=== PATIENT | female | born 1935 | race Caucasian/White ===

== ENCOUNTER 2021-09-09 07:24 | Observation (INO) | payer BC, MEDICARE ==
[2021-09-09] MEDS ORDERED: NITROGLYCERIN OINT 1 INCH/GM PACKET TOPICAL STA (07:29)
--- NOTE | 2021-09-09 07:39 | ED ---
General Adult HPI - General Chief complaint: Chest Pain Stated complaint: Chest Pain Time Seen by Provider: 09/09/21 07:24 Source: patient, EMS, RN notes reviewed, old records reviewed Mode of arrival: EMS Limitations: no limitations - History of Present Illness Initial comments: This is an 85-year-old female presents to the emergency department from [facility]. Patient came in with chest pain which started last night o'clock when she arrived they determined that she was having a heart attack so the gave her TNKase and then transferred the patient aspirin patient states she is currently chest pain-free. Patient states she has no cardiac history. Patient denies diabetes. Patient states she was just recently started on a high blood pressure medication. Patient denies any high cost for per patient is smoking per patient denies any shortness of breath but she stated that did have some pain in the left arm. Patient denies abdominal pain patient has nausea vomiting diarrhea. - Related Data Home Medications Medication Instructions Recorded Confirmed Ibandronate Sodium [Boniva] 150 mg PO QMONTHLY 09/09/21 09/09/21 Levothyroxine Sodium [Synthroid] 112 mcg PO DAILY 09/09/21 09/09/21 amLODIPine [Norvasc] 5 mg PO PC-SUPPER 09/09/21 09/09/21 Allergies Allergy/AdvReac Type Severity Reaction Status Date / Time No Known Allergies Allergy Verified 09/09/21 08:37 Review of Systems ROS Statement: Those systems with pertinent positive or pertinent negative responses have been documented in the HPI. ROS Other: All systems not noted in ROS Statement are negative. Past Medical History Past Medical History: Hypertension, Osteoarthritis (OA), Thyroid Disorder Additional Past Surgical History / Comment(s): Vericose veins 1977 Smoking Status: Never smoker Past Alcohol Use History: None Reported Past Drug Use History: None Reported General Exam - General Exam Comments Initial Comments: GENERAL: Patient is well-developed and well-nourished. Patient is nontoxic and well- hydrated and is in no acute distress. ENT: Neck is soft and supple. No significant lymphadenopathy is noted. Oropharynx is clear. Moist mucous membranes. Neck has full range of motion without eliciting any pain. EYES: The sclera were anicteric and conjunctiva were pink and moist. Extraocular movements were intact and pupils were equal round and reactive to light. Eyelids were unremarkable. PULMONARY: Unlabored respirations. Good breath sounds bilaterally. No audible rales rhonchi or wheezing was noted. CARDIOVASCULAR: There is a regular rate and rhythm without any murmurs gallops or rubs. ABDOMEN: Soft and nontender with normal bowel sounds. SKIN: Skin is clear with no lesions or rashes and otherwise unremarkable. NEUROLOGIC: Patient is alert and oriented x3. Cranial nerves II through XII are grossly intact. Motor and sensory are also intact. Normal speech, volume and content. Symmetrical smile. MUSCULOSKELETAL: Normal extremities with adequate strength and full range of motion. LYMPHATICS: No significant lymphadenopathy is noted PSYCHIATRIC: Normal psychiatric evaluation. Limitations: no limitations Course Vital Signs 09/09/21 09/09/21 07:26 07:33 Temperature 98.4 F Pulse Rate 87 Pulse Rate [ 87 Floor Layer ] Respiratory 16 Rate Blood Pressure 148/83 O2 Sat by Pulse 97 Oximetry Medical Decision Making - Medical Decision Making EKG shows sinus rhythm at 86 bpm TN interval is 174 QRS is 143 QT interval 36 QTC is 429 per patient's EKG shows no ST segment elevation or depression. Chest x-ray showed no acute abnormality. Dr. Watson came down and saw the patient and decided that he be taking the patient to the [facility] tomorrow. I started the patient on heparin for unstable angina. I spoke with Dr. Abdul he agreed to admit the patient admitted the patient I wrote admitting orders. I continued heparin has been Nitropaste on the floor. - Lab Data Result diagrams: 09/09/21 07:38 09/09/21 07:38 Lab Results 09/09/21 09/09/21 09/09/21 Range/Units 07:38 07:38 07:38 WBC 15.0 H (3.8-10.6) k/uL RBC 4.07 (3.80-5.40) m/uL Hgb 13.9 (11.4-16.0) gm/dL Hct 40.5 (34.0-46.0) % MCV 99.6 (80.0-100.0) fL MCH 34.2 (25.0-35.0) pg MCHC 34.3 (31.0-37.0) g/dL RDW 12.4 (11.5-15.5) % Plt Count 260 (150-450) k/uL MPV 7.6 Neutrophils % 91 % Lymphocytes % 2 % Monocytes % 6 % Eosinophils % 0 % Basophils % 0 % Neutrophils # 13.7 H (1.3-7.7) k/uL Lymphocytes # 0.2 L (1.0-4.8) k/uL Monocytes # 0.9 (0-1.0) k/uL Eosinophils # 0.1 (0-0.7) k/uL Basophils # 0.0 (0-0.2) k/uL PT 10.5 (9.0-12.0) sec INR 1.0 (<1.2) APTT 20.9 L (22.0-30.0) sec Sodium 130 L (137-145) mmol/L Potassium 4.4 (3.5-5.1) mmol/L Chloride 103 (98-107) mmol/L Carbon Dioxide 20 L (22-30) mmol/L Anion Gap 7 mmol/L BUN 16 (7-17) mg/dL Creatinine 0.55 (0.52-1.04) mg/dL Est GFR (CKD-EPI)AfAm >90 (>60 ml/min/1.73 sqM) Est GFR (CKD-EPI)NonAf 87 (>60 ml/min/1.73 sqM) Glucose 140 H (74-99) mg/dL Calcium 9.0 (8.4-10.2) mg/dL Magnesium 1.8 (1.6-2.3) mg/dL Total Bilirubin 1.1 (0.2-1.3) mg/dL AST 37 H (14-36) U/L ALT 20 (4-34) U/L Alkaline Phosphatase 57 (38-126) U/L Troponin I (0.000-0.034) ng/mL Total Protein 8.1 (6.3-8.2) g/dL Albumin 4.2 (3.5-5.0) g/dL 09/09/21 Range/Units 07:38 WBC (3.8-10.6) k/uL RBC (3.80-5.40) m/uL Hgb (11.4-16.0) gm/dL Hct (34.0-46.0) % MCV (80.0-100.0) fL MCH (25.0-35.0) pg MCHC (31.0-37.0) g/dL RDW (11.5-15.5) % Plt Count (150-450) k/uL MPV Neutrophils % % Lymphocytes % % Monocytes % % Eosinophils % % Basophils % % Neutrophils # (1.3-7.7) k/uL Lymphocytes # (1.0-4.8) k/uL Monocytes # (0-1.0) k/uL Eosinophils # (0-0.7) k/uL Basophils # (0-0.2) k/uL PT (9.0-12.0) sec INR (<1.2) APTT (22.0-30.0) sec Sodium (137-145) mmol/L Potassium (3.5-5.1) mmol/L Chloride (98-107) mmol/L Carbon Dioxide (22-30) mmol/L Anion Gap mmol/L BUN (7-17) mg/dL Creatinine (0.52-1.04) mg/dL Est GFR (CKD-EPI)AfAm (>60 ml/min/1.73 sqM) Est GFR (CKD-EPI)NonAf (>60 ml/min/1.73 sqM) Glucose (74-99) mg/dL Calcium (8.4-10.2) mg/dL Magnesium (1.6-2.3) mg/dL Total Bilirubin (0.2-1.3) mg/dL AST (14-36) U/L ALT (4-34) U/L Alkaline Phosphatase (38-126) U/L Troponin I <0.012 (0.000-0.034) ng/mL Total Protein (6.3-8.2) g/dL Albumin (3.5-5.0) g/dL Critical Care Time Critical Care Time: Yes Total Critical Care Time: 35 Disposition Clinical Impression: Unstable angina pectoris Disposition: ADMITTED IP TO THIS HOSP Referrals: Adia Angeles MD [Primary Care Provider] - 1-2 days Time of Disposition: 09:41
[2021-09-09 07:58] LABS: Basophils % (A) 0 %; Eosinophils # (A) 0.1 k/uL (0-0.7); Eosinophils % (A) 0 %; HCT 40.5 % (34.0-46.0); HGB 13.9 gm/dL (11.4-16.0); Lymphocytes # (A) 0.2 k/uL (1.0-4.8); Lymphocytes % (A) 2 %; MCH 34.2 pg (25.0-35.0); MCHC 34.3 g/dL (31.0-37.0); MCV 99.6 fL (80.0-100.0); Mean Platelet Volume 7.6; Monocytes # (A) 0.9 k/uL (0-1.0); Monocytes % (A) 6 %; Neutrophils # (A) 13.7 k/uL (1.3-7.7); Neutrophils % (A) 91 %; Platelet Count 260 k/uL (150-450); RBC 4.07 m/uL (3.80-5.40); RDW 12.4 % (11.5-15.5)
[2021-09-09 08:03] LABS: ALT 20 U/L (4-34); African American GFR (CKD) >90 (>60 ml/min/1.73 sqM); Albumin 4.2 g/dL (3.5-5.0); Anion Gap 7 mmol/L; Blood Urea Nitrogen 16 mg/dL (7-17); Carbon Dioxide 20 mmol/L (22-30); Chloride 103 mmol/L (98-107); Glucose 140 mg/dL (74-99); Non-African American GFR(CKD) 87 (>60 ml/min/1.73 sqM); Sodium 130 mmol/L (137-145); Total Bilirubin 1.1 mg/dL (0.2-1.3); Total Protein 8.1 g/dL (6.3-8.2)
[2021-09-09 08:12] LABS: AST 37 U/L (14-36); Alkaline Phosphatase 57 U/L (38-126); Magnesium 1.8 mg/dL (1.6-2.3); Potassium 4.4 mmol/L (3.5-5.1)
[2021-09-09 08:39] LABS: Prothrombin Time 10.5 sec (9.0-12.0)
[2021-09-09 08:40] LABS: Partial Thromboplastin Time 20.9 sec (22.0-30.0)
[2021-09-09] MEDS ORDERED: HEPARIN SOD,PORK IN 0.45% NACL 25,000 UNIT in 0.45% NACL 1 250ML.BAG IV SCH (09:00)
[2021-09-09] MEDS ORDERED: HEPARIN SODIUM 1,000 UN/ML (10ML VL) IV ONE ×2 (09:01→18:36)
[2021-09-09] MEDS ORDERED: NITROGLYCERIN SL TABS 0.4 MG TAB SUBLINGUAL PRN ×2 (09:41→11:10)
[2021-09-09] MEDS ORDERED: ALPRAZolam 0.25 MG TAB PO PRN (11:10)
[2021-09-09] MEDS ORDERED: ALPRAZolam 0.5 MG TAB PO PRN (11:10)
--- NOTE | 2021-09-09 11:10 | P.CRDCN ---
<Maddy Valentino - Last Filed: 09/09/21 10:52> History of Present Illness Consult date: 09/09/21 History of present illness: HISTORY OF PRESENT ILLNESS: This is a 85 year female with a past medical history significant for hypertension and hypothyroidism. 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 We have been asked to see the patient in consultation for chest pain. Patient examined at the bedside. Patient presented to the ER at [facility] for chest pain. Patient reports she developed chest pain last night. She reports having nausea but no vomiting. Patient was found to have an abnormal EKG. She was given TPA at [place] and transferred to [facility] for further evaluation. Patient states after she received TPA her chest pain resolved. She is chest pain free at the time of my examination. * EKG reveals sinus mechanism with right bundle branch block with ST elevation at the J point * Laboratory data: WBC 15.0. Hemoglobin 13.9. Platelet count 260. Sodium 130. Potassium 4.4. BUN 16. Creatinine 0.55. Magnesium 1.8. Troponin at [place] negative 1. Troponin negative 1 at this facility. * Current home cardiac medications include amlodipine 5 mg at night REVIEW OF SYSTEMS: At the time of my exam: CONSTITUTIONAL: Denies fever or chills. HEENT: Denies blurred vision, vision changes, or eye pain. Denies hemoptysis CARDIOVASCULAR: Denies chest pain. Denies orthopnea. Denies PND. Denies palpitations RESPIRATORY: Denies shortness of breath. GASTROINTESTINAL: Denies abdominal pain. Denies nausea or vomiting. HEMATOLOGIC: Denies bleeding disorders. GENITOURINARY: Denies any blood in urine. SKIN: Denies pruitis. Denies rash. PHYSICAL EXAM: VITAL SIGNS: Reviewed. GENERAL: Well-developed in no acute distress. HEENT: Head is normocephalic. Pupils are equal, round. Sclerae anicteric. Mucous membranes of the mouth are moist. Neck supple. No JVD or thyromegaly LUNGS: Respirations even and unlabored. Lungs essentially clear to auscultation bilaterally. HEART: Regular rate and rhythm. S1 and S2 heard. ABDOMEN: Soft. Nondistended. Nontender. EXTREMITIES: Normal range of motion. No clubbing or cyanosis. Peripheral pulses intact. No lower extremity edema NEUROLOGIC: Awake and alert. Oriented x 3. ASSESSMENT: Unstable angina with abnormal EKG revealing right bundle branch block with ST elevation at the J point Hypertension Hypothyroidism PLAN: Patients EKG is not clear cut for STEMI. However, her symptoms were concerning for angina and her symptoms were relieved with TPA infusion We will treat her with IV heparin, aspirin, metorprolol, and lipitor Obtain 2D echo to assess cardiac structure and function Patient will undergo cardiac cath tomorrow with Dr. Babin Nurse practitioner note has been reviewed by physician. Signing provider agrees with the documented findings, assessment, and plan of care. Past Medical History Past Medical History: Hypertension, Thyroid Disorder, Vascular Disorder Additional Past Medical History / Comment(s): Pt states she is on Ibandronate for prevention of osteoporosis but bone density has been normal, varicose veins/surgery. History of Any Multi-Drug Resistant Organisms: None Reported Past Surgical History: Tonsillectomy Additional Past Surgical History / Comment(s): Varicose veins 1978, colonoscopy, bilateral cataract removals/lens implants. Past Anesthesia/Blood Transfusion Reactions: No Reported Reaction Smoking Status: Never smoker - Past Family History Father Family Medical History: No Reported History Additional Family Medical History / Comment(s): Pt states her father was healthy and lived into his late 80s. Mother Family Medical History: No Reported History Additional Family Medical History / Comment(s): Pt states her mother was healthy and lived into her late 80s. Medications and Allergies Home Medications Medication Instructions Recorded Confirmed Type Ibandronate Sodium [Boniva] 150 mg PO QMONTHLY 09/09/21 09/09/21 History Levothyroxine Sodium [Synthroid] 112 mcg PO DAILY 09/09/21 09/09/21 History amLODIPine [Norvasc] 5 mg PO PC-SUPPER 09/09/21 09/09/21 History Allergies Allergy/AdvReac Type Severity Reaction Status Date / Time No Known Allergies Allergy Verified 09/09/21 08:37 Physical Exam Vitals: Vital Signs Temp Pulse Pulse Resp BP Pulse Ox 09/09/21 07:33 87 09/09/21 07:26 98.4 F 87 16 148/83 97 Intake and Output 09/08/21 09/09/21 09/09/21 22:59 06:59 14:59 Other: Weight 65.771 kg Results 09/09/21 07:38 09/09/21 07:38 Cardiac Enzymes 09/09/21 09/09/21 Range/Units 07:38 07:38 AST 37 H (14-36) U/L Troponin I <0.012 (0.000-0.034) ng/mL Coagulation 09/09/21 Range/Units 07:38 PT 10.5 (9.0-12.0) sec APTT 20.9 L (22.0-30.0) sec CBC 09/09/21 Range/Units 07:38 WBC 15.0 H (3.8-10.6) k/uL RBC 4.07 (3.80-5.40) m/uL Hgb 13.9 (11.4-16.0) gm/dL Hct 40.5 (34.0-46.0) % Plt Count 260 (150-450) k/uL Comprehensive Metabolic Panel 09/09/21 Range/Units 07:38 Sodium 130 L (137-145) mmol/L Potassium 4.4 (3.5-5.1) mmol/L Chloride 103 (98-107) mmol/L Carbon Dioxide 20 L (22-30) mmol/L BUN 16 (7-17) mg/dL Creatinine 0.55 (0.52-1.04) mg/dL Glucose 140 H (74-99) mg/dL Calcium 9.0 (8.4-10.2) mg/dL AST 37 H (14-36) U/L ALT 20 (4-34) U/L Alkaline Phosphatase 57 (38-126) U/L Total Protein 8.1 (6.3-8.2) g/dL Albumin 4.2 (3.5-5.0) g/dL Current Medications Generic Name Dose Route Start Last Admin Trade Name Freq PRN Reason Stop Dose Admin Aspirin 325 mg 09/10/21 09:00 Aspirin 325 Mg Tab PO DAILY [facility] Atorvastatin Calcium 80 mg 09/10/21 09:00 Atorvastatin 80 Mg Tab PO DAILY [facility] Heparin Sodium/Sodium Chloride 250 mls @ 7.893 mls/hr 09/09/21 09:00 09/09/21 09:18 25,000 unit/ Sodium Chloride IV 12 units/kg/hr .Q24H RODRIGO 7.893 mls/hr Administration Protocol 12 UNITS/KG/HR Metoprolol Tartrate 25 mg 09/09/21 21:00 Metoprolol Tartrate 25 Mg Tab PO BID RODRIGO Nitroglycerin 0.4 mg 09/09/21 09:41 Nitroglycerin Sl Tabs 0.4 Mg Tab SUBLINGUAL Q5M PRN Chest Pain Nitroglycerin 1 inch 09/09/21 12:00 Nitroglycerin Oint 1 Inch/Gm Packet TOPICAL Q6HR RODRIGO Intake and Output 09/08/21 09/09/21 09/09/21 22:59 06:59 14:59 Other: Weight 65.771 kg Patient Weight 09/10/21 06:59 Weight 65.771 kg 09/09/21 07:38 09/09/21 07:38 <Reed Watson - Last Filed: 09/09/21 15:01> Physical Exam Vitals: Vital Signs Temp Pulse Pulse Resp BP Pulse Ox 09/09/21 14:00 73 24 102/61 95 09/09/21 13:00 69 17 110/73 93 L 09/09/21 12:00 97.9 F 70 19 94/62 95 09/09/21 11:30 76 30 H 09/09/21 08:00 78 17 122/80 94 L 09/09/21 07:33 87 09/09/21 07:32 24 97 09/09/21 07:26 98.4 F 87 16 148/83 97 Intake and Output 09/09/21 09/09/21 09/09/21 06:59 14:59 22:59 Intake Total 360 Output Total 0 Balance 360 Intake: Oral 360 Output: Urine 0 Other: Weight 65.771 kg Results 09/09/21 07:38 09/09/21 07:38 Cardiac Enzymes 09/09/21 09/09/21 09/09/21 Range/Units 07:38 07:38 10:30 AST 37 H (14-36) U/L Troponin I <0.012 <0.012 (0.000-0.034) ng/mL Coagulation 09/09/21 Range/Units 07:38 PT 10.5 (9.0-12.0) sec APTT 20.9 L (22.0-30.0) sec CBC 09/09/21 Range/Units 07:38 WBC 15.0 H (3.8-10.6) k/uL RBC 4.07 (3.80-5.40) m/uL Hgb 13.9 (11.4-16.0) gm/dL Hct 40.5 (34.0-46.0) % Plt Count 260 (150-450) k/uL Comprehensive Metabolic Panel 09/09/21 Range/Units 07:38 Sodium 130 L (137-145) mmol/L Potassium 4.4 (3.5-5.1) mmol/L Chloride 103 (98-107) mmol/L Carbon Dioxide 20 L (22-30) mmol/L BUN 16 (7-17) mg/dL Creatinine 0.55 (0.52-1.04) mg/dL Glucose 140 H (74-99) mg/dL Calcium 9.0 (8.4-10.2) mg/dL AST 37 H (14-36) U/L ALT 20 (4-34) U/L Alkaline Phosphatase 57 (38-126) U/L Total Protein 8.1 (6.3-8.2) g/dL Albumin 4.2 (3.5-5.0) g/dL Current Medications Generic Name Dose Route Start Last Admin Trade Name Freq PRN Reason Stop Dose Admin Alprazolam 0.25 mg 09/09/21 11:10 Alprazolam 0.25 Mg Tab PO Q6HR PRN Mild Anxiety Alprazolam 0.5 mg 09/09/21 11:10 Alprazolam 0.5 Mg Tab PO Q6HR PRN Moderate Anxiety Aspirin 81 mg 09/10/21 09:00 Aspirin 81 Mg PO DAILY [facility] Aspirin 325 mg 09/10/21 06:00 Aspirin 325 Mg Tab PO 09/10/21 06:01 ONCE ONE Atorvastatin Calcium 80 mg 09/10/21 09:00 Atorvastatin 80 Mg Tab PO DAILY [facility] Atorvastatin Calcium 80 mg 09/10/21 06:00 Atorvastatin 80 Mg Tab PO 09/10/21 06:01 ONCE ONE Heparin Sodium/Sodium Chloride 250 mls @ 7.893 mls/hr 09/09/21 09:00 09/09/21 09:18 25,000 unit/ Sodium Chloride IV 12 units/kg/hr .Q24H RODRIGO 7.893 mls/hr Administration Protocol 12 UNITS/KG/HR Heparin Sodium (Porcine) 10, 1,001 mls @ 999 mls/hr 09/10/21 07:00 000 unit/ Sodium Chloride IRRIGATION 09/10/21 23:00 ONCE PRN INTRA-OP Heparin Sodium (Porcine) 2,500 250.5 mls @ 250 mls/hr 09/10/21 07:00 unit/ Sodium Chloride IRRIGATION 09/10/21 23:00 ONCE PRN INTRA-OP Sodium Chloride 1,000 ml/ IV 1,000 mls @ 65.771 mls/hr 09/09/21 23:00 Solution IV .[id number] RODRIGO 1 ML/KG/HR Metoprolol Tartrate 25 mg 09/09/21 21:00 Metoprolol Tartrate 25 Mg Tab PO BID RODRIGO Nitroglycerin 0.4 mg 09/09/21 09:41 Nitroglycerin Sl Tabs 0.4 Mg Tab SUBLINGUAL Q5M PRN Chest Pain Nitroglycerin 1 inch 09/09/21 12:00 09/09/21 13:58 Nitroglycerin Oint 1 Inch/Gm Packet TOPICAL Not Given Q6HR RODRIGO Nitroglycerin 0.4 mg 09/09/21 11:10 Nitroglycerin Sl Tabs 0.4 Mg Tab SUBLINGUAL Q5M PRN Chest Pain Intake and Output 09/09/21 09/09/21 09/09/21 06:59 14:59 22:59 Intake Total 360 Output Total 0 Balance 360 Intake: Oral 360 Output: Urine 0 Other: Weight 65.771 kg Patient Weight 09/10/21 06:59 Weight 65.771 kg 09/09/21 07:38 09/09/21 07:38
[2021-09-09 11:34] LABS: Glucose,Whole Blood 132 mg/dL (75-99)
[2021-09-09] MEDS: NITROGLYCERIN OINT 1 INCH/GM PACKET TOPICAL SCH (13:58)
--- NOTE | 2021-09-09 15:31 | P.HPIM ---
History of Present Illness H&P Date: 09/09/21 Chief Complaint: Chest pressure This is a very pleasant 85-year-old patient who follows with Dr. Adia Angeles. Chronic stable medical conditions include hypertension, hypothyroid, urinary incontinence and wears diapers, hard of hearing. Last night patient felt tired and unwell and developed pressure across the chest. No nausea vomiting. No shortness of breath. No radiation. Last was several hours. Subsequently patient presented to [facility]. Patient is felt to have ST elevation in inferolateral leads and was given TPA. Then transferred down here. Patient was seen by cardiology here felt to have J-point elevation. Put on IV heparin. Plan is for patient to get cardiac catheterization tomorrow. Troponins have been negative. Currently no chest pain. In the ICU. On IV heparin Review of systems: GEN.: Tired EYES: None HEENT: Hard of hearing NECK: None RESPIRATORY: None CARDIOVASCULAR: As above GASTROINTESTINAL: None GENITOURINARY: Urine incontinence MUSCULOSKELETAL: None LYMPHATICS: None HEMATOLOGICAL: None PSYCHIATRY: None NEUROLOGICAL: None Past medical history to include: Hypertension, hypothyroid, urinary incontinence, hard of hearing Social history: No history of smoking or alcohol. Lives with her . Family history: Reviewed, noncontributory to presentation Physical examination: VITAL SIGNS: 97.9, 70, 19, 90/62, 95% room air GENERAL: BMI 24.1, laying in bed, awake, not in distress. EYES: Pupils equal. Conjunctiva normal. HEENT: External appearance of nose and ears normal, oral cavity grossly normal. Hard of hearing NECK: JVD not raised; masses not palpable. HEART: First and second heart sounds are normal; no edema. LUNGS: Respiratory rate normal; clear to auscultation. ABDOMEN: Soft, nontender, liver spleen not palpable, no masses palpable. PSYCH: Alert and oriented x3; mood and affect normal. MUSCULOSKELETAL:No Clubbing/cyanosis;muscles-grossly intact. Evidence of OA especially in the knees and hands NEUROLOGICAL: Cranial nerves grossly intact; no facial asymmetry, power and sensation grossly intact. LYMPHATICS: No lymph nodes palpable in the axilla and neck INVESTIGATIONS, reviewed in the clinical context: White count 15 hemoglobin 13.9 platelets 260 sodium 1:30 potassium 4.4 BUN 16 creatinine 0.5 Troponin I 3 negative Investigations from [facility]: White count 12.1 hemoglobin 12.5 platelets 265 EKG tracing personally reviewed by me-possible J-point elevation in inferolateral leads. Sinus rhythm. Assessment and plan: -Possible unstable angina in a patient who presented with cardiac sounding pain for several hours to [facility]. Possible J-point elevation on EKG. Troponins have been negative. Patient did receive TPA IV heparin, aspirin, cartilages planning for a cardiac cath tomorrow -IV heparin monitoring Follow PTT -Primary osteoarthritis multiple joints Pain medications if needed -Chronic urinary stress incontinence -Hypothyroid Synthroid 112 g a day -Essential hypertension Lopressor 25 mg twice a day ICU. Telemetry. IV heparin. Lopressor. Aspirin. Her cardiac catheterization tomorrow. Lipitor. Care was discussed with the patient. Questions answered. Past Medical History Past Medical History: Hypertension, Thyroid Disorder, Vascular Disorder Additional Past Medical History / Comment(s): Pt states she is on Ibandronate for prevention of osteoporosis but bone density has been normal, varicose veins/surgery. History of Any Multi-Drug Resistant Organisms: None Reported Past Surgical History: Tonsillectomy Additional Past Surgical History / Comment(s): Varicose veins 1978, colonoscopy, bilateral cataract removals/lens implants. Past Anesthesia/Blood Transfusion Reactions: No Reported Reaction Smoking Status: Never smoker - Past Family History Father Family Medical History: No Reported History Additional Family Medical History / Comment(s): Pt states her father was healthy and lived into his late 80s. Mother Family Medical History: No Reported History Additional Family Medical History / Comment(s): Pt states her mother was healthy and lived into her late 80s. Medications and Allergies Home Medications Medication Instructions Recorded Confirmed Type Ibandronate Sodium [Boniva] 150 mg PO QMONTHLY 09/09/21 09/09/21 History Levothyroxine Sodium [Synthroid] 112 mcg PO DAILY 09/09/21 09/09/21 History amLODIPine [Norvasc] 5 mg PO PC-SUPPER 09/09/21 09/09/21 History Allergies Allergy/AdvReac Type Severity Reaction Status Date / Time No Known Allergies Allergy Verified 09/09/21 08:37 Physical Exam Vitals: Vital Signs Temp Pulse Pulse Resp BP Pulse Ox 09/09/21 07:33 87 09/09/21 07:26 98.4 F 87 16 148/83 97 Intake and Output 09/08/21 09/09/21 09/09/21 22:59 06:59 14:59 Other: Weight 65.771 kg Results CBC & Chem 7: 09/09/21 07:38 09/09/21 07:38 Labs: Abnormal Lab Results - Last 24 Hours (Table) 09/09/21 09/09/21 09/09/21 Range/Units 07:38 07:38 07:38 WBC 15.0 H (3.8-10.6) k/uL Neutrophils # 13.7 H (1.3-7.7) k/uL Lymphocytes # 0.2 L (1.0-4.8) k/uL APTT 20.9 L (22.0-30.0) sec Sodium 130 L (137-145) mmol/L Carbon Dioxide 20 L (22-30) mmol/L Glucose 140 H (74-99) mg/dL AST 37 H (14-36) U/L Thrombosis Risk Factor Assmnt - Choose All That Apply Any of the Below Risk Factors Present?: Yes Each Factor Represents 1 point: Acute SD, Varicose veins Other Risk Factors: Yes Each Risk Factor Represents 3 Points: Age 75 years or older Other congenital or acquired thrombophilia - If yes, enter type in comment: No Thrombosis Risk Factor Assessment Total Risk Factor Score: 5 Thrombosis Risk Factor Assessment Level: High Risk
[2021-09-09] MEDS ORDERED: ATORVASTATIN 80 MG TAB PO ONE (15:45)
--- NOTE | 2021-09-09 16:03 | XR ---
EXAMINATION TYPE: XR chest 1V portable DATE OF EXAM: 09/09/2021 COMPARISON: NONE HISTORY: Chest pain TECHNIQUE: Single frontal view of the chest is obtained. FINDINGS: There is a large hiatal hernia suspected with abdominal contents present within the chest. No evident pneumothorax. Difficult to exclude airspace disease, fusion. Heart is obscured. There are overlying leads. Aorta is dense. IMPRESSION: Large diaphragmatic hernia suspected. CT could be performed for better evaluation.
[2021-09-09] MEDS ORDERED: VERAPAMIL 2.5 MG/ML 2 ML AMP ONE (18:06)
[2021-09-09] MEDS ORDERED: LIDOCAINE 1% INJ 10MG/ML (20 ML MDV) ONE (18:06)
[2021-09-09] MEDS ORDERED: HEPARIN SODIUM 1,000 UN/ML (10ML VL) ONE (18:06)
[2021-09-09] MEDS ORDERED: MIDAZOLAM 2 MG/2 ML VIAL IV ONE (18:20)
[2021-09-09] MEDS ORDERED: LIDOCAINE 1% INJ 10MG/ML (20 ML MDV) SQ ONE (18:22)
[2021-09-09] MEDS ORDERED: IV FLUID CONTINUATION 800 ML IV ONE (18:23)
[2021-09-09] MEDS ORDERED: VERAPAMIL SYRINGE (5 MG/10 ML) INTRAARTER ONE (18:34)
[2021-09-09] MEDS ORDERED: IOPAMIDOL-370 100ML BTL INJ ONE (18:42)
[2021-09-09] MEDS ORDERED: ACETAMINOPHEN TAB 325 MG TAB PO PRN (19:49)
[2021-09-09] MEDS: METOPROLOL TARTRATE 25 MG TAB PO SCH (20:06)
--- NOTE | 2021-09-09 20:30 | CC ---
CARDIAC CATHETERIZATION REPORT DATE OF SERVICE: 09/09/2021 PROCEDURE: Left heart catheterization and coronary angiography. PERFORMED BY: Dr. Susan Babin. Moderate conscious sedation time was 25 minutes. Patient was administered Versed. Oxygen saturation, hemodynamics and EKG were monitored closely. CLINICAL INFORMATION: Mrs. Escamilla is an 85-year-old lady with a history of hypertension who was transferred from an outside facility after receiving tPA for what seems to be a precordial ST elevation. She actually had J-point elevation, no troponin rise. LV function was normal. She was advised cardiac catheterization, given the episodes of chest tightness and pressure. Risks, benefits and options were explained. Patient was seen and evaluated by Dr. Watson. PROCEDURE NOTE: Under local anesthesia and strict aseptic precautions, a 6-Lao introducer was placed in the right radial artery. JL3.5 and JR4 catheters were used to perform coronary angiography. The right Oumou catheter was used to check LV pressures. Following the procedure, the sheath was taken out and TR band applied as per protocol with saturation in the fingers of the right hand of more than 95%. Patient tolerated the procedure well without complication. The results were discussed with the patient as well as a phone call to her . CARDIAC CATHETERIZATION FINDINGS: Left ventricular end-diastolic pressure was about 9 mmHg without any gradient across the aortic valve. CORONARY ANGIOGRAPHY FINDINGS: RIGHT CORONARY ARTERY: Large dominant vessel. No significant disease. Distally bifurcates into PDA and PLV, both of which supply a large amount of myocardium. No significant disease. LEFT MAIN CORONARY ARTERY: Short, patent vessel free of significant disease that immediately bifurcates into LAD and circumflex. LEFT ANTERIOR DESCENDING CORONARY ARTERY: Good-caliber vessel gives off 2 large diagonal branches, one good-sized septal branch, runs all the way to the apex, supplies a sizable amount of myocardium. No significant disease in the LAD, diagonal or septal branches. LEFT POSTERIOR CIRCUMFLEX CORONARY ARTERY: This is a nondominant vessel which is of fair caliber and distribution, supplies a fair amount of myocardium. It gives off a good-sized obtuse marginal that runs laterally. There are minor irregularities in the nondominant circumflex, which is of fair caliber and distribution, but no significant disease. FINAL IMPRESSION: This patient has a right-dominant system, normal filling pressures. No significant obstructive CAD. RECOMMENDATIONS: Findings were discussed with the patient and her . She will be continued with medical therapy and sent back to her room. Procedure was performed uneventfully and patient has no significant obstructive CAD. VINOD / IJN: [id number] /
[2021-09-09] MEDS ORDERED: SODIUM CHLORIDE 0.9% 1,000 ML in EMPTY BAG 1 BAG IV SCH (23:00)
[2021-09-10 05:53] LABS: Basophils % (A) 0 %; Eosinophils % (A) 1 %; HCT 36.4 % (34.0-46.0); Lymphocytes # (A) 0.7 k/uL (1.0-4.8); Lymphocytes % (A) 7 %; MCH 33.2 pg (25.0-35.0); MCHC 32.9 g/dL (31.0-37.0); MCV 101.1 fL (80.0-100.0); Monocytes # (A) 0.8 k/uL (0-1.0); Monocytes % (A) 9 %; Neutrophils # (A) 7.6 k/uL (1.3-7.7); Neutrophils % (A) 81 %; Platelet Count 227 k/uL (150-450); RDW 11.9 % (11.5-15.5); WBC 9.4 k/uL (3.8-10.6)
[2021-09-10] MEDS ORDERED: ASPIRIN 325 MG TAB PO ONE (06:00)
[2021-09-10] MEDS ORDERED: ATORVASTATIN 80 MG TAB PO ONE (06:00)
[2021-09-10] MEDS ORDERED: LEVOTHYROXINE 112 MCG TAB PO SCH (06:30)
[2021-09-10] MEDS ORDERED: HEPARIN SODIUM,PORCINE 10,000 UNIT in SODIUM CHLORIDE 0.9% 1,000 ML IRRIGATION PRN (07:00)
[2021-09-10] MEDS ORDERED: HEPARIN SODIUM,PORCINE 2,500 UNIT in SODIUM CHLORIDE 0.9% 250 ML IRRIGATION PRN (07:00)
[2021-09-10] MEDS: METOPROLOL TARTRATE 25 MG TAB PO SCH (08:04)
[2021-09-10] MEDS ORDERED: ASPIRIN 81 MG PO SCH (09:00)
[2021-09-10] MEDS ORDERED: LOSARTAN 25 MG TAB PO SCH (09:00)
[2021-09-10] MEDS ORDERED: ASPIRIN 325 MG TAB PO SCH (09:00)
[2021-09-10] MEDS ORDERED: ATORVASTATIN 40 MG TAB PO SCH (09:00)
[2021-09-10] MEDS ORDERED: ATORVASTATIN 80 MG TAB PO SCH (09:00)
[2021-09-10 09:26] VITALS: RESP 18; TEMP 98
[2021-09-10] MEDS: NITROGLYCERIN OINT 1 INCH/GM PACKET TOPICAL SCH (09:30)
--- NOTE | 2021-09-10 09:31 | ECHOF ---
Referral Reason:lv function MEASUREMENTS -------- HEIGHT: 165.1 cm WEIGHT: 65.8 kg BP: 94/62 RVIDd: 4.7 cm (< 3.3) IVSd: 1.5 cm (0.6 - 1.1) LVIDd: 2.7 cm (3.9 - 5.3) LVPWd: 1.4 cm (0.6 - 1.1) EDV(Teich): 27 ml IVSs: 1.4 cm LVIDs: 1.7 cm LVPWs: 1.2 cm IVSd: 1.2 cm (0.6 - 1.1) LVIDd: 2.7 cm (3.9 - 5.3) LVPWd: 1.1 cm (0.6 - 1.1) IVSs: 1.5 cm LVIDs: 1.5 cm LVPWs: 1.5 cm EDV(Teich): 27 ml ESV(Teich): 6 ml EF(Teich): 79 % %FS: 46 % SV(Teich): 22 ml MV E Te: 0.87 m/s MV DecT: 262 ms MV A Te: 0.95 m/s MV E/A Ratio: 0.92 RAP: 5.00 mmHg RVSP: 27.27 mmHg FINDINGS -------- Sinus rhythm. This was a technically difficult study with suboptimal parasternal views. The left ventricular size is normal. There is mild concentric left ventricular hypertrophy. Overa ll left ventricular systolic function is normal with, an EF between 55 - 60 %. Basal anterior LV wa ll motion is hypokinetic. Mid anterior LV wall motion is hypokinetic. The right ventricle is severely enlarged. Normal LA size by volume 22+/-6 ml/m2. The right atrium was not well visualized. Interatrial and interventricular septum intact. There is no evidence of aortic regurgitation. There is no evidence of aortic stenosis. No mitral regurgitation. Mild tricuspid regurgitation present. There is no evidence of pulmonary hypertension. The right v entricular systolic pressure, as measured by Doppler, is 27.27mmHg. The pulmonic valve was not well visualized. The aortic root size is normal. IVC Not well visulized. There is a moderate, generalized pericardial effusion present. CONCLUSIONS -------- 1. The left ventricular size is normal. 2. There is mild concentric left ventricular hypertrophy. 3. Overall left ventricular systolic function is normal with, an EF between 55 - 60 %. 4. Basal anterior LV wall motion is hypokinetic. 5. Mid anterior LV wall motion is hypokinetic. 6. Mild tricuspid regurgitation present. 7. There is a moderate, generalized pericardial effusion present. ORDER BOOKER: Catherine Fischer RDCS
[2021-09-10 09:48] LABS: Chol/HDL Ratio 1.72 Ratio; LDL Cholesterol,Calculated 49.5 mg/dL (0.0-131.0)
[2021-09-10] MEDS ORDERED: LACTULOSE 20 GM/30 ML CUP PO ONE (11:09)
--- NOTE | 2021-09-10 11:20 | P.PN ---
Subjective Patient is doing well No chest discomfort Resting comfortably in bed Denies any dizziness lightheadedness palpitations or chest discomfort She was admitted with chest discomfort and possible ST elevations with an underlying right bundle branch block and received TPA at [facility] However her troponins are normal and the subsequent troponin was also normal She then underwent coronary angiography which did not reveal any significant coronary stenosis A 2-D echo shows mild anterior wall hypokinesis with pericardial effusion seems old and organized This may be the cause of her chest pain Vitals are stable blood pressure 124/71 mmHg pulse rate in the 70s Afebrile Normal heart sounds normal S1 normal S2 Breath sounds are clear no rhonchi no crackles Abdomen soft Extremities warm no edema Impression sinus mechanism with a right bundle branch block pattern no evidence for hyperacute ST segments No evidence for acute myocardial infarction Patient received TPA for possible ST elevation LA at [facility] but tender that she did not have an LA in the first place Pericarditis, subacute to chronic Mild hypokinesis in the anterior segments of the LV, overall function is preserved Plan Parvovirus B19, coxsackievirus, Marleny-Huynh virus antibodies sent Continue current medications including metoprolol losartan atorvastatin and aspirin Follow-up with Dr. gorman in 2 weeks Objective - Vital Signs Vital signs: Vital Signs Temp 98.0 F 09/10/21 09:25 Pulse 72 09/10/21 09:27 Resp 18 09/10/21 09:27 BP 133/74 09/10/21 09:25 Pulse Ox 95 09/10/21 09:25 Intake & Output 09/09/21 09/10/21 09/10/21 18:59 06:59 18:59 Intake Total 735 797.483 Output Total 300 650 0 Balance 435 147.483 0 Weight 65.771 kg 79.878 kg Intake: IV 50 525 Sodium Chloride 0.9% 1, 525 000 ml In Empty Bag 1 bag @ 75 mls/hr IV .[id number] [facility] Rx#:[id number] Intake, IV Titration 325 152.483 Amount Heparin Sod,Pork in 0.45% 77.483 NaCl 25,000 unit In 0.45 % NaCl 1 250ml.bag @ 12 UNITS/KG/HR 7.893 mls/hr IV .Q24H [facility] Rx#: [id number] Sodium Chloride 0.9% 1, 325 75 000 ml In Empty Bag 1 bag @ 75 mls/hr IV .[id number] [facility] Rx#:[id number] Oral 360 120 Output: Urine 300 650 0 Other: Voiding Method Toilet # Voids 1 - Labs CBC & Chem 7: 09/10/21 05:23 09/09/21 07:38 Labs: Abnormal Lab Results - Last 24 Hours (Table) 09/09/21 09/10/21 09/10/21 Range/Units 11:32 05:23 05:23 RBC 3.60 L (3.80-5.40) m/uL MCV 101.1 H (80.0-100.0) fL Lymphocytes # 0.7 L (1.0-4.8) k/uL POC Glucose (mg/dL) 132 H (75-99) mg/dL HDL Cholesterol 84.70 H (40.00-60.00) mg/dL
[2021-09-10 12:07] VITALS: BP 135/64; PULSE 71
[2021-09-10 19:01] LABS: EBV-EA (IgG) <0.2 AI; EBV-EBNA(IgG) <0.2 AI; EBV-VCA (IgG) <0.2 AI; EBV-VCA (IgM) <0.2 AI
--- NOTE | 2021-09-10 21:25 | P.DS ---
Providers Date of admission: 09/09/21 09:41 Expected date of discharge: 09/10/21 Attending physician: Clifton Abdul Consults: 09/09/21 09:41 Consult Physician Urgent Consulting Provider: [facility] Consult Reason/Comments: Unstable angina Do you want consulting provider notified?: Yes Primary care physician: Adia Angeles [facility] Course: Chief Complaint: Chest pressure This is a very pleasant 85-year-old patient who follows with Dr. Adia Angeles. Chronic stable medical conditions include hypertension, hypothyroid, urinary incontinence and wears diapers, hard of hearing. Last night patient felt tired and unwell and developed pressure across the chest. No nausea vomiting. No shortness of breath. No radiation. Last was several hours. Subsequently patient presented to [facility]. Patient is felt to have ST elevation in inferolateral leads and was given TPA. Then transferred down here. Patient was seen by cardiology here felt to have J-point elevation. Put on IV heparin. Plan is for patient to get cardiac catheterization tomorrow. Troponins have been negative. Currently no chest pain. In the ICU. On IV heparin. Patient underwent cardiac catheterization by Dr. CHELO Babin. No significant CAD. Patient may have had an element of pericarditis. 2-D echo showed some pericardial effusion. September 10: Patient feeling well. Seen by Dr. Syd Watson Patient may have had an element of pericarditis. No obstructive disease. Patient is symptom-free. will follow outpatient with cardiology. Past medical history to include: Hypertension, hypothyroid, urinary incontinence, hard of hearing Social history: No history of smoking or alcohol. Lives with her . Family history: Reviewed, noncontributory to presentation Physical examination: VITAL SIGNS: 98, 72, 18, 133/74, 95% room air GENERAL: Laying in bed, comfortable EYES: Pupils equal. Conjunctiva normal. HEENT: External appearance of nose and ears normal, oral cavity grossly normal. Hard of hearing NECK: JVD not raised; masses not palpable. HEART: First and second heart sounds are normal; no edema. LUNGS: Respiratory rate normal; clear to auscultation. ABDOMEN: Soft, nontender, liver spleen not palpable, no masses palpable. PSYCH: Alert and oriented x3; mood and affect normal. MUSCULOSKELETAL:No Clubbing/cyanosis;muscles-grossly intact. Evidence of OA especially in the knees and hands INVESTIGATIONS, reviewed in the clinical context: Cardiac catheterization: Minimal CAD 2-D echocardiogram: EF 55-60%. Some wall motion abnormality. Moderate generalized pericardial effusion. September 10: White count 9.4 hemoglobin 12 LDL 49 Marleny-Huynh viral serology: Negative White count 15 hemoglobin 13.9 platelets 260 sodium 1:30 potassium 4.4 BUN 16 creatinine 0.5 Troponin I 3 negative Investigations from [facility]: White count 12.1 hemoglobin 12.5 platelets 265 EKG tracing personally reviewed by me-possible J-point elevation in inferolateral leads. Sinus rhythm. Chest x-ray film: Large hiatal hernia Assessment and plan: -Possible pericarditis could be viral Motrin 600 mg 3 times a day for 7 days -Moderate pericardial effusion: Asymptomatic -IV heparin monitoring: Discontinued Follow PTT -Primary osteoarthritis multiple joints Pain medications if needed -Chronic urinary stress incontinence -Hypothyroid Synthroid 112 g a day -Essential hypertension Lopressor 25 mg twice a day Disposition: Home Plan - Discharge Summary Discharge Rx Participant: No New Discharge Prescriptions: New Aspirin 81 mg PO DAILY Losartan [Cozaar] 25 mg PO DAILY #30 tab Atorvastatin [Lipitor] 40 mg PO DAILY #30 tab Metoprolol Tartrate [Lopressor] 25 mg PO BID #60 tab Nitroglycerin Sl Tabs [Nitrostat] 0.4 mg SUBLINGUAL Q5M PRN #30 tab PRN Reason: Chest Pain Continue Levothyroxine Sodium [Synthroid] 112 mcg PO DAILY Ibandronate Sodium [Boniva] 150 mg PO QMONTHLY Discontinued amLODIPine [Norvasc] 5 mg PO PC-SUPPER Discharge Medication List Ibandronate Sodium [Boniva] 150 mg PO QMONTHLY 09/09/21 [History] Levothyroxine Sodium [Synthroid] 112 mcg PO DAILY 09/09/21 [History] Aspirin 81 mg PO DAILY 09/10/21 [Rx] Atorvastatin [Lipitor] 40 mg PO DAILY #30 tab 09/10/21 [Rx] Losartan [Cozaar] 25 mg PO DAILY #30 tab 09/10/21 [Rx] Metoprolol Tartrate [Lopressor] 25 mg PO BID #60 tab 09/10/21 [Rx] Nitroglycerin Sl Tabs [Nitrostat] 0.4 mg SUBLINGUAL Q5M PRN #30 tab 09/10/21 [Rx] Follow up Appointment(s)/Referral(s): Reed Watson MD [STAFF PHYSICIAN] - 2 Weeks (office will call you with follow up appointment) Adia Angeles MD [Primary Care Provider] - 09/21/21 10:00 am Patient Instructions/Handouts: Heart Catheterization (DC) Discharge Disposition: HOME SELF-CARE
[2021-09-13 12:28] LABS: Parvovirus B-19 IgM Antibodies 0.04 INDEX (<=0.90)
[2021-09-13 12:29] LABS: Parvovirus B-19 IgG Antibodies 2.19 INDEX (<=0.90)
== END 2021-09-10 12:15 | disposition home or self-care (01) ==
LOC: EC 07:24 → 3SCARD 09:41 → INTOOBSV 09:41 → 2SICU 10:34 → 3SCARD 09-10 09:20 → UNDODISIN 09-10 12:15
PROVIDERS: ADMIT Hospitalist; ATTEND Hospitalist
DX: R07.9 Chest pain, unspecified (principal); I31.3 Pericardial effusion (noninflammatory); I20.0 Unstable angina; I45.10 Unspecified right bundle-branch block; R11.0 Nausea; M79.602 Pain in left arm; I10 Essential (primary) hypertension; H91.90 Unspecified hearing loss, unspecified ear; E03.9 Hypothyroidism, unspecified; M15.9 Polyosteoarthritis, unspecified; N39.3 Stress incontinence (female) (male); K44.9 Diaphragmatic hernia without obstruction or gangrene; I07.1 Rheumatic tricuspid insufficiency; I83.90 Asymptomatic varicose veins of unspecified lower extremity; Z71.9 Counseling, unspecified; Z79.899 Other long term (current) drug therapy; Z79.890 Hormone replacement therapy; Z79.83 Long term (current) use of bisphosphonates; Z96.1 Presence of intraocular lens
CPT/HCPCS: 96376; 96365; 96366; 99291; 36415; 93005; 93306; 93458; 86747 ×2; 86665 ×2; 80061; 80053; 86663; 83735; 84484; 85025 ×2; 86658; 85610; 85730; 86664; 71045; G0378 ×4; C1769 ×2; C1894; J2250; J2001; J1644 ×2; Q9967; 96374

== ENCOUNTER 2021-10-18 13:22 | Inpatient (IN) | payer MEDICARE ==
--- NOTE | 2021-10-18 13:50 | ED ---
General Adult HPI - General Chief complaint: Shortness of Breath Stated complaint: Swelling Feet, Weakness Time Seen by Provider: 10/18/21 13:37 Source: patient, RN notes reviewed, old records reviewed Mode of arrival: ambulatory Limitations: no limitations - History of Present Illness Initial comments: 85-year-old female presenting for evaluation of lower extremity swelling and dyspnea. Symptoms have progressed over the past 3 days. Patient denies fever. She denies chest pain. She is not currently on any diuretics. She states she had a heart catheterization on a recent admission and was told this was normal. Is also had very poor appetite and nausea. No abdominal pain. - Related Data Home Medications Medication Instructions Recorded Confirmed Ibandronate Sodium [Boniva] 150 mg PO Q30D 09/09/21 10/18/21 Levothyroxine Sodium [Synthroid] 112 mcg PO DAILY 09/09/21 10/18/21 Calcium Carbonate [Calcium] 600 mg PO DAILY 10/18/21 10/18/21 Cholecalciferol [Vitamin D3 (25 25 mcg PO DAILY 10/18/21 10/18/21 Mcg = 1000 Iu)] Glucosamine HCl/Chondroitin Joseph 1 cap PO BID 10/18/21 10/18/21 [Glucosamine-Chondroitin Cap] Multivit-Min/FA/Lycopen/Lutein 1 tab PO DAILY 10/18/21 10/18/21 [Centrum Silver Tablet] Nitroglycerin Sl Tabs [Nitrostat] 0.4 mg SL Q5M PRN 10/18/21 10/18/21 Previous Rx's Medication Instructions Recorded Aspirin 81 mg PO DAILY 09/10/21 Metoprolol Tartrate [Lopressor] 25 mg PO BID #60 tab 09/10/21 Allergies Allergy/AdvReac Type Severity Reaction Status Date / Time No Known Allergies Allergy Verified 10/18/21 14:54 Review of Systems ROS Statement: Those systems with pertinent positive or pertinent negative responses have been documented in the HPI. ROS Other: All systems not noted in ROS Statement are negative. Past Medical History Past Medical History: Hypertension, Thyroid Disorder, Vascular Disorder Additional Past Medical History / Comment(s): Pt states she is on Ibandronate for prevention of osteoporosis but bone density has been normal, varicose veins/surgery. History of Any Multi-Drug Resistant Organisms: None Reported Past Surgical History: Tonsillectomy Additional Past Surgical History / Comment(s): Varicose veins 1978, colonoscopy, bilateral cataract removals/lens implants. Past Anesthesia/Blood Transfusion Reactions: No Reported Reaction Past Psychological History: No Psychological Hx Reported Smoking Status: Never smoker Past Alcohol Use History: None Reported Past Drug Use History: None Reported - Past Family History Father Family Medical History: No Reported History Additional Family Medical History / Comment(s): Pt states her father was healthy and lived into his late 80s. Mother Family Medical History: No Reported History Additional Family Medical History / Comment(s): Pt states her mother was healthy and lived into her late 80s. General Exam Limitations: no limitations General appearance: alert, in no apparent distress Head exam: Present: atraumatic, normocephalic Eye exam: Present: normal appearance, PERRL Neck exam: Present: normal inspection Respiratory exam: Present: rales, decreased breath sounds. Absent: respiratory distress Cardiovascular Exam: Present: regular rate, normal rhythm GI/Abdominal exam: Present: soft. Absent: distended, tenderness, guarding Extremities exam: Present: pedal edema Neurological exam: Present: alert, oriented X3, CN II-XII intact. Absent: motor sensory deficit Psychiatric exam: Present: normal affect, normal mood Skin exam: Present: warm, dry, intact. Absent: cyanosis, diaphoretic Course Vital Signs 10/18/21 10/18/21 13:35 13:37 Temperature 97.9 F Pulse Rate 107 H Respiratory 16 18 Rate Blood Pressure 133/82 O2 Sat by Pulse 98 Oximetry EKG Findings - EKG Comments: EKG Findings:: EKG: Sinus tachycardia with first-degree AV block, right bundle branch block, artifact in V4 and V5. Ventricular rate of 105, NE interval 211 QRS duration 128, QTC 45 Medical Decision Making - Medical Decision Making 85-year-old female presenting with progressive dyspnea and lower extremity swelling over the past 3 days. Patient is mild to moderately tachypneic with decreased air entry bilaterally and rales bilaterally. Chest x-ray shows bilateral effusion as well as stable diaphragmatic hernia. She has a CBC which is normal with exception of thrombocytosis. She has a sodium of 1:30. Normal kidney function. Negative troponin, negative BNP. She had a heart cath performed 1 month ago which showed no significant obstructive CAD. She had an ultrasound at that time which showed normal EF and moderate effusion. I am concerned that there may be worsening of this effusion, repeat echo has been ordered, results are pending. She will be admitted to Dr. Abdul with cardiology on consult. - Lab Data Result diagrams: 10/18/21 14:06 10/18/21 14:06 Lab Results 10/18/21 10/18/21 10/18/21 Range/Units 14:06 14:06 14:06 WBC 9.8 (3.8-10.6) k/uL RBC 4.01 (3.80-5.40) m/uL Hgb 12.3 (11.4-16.0) gm/dL Hct 37.9 (34.0-46.0) % MCV 94.4 D (80.0-100.0) fL MCH 30.6 (25.0-35.0) pg MCHC 32.5 (31.0-37.0) g/dL RDW 12.4 (11.5-15.5) % Plt Count 587 H D (150-450) k/uL MPV 7.3 Neutrophils % 89 % Lymphocytes % 3 % Monocytes % 7 % Eosinophils % 1 % Basophils % 0 % Neutrophils # 8.7 H (1.3-7.7) k/uL Lymphocytes # 0.3 L (1.0-4.8) k/uL Monocytes # 0.7 (0-1.0) k/uL Eosinophils # 0.1 (0-0.7) k/uL Basophils # 0.0 (0-0.2) k/uL PT 10.6 (9.0-12.0) sec INR 1.0 (<1.2) APTT 22.8 (22.0-30.0) sec Sodium 130 L (137-145) mmol/L Potassium 4.0 (3.5-5.1) mmol/L Chloride 96 L (98-107) mmol/L Carbon Dioxide 25 (22-30) mmol/L Anion Gap 9 mmol/L BUN 14 (7-17) mg/dL Creatinine 0.51 L (0.52-1.04) mg/dL Est GFR (CKD-EPI)AfAm >90 (>60 ml/min/1.73 sqM) Est GFR (CKD-EPI)NonAf 90 (>60 ml/min/1.73 sqM) Glucose 177 H (74-99) mg/dL Plasma Lactic Acid Omar (0.7-2.0) mmol/L Calcium 8.3 L (8.4-10.2) mg/dL Magnesium 2.1 (1.6-2.3) mg/dL Total Bilirubin 0.5 (0.2-1.3) mg/dL AST 26 (14-36) U/L ALT 22 (4-34) U/L Alkaline Phosphatase 128 H (38-126) U/L Troponin I (0.000-0.034) ng/mL NT-Pro-B Natriuret Pep pg/mL Total Protein 7.0 (6.3-8.2) g/dL Albumin 3.1 L (3.5-5.0) g/dL 10/18/21 10/18/21 10/18/21 Range/Units 14:06 14:06 14:06 WBC (3.8-10.6) k/uL RBC (3.80-5.40) m/uL Hgb (11.4-16.0) gm/dL Hct (34.0-46.0) % MCV (80.0-100.0) fL MCH (25.0-35.0) pg MCHC (31.0-37.0) g/dL RDW (11.5-15.5) % Plt Count (150-450) k/uL MPV Neutrophils % % Lymphocytes % % Monocytes % % Eosinophils % % Basophils % % Neutrophils # (1.3-7.7) k/uL Lymphocytes # (1.0-4.8) k/uL Monocytes # (0-1.0) k/uL Eosinophils # (0-0.7) k/uL Basophils # (0-0.2) k/uL PT (9.0-12.0) sec INR (<1.2) APTT (22.0-30.0) sec Sodium (137-145) mmol/L Potassium (3.5-5.1) mmol/L Chloride (98-107) mmol/L Carbon Dioxide (22-30) mmol/L Anion Gap mmol/L BUN (7-17) mg/dL Creatinine (0.52-1.04) mg/dL Est GFR (CKD-EPI)AfAm (>60 ml/min/1.73 sqM) Est GFR (CKD-EPI)NonAf (>60 ml/min/1.73 sqM) Glucose (74-99) mg/dL Plasma Lactic Acid Omar 1.1 (0.7-2.0) mmol/L Calcium (8.4-10.2) mg/dL Magnesium (1.6-2.3) mg/dL Total Bilirubin (0.2-1.3) mg/dL AST (14-36) U/L ALT (4-34) U/L Alkaline Phosphatase (38-126) U/L Troponin I <0.012 (0.000-0.034) ng/mL NT-Pro-B Natriuret Pep 557 pg/mL Total Protein (6.3-8.2) g/dL Albumin (3.5-5.0) g/dL Disposition Clinical Impression: New onset of congestive heart failure Disposition: ADMITTED IP TO THIS HOSP Condition: Stable Is patient prescribed a controlled substance at d/c from ED?: No Referrals: Adia Angeles MD [Primary Care Provider] - 1-2 days Time of Disposition: 15:54
[2021-10-18 14:25] LABS: Partial Thromboplastin Time 22.8 sec (22.0-30.0); Prothrombin Time 10.6 sec (9.0-12.0)
[2021-10-18 14:29] LABS: ALT 22 U/L (4-34); AST 26 U/L (14-36); African American GFR (CKD) >90 (>60 ml/min/1.73 sqM); Albumin 3.1 g/dL (3.5-5.0); Alkaline Phosphatase 128 U/L (38-126); Anion Gap 9 mmol/L; Blood Urea Nitrogen 14 mg/dL (7-17); Calcium 8.3 mg/dL (8.4-10.2); Carbon Dioxide 25 mmol/L (22-30); Chloride 96 mmol/L (98-107); Glucose 177 mg/dL (74-99); Magnesium 2.1 mg/dL (1.6-2.3); Non-African American GFR(CKD) 90 (>60 ml/min/1.73 sqM); Sodium 130 mmol/L (137-145); Total Bilirubin 0.5 mg/dL (0.2-1.3)
[2021-10-18 14:40] LABS: Basophils % (A) 0 %; Eosinophils # (A) 0.1 k/uL (0-0.7); Eosinophils % (A) 1 %; HCT 37.9 % (34.0-46.0); HGB 12.3 gm/dL (11.4-16.0); Lymphocytes # (A) 0.3 k/uL (1.0-4.8); Lymphocytes % (A) 3 %; MCH 30.6 pg (25.0-35.0); MCHC 32.5 g/dL (31.0-37.0); Mean Platelet Volume 7.3; Monocytes # (A) 0.7 k/uL (0-1.0); Monocytes % (A) 7 %; Neutrophils # (A) 8.7 k/uL (1.3-7.7); Neutrophils % (A) 89 %; RBC 4.01 m/uL (3.80-5.40); RDW 12.4 % (11.5-15.5); WBC 9.8 k/uL (3.8-10.6)
--- NOTE | 2021-10-18 14:41 | XR ---
EXAMINATION TYPE: XR chest 2V DATE OF EXAM: 10/18/2021 COMPARISON: X-ray dated 09/09/2021 HISTORY: Difficulty breathing. TECHNIQUE: Frontal and lateral views of the chest are obtained. FINDINGS: Congested bilateral pulmonary vasculature with bilateral basal pulmonary atelectasis and bilateral pl eural effusions obscuring the previously seen diaphragmatic hernia. This could be related to acute pulmonary edema/CHF however associated pulmonary infection cannot be e xcluded, please correlate clinically. Cardiac size cannot be properly assessed. No pneumothorax. Degenerative changes of the thoracic spine . IMPRESSION: As above.
[2021-10-18 14:46] LABS: MCV 94.4 fL (80.0-100.0); Platelet Count 587 k/uL (150-450)
[2021-10-18] MEDS ORDERED: NALOXONE 0.4 MG/ML 1 ML VIAL IV PRN (15:50)
[2021-10-18] MEDS ORDERED: FUROSEMIDE 10 MG/ML 4 ML VIAL IV STA (15:50)
--- NOTE | 2021-10-18 17:08 | P.HPIM ---
History of Present Illness H&P Date: 10/18/21 Chief Complaint: Short of breath This is a very pleasant 85-year-old patient who follows with Dr. Adia Angeles. Chronic stable medical conditions include hypertension, hypothyroid, urinary incontinence and wears diapers, hard of hearing. Large hiatal hernia 10/06/2021 patient was here with some chest pressure.cardiac catheterization by Dr. CHELO Babin. No significant CAD. Patient may have had an element of pericarditis. 2-D echo showed some pericardial effusion Patient was doing well upon discharge. The last few days patient started having progressively increasing shortness of breath. No fever no chills. Increasing lower extremity edema. Not able to eat when fall. Tired rundown. Orthopnea. Review of systems: GEN.: Tired EYES: None HEENT: Hard of hearing NECK: None RESPIRATORY: As above CARDIOVASCULAR: As above GASTROINTESTINAL: None GENITOURINARY: Urine incontinence MUSCULOSKELETAL: None LYMPHATICS: None HEMATOLOGICAL: None PSYCHIATRY: None NEUROLOGICAL: None Past medical history to include: Hypertension, hypothyroid, urinary incontinence, hard of hearing, pericarditis, hiatal hernia Social history: No history of smoking or alcohol. Lives with her . Family history: Reviewed, noncontributory to presentation Physical examination: VITAL SIGNS: 97.9, 107, 18, 133/82, 98% room air GENERAL: BMI 27.1, reclining in bed, awake, short of breath. EYES: Pupils equal. Conjunctiva normal. HEENT: External appearance of nose and ears normal, oral cavity grossly normal. NECK: JVD or possibly; masses not palpable. HEART: First and second heart sounds are normal; edema present. LUNGS: Respiratory rate increased, decreased breath sounds to bases. ABDOMEN: Soft, nontender, liver spleen not palpable, no masses palpable. PSYCH: Alert and oriented x3; mood and affect a bit anxiousl. MUSCULOSKELETAL:No Clubbing/cyanosis;muscles-grossly intact. Evidence of OA. NEUROLOGICAL: Cranial nerves grossly intact; no facial asymmetry, power and sensation grossly intact. LYMPHATICS: No lymph nodes palpable in the axilla and neck INVESTIGATIONS, reviewed in the clinical context: White count 9.8 hemoglobin 12.3 platelets 587 sodium 1:30 potassium 4 BUN 14 creatinine 0.51 troponin I less than 0.012 proBNP 557 albumin 3.1 EKG tracing personally reviewed by me-sinus tachycardia. Right bundle branch block pattern. Nonspecific ST/T-wave changes. Chest x-ray film personally reviewed by me-pulmonary edema. Heart hernia. Recent investigations [September 2021] Cardiac catheterization: Minimal CAD 2-D echocardiogram: EF 55-60%. Some wall motion abnormality. Moderate generalized pericardial effusion. Marleny-Huynh viral serology: Negative Assessment and plan: -This patient was here just about a month ago with the diagnosis of pericarditis. Was doing well when she left. Now presents with a few days of progressive increasing shortness of breath, edema. [place] to have more right than left pleural effusion. Note patient's BNP is only 557. Concern about increasing pericardial effusion. Rule out cardiactamponade from pericardial effusion 2-D echocardiogram. Telemetry. IV Lasix. Cardiology was informed. -Primary osteoarthritis multiple joints Pain medications if needed -Chronic urinary stress incontinence -Hypothyroid Synthroid 112 g a day -Essential hypertension Lopressor 25 mg twice a day 2-D echo. Telemetry. Cardiology consultation. Resume home medications. Subcu Lovenox. Care was discussed with the patient. Questions answered. Given the complexity and severity of patient's condition expect the patient to be in the hospital at least for 2 overnights Past Medical History Past Medical History: Hypertension, Thyroid Disorder, Vascular Disorder Additional Past Medical History / Comment(s): Pt states she is on Ibandronate for prevention of osteoporosis but bone density has been normal, varicose veins/surgery. History of Any Multi-Drug Resistant Organisms: None Reported Past Surgical History: Tonsillectomy Additional Past Surgical History / Comment(s): Varicose veins 1978, colonoscopy, bilateral cataract removals/lens implants. Past Anesthesia/Blood Transfusion Reactions: No Reported Reaction Past Psychological History: No Psychological Hx Reported Smoking Status: Never smoker Past Alcohol Use History: None Reported Past Drug Use History: None Reported - Past Family History Father Family Medical History: No Reported History Additional Family Medical History / Comment(s): Pt states her father was healthy and lived into his late 80s. Mother Family Medical History: No Reported History Additional Family Medical History / Comment(s): Pt states her mother was healthy and lived into her late 80s. Medications and Allergies Home Medications Medication Instructions Recorded Confirmed Type Ibandronate Sodium [Boniva] 150 mg PO Q30D 09/09/21 10/18/21 History Levothyroxine Sodium [Synthroid] 112 mcg PO DAILY 09/09/21 10/18/21 History Aspirin 81 mg PO DAILY 09/10/21 10/18/21 Rx Metoprolol Tartrate [Lopressor] 25 mg PO BID #60 tab 09/10/21 10/18/21 Rx Calcium Carbonate [Calcium] 600 mg PO DAILY 10/18/21 10/18/21 History Cholecalciferol [Vitamin D3 (25 25 mcg PO DAILY 10/18/21 10/18/21 History Mcg = 1000 Iu)] Glucosamine HCl/Chondroitin Joseph 1 cap PO BID 10/18/21 10/18/21 History [Glucosamine-Chondroitin Cap] Multivit-Min/FA/Lycopen/Lutein 1 tab PO DAILY 10/18/21 10/18/21 History [Centrum Silver Tablet] Nitroglycerin Sl Tabs [Nitrostat] 0.4 mg SL Q5M PRN 10/18/21 10/18/21 History Allergies Allergy/AdvReac Type Severity Reaction Status Date / Time No Known Allergies Allergy Verified 10/18/21 14:54 Physical Exam Vitals: Vital Signs Temp Pulse Resp BP Pulse Ox 10/18/21 13:37 18 10/18/21 13:35 97.9 F 107 H 16 133/82 98 Intake and Output 10/18/21 10/18/21 10/18/21 06:59 14:59 22:59 Other: Weight 73.936 kg Results CBC & Chem 7: 10/18/21 14:06 10/18/21 14:06 Labs: Abnormal Lab Results - Last 24 Hours (Table) 10/18/21 10/18/21 Range/Units 14:06 14:06 Plt Count 587 H D (150-450) k/uL Neutrophils # 8.7 H (1.3-7.7) k/uL Lymphocytes # 0.3 L (1.0-4.8) k/uL Sodium 130 L (137-145) mmol/L Chloride 96 L (98-107) mmol/L Creatinine 0.51 L (0.52-1.04) mg/dL Glucose 177 H (74-99) mg/dL Calcium 8.3 L (8.4-10.2) mg/dL Alkaline Phosphatase 128 H (38-126) U/L Albumin 3.1 L (3.5-5.0) g/dL
[2021-10-18] MEDS ORDERED: CALCIUM CARBONATE 500 MG CHEWABLE PO PRN (17:09)
[2021-10-18] MEDS ORDERED: MELATONIN 3 MG TABLET PO PRN (17:09)
[2021-10-18] MEDS ORDERED: PROCHLORPERAZINE 5 MG TAB PO PRN (17:09)
[2021-10-18] MEDS ORDERED: LORazepam 0.5 MG TAB PO PRN (17:09)
[2021-10-18] MEDS: ENOXAPARIN 40 MG/0.4 ML SYRINGE SQ SCH (17:15)
[2021-10-18] MEDS: METOPROLOL TARTRATE 25 MG TAB PO SCH (19:57)
[2021-10-18] MEDS: PSYLLIUM HUSK 100% 6 GM PACKET PO SCH (19:58)
[2021-10-19] MEDS: ACETAMINOPHEN TAB 325 MG TAB PO PRN ×3 (03:48→15:58)
[2021-10-19] MEDS: LEVOTHYROXINE 112 MCG TAB PO SCH (06:20)
--- NOTE | 2021-10-19 08:00 | ECHOF ---
Referral Reason:usha MEASUREMENTS -------- HEIGHT: 165.1 cm WEIGHT: 73.9 kg BP: IVSd: 1.2 cm (0.6 - 1.1) LVIDd: 3.1 cm (3.9 - 5.3) LVPWd: 1.4 cm (0.6 - 1.1) IVSs: 1.4 cm LVIDs: 1.9 cm LVPWs: 1.0 cm FINDINGS -------- Limited Study The left ventricular size is normal. There is moderate concentric left ventricular hypertrophy. O verall left ventricular systolic function is normal with, an EF between 55 - 60 %. Moderate tricuspid regurgitation present. There is a small, generalized pericardial effusion present. CONCLUSIONS -------- 1. Limited Study 2. The left ventricular size is normal. 3. There is moderate concentric left ventricular hypertrophy. 4. Overall left ventricular systolic function is normal with, an EF between 55 - 60 %. 5. There is a small, generalized pericardial effusion present. WATER PUMPER: Karlie Tanner RDCS
[2021-10-19 08:59] LABS: African American GFR (CKD) >90 (>60 ml/min/1.73 sqM); Anion Gap 5 mmol/L; Blood Urea Nitrogen 11 mg/dL (7-17); C Reactive Protein 7.5 mg/dL (<1.0); Calcium 8.2 mg/dL (8.4-10.2); Carbon Dioxide 30 mmol/L (22-30); Chloride 94 mmol/L (98-107); Glucose 97 mg/dL (74-99); Non-African American GFR(CKD) 86 (>60 ml/min/1.73 sqM); Potassium 3.9 mmol/L (3.5-5.1); Sodium 129 mmol/L (137-145)
[2021-10-19] MEDS: FUROSEMIDE 10 MG/ML 4 ML VIAL IV SCH ×2 (09:35→10:13)
[2021-10-19] MEDS: CALCIUM CARBONATE 500 MG CHEWABLE PO SCH (10:08)
[2021-10-19] MEDS: ASPIRIN 81 MG PO SCH (10:08)
[2021-10-19] MEDS: ENOXAPARIN 40 MG/0.4 ML SYRINGE SQ SCH (10:09)
[2021-10-19] MEDS: PSYLLIUM HUSK 100% 6 GM PACKET PO SCH ×2 (10:10→20:41)
[2021-10-19] MEDS: METOPROLOL TARTRATE 25 MG TAB PO SCH ×2 (10:10→20:41)
[2021-10-19] MEDS: MULTIVITAMINS, THERA 1 EACH TAB PO SCH (10:10)
[2021-10-19] MEDS: FUROSEMIDE 20 MG TAB PO SCH ×2 (10:11→15:58)
--- NOTE | 2021-10-19 10:53 | US ---
EXAMINATION TYPE: US venous doppler duplex LE BI DATE OF EXAM: 10/19/2021 10:45 AM COMPARISON: NONE CLINICAL HISTORY: 85-year-old female with swelling. SOB SIDE PERFORMED: Bilateral TECHNIQUE: The lower extremity deep venous system is examined utilizing real time linear array sonog broderick with graded compression, doppler sonography and color-flow sonography. Exam done portable FINDINGS: VESSELS IMAGED: Common Femoral Vein Deep Femoral Vein Greater Saphenous Vein * Femoral Vein Popliteal Vein Small Saphenous Vein * Proximal Calf Veins (* superficial vessels) Right Leg: Appears negative for DVT Left Leg: Appears negative for DVT Thrombus seen within bilateral small saphenous veins IMPRESSION: 1. No evidence for DVT within the bilateral lower extremities imaged from the groin to the upper calv es. 2. However, the exam is positive for SVT involving the bilateral small saphenous veins.
--- NOTE | 2021-10-19 12:13 | P.CRDCN ---
History of Present Illness History of present illness: This is a 85 year female with a past medical history significant for hypertension and hypothyroidism. She follows with Dr. Watson. We have been asked to see the patient in consultation for congestive heart failure. Patient examined at the bedside. Patient presented to the ER with complaints of worsening shortness of breath and LE edema, right leg greater than the left. She states his symptoms have worsened over the past 3 days. Yesterday night patient with increased shortness of breath and presented to the emergency department for further evaluation. She denies any chest pain, palpitations, lightheadedness, dizziness. In the emergency department patient was started on IV Lasix. Patient with not much improvement in her symptoms. She denies fever or cough. Patient was recently admitted in 09/2021 as a transfer from [facility] for possible ST elevations and underlying right bundle block. Patient received TPA at [place] was transferred to [facility]. No evidence of acute UT. She underwent cardiac catheterization that revealed no evidence of significant coronary artery disease. She was also treated for pericarditis. DIAGNOSTICS -Cardiac catheterization 09/2021 revealed no evidence of significant coronary artery disease -EKG revealed sinus tachycardia, first-degree AV block, right bundle branch block, heart rate 105, no acute ST or T-wave abnormalities suggesting acute ischemia. -Most recent echocardiogram 09/09/2021 revealed EF 5560 percent, basal anterior midanterior LV wall hypokinetic, moderate generalized pericardial effusion -Repeat echocardiogram this admission reveals EF 5560 percent, small generalized pericardial effusion, moderate concentric LVH -Chest xray- bilateral pulmonary vasculature, elevated diaphragm bilaterally, pulmonary edema versus pulmonary infection cannot be excluded. -Venous Dopplers negative for DVT bilaterally -Lasix, troponin negative, proBNP 557, albumin 3.1, sodium 129, potassium 2.9, BUN 11, serum creatinine 0.58, C reactive protein 7.5 REVIEW OF SYSTEMS: At the time of my exam: CONSTITUTIONAL: Denies fever or chills. HEENT: Denies blurred vision, vision changes, or eye pain. Denies hemoptysis CARDIOVASCULAR: Denies chest pain. Denies orthopnea. Denies PND. Denies palpitations RESPIRATORY: Reports shortness of breath. GASTROINTESTINAL: Denies abdominal pain. Denies nausea or vomiting. HEMATOLOGIC: Denies bleeding disorders. GENITOURINARY: Denies any blood in urine. SKIN: Denies pruitis. Denies rash. PHYSICAL EXAM: VITAL SIGNS: Reviewed. GENERAL: Well-developed in no acute distress. HEENT: Head is normocephalic. Pupils are equal, round. Sclerae anicteric. Mucous membranes of the mouth are moist. Neck supple. No JVD or thyromegaly LUNGS: Respirations even and unlabored. Lungs with decreased breath sounds bases, right lower lobe rhonchi HEART: Regular rate and rhythm. S1 and S2 heard. ABDOMEN: Soft. Nondistended. Nontender. EXTREMITIES: Normal range of motion. No clubbing or cyanosis. Peripheral pulses intact. Bilateral lower extremity edema present, moderate R >L NEUROLOGIC: Awake and alert. Oriented x 3. ASSESSMENT: Symptoms of shortness of breath and lower extremity edema, unclear etiology, patient does not appear to be in acute heart failure. Hypertension Hypothyroidism Recent treatment for pericarditis PLAN: Patient does not appear to be in acute heart failure that would be causing her symptoms. Recent cardiac catheterization with no significant coronary artery disease. Patient with Normal LV function. Pericardial effusion has improved on echocardiogram. Recommend Pulmonary consult for evaluation PO Lasix 20mg BID Continue aspirin, metoprolol tartrate Further recommendations based on clinical course Nurse practitioner note has been reviewed by physician. Signing provider agrees with the documented findings, assessment, and plan of care. Past Medical History Past Medical History: Hypertension, Thyroid Disorder, Vascular Disorder Additional Past Medical History / Comment(s): Pt states she is on Ibandronate for prevention of osteoporosis but bone density has been normal, varicose veins/surgery. History of Any Multi-Drug Resistant Organisms: None Reported Past Surgical History: Tonsillectomy Additional Past Surgical History / Comment(s): Varicose veins 1978, colonoscopy, bilateral cataract removals/lens implants. Past Anesthesia/Blood Transfusion Reactions: No Reported Reaction Smoking Status: Never smoker - Past Family History Father Family Medical History: No Reported History Additional Family Medical History / Comment(s): Pt states her father was healthy and lived into his late 80s. Mother Family Medical History: No Reported History Additional Family Medical History / Comment(s): Pt states her mother was healthy and lived into her late 80s. Medications and Allergies Home Medications Medication Instructions Recorded Confirmed Type Ibandronate Sodium [Boniva] 150 mg PO Q30D 09/09/21 10/18/21 History Levothyroxine Sodium [Synthroid] 112 mcg PO DAILY 09/09/21 10/18/21 History Aspirin 81 mg PO DAILY 09/10/21 10/18/21 Rx Metoprolol Tartrate [Lopressor] 25 mg PO BID #60 tab 09/10/21 10/18/21 Rx Calcium Carbonate [Calcium] 600 mg PO DAILY 10/18/21 10/18/21 History Cholecalciferol [Vitamin D3 (25 25 mcg PO DAILY 10/18/21 10/18/21 History Mcg = 1000 Iu)] Glucosamine HCl/Chondroitin Joseph 1 cap PO BID 10/18/21 10/18/21 History [Glucosamine-Chondroitin Cap] Multivit-Min/FA/Lycopen/Lutein 1 tab PO DAILY 10/18/21 10/18/21 History [Centrum Silver Tablet] Nitroglycerin Sl Tabs [Nitrostat] 0.4 mg SL Q5M PRN 10/18/21 10/18/21 History Allergies Allergy/AdvReac Type Severity Reaction Status Date / Time No Known Allergies Allergy Verified 10/18/21 14:54 Physical Exam Vitals: Vital Signs Temp Pulse Pulse Resp BP BP Pulse Ox 10/19/21 11:48 97.5 F L 83 20 138/84 96 10/19/21 08:00 97.5 F L 86 96 H 132/89 96 10/19/21 04:00 97.9 F 84 20 145/83 92 L 10/19/21 00:00 98.2 F 83 20 128/77 94 L 10/18/21 20:00 98.3 F 104 H 22 127/68 94 L 10/18/21 18:15 97.3 F L 98 16 132/78 94 L 10/18/21 17:00 108 H 18 148/100 93 L 10/18/21 16:00 101 H 18 141/78 93 L 10/18/21 14:00 104 H 18 136/72 94 L 10/18/21 13:37 18 10/18/21 13:35 97.9 F 107 H 16 133/82 98 Intake and Output 10/18/21 10/19/21 10/19/21 22:59 06:59 14:59 Intake Total 240 130 Balance 240 130 Intake: IV 10 Invasive Line 1 10 Oral 240 120 Other: Voiding Method Toilet # Voids 1 Weight 73.936 kg 79.1 kg Results 10/18/21 14:06 10/19/21 08:06 Cardiac Enzymes 10/18/21 10/18/21 Range/Units 14:06 14:06 AST 26 (14-36) U/L Troponin I <0.012 (0.000-0.034) ng/mL Coagulation 10/18/21 Range/Units 14:06 PT 10.6 (9.0-12.0) sec APTT 22.8 (22.0-30.0) sec CBC 10/18/21 Range/Units 14:06 WBC 9.8 (3.8-10.6) k/uL RBC 4.01 (3.80-5.40) m/uL Hgb 12.3 (11.4-16.0) gm/dL Hct 37.9 (34.0-46.0) % Plt Count 587 H D (150-450) k/uL Comprehensive Metabolic Panel 10/18/21 10/19/21 Range/Units 14:06 08:06 Sodium 130 L 129 L (137-145) mmol/L Potassium 4.0 3.9 (3.5-5.1) mmol/L Chloride 96 L 94 L (98-107) mmol/L Carbon Dioxide 25 30 (22-30) mmol/L BUN 14 11 (7-17) mg/dL Creatinine 0.51 L 0.58 (0.52-1.04) mg/dL Glucose 177 H 97 (74-99) mg/dL Calcium 8.3 L 8.2 L (8.4-10.2) mg/dL AST 26 (14-36) U/L ALT 22 (4-34) U/L Alkaline Phosphatase 128 H (38-126) U/L Total Protein 7.0 (6.3-8.2) g/dL Albumin 3.1 L (3.5-5.0) g/dL Current Medications Generic Name Dose Route Start Last Admin Trade Name Freq PRN Reason Stop Dose Admin Acetaminophen 650 mg 10/18/21 15:50 10/19/21 09:03 Acetaminophen Tab 325 Mg Tab PO 650 mg Q6HR PRN Administration Mild Pain or Fever > 100.5 Aspirin 81 mg 10/19/21 09:00 10/19/21 10:08 Aspirin 81 Mg PO 81 mg DAILY RODRIGO Administration Calcium Carbonate/Glycine 500 mg 04/12/22 09:00 10/19/21 10:08 Calcium Carbonate 500 Mg Chewable PO 500 mg DAILY RODRIGO Administration Calcium Carbonate/Glycine 1,000 mg 10/18/21 17:09 Calcium Carbonate 500 Mg Chewable PO Q4HR PRN Dyspepsia Enoxaparin Sodium 40 mg 10/18/21 17:15 10/19/21 10:09 Enoxaparin 40 Mg/0.4 Ml Syringe SQ 40 mg DAILY RODRIGO Administration Furosemide 20 mg 10/19/21 09:27 10/19/21 10:11 Furosemide 20 Mg Tab PO 20 mg BID@0900,1600 RODRIGO Administration Lactulose 20 gm 10/18/21 17:09 Lactulose 20 Gm/30 Ml Cup PO DAILY PRN Constipation Levothyroxine Sodium 112 mcg 10/19/21 06:30 10/19/21 06:20 Levothyroxine 112 Mcg Tab PO 112 mcg 0630 RODRIGO Administration Lorazepam 0.5 mg 10/18/21 17:09 Lorazepam 0.5 Mg Tab PO Q6HR PRN Anxiety Melatonin 3 mg 10/18/21 17:09 Melatonin 3 Mg Tablet PO HS PRN Insomnia Metoprolol Tartrate 25 mg 10/18/21 21:00 10/19/21 10:10 Metoprolol Tartrate 25 Mg Tab PO 25 mg BID RODRIGO Administration Multivitamins 1 each 10/19/21 09:00 10/19/21 10:10 Multivitamins, Thera 1 Each Tab PO 1 each DAILY RODRIGO Administration Naloxone HCl 0.2 mg 10/18/21 15:50 Naloxone 0.4 Mg/Ml 1 Ml Vial IV Q2M PRN Opioid Reversal Prochlorperazine Maleate 5 mg 10/18/21 17:09 Prochlorperazine 5 Mg Tab PO Q8HR PRN Nausea And Vomiting Psyllium Hydrophilic Mucilloid 6 gm 10/18/21 21:00 10/19/21 10:10 Psyllium Husk 100% 6 Gm Packet PO 6 gm BID RODRIGO Administration Intake and Output 10/18/21 10/19/21 10/19/21 22:59 06:59 14:59 Intake Total 240 130 Balance 240 130 Intake: IV 10 Invasive Line 1 10 Oral 240 120 Other: Voiding Method Toilet # Voids 1 Weight 73.936 kg 79.1 kg 10/18/21 14:06 10/19/21 08:06
--- NOTE | 2021-10-19 13:29 | P.PN ---
Progress Note - Text Progress Note Date: 10/19/21 Chief Complaint: Short of breath This is a very pleasant 85-year-old patient who follows with Dr. Adia Angeles. Chronic stable medical conditions include hypertension, hypothyroid, urinary incontinence and wears diapers, hard of hearing. Large hiatal hernia 10/06/2021 patient was here with some chest pressure.cardiac catheterization by Dr. CHELO Babin. No significant CAD. Patient may have had an element of pericarditis. 2-D echo showed some pericardial effusion Patient was doing well upon discharge. The last few days patient started having progressively increasing shortness of breath. No fever no chills. Increasing lower extremity edema. Not able to eat when fall. Tired rundown. Orthopnea. October 19: Sitting at the edge of the bed. Legs hanging. Helps his breathing. Pulmonary consulted. 2-D echo showed small pericardial effusion. VQ scan orde red to rule out more peripheral emboli. Active Medications Acetaminophen (Acetaminophen Tab 325 Mg Tab) 650 mg PO Q6HR PRN PRN Reason: Mild Pain or Fever > 100.5 Last Admin: 10/19/21 09:03 Dose: 650 mg Documented by: Aspirin (Aspirin 81 Mg) 81 mg PO DAILY [facility] Last Admin: 10/19/21 10:08 Dose: 81 mg Documented by: Calcium Carbonate/Glycine (Calcium Carbonate 500 Mg Chewable) 500 mg PO DAILY [facility] Last Admin: 10/19/21 10:08 Dose: 500 mg Documented by: Calcium Carbonate/Glycine (Calcium Carbonate 500 Mg Chewable) 1,000 mg PO Q4HR PRN PRN Reason: Dyspepsia Enoxaparin Sodium (Enoxaparin 40 Mg/0.4 Ml Syringe) 40 mg SQ DAILY [facility] Last Admin: 10/19/21 10:09 Dose: 40 mg Documented by: Furosemide (Furosemide 20 Mg Tab) 20 mg PO BID@0900,1600 [facility] Last Admin: 10/19/21 10:11 Dose: 20 mg Documented by: Lactulose (Lactulose 20 Gm/30 Ml Cup) 20 gm PO DAILY PRN PRN Reason: Constipation Levothyroxine Sodium (Levothyroxine 112 Mcg Tab) 112 mcg PO 0630 [facility] Last Admin: 10/19/21 06:20 Dose: 112 mcg Documented by: Lorazepam (Lorazepam 0.5 Mg Tab) 0.5 mg PO Q6HR PRN PRN Reason: Anxiety Melatonin (Melatonin 3 Mg Tablet) 3 mg PO HS PRN PRN Reason: Insomnia Metoprolol Tartrate (Metoprolol Tartrate 25 Mg Tab) 25 mg PO BID [facility] Last Admin: 10/19/21 10:10 Dose: 25 mg Documented by: Multivitamins (Multivitamins, Thera 1 Each Tab) 1 each PO DAILY [facility] Last Admin: 10/19/21 10:10 Dose: 1 each Documented by: Naloxone HCl (Naloxone 0.4 Mg/Ml 1 Ml Vial) 0.2 mg IV Q2M PRN PRN Reason: Opioid Reversal Prochlorperazine Maleate (Prochlorperazine 5 Mg Tab) 5 mg PO Q8HR PRN PRN Reason: Nausea And Vomiting Psyllium Hydrophilic Mucilloid (Psyllium Husk 100% 6 Gm Packet) 6 gm PO BID [facility] Last Admin: 10/19/21 10:10 Dose: 6 gm Documented by: Past medical history to include: Hypertension, hypothyroid, urinary incontinence, hard of hearing, pericarditis, hiatal hernia Social history: No history of smoking or alcohol. Lives with her . Family history: Reviewed, noncontributory to presentation Physical examination: VITAL SIGNS: 97.5, 83, 20, 138.84, 96% room air GENERAL: Sitting on the edge of the bed, short of breath. EYES: Pupils equal. Conjunctiva normal. HEENT: External appearance of nose and ears normal, oral cavity grossly normal. NECK: JVD or possibly; masses not palpable. HEART: First and second heart sounds are normal; edema present. LUNGS: Respiratory rate increased, decreased breath sounds to bases. ABDOMEN: Soft, nontender, liver spleen not palpable, no masses palpable. PSYCH: Alert and oriented x3; mood and affect a bit anxiousl. MUSCULOSKELETAL:No Clubbing/cyanosis;muscles-grossly intact. Evidence of OA. INVESTIGATIONS, reviewed in the clinical context: Limited 2-D echocardiogram: Moderate concentric LVH. Moderate TR. EF 55-60%. Venous Doppler: Negative for DVT White count 9.8 hemoglobin 12.3 platelets 587 sodium 1:30 potassium 4 BUN 14 creatinine 0.51 troponin I less than 0.012 proBNP 557 albumin 3.1 EKG tracing personally reviewed by ne-sinus tachycardia. Right bundle branch block pattern. Nonspecific ST/T-wave changes. Chest x-ray film personally reviewed by me-pulmonary edema. Heart hernia. Recent investigations [September 2021] Cardiac catheterization: Minimal CAD 2-D echocardiogram: EF 55-60%. Some wall motion abnormality. Moderate generalized pericardial effusion. Marleny-Huynh viral serology: Negative Assessment and plan: -This patient was here just about a month ago with the diagnosis of pericarditis. Was doing well when she left. Now presents with a few days of progressive increasing shortness of breath, edema. [place] to have more right than left pleural effusion. Note patient's BNP is only 557. Significant pericardial effusion ruled out. Rule out peripheral PE. VQ scan. Pulmonary consulted. Check VIC. -Primary osteoarthritis multiple joints Pain medications if needed -Chronic urinary stress incontinence -Hypothyroid Synthroid 112 g a day -Essential hypertension Lopressor 25 mg twice a day Patient's significant short of breath. Check VIC. VQ scan. Doppler ultrasound negative for DVT. Discussed with patient.
--- NOTE | 2021-10-19 14:52 | P.CNPUL ---
History of Present Illness Consult date: 10/19/21 Requesting physician: Nancy Babin Reason for consult: dyspnea Chief complaint: Shortness of breath History of present illness: 85-year-old white female patient with a recent history of hypertension, hypothyroidism, lifetime nonsmoker. Patient had a recent event for which she was hospitalized and was transferred from an outside facility. She was complaining of shortness of breath at the time, her EKG showed ST segment elevation in the precordial leads, and subsequently patient received TPA. She was transferred to this institution on 09/09/2021 and underwent cardiac catheterization that showed no significant obstructive CAD, right dominant system and normal filling pressures. She was discharged home on 09/10/2021. She lives in [place], she follows with Dr. Angeles in [facility]. She states she is normally healthy, no history of diabetes mellitus, she is a lifetime nonsmoker, no chronic lung disease. Following her hospitalization patient started developing shortness of breath. She also noticed increased swelling in bilateral lower extremities, she denied any cough, no fever or chills, no chest pain. She is complaining of significant orthopnea. She has difficulty ambulating related to shortness of breath. She came into the hospital for reevaluation on 10/18/2021. Chest x-ray on admission showed congested bilateral pulmonary vasculature with bilateral basal pulmonary atelectasis and bilateral pleural effusions obscuring the previously seen diaphragmatic hernia. Chest significant swelling in her bilateral lower extremities. She was started on diuretics by cardiology. On today's exam she states she is feeling slightly better however still short of breath and cannot lie flat and last night she was having difficult time breathing. She is on room air with pulse ox of 96%, she is afebrile, blood pressure stable. She short of breath with exertion. Echocardiogram was completed showing preserved LV function of 55-60%, and small generalized pericardial effusion. EKG showed sinus tachycardia with first-degree AV block. Lab evaluation showed normal white count of 9.8, hemoglobin of 12.3, platelet count is 587, INR of 1.0, sodium is 1:30, potassium is 4.0, chloride is 96, CO2 is 25, BUN is 14 creatinine 0.51. Troponin was less than 0.012, alkaline phosphatase was 128, AST and ALT were within normal limits, proBNP was 557. CRP is 7.2. Bilateral lower extremity Dopplers showed no evidence of DVT, however the exam was positive for superficial venous thrombosis involving the bilateral small saphenous veins. CTA chest is ordered and is pending at this time. Review of Systems All systems: negative Constitutional: Denies chills, Denies fever Eyes: denies blurred vision, denies pain Ears, nose, mouth and throat: Denies headache, Denies sore throat Cardiovascular: Reports dyspnea on exertion, Reports edema, Denies chest pain, Denies shortness of breath Respiratory: Reports dyspnea, Denies cough Gastrointestinal: Denies abdominal pain, Denies diarrhea, Denies nausea, Denies vomiting Genitourinary: Denies dysuria, Denies hematuria Musculoskeletal: Denies myalgias Integumentary: Denies pruritus, Denies rash Neurological: Denies numbness, Denies weakness Psychiatric: Denies anxiety, Denies depression Endocrine: Denies fatigue, Denies weight change Past Medical History Past Medical History: Hypertension, Thyroid Disorder, Vascular Disorder Additional Past Medical History / Comment(s): Pt states she is on Ibandronate for prevention of osteoporosis but bone density has been normal, varicose veins/surgery. History of Any Multi-Drug Resistant Organisms: None Reported Past Surgical History: Tonsillectomy Additional Past Surgical History / Comment(s): Varicose veins 1978, colonoscopy, bilateral cataract removals/lens implants. Past Anesthesia/Blood Transfusion Reactions: No Reported Reaction Smoking Status: Never smoker - Past Family History Father Family Medical History: No Reported History Additional Family Medical History / Comment(s): Pt states her father was healthy and lived into his late 80s. Mother Family Medical History: No Reported History Additional Family Medical History / Comment(s): Pt states her mother was healthy and lived into her late 80s. Medications and Allergies Home Medications Medication Instructions Recorded Confirmed Type Ibandronate Sodium [Boniva] 150 mg PO Q30D 09/09/21 10/18/21 History Levothyroxine Sodium [Synthroid] 112 mcg PO DAILY 09/09/21 10/18/21 History Aspirin 81 mg PO DAILY 09/10/21 10/18/21 Rx Metoprolol Tartrate [Lopressor] 25 mg PO BID #60 tab 09/10/21 10/18/21 Rx Calcium Carbonate [Calcium] 600 mg PO DAILY 10/18/21 10/18/21 History Cholecalciferol [Vitamin D3 (25 25 mcg PO DAILY 10/18/21 10/18/21 History Mcg = 1000 Iu)] Glucosamine HCl/Chondroitin Joseph 1 cap PO BID 10/18/21 10/18/21 History [Glucosamine-Chondroitin Cap] Multivit-Min/FA/Lycopen/Lutein 1 tab PO DAILY 10/18/21 10/18/21 History [Centrum Silver Tablet] Nitroglycerin Sl Tabs [Nitrostat] 0.4 mg SL Q5M PRN 10/18/21 10/18/21 History Allergies Allergy/AdvReac Type Severity Reaction Status Date / Time No Known Allergies Allergy Verified 10/18/21 14:54 Physical Exam Vitals: Vital Signs Temp Pulse Pulse Resp BP BP Pulse Ox 10/19/21 11:48 97.5 F L 83 20 138/84 96 10/19/21 08:00 97.5 F L 86 96 H 132/89 96 10/19/21 04:00 97.9 F 84 20 145/83 92 L 10/19/21 00:00 98.2 F 83 20 128/77 94 L 10/18/21 20:00 98.3 F 104 H 22 127/68 94 L 10/18/21 18:15 97.3 F L 98 16 132/78 94 L 10/18/21 17:00 108 H 18 148/100 93 L 10/18/21 16:00 101 H 18 141/78 93 L Intake and Output 10/18/21 10/19/21 10/19/21 22:59 06:59 14:59 Intake Total 240 790 Balance 240 790 Intake: IV 10 Invasive Line 1 10 Oral 240 780 Other: Voiding Method Toilet # Voids 1 2 Weight 73.936 kg 79.1 kg GENERAL EXAM: Alert, very pleasant, 85-year-old white female on room air with a pulse ox of 96%, comfortable in no apparent distress. HEAD: Normocephalic/atraumatic. EYES: Normal reaction of pupils, equal size. Conjunctiva pink, sclera white. NOSE: Clear with pink turbinates. THROAT: No erythema or exudates. NECK: No masses, mild bilateral JVD, no thyroid enlargement, no adenopathy. CHEST: No chest wall deformity. Symmetrical expansion. LUNGS: Equal air entry with no crackles, wheeze, rhonchi or dullness. CVS: Regular rate and rhythm, normal S1 and S2, no gallops, no murmurs, no rubs ABDOMEN: Soft, nontender. No hepatosplenomegaly, normal bowel sounds, no guarding or rigidity. EXTREMITIES: No clubbing, 1+ lower extremity no cyanosis, 2+ pulses and upper and lower extremities. MUSCULOSKELETAL: Muscle strength and tone normal. SPINE: No scoliosis or deformity SKIN: No rashes CENTRAL NERVOUS SYSTEM: Alert and oriented -3. No focal deficits, tone is normal in all 4 extremities. PSYCHIATRIC: Alert and oriented -3. Appropriate affect. Intact judgment and insight. Results - Laboratory Findings CBC and BMP: 10/18/21 14:06 10/19/21 08:06 PT/INR, D-dimer PT 10.6 sec (9.0-12.0) 10/18/21 14:06 INR 1.0 (<1.2) 10/18/21 14:06 Abnormal lab findings: Abnormal Labs 10/18/21 10/18/21 10/19/21 14:06 14:06 08:06 Plt Count 587 H D Neutrophils # 8.7 H Lymphocytes # 0.3 L Sodium 130 L 129 L Chloride 96 L 94 L Creatinine 0.51 L Glucose 177 H Calcium 8.3 L 8.2 L Alkaline Phosphatase 128 H C-Reactive Protein 7.5 H Albumin 3.1 L - Diagnostic Findings Chest x-ray: report reviewed, image reviewed Additional studies: EKG reviewed Lower extremity Dopplers reviewed Assessment and Plan Plan: Assessment: #1. Shortness of breath under investigation, with the possibility of bilateral pleural effusions, elevated hemidiaphragms, CTA chest is pending to rule out possibility of pulmonary embolism #2. Recent history of TPA administration for abnormal EKG, and cardiac catheterization on 09/09/2021 that showed mild CAD #3. Moderate generalized pericardial effusion improved on echocardiogram on this admission #4. Lower extremity edema, no evidence of DVT, but lower extremity Doppler showed SVT bilaterally #5. Lifetime nonsmoker #6. Hypothyroidism #7. Hypertension #8. Urinary incontinence #9. Large hiatal hernia Plan: Agree with diuretics Lower extremity Dopplers were reviewed showing SVT but no evidence of DVT We'll obtain CT chest to rule out possibility of pulmonary embolism We'll obtain a sniff test to rule out possibly diaphragmatic paralysis Follow-up labs tomorrow GI and DVT prophylaxis Cardiology Russ for diuretics and cardiac medications We'll continue to follow I have personally seen and examined the patient, performed the documentation and the assessment and plan as written. Number of minutes spent on the visit: [15] Time with Patient: Greater than 30
--- NOTE | 2021-10-19 15:30 | CT ---
EXAMINATION TYPE: CT chest angio for PE DATE OF EXAM: 10/19/2021 COMPARISON: X-ray dated 10/17/2021 HISTORY: Difficulty breathing CT DLP: 258 mGy.cm. Automated Exposure Control for Dose Reduction was Utilized. TECHNIQUE AND CONTRAST: CTA scan of the thorax is performed with IV Contrast, patient injected with 100, wasted 36 mL of Isov ue 370, pulmonary angiogram protocol. MIP Images are created on an independent workstation and revi ewed. FINDINGS: Artifactual images. No definite filling defect within the pulmonary trunk, main pulmonary arteries, l obar and segmental branches to suggest pulmonary embolism. Subsegmental branches are suboptimally ass essed. The right pulmonary artery measures 2.9 cm and the left pulmonary artery measures 2.8 cm. No g ross cardiomegaly. The heart is not completely included in the scan. Scattered coronary and arterial atherosclerotic calcifications. No pathologically enlarged lymph nodes in the chest by this CT angiog raphic study. Very large hiatal/diaphragmatic hernia, with the upper abdomen is not included in the scan. The herni a contains the entire stomach, portion of the duodenum, large portion of the transverse colon and pos sibly small bowel loops in addition to peritoneal fat. It causes significant mass effect on the heart and the adjacent lungs. Associated large right and moderate left pleural effusions. Consequent incomplete collapse and loss of volume of the right lower lobe and to a lesser extent the left lower lobe, with complete collapse of the middle lobe. Unremarkable aerated portion of the lungs . Patent trachea and main bronchi. Suspected small pericardial fluid. Osteopenia. Degenerative change s of the thoracic spine. No gross aggressive bone lesion. T11 vertebral body collapse, likely chronic . IMPRESSION: No major or central pulmonary embolism. Very large hiatal/diaphragmatic hernia, incompletely included in the scan and causing significant mas s effect on the heart and lungs as detailed above. Associated large right and small left pleural effusions with collapsed adjacent lungs as detailed abo ve. Recommend clinical correlation and surgical consultation. Other findings as described above.
[2021-10-20] MEDS: LEVOTHYROXINE 112 MCG TAB PO SCH (06:05)
[2021-10-20] MEDS: CALCIUM CARBONATE 500 MG CHEWABLE PO SCH (09:03)
[2021-10-20] MEDS: ENOXAPARIN 40 MG/0.4 ML SYRINGE SQ SCH (09:03)
[2021-10-20] MEDS: MULTIVITAMINS, THERA 1 EACH TAB PO SCH (09:03)
[2021-10-20] MEDS: METOPROLOL TARTRATE 25 MG TAB PO SCH ×2 (09:03→19:56)
[2021-10-20] MEDS: ASPIRIN 81 MG PO SCH (09:03)
[2021-10-20] MEDS: PSYLLIUM HUSK 100% 6 GM PACKET PO SCH ×2 (09:03→19:56)
[2021-10-20] MEDS: FUROSEMIDE 20 MG TAB PO SCH ×2 (09:03→17:40)
[2021-10-20 09:24] LABS: Basophils # (A) 0.1 k/uL (0-0.2); Basophils % (A) 1 %; Eosinophils # (A) 0.1 k/uL (0-0.7); Eosinophils % (A) 2 %; HCT 39.9 % (34.0-46.0); HGB 12.5 gm/dL (11.4-16.0); Lymphocytes # (A) 0.4 k/uL (1.0-4.8); Lymphocytes % (A) 4 %; MCH 29.7 pg (25.0-35.0); MCHC 31.3 g/dL (31.0-37.0); MCV 94.9 fL (80.0-100.0); Mean Platelet Volume 6.9; Monocytes # (A) 0.6 k/uL (0-1.0); Monocytes % (A) 7 %; Neutrophils # (A) 7.2 k/uL (1.3-7.7); Neutrophils % (A) 85 %; Platelet Count 656 k/uL (150-450); RBC 4.21 m/uL (3.80-5.40); RDW 12.3 % (11.5-15.5); WBC 8.5 k/uL (3.8-10.6)
[2021-10-20 09:33] LABS: African American GFR (CKD) >90 (>60 ml/min/1.73 sqM); Anion Gap 7 mmol/L; Blood Urea Nitrogen 10 mg/dL (7-17); Calcium 8.5 mg/dL (8.4-10.2); Carbon Dioxide 30 mmol/L (22-30); Chloride 92 mmol/L (98-107); Glucose 104 mg/dL (74-99); Non-African American GFR(CKD) 89 (>60 ml/min/1.73 sqM); Potassium 4.2 mmol/L (3.5-5.1); Sodium 129 mmol/L (137-145)
--- NOTE | 2021-10-20 09:35 | US ---
EXAMINATION TYPE: US chest DATE OF EXAM: 10/20/2021 COMPARISON: CT dated 10/19/2021 CLINICAL HISTORY: pleural effusions. Effusions TECHNIQUE: Targeted ultrasound of the posterior lower bilateral hemithoraces EXAM MEASUREMENTS: Right Pleural Effusion pocket size: 14.3 cm Right skin surface to fluid distance: 3.3 cm Left Pleural Effusion pocket size: 3.7 cm Left skin surface to fluid distance: 2.6 cm Right side marked for possible thoracentesis outside the dept. Left side marked for possible thoracentesis outside the dept. Pulmonologists are able to review the images in the patient?s EMR. IMPRESSIONS: Marking for bilateral pleural effusions larger on the right side. Please note that there is a large h iatal/diaphragmatic hernia containing the entire stomach mainly seen on the left side.
--- NOTE | 2021-10-20 11:33 | P.PN ---
Subjective Progress Note Date: 10/20/21 Principal diagnosis: Shortness of breath 85-year-old white female patient with a recent history of hypertension, hypothyroidism, lifetime nonsmoker. Patient had a recent event for which she was hospitalized and was transferred from an outside facility. She was complaining of shortness of breath at the time, her EKG showed ST segment elevation in the precordial leads, and subsequently patient received TPA. She was transferred to this institution on 09/09/2021 and underwent cardiac catheterization that showed no significant obstructive CAD, right dominant system and normal filling pressures. She was discharged home on 09/10/2021. She lives in [place], she follows with Dr. Angeles in [facility]. She states she is normally healthy, no history of diabetes mellitus, she is a lifetime nonsmoker, no chronic lung disease. Following her hospitalization patient started developing shortness of breath. She also noticed increased swelling in bilateral lower extremities, she denied any cough, no fever or chills, no chest pain. She is complaining of significant orthopnea. She has difficulty ambulating related to shortness of breath. She came into the hospit al for reevaluation on 10/18/2021. Chest x-ray on admission showed congested bilateral pulmonary vasculature with bilateral basal pulmonary atelectasis and bilateral pleural effusions obscuring the previously seen diaphragmatic hernia. Chest significant swelling in her bilateral lower extremities. She was started on diuretics by cardiology. On today's exam she states she is feeling slightly better however still short of breath and cannot lie flat and last night she was having difficult time breathing. She is on room air with pulse ox of 96%, she is afebrile, blood pressure stable. She short of breath with exertion. Echocardiogram was completed showing preserved LV function of 55-60%, and small generalized pericardial effusion. EKG showed sinus tachycardia with first- degree AV block. Lab evaluation showed normal white count of 9.8, hemoglobin of 12.3, platelet count is 587, INR of 1.0, sodium is 1:30, potassium is 4.0, chloride is 96, CO2 is 25, BUN is 14 creatinine 0.51. Troponin was less than 0.012, alkaline phosphatase was 128, AST and ALT were within normal limits, proBNP was 557. CRP is 7.2. Bilateral lower extremity Dopplers showed no evidence of DVT, however the exam was positive for superficial venous thrombosis involving the bilateral small saphenous veins. CTA chest is ordered and is pending at this time. On 10/20/2021 patient seen in follow-up on selective care unit. She states last night she again had significant dyspnea, today she is sitting up unassisted bed, leaning on the table in the tripod position. She states she feels better and breathing easier and disposition. Is on room air pulse ox is 96%, lung sounds are diminished at the bases. She's been afebrile, no cough, no cough with chest discomfort. CTA chest has been completed showing no major central pulmonary embolism and very large hiatal/diaphragmatic hernia containing the entire stomach, portion of the duodenum, large portion of the transverse colon and possibly small bowel loops in addition to peritoneal fat. It is causing significant mass effect on the heart and the GC lungs, and there associated large right and moderate left pleural effusions. Ultrasound of the chest revealed right pleural effusion pocket measuring 14.3 cm, and left pleural effusion pocket of 3.7 cm. Patient remains on IV diuretics. Metoprolol balance is difficult to estimate, but her weight is down by 5 kg according to the recorded weights in the EMR, lower extremity edema still remains although improved. His labs have been reviewed by blood cell count is 8.5, hemoglobin is 12.5, serum sodium is 129, potassium is 4.2, BUN is 10 and creatinine 0.52. Objective - Vital Signs Vital signs: Vital Signs Temp 97.3 F L 10/20/21 08:08 Pulse 95 10/20/21 08:08 Resp 24 10/20/21 08:08 BP 131/70 10/20/21 08:08 Pulse Ox 96 10/20/21 08:08 Intake & Output 10/19/21 10/20/21 10/20/21 18:59 06:59 18:59 Intake Total 910 480 360 Balance 910 480 360 Weight 72.1 kg Intake: IV 10 Invasive Line 1 10 Oral 900 480 360 Other: Voiding Method Toilet Toilet # Voids 2 1 1 - Exam GENERAL EXAM: Alert, very pleasant, 85-year-old white female on room air with a pulse ox of 96%, comfortable in no apparent distress. HEAD: Normocephalic/atraumatic. EYES: Normal reaction of pupils, equal size. Conjunctiva pink, sclera white. NOSE: Clear with pink turbinates. THROAT: No erythema or exudates. NECK: No masses, mild bilateral JVD, no thyroid enlargement, no adenopathy. CHEST: No chest wall deformity. Symmetrical expansion. LUNGS: Equal air entry with no crackles, wheeze, rhonchi or dullness. CVS: Regular rate and rhythm, normal S1 and S2, no gallops, no murmurs, no rubs ABDOMEN: Soft, nontender. No hepatosplenomegaly, normal bowel sounds, no guarding or rigidity. EXTREMITIES: No clubbing, 1+ lower extremity no cyanosis, 2+ pulses and upper and lower extremities. MUSCULOSKELETAL: Muscle strength and tone normal. SPINE: No scoliosis or deformity SKIN: No rashes CENTRAL NERVOUS SYSTEM: Alert and oriented -3. No focal deficits, tone is normal in all 4 extremities. PSYCHIATRIC: Alert and oriented -3. Appropriate affect. Intact judgment and insight. - Labs CBC & Chem 7: 10/20/21 09:06 10/20/21 09:06 Labs: Abnormal Lab Results - Last 24 Hours (Table) 10/19/21 10/20/21 10/20/21 Range/Units 08:06 09:06 09:06 Plt Count 656 H (150-450) k/uL Lymphocytes # 0.4 L (1.0-4.8) k/uL Sodium 129 L (137-145) mmol/L Chloride 92 L (98-107) mmol/L Glucose 104 H (74-99) mg/dL VIC Screen POSITIVE A (NEGATIVE) Assessment and Plan Plan: Assessment: #1. Shortness of breath, multifactorial, related to a very large hiatal/diaphragmatic hernia causing significant mass effect on the heart and lungs, and bilateral pleural effusions, right greater than left #2. Recent history of TPA administration for abnormal EKG, and cardiac catheterization on 09/09/2021 that showed mild CAD #3. Moderate generalized pericardial effusion improved on echocardiogram on this admission #4. Lower extremity edema, no evidence of DVT, but lower extremity Doppler showed SVT bilaterally #5. Lifetime nonsmoker #6. Hypothyroidism #7. Hypertension #8. Urinary incontinence #9. Large hiatal hernia Plan: CT chest has been reviewed Showed a large diaphragmatic hernia causing significant mass effect on the lungs and heart Ultrasound of the chest has been reviewed, showing right greater than left pleural effusions We will proceed with right-sided thoracentesis today to provide the patient with some relief with shortness of breath Continue diuretics per cardiology Consult general surgery for possibility of diaphragmatic hernia repair We'll continue to follow I have personally seen and examined the patient, performed the documentation and the assessment and plan as written. Number of minutes spent on the visit: [15] Time with Patient: Less than 30
--- NOTE | 2021-10-20 12:58 | P.PN ---
Subjective This is a 85 year female with a past medical history significant for hypertension and hypothyroidism. She follows with Dr. Watson. We have been aske d to see the patient in consultation for congestive heart failure. Patient examined at the bedside. Patient presented to the ER with complaints of worsening shortness of breath and LE edema, right leg greater than the left. She states his symptoms have worsened over the past 3 days. Yesterday night patient with increased shortness of breath and presented to the emergency department for further evaluation. She denies any chest pain, palpitations, lightheadedness, dizziness. In the emergency department patient was started on IV Lasix. Patient with not much improvement in her symptoms. She denies fever or cough. Patient was recently admitted in 09/2021 as a transfer from [facility] for possible ST elevations and underlying right bundle block. Patient received TPA at [place] was transferred to [facility]. No evidence of acute PR. She underwent cardiac catheterization that revealed no evidence of significant coronary artery disease. She was also treated for pericarditis. DIAGNOSTICS -Cardiac catheterization 09/2021 revealed no evidence of significant coronary artery disease -Most recent echocardiogram 09/09/2021 revealed EF 5560%, basal anterior midanterior LV wall hypokinetic, moderate generalized pericardial effusion -Repeat echocardiogram this admission reveals EF 5560%, small generalized pericardial effusion, moderate concentric LVH -Chest xray- bilateral pulmonary vasculature, elevated diaphragm bilaterally, pulmonary edema versus pulmonary infection cannot be excluded. -Venous Dopplers negative for DVT bilaterally 10/20/2021 Patient seen and examined at bedside, no acute distress. Continues to have symptoms of shortness of breath. Chest CT revealed no pulmonary embolism, very large hiatal/diaphragmatic hernia, and completely enclosed within the scan and causing significant mass effect on the heart and lungs. Associated large right and small left pleural effusions with incomplete collapse and loss of volume of the right lower lobe and to lesser extent the left lower lobe with complete collapse of the middle lobe. Chest US- bilateral pleural effusions larger on the right side PHYSICAL EXAM: VITAL SIGNS: Reviewed. GENERAL: Well-developed in no acute distress. HEENT: Neck supple. No JVD LUNGS: Respirations even and unlabored. Lungs with decreased breath sounds bases, right lower lobe rhonchi HEART: Regular rate and rhythm. S1 and S2 heard. ABDOMEN: Soft. Nondistended. Nontender. EXTREMITIES: Normal range of motion. No clubbing or cyanosis. Peripheral pulses intact. Bilateral lower extremity edema present, moderate R >L NEUROLOGIC: Awake and alert. Oriented x 3. ASSESSMENT: Symptoms of shortness of breath and lower extremity edema, patient does not appear to be in acute heart failure. Large hiatal/diaphragmatic hernia causing significant mass effect on the heart and lungs, and bilateral pleural effusions Elevated diaphragm bilaterally Bilateral pleural effusions Hypertension Hypothyroidism Recent treatment for pericarditis PLAN: Patient does not appear to be in acute heart failure that would be causing her symptoms. Recent cardiac catheterization with no significant coronary artery disease. Patient with Normal LV function. Pericardial effusion has improved on echocardiogram. Symptoms likely related to large diaphragmatic hernia causing significant mass effect on the lungs and heart Surgery consulted. Pulmonary following, likely performing right sided thoracentesis PO Lasix 20mg BID Continue aspirin, metoprolol tartrate Further recommendations based on clinical course Nurse practitioner note has been reviewed by physician. Signing provider agrees with the documented findings, assessment, and plan of care. Objective - Vital Signs Vital signs: Vital Signs Temp 96.2 F L 10/20/21 11:44 Pulse 76 10/20/21 11:44 Resp 20 10/20/21 11:44 BP 132/75 10/20/21 11:44 Pulse Ox 96 10/20/21 11:44 Intake & Output 10/19/21 10/20/21 10/20/21 18:59 06:59 18:59 Intake Total 910 480 360 Balance 910 480 360 Weight 72.1 kg Intake: IV 10 Invasive Line 1 10 Oral 900 480 360 Other: Voiding Method Toilet Toilet # Voids 2 1 1 - Labs CBC & Chem 7: 10/20/21 09:06 10/20/21 09:06 Labs: Abnormal Lab Results - Last 24 Hours (Table) 10/19/21 10/20/21 10/20/21 Range/Units 08:06 09:06 09:06 Plt Count 656 H (150-450) k/uL Lymphocytes # 0.4 L (1.0-4.8) k/uL Sodium 129 L (137-145) mmol/L Chloride 92 L (98-107) mmol/L Glucose 104 H (74-99) mg/dL VIC Screen POSITIVE A (NEGATIVE)
--- NOTE | 2021-10-20 14:09 | P.GSCN ---
History of Present Illness Consult date: 10/20/21 History of present illness: CHIEF COMPLAINT: Shortness of breath HISTORY OF PRESENT ILLNESS: This is a 85-year-old female who presented with shortness of breath or lower extremity edema over the last 3 days. She was having difficulty laying flat. She was started on diuretics. She was seen evaluated by both cardiology and pulmonary service. Patient had bilateral p leural effusion right greater than left. Patient scheduled for right sided thoracentesis today. Patient had CTA of chest with no evidence of PE but did reveal a very large hiatal and diaphragmatic hernia that is causing significant mass effect on the heart and lungs. Associated large right and small pleural effusion with collapse adjacent lungs also noted. Patient has to lean forward onto her side table to get relief. Surgical service with consult with regards to the large diaphragmatic hiatal hernia. Patient reports that she does have nausea and early satiety. She reports that she feels a fullness after 2-3 bites. Denies any pain. Denies any reflux. She denies any history of a hiatal hernia. Patient is currently on room air. PAST MEDICAL HISTORY: Hypertension, hypothyroidism, varicose veins, pericarditis one month ago PAST SURGICAL HISTORY: Tonsillectomy MEDICATIONS: See list. ALLERGIES: See list. SOCIAL HISTORY: No illicit drug use. REVIEW OF SYSTEMS: CONSTITUTIONAL: Denies fever or chills. HEENT: Denies blurred vision, vision changes, or eye pain. Denies hemoptysis CARDIOVASCULAR: Denies chest pain or pressure. RESPIRATORY: No shortness of breath. GASTROINTESTINAL: See HPI for pertinent findings HEMATOLOGIC: Denies bleeding disorders. GENITOURINARY: Denies any blood in urine or increased urinary frequency. SKIN: Denies pruitis. Denies rash. PHYSICAL EXAM: VITAL SIGNS: Reviewed GENERAL: Well-developed in no acute distress. HEENT: No sclera icterus. Extraocular movements grossly intact. Moist buccal mucosa. Head is atraumatic, normocephalic. No nasal drainage. ABDOMEN: Soft. Nondistended. Nontender NEUROLOGIC: Alert and oriented. Cranial nerves II through XII grossly intact. LABORATORY DATA: WBC 8.5 hgb 12.5 platelets 656 Sodium 129 potassium 4.2 creatinine 0.52 IMAGING: CTA of chest with no evidence of PE but did reveal a very large hiatal and diaphragmatic hernia that is causing significant mass effect on the heart and l ungs. Associated large right and small pleural effusion with collapse adjacent lungs also noted. Echo shows EF 55-60% small generalized pericardial effusion ASSESSMENT: 1. Very large hiatal and diaphragmatic hernia that is causing mass effect on the heart and lungs 2. Bilateral pleural effusions scheduled for right-sided thoracentesis today with pulmonary service 3. Hyponatremia 4. Recent history of pericarditis PLAN: -Patient scheduled for EGD tomorrow with Dr. Brush -Nothing by mouth after midnight -Continue supportive care -Hyponatremia management per medicine service Thank you for this consultation Physician [employer] Receiver note has been reviewed by physician. Signing provider agrees with the documented findings, assessment, and plan of care. Past Medical History Past Medical History: Hypertension, Thyroid Disorder, Vascular Disorder Additional Past Medical History / Comment(s): Pt states she is on Ibandronate for prevention of osteoporosis but bone density has been normal, varicose veins/surgery. History of Any Multi-Drug Resistant Organisms: None Reported Past Surgical History: Tonsillectomy Additional Past Surgical History / Comment(s): Varicose veins 1978, colonoscopy, bilateral cataract removals/lens implants. Past Anesthesia/Blood Transfusion Reactions: No Reported Reaction Smoking Status: Never smoker - Past Family History Father Family Medical History: No Reported History Additional Family Medical History / Comment(s): Pt states her father was healthy and lived into his late 80s. Mother Family Medical History: No Reported History Additional Family Medical History / Comment(s): Pt states her mother was healthy and lived into her late 80s. Medications and Allergies Home Medications Medication Instructions Recorded Confirmed Type Ibandronate Sodium [Boniva] 150 mg PO Q30D 09/09/21 10/18/21 History Levothyroxine Sodium [Synthroid] 112 mcg PO DAILY 09/09/21 10/18/21 History Aspirin 81 mg PO DAILY 09/10/21 10/18/21 Rx Metoprolol Tartrate [Lopressor] 25 mg PO BID #60 tab 09/10/21 10/18/21 Rx Calcium Carbonate [Calcium] 600 mg PO DAILY 10/18/21 10/18/21 History Cholecalciferol [Vitamin D3 (25 25 mcg PO DAILY 10/18/21 10/18/21 History Mcg = 1000 Iu)] Glucosamine HCl/Chondroitin Joseph 1 cap PO BID 10/18/21 10/18/21 History [Glucosamine-Chondroitin Cap] Multivit-Min/FA/Lycopen/Lutein 1 tab PO DAILY 10/18/21 10/18/21 History [Centrum Silver Tablet] Nitroglycerin Sl Tabs [Nitrostat] 0.4 mg SL Q5M PRN 10/18/21 10/18/21 History Allergies Allergy/AdvReac Type Severity Reaction Status Date / Time No Known Allergies Allergy Verified 10/18/21 14:54 Surgical - Exam Vital Signs Temp Pulse Resp BP Pulse Ox 97.9 F 107 H 16 133/82 98 10/18/21 13:35 10/18/21 13:35 10/18/21 13:35 10/18/21 13:35 10/18/21 13:35 Results - Labs 10/20/21 09:06 10/20/21 09:06 Abnormal Lab Results - Last 24 Hours (Table) 10/19/21 10/20/21 10/20/21 Range/Units 08:06 09:06 09:06 Plt Count 656 H (150-450) k/uL Lymphocytes # 0.4 L (1.0-4.8) k/uL Sodium 129 L (137-145) mmol/L Chloride 92 L (98-107) mmol/L Glucose 104 H (74-99) mg/dL VIC Screen POSITIVE A (NEGATIVE) Diabetes panel 10/20/21 Range/Units 09:06 Sodium 129 L (137-145) mmol/L Potassium 4.2 (3.5-5.1) mmol/L Chloride 92 L (98-107) mmol/L Carbon Dioxide 30 (22-30) mmol/L BUN 10 (7-17) mg/dL Creatinine 0.52 (0.52-1.04) mg/dL Glucose 104 H (74-99) mg/dL Calcium 8.5 (8.4-10.2) mg/dL Calcium panel 10/20/21 Range/Units 09:06 Calcium 8.5 (8.4-10.2) mg/dL Pituitary panel 10/20/21 Range/Units 09:06 Sodium 129 L (137-145) mmol/L Potassium 4.2 (3.5-5.1) mmol/L Chloride 92 L (98-107) mmol/L Carbon Dioxide 30 (22-30) mmol/L BUN 10 (7-17) mg/dL Creatinine 0.52 (0.52-1.04) mg/dL Glucose 104 H (74-99) mg/dL Calcium 8.5 (8.4-10.2) mg/dL Adrenal panel 10/20/21 Range/Units 09:06 Sodium 129 L (137-145) mmol/L Potassium 4.2 (3.5-5.1) mmol/L Chloride 92 L (98-107) mmol/L Carbon Dioxide 30 (22-30) mmol/L BUN 10 (7-17) mg/dL Creatinine 0.52 (0.52-1.04) mg/dL Glucose 104 H (74-99) mg/dL Calcium 8.5 (8.4-10.2) mg/dL
--- NOTE | 2021-10-20 14:38 | XR ---
EXAMINATION TYPE: XR chest 1V portable DATE OF EXAM: 10/20/2021 COMPARISON: 10/18/2021 HISTORY: Post right thoracentesis TECHNIQUE: Single frontal view of the chest is obtained. FINDINGS: There is bilateral infiltrate and pleural effusion with improvement noted on the right. No definite sizable pneumothorax. Heart size stable. Reduced inspiration with hypertrophic and degenera tive change of the spine. Apical pleural thickening noted. IMPRESSION: 1. No pneumothorax postthoracentesis with bilateral infiltrate and small effusion noted.
--- NOTE | 2021-10-20 15:03 | P.PN ---
Progress Note - Text Progress Note Date: 10/20/21 Chief Complaint: Short of breath This is a very pleasant 85-year-old patient who follows with Dr. Adia Angeles. Chronic stable medical conditions include hypertension, hypothyroid, urinary incontinence and wears diapers, hard of hearing. Large hiatal hernia 10/06/2021 patient was here with some chest pressure.cardiac catheterization by Dr. CHELO Babin. No significant CAD. Patient may have had an element of pericarditis. 2-D echo showed some pericardial effusion Patient was doing well upon discharge. The last few days patient started having progressively increasing shortness of breath. No fever no chills. Increasing lower extremity edema. Not able to eat when fall. Tired rundown. Orthopnea. October 19: Sitting at the edge of the bed. Legs hanging. Helps his breathing. Pulmonary consulted. 2-D echo showed small pericardial effusion. VQ scan orde red to rule out more peripheral emboli. October 20: Sitting of the edge of the bed. is present. CT chest showed a very large diaphragmatic hernia causing a significant mass effect on the heart of the lungs. Large right pleural effusion. The hernia containing stent diastolic. Also there is large portion of the transverse colon and small bowel loops. Has incomplete collapse and loss of volume of the right lower lobe and to lesser extent left lower lobe. Did complete collapse of the middle lobe. 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 Osteopenia. Active Medications Acetaminophen (Acetaminophen Tab 325 Mg Tab) 650 mg PO Q6HR PRN PRN Reason: Mild Pain or Fever > 100.5 Last Admin: 10/19/21 15:58 Dose: 650 mg Documented by: Aspirin (Aspirin 81 Mg) 81 mg PO DAILY [facility] Last Admin: 10/20/21 09:03 Dose: 81 mg Documented by: Calcium Carbonate/Glycine (Calcium Carbonate 500 Mg Chewable) 500 mg PO DAILY [facility] Last Admin: 10/20/21 09:03 Dose: 500 mg Documented by: Calcium Carbonate/Glycine (Calcium Carbonate 500 Mg Chewable) 1,000 mg PO Q4HR PRN PRN Reason: Dyspepsia Enoxaparin Sodium (Enoxaparin 40 Mg/0.4 Ml Syringe) 40 mg SQ DAILY [facility] Last Admin: 10/20/21 09:03 Dose: 40 mg Documented by: Furosemide (Furosemide 20 Mg Tab) 20 mg PO BID@0900,1600 [facility] Last Admin: 10/20/21 09:03 Dose: 20 mg Documented by: Lactulose (Lactulose 20 Gm/30 Ml Cup) 20 gm PO DAILY PRN PRN Reason: Constipation Levothyroxine Sodium (Levothyroxine 112 Mcg Tab) 112 mcg PO 0630 [facility] Last Admin: 10/20/21 06:05 Dose: 112 mcg Documented by: Lorazepam (Lorazepam 0.5 Mg Tab) 0.5 mg PO Q6HR PRN PRN Reason: Anxiety Melatonin (Melatonin 3 Mg Tablet) 3 mg PO HS PRN PRN Reason: Insomnia Metoprolol Tartrate (Metoprolol Tartrate 25 Mg Tab) 25 mg PO BID [facility] Last Admin: 10/20/21 09:03 Dose: 25 mg Documented by: Multivitamins (Multivitamins, Thera 1 Each Tab) 1 each PO DAILY [facility] Last Admin: 10/20/21 09:03 Dose: 1 each Documented by: Naloxone HCl (Naloxone 0.4 Mg/Ml 1 Ml Vial) 0.2 mg IV Q2M PRN PRN Reason: Opioid Reversal Prochlorperazine Maleate (Prochlorperazine 5 Mg Tab) 5 mg PO Q8HR PRN PRN Reason: Nausea And Vomiting Psyllium Hydrophilic Mucilloid (Psyllium Husk 100% 6 Gm Packet) 6 gm PO BID [facility] Last Admin: 10/20/21 09:03 Dose: 6 gm Documented by: Past medical history to include: Hypertension, hypothyroid, urinary incontinence, hard of hearing, pericarditis, hiatal hernia Social history: No history of smoking or alcohol. Lives with her . Family history: Reviewed, noncontributory to presentation Physical examination: VITAL SIGNS: 96.2, 76, 20, 132/75, 96% room air GENERAL: Sitting on the edge of the bed, short of breath. EYES: Pupils equal. Conjunctiva normal. HEENT: External appearance of nose and ears normal, oral cavity grossly normal. NECK: JVD or possibly; masses not palpable. HEART: First and second heart sounds are normal; edema present. LUNGS: Respiratory rate increased, decreased breath sounds to bases. ABDOMEN: Soft, nontender, liver spleen not palpable, no masses palpable. PSYCH: Alert and oriented x3; mood and affect a bit anxiousl. MUSCULOSKELETAL:No Clubbing/cyanosis;muscles-grossly intact. Evidence of OA. INVESTIGATIONS, reviewed in the clinical context: CT chest showed a very large diaphragmatic hernia causing a significant mass effect on the heart of the lungs. Large right pleural effusion. The hernia containing entire stomach. Also there is large portion of the transverse colon and small bowel loops. Has incomplete collapse and loss of volume of the right lower lobe and to lesser extent left lower lobe. Did complete collapse of the middle lobe. 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 October 20: White count 8.5 hemoglobin 12.5 platelets 656 sodium 129 potassium 4.2 creatinine 0.5 to Limited 2-D echocardiogram: Moderate concentric LVH. Moderate TR. EF 55-60%. Venous Doppler: Negative for DVT White count 9.8 hemoglobin 12.3 platelets 587 sodium 1:30 potassium 4 BUN 14 creatinine 0.51 troponin I less than 0.012 proBNP 557 albumin 3.1 EKG tracing personally reviewed by me-sinus tachycardia. Right bundle branch block pattern. Nonspecific ST/T-wave changes. Chest x-ray film personally reviewed by me-pulmonary edema. Heart hernia. Recent investigations [September 2021] Cardiac catheterization: Minimal CAD 2-D echocardiogram: EF 55-60%. Some wall motion abnormality. Moderate generalized pericardial effusion. Marleny-Huynh viral serology: Negative Assessment and plan: -Very large diaphragmatic hernia causing the entire stomach to be in the chest including bowel loops. Symptomatic. Gen. surgery consulted. Plan for EGD tomorrow -Large right pleural effusion. Consult known For thoracentesis today -Collapse right lower lobe, right middle lobe, and left lower lobe. Follow with pulmonary -Primary osteoarthritis multiple joints Pain medications if needed -Chronic urinary stress incontinence -Hypothyroid Synthroid 112 g a day -Essential hypertension Lopressor 25 mg twice a day For thoracentesis on the right side today. Surgery consulted. For EGD tomorrow. Care was discussed with the patient has been.
--- NOTE | 2021-10-20 19:53 | PCN ---
PROCEDURE NOTE OPERATIVE REPORT: Right-sided thoracentesis. PREOPERATIVE DIAGNOSIS: Right-sided pleural effusion. POSTOPERATIVE DIAGNOSIS: Right sided pleural effusion ANESTHESIA USED: 2 mL of 1% lidocaine. PROCEDURE: The patient was placed in a sitting upright position, the area below the right scapula was prepared in a sterile fashion and drapes were applied. The fluid was earlier localized by ultrasound, and at the site of the markings, the area was locally anesthetized with lidocaine, then it was also prepared in a sterile fashion and drapes were applied. A 26-gauge needle was used, and advanced into the pleural space, fluid was localized. Then a small tiny incision was made, and a standard thoracentesis catheter and needle were used, advanced into the pleural space until the fluid was obtained. Then, the catheter was advanced over the needle into the pleural space, and the needle was pulled out of the pleural space. Freely flowing fluid was removed, drained 1750 mL of alessia color fluid from the right pleural space. Procedure was well tolerated, no complications. Chest x-ray showed no evidence of pneumothorax. The fluid was sent for different diagnostic studies. MMODL / IJN: [id number] /
[2021-10-20] MEDS: ACETAMINOPHEN TAB 325 MG TAB PO PRN (19:56)
[2021-10-20 23:26] LABS: Appearance,BF Clear
[2021-10-21] MEDS: LEVOTHYROXINE 112 MCG TAB PO SCH (06:17)
[2021-10-21] MEDS ORDERED: SODIUM CHLORIDE 0.9% 500 ML 500 ML IV ONE ×2 (08:26)
[2021-10-21] MEDS ORDERED: PROPOFOL 10 MG/ML 20 ML VIAL IV ONE (08:27)
[2021-10-21] MEDS ORDERED: LIDOCAINE 2% INJ 20 MG/ML (2 ML VIAL) ONE (08:27)
--- NOTE | 2021-10-21 08:41 | P.OP ---
Date of Procedure: 10/21/21 Preoperative Diagnosis: GERD Dysphagia Postoperative Diagnosis: Large hiatal hernia with intrathoracic stomach Procedure(s) Performed: EGD Anesthesia: MAC Surgeon: Dorian Brush Pathology: other (Antrum, esophagus) Condition: stable Disposition: PACU Description of Procedure: The patient's placed on the endoscopy table in the lateral position. She received IV sedation. The gastroscope placed oropharynx. The scope was then advanced into the esophagus and into the stomach. The stomach appeared to be in the intrathoracic position. The pylorus was visualized but however could not be entered due to the sharp angularis the of the stomach. A biopsy the antrum was performed. Scope was then retroflexed. The GE junction was at 33 cm. The distal esophagus appeared inflamed. A biopsies performed. The proximal esophagus appeared normal
[2021-10-21 08:44] LABS: Glucose, BF Source Pleural Fluid; Glucose, Body Fluid 115 mg/dL; LDH, Body Fluid Source Pleural Fluid; T. Protein, Body Fluid Source Pleural Fluid; Total Protein, Body Fluid 4640 mg/dL
[2021-10-21] MEDS: CALCIUM CARBONATE 500 MG CHEWABLE PO SCH (11:00)
[2021-10-21] MEDS: METOPROLOL TARTRATE 25 MG TAB PO SCH ×2 (11:00→20:34)
[2021-10-21] MEDS: ENOXAPARIN 40 MG/0.4 ML SYRINGE SQ SCH (11:00)
[2021-10-21] MEDS: ASPIRIN 81 MG PO SCH (11:00)
[2021-10-21] MEDS: MULTIVITAMINS, THERA 1 EACH TAB PO SCH (11:01)
[2021-10-21] MEDS: FUROSEMIDE 20 MG TAB PO SCH ×2 (11:01→16:51)
[2021-10-21] MEDS: PSYLLIUM HUSK 100% 6 GM PACKET PO SCH ×2 (11:02→20:34)
[2021-10-21 12:32] LABS: African American GFR (CKD) >90 (>60 ml/min/1.73 sqM); Anion Gap 8 mmol/L; Blood Urea Nitrogen 9 mg/dL (7-17); Calcium 8.3 mg/dL (8.4-10.2); Carbon Dioxide 27 mmol/L (22-30); Chloride 94 mmol/L (98-107); Glucose 83 mg/dL (74-99); Non-African American GFR(CKD) 89 (>60 ml/min/1.73 sqM); Sodium 129 mmol/L (137-145)
[2021-10-21 12:35] LABS: Potassium 4.5 mmol/L (3.5-5.1)
--- NOTE | 2021-10-21 12:52 | P.PN ---
Subjective Progress Note Date: 10/21/21 Principal diagnosis: Shortness of breath 85-year-old white female patient with a recent history of hypertension, hypothyroidism, lifetime nonsmoker. Patient had a recent event for which she was hospitalized and was transferred from an outside facility. She was complaining of shortness of breath at the time, her EKG showed ST segment elevation in the precordial leads, and subsequently patient received TPA. She was transferred to this institution on 09/09/2021 and underwent cardiac catheterization that showed no significant obstructive CAD, right dominant system and normal filling pressures. She was discharged home on 09/10/2021. She lives in [place], she follows with Dr. Angeles in [facility]. She states she is normally healthy, no history of diabetes mellitus, she is a lifetime nonsmoker, no chronic lung disease. Following her hospitalization patient started developing shortness of breath. She also noticed increased swelling in bilateral lower extremities, she denied any cough, no fever or chills, no chest pain. She is complaining of significant orthopnea. She has difficulty ambulating related to shortness of breath. She came into the hospit al for reevaluation on 10/18/2021. Chest x-ray on admission showed congested bilateral pulmonary vasculature with bilateral basal pulmonary atelectasis and bilateral pleural effusions obscuring the previously seen diaphragmatic hernia. Chest significant swelling in her bilateral lower extremities. She was started on diuretics by cardiology. On today's exam she states she is feeling slightly better however still short of breath and cannot lie flat and last night she was having difficult time breathing. She is on room air with pulse ox of 96%, she is afebrile, blood pressure stable. She short of breath with exertion. Echocardiogram was completed showing preserved LV function of 55-60%, and small generalized pericardial effusion. EKG showed sinus tachycardia with first- degree AV block. Lab evaluation showed normal white count of 9.8, hemoglobin of 12.3, platelet count is 587, INR of 1.0, sodium is 1:30, potassium is 4.0, chloride is 96, CO2 is 25, BUN is 14 creatinine 0.51. Troponin was less than 0.012, alkaline phosphatase was 128, AST and ALT were within normal limits, proBNP was 557. CRP is 7.2. Bilateral lower extremity Dopplers showed no evidence of DVT, however the exam was positive for superficial venous thrombosis involving the bilateral small saphenous veins. CTA chest is ordered and is pending at this time. On 10/20/2021 patient seen in follow-up on selective care unit. She states last night she again had significant dyspnea, today she is sitting up unassisted bed, leaning on the table in the tripod position. She states she feels better and breathing easier and disposition. Is on room air pulse ox is 96%, lung sounds are diminished at the bases. She's been afebrile, no cough, no cough with chest discomfort. CTA chest has been completed showing no major central pulmonary embolism and very large hiatal/diaphragmatic hernia containing the entire stomach, portion of the duodenum, large portion of the transverse colon and possibly small bowel loops in addition to peritoneal fat. It is causing significant mass effect on the heart and the GC lungs, and there associated large right and moderate left pleural effusions. Ultrasound of the chest revealed right pleural effusion pocket measuring 14.3 cm, and left pleural effusion pocket of 3.7 cm. Patient remains on IV diuretics. Metoprolol balance is difficult to estimate, but her weight is down by 5 kg according to the recorded weights in the EMR, lower extremity edema still remains although improved. His labs have been reviewed by blood cell count is 8.5, hemoglobin is 12.5, serum sodium is 129, potassium is 4.2, BUN is 10 and creatinine 0.52. On 10/21/2021 patient seen in follow-up on selective care unit. She states she is breathing much easier since the right-sided thoracentesis yesterday with removal of 1.7 L of pleural fluid and pleural fluid analysis showed exudative fluid, pleural fluid cultures and cytology are pending. Patient was seen by general surgery and underwent EGD today with biopsies. The stomach appeared to be in the intrathoracic position. The plan is for possible surgery for repair of a very large hiatal and diaphragmatic hernia possibly and 10/25/2021. Patient continues on IV diuretics, lower extremity edema is improving, ultrasound the chest does not show significant fluid on the left side. Objective - Vital Signs Vital signs: Vital Signs Temp 97.5 F L 10/21/21 08:00 Pulse 85 10/21/21 10:58 Resp 16 10/21/21 10:58 BP 115/78 10/21/21 10:58 Pulse Ox 96 10/21/21 10:58 Intake & Output 10/20/21 10/21/21 10/21/21 18:59 06:59 18:59 Intake Total 460 10 200 Output Total 300 Balance 460 -290 200 Weight 72.1 kg 70.4 kg Intake: IV 10 200 0.9 10 Oral 460 Output: Urine 300 Other: Voiding Method Toilet Toilet Toilet # Voids 1 1 - Exam GENERAL EXAM: Alert, very pleasant, 85-year-old white female on room air with a pulse ox of 96%, comfortable in no apparent distress. HEAD: Normocephalic/atraumatic. EYES: Normal reaction of pupils, equal size. Conjunctiva pink, sclera white. NOSE: Clear with pink turbinates. THROAT: No erythema or exudates. NECK: No masses, mild bilateral JVD, no thyroid enlargement, no adenopathy. CHEST: No chest wall deformity. Symmetrical expansion. LUNGS: Equal air entry with no crackles, wheeze, rhonchi or dullness. CVS: Regular rate and rhythm, normal S1 and S2, no gallops, no murmurs, no rubs ABDOMEN: Soft, nontender. No hepatosplenomegaly, normal bowel sounds, no guarding or rigidity. EXTREMITIES: No clubbing, 1+ lower extremity no cyanosis, 2+ pulses and upper and lower extremities. MUSCULOSKELETAL: Muscle strength and tone normal. SPINE: No scoliosis or deformity SKIN: No rashes CENTRAL NERVOUS SYSTEM: Alert and oriented -3. No focal deficits, tone is normal in all 4 extremities. PSYCHIATRIC: Alert and oriented -3. Appropriate affect. Intact judgment and insight. - Labs CBC & Chem 7: 10/20/21 09:06 10/21/21 10:59 Labs: Abnormal Lab Results - Last 24 Hours (Table) 10/21/21 10/21/21 Range/Units 10:59 10:59 ESR 72 H (0-20) mm/hr Sodium 129 L (137-145) mmol/L Chloride 94 L (98-107) mmol/L Calcium 8.3 L (8.4-10.2) mg/dL Microbiology - Last 24 Hours (Table) 10/20/21 14:00 Anaerobic Culture - Preliminary Pleural Fluid 10/20/21 14:00 Acid Fast Bacilli Culture - Preliminary Pleural Fluid 10/20/21 14:00 Body Fluid Culture - Preliminary Pleural Fluid 10/20/21 14:00 Fungal Culture - Preliminary Pleural Fluid Assessment and Plan Plan: Assessment: #1. Shortness of breath, multifactorial, related to a very large hiatal/diaphragmatic hernia causing significant mass effect on the heart and lungs, and bilateral pleural effusions, right greater than left, status post right-sided thoracentesis on 10/20/2021 would removal of 1.7 L of pleural fluid which was sent for analysis showing exudative fluid. Pleural fluid cultures and cytology are pending #2. Large hiatal/diaphragmatic hernia, status post EGD, showing the stomach entirely in the intrathoracic position. General surgeries following, possible hernia repair on 10/25/2021 #3. Recent history of TPA administration for abnormal EKG, and cardiac catheterization on 09/09/2021 that showed mild CAD #4. Moderate generalized pericardial effusion improved on echocardiogram on this admission #5. Lower extremity edema, no evidence of DVT, but lower extremity Doppler showed SVT bilaterally #6. Lifetime nonsmoker #7. Hypothyroidism #8. Hypertension #9. Urinary incontinence Plan: Continue diuretics Patient has the right-sided thoracentesis yesterday we removal 1.7 L of pleural fluid which was exudative in nature Awaiting pleural fluid cytology and cultures Clinically does not appear to have an active infection No plans for left-sided thoracentesis as the ultrasound chest did not show significant fluid collection on the left Gen. surgery recommendations were noted, results of the EGD were noted, possibly surgery in the next several days I have personally seen and examined the patient, performed the documentation and the assessment and plan as written. Number of minutes spent on the visit: [15] Time with Patient: Less than 30
[2021-10-21 12:58] LABS: C Reactive Protein 6.3 mg/dL (<1.0)
--- NOTE | 2021-10-21 15:46 | P.PN ---
Subjective This is a 85 year female with a past medical history significant for hypertension and hypothyroidism. She follows with Dr. Watson. We have been aske d to see the patient in consultation for congestive heart failure. Patient examined at the bedside. Patient presented to the ER with complaints of worsening shortness of breath and LE edema, right leg greater than the left. She states his symptoms have worsened over the past 3 days. Yesterday night patient with increased shortness of breath and presented to the emergency department for further evaluation. She denies any chest pain, palpitations, lightheadedness, dizziness. In the emergency department patient was started on IV Lasix. Patient with not much improvement in her symptoms. She denies fever or cough. Patient was recently admitted in 09/2021 as a transfer from [facility] for possible ST elevations and underlying right bundle block. Patient received TPA at [place] was transferred to [facility]. No evidence of acute IN. She underwent cardiac catheterization that revealed no evidence of significant coronary artery disease. She was also treated for pericarditis. DIAGNOSTICS -Cardiac catheterization 09/2021 revealed no evidence of significant coronary artery disease -Most recent echocardiogram 09/09/2021 revealed EF 5560%, basal anterior midanterior LV wall hypokinetic, moderate generalized pericardial effusion -Repeat echocardiogram this admission reveals EF 5560%, small generalized pericardial effusion, moderate concentric LVH -Chest xray- bilateral pulmonary vasculature, elevated diaphragm bilaterally, pulmonary edema versus pulmonary infection cannot be excluded. -Venous Dopplers negative for DVT bilaterally 10/20/2021 Patient seen and examined at bedside, no acute distress. Continues to have symptoms of shortness of breath. Chest CT revealed no pulmonary embolism, very large hiatal/diaphragmatic hernia, and completely enclosed within the scan and causing significant mass effect on the heart and lungs. Associated large right and small left pleural effusions with incomplete collapse and loss of volume of the right lower lobe and to lesser extent the left lower lobe with complete collapse of the middle lobe. Chest US- bilateral pleural effusions larger on the right side 10/21/2021 Patient seen and examined at bedside, no acute distress. Her breathing has improved. Yesterday she underwent right-sided thoracentesis with 1.7 L pleural fluid removed. She has been evaluated by general surgery and plan for an EGD today. Also plan for patient to undergo possible surgical repair of the very large hiatal hernia on 10/25/21 She is tolerating PO Lasix well and she has improvement in lower extremity edema PHYSICAL EXAM: VITAL SIGNS: Reviewed. GENERAL: Well-developed in no acute distress. HEENT: Neck supple. No JVD LUNGS: Respirations even and unlabored. Lungs with decreased breath sounds bases, right lower lobe rhonchi HEART: Regular rate and rhythm. S1 and S2 heard. ABDOMEN: Soft. Nondistended. Nontender. EXTREMITIES: Normal range of motion. No clubbing or cyanosis. Peripheral pulses intact. Bilateral lower extremity edema present, moderate R >L NEUROLOGIC: Awake and alert. Oriented x 3. ASSESSMENT: Symptoms of shortness of breath and lower extremity edema, patient does not appear to be in acute heart failure. Large hiatal/diaphragmatic hernia causing significant mass effect on the heart and lungs, and bilateral pleural effusions Elevated diaphragm bilaterally Bilateral pleural effusions Status post right sided thoracentesis 10/20/21 Hypertension Hypothyroidism Recent treatment for pericarditis PLAN: Patient does not appear to be in acute heart failure that would be causing her symptoms. Recent cardiac catheterization with no significant coronary artery disease. Patient with Normal LV function. Pericardial effusion has improved on echocardiogram. Symptoms are likely related to large diaphragmatic hernia causing significant mass effect on the lungs and heart Surgery consulted, EGD today and plan for possible surgical repair of the very large hiatal hernia on 10/25/21 Pulmonary following, and performed right sided thoracentesis on 10/20/21 Recommend continuin PO Lasix 20mg BID Continue aspirin, metoprolol tartrate From a cardiology perspective, no further changes at this time. Please reach out with questions or concerns. Follow up outpatient with Dr. Watson Nurse practitioner note has been reviewed by physician. Signing provider agrees with the documented findings, assessment, and plan of care. Objective - Vital Signs Vital signs: Vital Signs Temp 97.5 F L 10/21/21 08:00 Pulse 85 10/21/21 10:58 Resp 16 10/21/21 10:58 BP 115/78 10/21/21 10:58 Pulse Ox 96 10/21/21 10:58 Intake & Output 10/20/21 10/21/21 10/21/21 18:59 06:59 18:59 Intake Total 460 10 200 Output Total 300 Balance 460 -290 200 Weight 72.1 kg 70.4 kg Intake: IV 10 200 0.9 10 Oral 460 Output: Urine 300 Other: Voiding Method Toilet Toilet Toilet # Voids 1 1 - Labs CBC & Chem 7: 10/20/21 09:06 10/21/21 10:59 Labs: Abnormal Lab Results - Last 24 Hours (Table) 10/21/21 10/21/21 Range/Units 10:59 10:59 ESR 72 H (0-20) mm/hr Sodium 129 L (137-145) mmol/L Chloride 94 L (98-107) mmol/L Calcium 8.3 L (8.4-10.2) mg/dL C-Reactive Protein 6.3 H (<1.0) mg/dL Microbiology - Last 24 Hours (Table) 10/20/21 14:00 Gram Stain - Preliminary Pleural Fluid Body Fluid Culture - Preliminary 10/20/21 14:00 Anaerobic Culture - Preliminary Pleural Fluid 10/20/21 14:00 Acid Fast Bacilli Culture - Preliminary Pleural Fluid 10/20/21 14:00 Fungal Culture - Preliminary Pleural Fluid
--- NOTE | 2021-10-21 16:06 | P.PN ---
Progress Note - Text Progress Note Date: 10/21/21 Chief Complaint: Short of breath This is a very pleasant 85-year-old patient who follows with Dr. Adia Angeles. Chronic stable medical conditions include hypertension, hypothyroid, urinary incontinence and wears diapers, hard of hearing. Large hiatal hernia 10/06/2021 patient was here with some chest pressure.cardiac catheterization by Dr. CHELO Babin. No significant CAD. Patient may have had an element of pericarditis. 2-D echo showed some pericardial effusion Patient was doing well upon discharge. The last few days patient started having progressively increasing shortness of breath. No fever no chills. Increasing lower extremity edema. Not able to eat when fall. Tired rundown. Orthopnea. October 19: Sitting at the edge of the bed. Legs hanging. Helps his breathing. Pulmonary consulted. 2-D echo showed small pericardial effusion. VQ scan orde red to rule out more peripheral emboli. October 20: Sitting of the edge of the bed. is present. CT chest showed a very large diaphragmatic hernia causing a significant mass effect on the heart of the lungs. Large right pleural effusion. The hernia containing stent diastolic. Also there is large portion of the transverse colon and small bowel loops. Has incomplete collapse and loss of volume of the right lower lobe and to lesser extent left lower lobe. Did complete collapse of the middle lobe. 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 Osteopenia. October 21: About 1800 mL of bright thoracentesis was done by Dr. Hill yesterday. Breathing a bit better. This could short winded to going to the bathroom with few steps. Had EGD done today by Dr. Brush. Discussed with the patient has been at the bedside. Dr. Webb is planning for hiatal hernia surgery later. Active Medications Acetaminophen (Acetaminophen Tab 325 Mg Tab) 650 mg PO Q6HR PRN PRN Reason: Mild Pain or Fever > 100.5 Last Admin: 10/20/21 19:56 Dose: 650 mg Documented by: Aspirin (Aspirin 81 Mg) 81 mg PO DAILY [facility] Last Admin: 10/21/21 11:00 Dose: 81 mg Documented by: Calcium Carbonate/Glycine (Calcium Carbonate 500 Mg Chewable) 500 mg PO DAILY [facility] Last Admin: 10/21/21 11:00 Dose: 500 mg Documented by: Calcium Carbonate/Glycine (Calcium Carbonate 500 Mg Chewable) 1,000 mg PO Q4HR PRN PRN Reason: Dyspepsia Enoxaparin Sodium (Enoxaparin 40 Mg/0.4 Ml Syringe) 40 mg SQ DAILY [facility] Last Admin: 10/21/21 11:00 Dose: 40 mg Documented by: Furosemide (Furosemide 20 Mg Tab) 20 mg PO BID@0900,1600 [facility] Last Admin: 10/21/21 11:01 Dose: 20 mg Documented by: Lactulose (Lactulose 20 Gm/30 Ml Cup) 20 gm PO DAILY PRN PRN Reason: Constipation Levothyroxine Sodium (Levothyroxine 112 Mcg Tab) 112 mcg PO 0630 [facility] Last Admin: 10/21/21 06:17 Dose: 112 mcg Documented by: Lorazepam (Lorazepam 0.5 Mg Tab) 0.5 mg PO Q6HR PRN PRN Reason: Anxiety Melatonin (Melatonin 3 Mg Tablet) 3 mg PO HS PRN PRN Reason: Insomnia Metoprolol Tartrate (Metoprolol Tartrate 25 Mg Tab) 25 mg PO BID [facility] Last Admin: 10/21/21 11:00 Dose: 25 mg Documented by: Multivitamins (Multivitamins, Thera 1 Each Tab) 1 each PO DAILY [facility] Last Admin: 10/21/21 11:01 Dose: 1 each Documented by: Naloxone HCl (Naloxone 0.4 Mg/Ml 1 Ml Vial) 0.2 mg IV Q2M PRN PRN Reason: Opioid Reversal Prochlorperazine Maleate (Prochlorperazine 5 Mg Tab) 5 mg PO Q8HR PRN PRN Reason: Nausea And Vomiting Psyllium Hydrophilic Mucilloid (Psyllium Husk 100% 6 Gm Packet) 6 gm PO BID [facility] Last Admin: 10/21/21 11:02 Dose: 6 gm Documented by: Past medical history to include: Hypertension, hypothyroid, urinary incontinence, hard of hearing, pericarditis, hiatal hernia Social history: No history of smoking or alcohol. Lives with her . Family history: Reviewed, noncontributory to presentation Physical examination: VITAL SIGNS: 97.5, 81, 17, 115/64, 85% room air GENERAL: Sitting on the edge of the bed, less short of breath. EYES: Pupils equal. Conjunctiva normal. HEENT: External appearance of nose and ears normal, oral cavity grossly normal. NECK: JVD or possibly; masses not palpable. HEART: First and second heart sounds are normal; edema present. LUNGS: Respiratory rate increased, decreased breath sounds to bases. ABDOMEN: Soft, nontender, liver spleen not palpable, no masses palpable. PSYCH: Alert and oriented x3; mood and affect a bit anxiousl. MUSCULOSKELETAL:No Clubbing/cyanosis;muscles-grossly intact. Evidence of OA. INVESTIGATIONS, reviewed in the clinical context: October 21: Sodium 129 potassium 4.[address] chest showed a very large diaphragmatic hernia causing a significant mass effect on the heart of the lungs. Large right pleural effusion. The hernia containing entire stomach. Also there is large portion of the transverse colon and small bowel loops. Has incomplete collapse and loss of volume of the right lower lobe and to lesser extent left lower lobe. Did complete collapse of the middle lobe. 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 October 20: White count 8.5 hemoglobin 12.5 platelets 656 sodium 129 potassium 4.2 creatinine 0.5 to Limited 2-D echocardiogram: Moderate concentric LVH. Moderate TR. EF 55-60%. Venous Doppler: Negative for DVT White count 9.8 hemoglobin 12.3 platelets 587 sodium 1:30 potassium 4 BUN 14 creatinine 0.51 troponin I less than 0.012 proBNP 557 albumin 3.1 EKG tracing personally reviewed by me-sinus tachycardia. Right bundle branch block pattern. Nonspecific ST/T-wave changes. Chest x-ray film personally reviewed by me-pulmonary edema. Heart hernia. Recent investigations [September 2021] Cardiac catheterization: Minimal CAD 2-D echocardiogram: EF 55-60%. Some wall motion abnormality. Moderate generalized pericardial effusion. Marleny-Huynh viral serology: Negative Assessment and plan: -Very large diaphragmatic hernia causing the entire stomach to be in the chest including bowel loops. Symptomatic. Per Dr. Brush for surgery on October 25. -Multilobe atelectasis secondary to large hiatal hernia and pleural effusion. Incentive spirometry -Chronic T11 vertebral body collapse Pain management -Large right pleural effusion. Right thoracentesis 1.7 L removed on October [address] Hill.-Collapse right lower lobe, right middle lobe, and left lower lobe. Follow with pulmonary. Exudative fluid. -Primary osteoarthritis multiple joints Pain medications if needed -Chronic urinary stress incontinence -Hypothyroid Synthroid 112 g a day -Essential hypertension Lopressor 25 mg twice a day -Hyponatremia Increase Solute intake Discussed with patient at the bedside. Patient having a good pulse ox on room air. Continue to use incentive spirometry. Given her comorbidities patient is a moderate risk for surgery. And her age. No cardiac medications. Continue supportive care.
[2021-10-22] MEDS: LEVOTHYROXINE 112 MCG TAB PO SCH (06:39)
[2021-10-22] MEDS: MULTIVITAMINS, THERA 1 EACH TAB PO SCH (08:22)
[2021-10-22] MEDS: METOPROLOL TARTRATE 25 MG TAB PO SCH ×2 (08:22→20:18)
[2021-10-22] MEDS: ENOXAPARIN 40 MG/0.4 ML SYRINGE SQ SCH (08:22)
[2021-10-22] MEDS: ASPIRIN 81 MG PO SCH (08:22)
[2021-10-22] MEDS: CALCIUM CARBONATE 500 MG CHEWABLE PO SCH (08:22)
[2021-10-22] MEDS: FUROSEMIDE 20 MG TAB PO SCH (08:22)
[2021-10-22] MEDS: PSYLLIUM HUSK 100% 6 GM PACKET PO SCH ×2 (08:22→20:18)
[2021-10-22] MEDS: ACETAMINOPHEN TAB 325 MG TAB PO PRN ×2 (08:50→20:18)
--- NOTE | 2021-10-22 11:15 | P.PN ---
Subjective This is a 85 year female with a past medical history significant for hypertension and hypothyroidism. She follows with Dr. Watson. We have been aske d to see the patient in consultation for congestive heart failure. Patient examined at the bedside. Patient presented to the ER with complaints of worsening shortness of breath and LE edema, right leg greater than the left. She states his symptoms have worsened over the past 3 days. Yesterday night patient with increased shortness of breath and presented to the emergency department for further evaluation. She denies any chest pain, palpitations, lightheadedness, dizziness. In the emergency department patient was started on IV Lasix. Patient with not much improvement in her symptoms. She denies fever or cough. Patient was recently admitted in 09/2021 as a transfer from [facility] for possible ST elevations and underlying right bundle block. Patient received TPA at [place] was transferred to [facility]. No evidence of acute DC. She underwent cardiac catheterization that revealed no evidence of significant coronary artery disease. She was also treated for pericarditis. DIAGNOSTICS -Cardiac catheterization 09/2021 revealed no evidence of significant coronary artery disease -Most recent echocardiogram 09/09/2021 revealed EF 5560%, basal anterior midanterior LV wall hypokinetic, moderate generalized pericardial effusion -Repeat echocardiogram this admission reveals EF 5560%, small generalized pericardial effusion, moderate concentric LVH -Chest xray- bilateral pulmonary vasculature, elevated diaphragm bilaterally, pulmonary edema versus pulmonary infection cannot be excluded. -Venous Dopplers negative for DVT bilaterally 10/20/2021 Patient seen and examined at bedside, no acute distress. Continues to have symptoms of shortness of breath. Chest CT revealed no pulmonary embolism, very large hiatal/diaphragmatic hernia, and completely enclosed within the scan and causing significant mass effect on the heart and lungs. Associated large right and small left pleural effusions with incomplete collapse and loss of volume of the right lower lobe and to lesser extent the left lower lobe with complete collapse of the middle lobe. Chest US- bilateral pleural effusions larger on the right side 10/21/2021 Patient seen and examined at bedside, no acute distress. Her breathing has improved. Yesterday she underwent right-sided thoracentesis with 1.7 L pleural fluid removed. She has been evaluated by general surgery and plan for an EGD today. Also plan for patient to undergo possible surgical repair of the very large hiatal hernia on 10/25/21 She is tolerating PO Lasix well and she has improvement in lower extremity edema 10/22/2021 Patient seen and examined at bedside, no acute distress. Breathing has improved. Her edema has improved. Vital signs are stable. Sodium 129, potassium 4.5, BUN 9, serum creatinine 0.5. PHYSICAL EXAM: VITAL SIGNS: Reviewed. GENERAL: Well-developed in no acute distress. HEENT: Neck supple. No JVD. Mucous membranes dry. LUNGS: Respirations even and unlabored. Lungs clear to auscultation bilaterally HEART: Regular rate and rhythm. S1 and S2 heard. ABDOMEN: Soft. Nondistended. Nontender. EXTREMITIES: Normal range of motion. No clubbing or cyanosis. Peripheral pulses intact. Bilateral lower extremity edema present, improving NEUROLOGIC: Awake and alert. Oriented x 3. ASSESSMENT: Symptoms of shortness of breath and lower extremity edema, patient does not appear to be in acute heart failure. Large hiatal/diaphragmatic hernia causing significant mass effect on the heart and lungs, and bilateral pleural effusions Elevated diaphragm bilaterally Bilateral pleural effusions Status post right sided thoracentesis 10/20/21 Hypertension Hypothyroidism Recent treatment for pericarditis PLAN: Discontinue Lasix Start IV fluids 50cc/hr Patient does not appear to be in acute heart failure that would be causing her symptoms. Recent cardiac catheterization with no significant coronary artery disease. Patient with Normal LV function. Pericardial effusion has improved on echocardiogram. Symptoms are likely related to large diaphragmatic hernia causing significant mass effect on the lungs and heart Surgery consulted, plan for possible surgical repair of the very large hiatal hernia on 10/25/21 Pulmonary following, and performed right sided thoracentesis on 10/20/21 Continue aspirin, metoprolol tartrate From a cardiology perspective, no further changes at this time. Please reach out with questions or concerns. Follow up outpatient with Dr. Watson Nurse practitioner note has been reviewed by physician. Signing provider agrees with the documented findings, assessment, and plan of care. Objective - Vital Signs Vital signs: Vital Signs Temp 97.4 F L 10/22/21 07:53 Pulse 90 10/22/21 07:53 Resp 18 10/22/21 07:53 BP 120/67 10/22/21 07:53 Pulse Ox 95 10/22/21 07:53 Intake & Output 10/21/21 10/22/21 10/22/21 18:59 06:59 18:59 Intake Total 1210 10 240 Output Total 1000 800 Balance 210 -790 240 Weight 69.5 kg Intake: IV 200 10 0.9 10 Oral 1010 240 Output: Urine 1000 800 Other: Voiding Method Toilet Toilet # Voids 1 - Labs CBC & Chem 7: 10/20/21 09:06 10/21/21 10:59 Labs: Abnormal Lab Results - Last 24 Hours (Table) 10/21/21 10/21/21 Range/Units 10:59 10:59 ESR 72 H (0-20) mm/hr Sodium 129 L (137-145) mmol/L Chloride 94 L (98-107) mmol/L Calcium 8.3 L (8.4-10.2) mg/dL C-Reactive Protein 6.3 H (<1.0) mg/dL Microbiology - Last 24 Hours (Table) 10/20/21 14:00 Gram Stain - Preliminary Pleural Fluid Body Fluid Culture - Preliminary 10/20/21 14:00 Acid Fast Bacilli Smear - Final Pleural Fluid Acid Fast Bacilli Culture - Preliminary
--- NOTE | 2021-10-22 11:18 | P.PN ---
Subjective Progress Note Date: 10/22/21 Principal diagnosis: Shortness of breath 85-year-old white female patient with a recent history of hypertension, hypothyroidism, lifetime nonsmoker. Patient had a recent event for which she was hospitalized and was transferred from an outside facility. She was complaining of shortness of breath at the time, her EKG showed ST segment elevation in the precordial leads, and subsequently patient received TPA. She was transferred to this institution on 09/09/2021 and underwent cardiac catheterization that showed no significant obstructive CAD, right dominant system and normal filling pressures. She was discharged home on 09/10/2021. She lives in [place], she follows with Dr. Angeles in [facility]. She states she is normally healthy, no history of diabetes mellitus, she is a lifetime nonsmoker, no chronic lung disease. Following her hospitalization patient started developing shortness of breath. She also noticed increased swelling in bilateral lower extremities, she denied any cough, no fever or chills, no chest pain. She is complaining of significant orthopnea. She has difficulty ambulating related to shortness of breath. She came into the hospit al for reevaluation on 10/18/2021. Chest x-ray on admission showed congested bilateral pulmonary vasculature with bilateral basal pulmonary atelectasis and bilateral pleural effusions obscuring the previously seen diaphragmatic hernia. Chest significant swelling in her bilateral lower extremities. She was started on diuretics by cardiology. On today's exam she states she is feeling slightly better however still short of breath and cannot lie flat and last night she was having difficult time breathing. She is on room air with pulse ox of 96%, she is afebrile, blood pressure stable. She short of breath with exertion. Echocardiogram was completed showing preserved LV function of 55-60%, and small generalized pericardial effusion. EKG showed sinus tachycardia with first- degree AV block. Lab evaluation showed normal white count of 9.8, hemoglobin of 12.3, platelet count is 587, INR of 1.0, sodium is 1:30, potassium is 4.0, chloride is 96, CO2 is 25, BUN is 14 creatinine 0.51. Troponin was less than 0.012, alkaline phosphatase was 128, AST and ALT were within normal limits, proBNP was 557. CRP is 7.2. Bilateral lower extremity Dopplers showed no evidence of DVT, however the exam was positive for superficial venous thrombosis involving the bilateral small saphenous veins. CTA chest is ordered and is pending at this time. On 10/20/2021 patient seen in follow-up on selective care unit. She states last night she again had significant dyspnea, today she is sitting up unassisted bed, leaning on the table in the tripod position. She states she feels better and breathing easier and disposition. Is on room air pulse ox is 96%, lung sounds are diminished at the bases. She's been afebrile, no cough, no cough with chest discomfort. CTA chest has been completed showing no major central pulmonary embolism and very large hiatal/diaphragmatic hernia containing the entire stomach, portion of the duodenum, large portion of the transverse colon and possibly small bowel loops in addition to peritoneal fat. It is causing significant mass effect on the heart and the GC lungs, and there associated large right and moderate left pleural effusions. Ultrasound of the chest revealed right pleural effusion pocket measuring 14.3 cm, and left pleural effusion pocket of 3.7 cm. Patient remains on IV diuretics. Metoprolol balance is difficult to estimate, but her weight is down by 5 kg according to the recorded weights in the EMR, lower extremity edema still remains although improved. His labs have been reviewed by blood cell count is 8.5, hemoglobin is 12.5, serum sodium is 129, potassium is 4.2, BUN is 10 and creatinine 0.52. On 10/21/2021 patient seen in follow-up on selective care unit. She states she is breathing much easier since the right-sided thoracentesis yesterday with removal of 1.7 L of pleural fluid and pleural fluid analysis showed exudative fluid, pleural fluid cultures and cytology are pending. Patient was seen by general surgery and underwent EGD today with biopsies. The stomach appeared to be in the intrathoracic position. The plan is for possible surgery for repair of a very large hiatal and diaphragmatic hernia possibly and 10/25/2021. Patient continues on IV diuretics, lower extremity edema is improving, ultrasound the chest does not show significant fluid on the left side. On 10/22/2021 patient seen in follow-up on selective care unit. She is resting comfortably in bed, remains pulse ox is 95%, she states that time that she still has some difficulty breathing, but no acute distress and overall her breathing is improved since admission. Lower extremity edema has significantly improved. She remains on Lasix 20 mg twice daily. Pleural fluid analysis showed exudative fluid, not consistent with CHF. Overall fluid volume status has improved. She is in -580 mL negative net fluid balance over the last 24 hours. Pleural fluid cytology and cultures are pending. Vital signs have been stable. Today's labs have been reviewed, sodium is 129, potassium is 4.5, chloride is 94, BUN is 9 creatinine 0.52. Patient had EGD with biopsies yesterday. Surgical services are following, and the plan is to proceed with hernia repair on Monday Objective - Vital Signs Vital signs: Vital Signs Temp 97.4 F L 10/22/21 07:53 Pulse 90 10/22/21 07:53 Resp 18 10/22/21 07:53 BP 120/67 10/22/21 07:53 Pulse Ox 95 10/22/21 07:53 Intake & Output 10/21/21 10/22/21 10/22/21 18:59 06:59 18:59 Intake Total 1210 10 240 Output Total 1000 800 Balance 210 -790 240 Weight 69.5 kg Intake: IV 200 10 0.9 10 Oral 1010 240 Output: Urine 1000 800 Other: Voiding Method Toilet Toilet # Voids 1 - Exam GENERAL EXAM: Alert, very pleasant, 85-year-old white female on room air with a pulse ox of 96%, comfortable in no apparent distress. HEAD: Normocephalic/atraumatic. EYES: Normal reaction of pupils, equal size. Conjunctiva pink, sclera white. NOSE: Clear with pink turbinates. THROAT: No erythema or exudates. NECK: No masses, mild bilateral JVD, no thyroid enlargement, no adenopathy. CHEST: No chest wall deformity. Symmetrical expansion. LUNGS: Equal air entry with no crackles, wheeze, rhonchi or dullness. CVS: Regular rate and rhythm, normal S1 and S2, no gallops, no murmurs, no rubs ABDOMEN: Soft, nontender. No hepatosplenomegaly, normal bowel sounds, no guarding or rigidity. EXTREMITIES: No clubbing, 1+ lower extremity no cyanosis, 2+ pulses and upper and lower extremities. MUSCULOSKELETAL: Muscle strength and tone normal. SPINE: No scoliosis or deformity SKIN: No rashes CENTRAL NERVOUS SYSTEM: Alert and oriented -3. No focal deficits, tone is normal in all 4 extremities. PSYCHIATRIC: Alert and oriented -3. Appropriate affect. Intact judgment and insight. - Labs CBC & Chem 7: 10/20/21 09:06 10/21/21 10:59 Labs: Abnormal Lab Results - Last 24 Hours (Table) 10/21/21 10/21/21 Range/Units 10:59 10:59 ESR 72 H (0-20) mm/hr Sodium 129 L (137-145) mmol/L Chloride 94 L (98-107) mmol/L Calcium 8.3 L (8.4-10.2) mg/dL C-Reactive Protein 6.3 H (<1.0) mg/dL Microbiology - Last 24 Hours (Table) 10/20/21 14:00 Gram Stain - Preliminary Pleural Fluid Body Fluid Culture - Preliminary 10/20/21 14:00 Acid Fast Bacilli Smear - Final Pleural Fluid Acid Fast Bacilli Culture - Preliminary Assessment and Plan Plan: Assessment: #1. Shortness of breath, multifactorial, related to a very large hiatal/diaphragmatic hernia causing significant mass effect on the heart and lungs, and bilateral pleural effusions, right greater than left, status post right-sided thoracentesis on 10/20/2021 would removal of 1.7 L of pleural fluid which was sent for analysis showing exudative fluid. Pleural fluid cultures and cytology are pending #2. Large hiatal/diaphragmatic hernia, status post EGD, showing the stomach entirely in the intrathoracic position. General surgeries following, possible hernia repair on 10/25/2021 #3. Recent history of TPA administration for abnormal EKG, and cardiac catheterization on 09/09/2021 that showed mild CAD #4. Moderate generalized pericardial effusion improved on echocardiogram on this admission #5. Lower extremity edema, no evidence of DVT, but lower extremity Doppler showed SVT bilaterally #6. Lifetime nonsmoker #7. Hypothyroidism #8. Hypertension #9. Urinary incontinence Plan: No worsening dyspnea Fluid volume status improved, lower extremity edema improved Pleural fluid was not consistent with CHF Case discussed with cardiology, recommend stopping the diuretics Surgical services are following and surgery is planned on Monday I have personally seen and examined the patient, performed the documentation and the assessment and plan as written. Number of minutes spent on the visit: [10] Time with Patient: Less than 30
[2021-10-22] MEDS: SODIUM CHLORIDE 0.9% 1,000 ML IV SCH (15:43)
[2021-10-22] MEDS: LACTULOSE 20 GM/30 ML CUP PO PRN (15:43)
--- NOTE | 2021-10-22 17:00 | P.PN ---
Progress Note - Text Progress Note Date: 10/22/21 Chief Complaint: Short of breath This is a very pleasant 85-year-old patient who follows with Dr. Adia Angeles. Chronic stable medical conditions include hypertension, hypothyroid, urinary incontinence and wears diapers, hard of hearing. Large hiatal hernia 10/06/2021 patient was here with some chest pressure.cardiac catheterization by Dr. CHELO Babin. No significant CAD. Patient may have had an element of pericarditis. 2-D echo showed some pericardial effusion Patient was doing well upon discharge. The last few days patient started having progressively increasing shortness of breath. No fever no chills. Increasing lower extremity edema. Not able to eat when fall. Tired rundown. Orthopnea. October 19: Sitting at the edge of the bed. Legs hanging. Helps his breathing. Pulmonary consulted. 2-D echo showed small pericardial effusion. VQ scan orde red to rule out more peripheral emboli. October 20: Sitting of the edge of the bed. is present. CT chest showed a very large diaphragmatic hernia causing a significant mass effect on the heart of the lungs. Large right pleural effusion. The hernia containing stent diastolic. Also there is large portion of the transverse colon and small bowel loops. Has incomplete collapse and loss of volume of the right lower lobe and to lesser extent left lower lobe. Did complete collapse of the middle lobe. 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 Osteopenia. October 21: About 1800 mL of bright thoracentesis was done by Dr. Hill yesterday. Breathing a bit better. This could short winded to going to the bathroom with few steps. Had EGD done today by Dr. Brush. Discussed with the patient has been at the bedside. Dr. Webb is planning for hiatal hernia surgery later. October 22: Sitting up. Breathing a bit better. Gets tired. Using incentive spirometry. Pending surgery on Monday. Active Medications Acetaminophen (Acetaminophen Tab 325 Mg Tab) 650 mg PO Q6HR PRN PRN Reason: Mild Pain or Fever > 100.5 Last Admin: 10/22/21 08:50 Dose: 650 mg Documented by: Aspirin (Aspirin 81 Mg) 81 mg PO DAILY [facility] Last Admin: 10/22/21 08:22 Dose: 81 mg Documented by: Calcium Carbonate/Glycine (Calcium Carbonate 500 Mg Chewable) 500 mg PO DAILY [facility] Last Admin: 10/22/21 08:22 Dose: 500 mg Documented by: Calcium Carbonate/Glycine (Calcium Carbonate 500 Mg Chewable) 1,000 mg PO Q4HR PRN PRN Reason: Dyspepsia Enoxaparin Sodium (Enoxaparin 40 Mg/0.4 Ml Syringe) 40 mg SQ DAILY [facility] Last Admin: 10/22/21 08:22 Dose: 40 mg Documented by: Sodium Chloride (Saline 0.9%) 1,000 mls @ 50 mls/hr IV .Q20H [facility] Last Admin: 10/22/21 15:43 Dose: 50 mls/hr Documented by: Lactulose (Lactulose 20 Gm/30 Ml Cup) 20 gm PO DAILY PRN PRN Reason: Constipation Last Admin: 10/22/21:43 Dose: 20 gm Documented by: Levothyroxine Sodium (Levothyroxine 112 Mcg Tab) 112 mcg PO 0630 [facility] Last Admin: 10/22/21 06:39 Dose: 112 mcg Documented by: Lorazepam (Lorazepam 0.5 Mg Tab) 0.5 mg PO Q6HR PRN PRN Reason: Anxiety Melatonin (Melatonin 3 Mg Tablet) 3 mg PO HS PRN PRN Reason: Insomnia Metoprolol Tartrate (Metoprolol Tartrate 25 Mg Tab) 25 mg PO BID [facility] Last Admin: 10/22/21 08:22 Dose: 25 mg Documented by: Multivitamins (Multivitamins, Thera 1 Each Tab) 1 each PO DAILY [facility] Last Admin: 10/22/21 08:22 Dose: 1 each Documented by: Naloxone HCl (Naloxone 0.4 Mg/Ml 1 Ml Vial) 0.2 mg IV Q2M PRN PRN Reason: Opioid Reversal Prochlorperazine Maleate (Prochlorperazine 5 Mg Tab) 5 mg PO Q8HR PRN PRN Reason: Nausea And Vomiting Psyllium Hydrophilic Mucilloid (Psyllium Husk 100% 6 Gm Packet) 6 gm PO BID [facility] Last Admin: 10/22/21 08:22 Dose: 6 gm Documented by: Past medical history to include: Hypertension, hypothyroid, urinary incontinence, hard of hearing, pericarditis, hiatal hernia Social history: No history of smoking or alcohol. Lives with her . Family history: Reviewed, noncontributory to presentation Physical examination: VITAL SIGNS: 97.7, 76, 18, 120/72, 96% room air GENERAL: Sitting up in chair EYES: Pupils equal. Conjunctiva normal. HEENT: External appearance of nose and ears normal, oral cavity grossly normal. NECK: JVD or possibly; masses not palpable. HEART: First and second heart sounds are normal; edema decreased LUNGS: Respiratory rate increased, decreased breath sounds at base ABDOMEN: Soft, nontender, liver spleen not palpable, no masses palpable. PSYCH: Alert and oriented x3; mood and affect normal. MUSCULOSKELETAL:No Clubbing/cyanosis;muscles-grossly intact. Evidence of OA. INVESTIGATIONS, reviewed in the clinical context: October 21: Sodium 129 potassium 4.[address] chest showed a very large diaphragmatic hernia causing a significant mass effect on the heart of the lungs. Large right pleural effusion. The hernia containing entire stomach. Also there is large portion of the transverse colon and small bowel loops. Has incomplete collapse and loss of volume of the right lower lobe and to lesser extent left lower lobe. Did complete collapse of the middle lobe. 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 October 20: White count 8.5 hemoglobin 12.5 platelets 656 sodium 129 potassium 4.2 creatinine 0.5 to Limited 2-D echocardiogram: Moderate concentric LVH. Moderate TR. EF 55-60%. Venous Doppler: Negative for DVT White count 9.8 hemoglobin 12.3 platelets 587 sodium 1:30 potassium 4 BUN 14 creatinine 0.51 troponin I less than 0.012 proBNP 557 albumin 3.1 EKG tracing personally reviewed by me-sinus tachycardia. Right bundle branch block pattern. Nonspecific ST/T-wave changes. Chest x-ray film personally reviewed by me-pulmonary edema. Heart hernia. Recent investigations [September 2021] Cardiac catheterization: Minimal CAD 2-D echocardiogram: EF 55-60%. Some wall motion abnormality. Moderate generalized pericardial effusion. Marleny-Huynh viral serology: Negative Assessment and plan: -Very large diaphragmatic hernia causing the entire stomach to be in the chest including bowel loops. Symptomatic. Per Dr. rBush for surgery on October 25. -Multilobe atelectasis secondary to large hiatal hernia and pleural effusion.: Slow to respond Incentive spirometry -Chronic T11 vertebral body collapse Pain management -Large right pleural effusion. Right thoracentesis 1.7 L removed on October [address] Hill.-Collapse right lower lobe, right middle lobe, and left lower lobe. Follow with pulmonary. Exudative fluid. -Primary osteoarthritis multiple joints Pain medications if needed -Chronic urinary stress incontinence -Hypothyroid Synthroid 112 g a day -Essential hypertension Lopressor 25 mg twice a day -Hyponatremia: Slow to respond Increase Solute intake. Check serum osmolality. Continue current medication treatment plan. Discussed with patient. Check serum osmolality in the morning along with BMP.
--- NOTE | 2021-10-22 17:34 | P.PN ---
Subjective Progress Note Date: 10/22/21 Principal diagnosis: Hiatal hernia Patient doing better today. Says her pain is improved. No significant appetite. No vomiting. Objective - Vital Signs Vital signs: Vital Signs Temp 97.7 F 10/22/21 15:41 Pulse 76 10/22/21 15:41 Resp 18 10/22/21 15:41 BP 120/72 10/22/21 15:41 Pulse Ox 96 10/22/21 15:41 Intake & Output 10/21/21 10/22/21 10/22/21 18:59 06:59 18:59 Intake Total 1210 10 600 Output Total 1000 800 Balance 210 -790 600 Weight 69.5 kg Intake: IV 200 10 0.9 10 Oral 1010 600 Output: Urine 1000 800 Other: Voiding Method Toilet Toilet # Voids 1 2 - Exam Abdomen: Soft, nontender, nondistended - Labs CBC & Chem 7: 10/20/21 09:06 10/21/21 10:59 Labs: Microbiology - Last 24 Hours (Table) 10/20/21 14:00 Gram Stain - Preliminary Pleural Fluid Body Fluid Culture - Preliminary 10/20/21 14:00 Acid Fast Bacilli Smear - Final Pleural Fluid Acid Fast Bacilli Culture - Preliminary Assessment and Plan (1) Hiatal hernia Narrative/Plan: 85-year-old female with intrathoracic stomach. Continue current diet. Scheduled for laparoscopic repair Monday. Current Visit: Yes Status: Acute Code(s): K44.9 - DIAPHRAGMATIC HERNIA WITHOUT OBSTRUCTION OR GANGRENE SNOMED Code(s): 73577605
[2021-10-23] MEDS: LEVOTHYROXINE 112 MCG TAB PO SCH (06:28)
[2021-10-23] MEDS: SODIUM CHLORIDE 0.9% 1,000 ML IV SCH (06:30)
[2021-10-23 08:20] LABS: African American GFR (CKD) >90 (>60 ml/min/1.73 sqM); Anion Gap 7 mmol/L; Blood Urea Nitrogen 6 mg/dL (7-17); Calcium 8.7 mg/dL (8.4-10.2); Carbon Dioxide 30 mmol/L (22-30); Chloride 97 mmol/L (98-107); Glucose 120 mg/dL (74-99); Non-African American GFR(CKD) 84 (>60 ml/min/1.73 sqM); Potassium 3.6 mmol/L (3.5-5.1); Sodium 134 mmol/L (137-145)
[2021-10-23] MEDS: ENOXAPARIN 40 MG/0.4 ML SYRINGE SQ SCH (09:58)
[2021-10-23] MEDS: CALCIUM CARBONATE 500 MG CHEWABLE PO SCH (09:59)
[2021-10-23] MEDS: MULTIVITAMINS, THERA 1 EACH TAB PO SCH (09:59)
[2021-10-23] MEDS: METOPROLOL TARTRATE 25 MG TAB PO SCH ×2 (09:59→20:03)
[2021-10-23] MEDS: PSYLLIUM HUSK 100% 6 GM PACKET PO SCH ×2 (09:59→20:03)
[2021-10-23] MEDS: LACTULOSE 20 GM/30 ML CUP PO PRN (09:59)
[2021-10-23] MEDS: ASPIRIN 81 MG PO SCH (09:59)
--- NOTE | 2021-10-23 10:43 | P.PN ---
Subjective Progress Note Date: 10/23/21 Principal diagnosis: Hiatal hernia Patient doing well today. Denies abdominal pain. No nausea or vomiting. Tolerating liquids. Objective - Vital Signs Vital signs: Vital Signs Temp 97.6 F 10/23/21 08:00 Pulse 97 10/23/21 08:00 Resp 16 10/23/21 08:00 BP 133/85 10/23/21 08:00 Pulse Ox 97 10/23/21 08:00 Intake & Output 10/22/21 10/23/21 10/23/21 18:59 06:59 18:59 Intake Total 960 270 Output Total 250 Balance 960 20 Intake: Intake, IV Titration 150 Amount Sodium Chloride 0.9% 1, 150 000 ml @ 50 mls/hr IV . Q20H [facility] Rx#:[id number] Oral 960 120 Output: Urine 250 Other: Voiding Method Toilet # Voids 2 - Exam Abdomen: Soft, nontender, nondistended - Labs CBC & Chem 7: 10/20/21 09:06 10/23/21 07:50 Labs: Abnormal Lab Results - Last 24 Hours (Table) 10/23/21 Range/Units 07:50 Sodium 134 L (137-145) mmol/L Chloride 97 L (98-107) mmol/L BUN 6 L (7-17) mg/dL Glucose 120 H (74-99) mg/dL Osmolality 275 L (280-301) mosm/kg Microbiology - Last 24 Hours (Table) 10/20/21 14:00 Anaerobic Culture - Preliminary Pleural Fluid 10/20/21 14:00 Gram Stain - Preliminary Pleural Fluid Body Fluid Culture - Preliminary Assessment and Plan (1) Hiatal hernia Narrative/Plan: Patient doing well at this time. Continue liquid diet. Hiatal hernia surgery still plan for today. Current Visit: Yes Status: Acute Code(s): K44.9 - DIAPHRAGMATIC HERNIA WITHOUT OBSTRUCTION OR GANGRENE SNOMED Code(s): 42423249
--- NOTE | 2021-10-23 11:41 | P.PN ---
Subjective Progress Note Date: 10/23/21 85-year-old white female patient with a recent history of hypertension, hypothyroidism, lifetime nonsmoker. Patient had a recent event for which she was hospitalized and was transferred from an outside facility. She was complaining of shortness of breath at the time, her EKG showed ST segment elevation in the precordial leads, and subsequently patient received TPA. She was transferred to this institution on 09/09/2021 and underwent cardiac catheterization that showed no significant obstructive CAD, right dominant system and normal filling pressures. She was discharged home on 09/10/2021. She lives in [place], she follows with Dr. Angeles in [facility]. She states she is normally healthy, no history of diabetes mellitus, she is a lifetime nonsmoker, no chronic lung disease. Following her hospitalization patient started developing shortness of breath. She also noticed increased swelling in bilateral lower extremities, she denied any cough, no fever or chills, no chest pain. She is complaining of significant orthopnea. She has difficulty ambulating related to shortness of breath. She came into the hospital for reevaluation on 10/18/2021. Chest x-ray on admission showed congested bilateral pulmonary vasculature with bilateral basal pulmonary atelectasis and bilateral pleural effusions obscuring the previously seen diaphragmatic hernia. Chest significant swelling in her bilateral lower extremities. She was started on diuretics by cardiology. On today's exam she s tates she is feeling slightly better however still short of breath and cannot lie flat and last night she was having difficult time breathing. She is on room air with pulse ox of 96%, she is afebrile, blood pressure stable. She short of breath with exertion. Echocardiogram was completed showing preserved LV function of 55-60%, and small generalized pericardial effusion. EKG showed sinus tachycardia with first-degree AV block. Lab evaluation showed normal white count of 9.8, hemoglobin of 12.3, platelet count is 587, INR of 1.0, sodium is 1:30, potassium is 4.0, chloride is 96, CO2 is 25, BUN is 14 creatinine 0.51. Troponin was less than 0.012, alkaline phosphatase was 128, AST and ALT were within normal limits, proBNP was 557. CRP is 7.2. Bilateral lower extremity Dopplers showed no evidence of DVT, however the exam was positive for superficial venous thrombosis involving the bilateral small saphenous veins. CTA chest is ordered and is pending at this time. On 10/20/2021 patient seen in follow-up on selective care unit. She states last night she again had significant dyspnea, today she is sitting up unassisted bed, leaning on the table in the tripod position. She states she feels better and breathing easier and disposition. Is on room air pulse ox is 96%, lung sounds are diminished at the bases. She's been afebrile, no cough, no cough with chest discomfort. CTA chest has been completed showing no major central pulmonary embolism and very large hiatal/diaphragmatic hernia containing the entire stomach, portion of the duodenum, large portion of the transverse colon and possibly small bowel loops in addition to peritoneal fat. It is causing significant mass effect on the heart and the GC lungs, and there associated large right and moderate left pleural effusions. Ultrasound of the chest revealed right pleural effusion pocket measuring 14.3 cm, and left pleural effusion pocket of 3.7 cm. Patient remains on IV diuretics. Metoprolol balance is difficult to estimate, but her weight is down by 5 kg according to the recorded weights in the EMR, lower extremity edema still remains although improved. His labs have been reviewed by blood cell count is 8.5, hemoglobin is 12.5, serum sodium is 129, potassium is 4.2, BUN is 10 and creatinine 0.52. On 10/21/2021 patient seen in follow-up on selective care unit. She states she is breathing much easier since the right-sided thoracentesis yesterday with removal of 1.7 L of pleural fluid and pleural fluid analysis showed exudative fluid, pleural fluid cultures and cytology are pending. Patient was seen by general surgery and underwent EGD today with biopsies. The stomach appeared to be in the intrathoracic position. The plan is for possible surgery for repair of a very large hiatal and diaphragmatic hernia possibly and 10/25/2021. Patient continues on IV diuretics, lower extremity edema is improving, ultrasound the chest does not show significant fluid on the left side. On 10/22/2021 patient seen in follow-up on selective care unit. She is resting comfortably in bed, remains pulse ox is 95%, she states that time that she still has some difficulty breathing, but no acute distress and overall her breathing is improved since admission. Lower extremity edema has significantly improved. She remains on Lasix 20 mg twice daily. Pleural fluid analysis showed exudative fluid, not consistent with CHF. Overall fluid volume status has improved. She is in -580 mL negative net fluid balance over the last 24 hours. Pleural fluid cytology and cultures are pending. Vital signs have been stable. Today's labs have been reviewed, sodium is 129, potassium is 4.5, chloride is 94, BUN is 9 creatinine 0.52. Patient had EGD with biopsies yesterday. Surgical services are following, and the plan is to proceed with hernia repair on Monday The patient is seen today 10/23/2021 in follow-up on the selective care unit. She is currently sitting up in bed. Awake and alert in no acute distress. She denies any worsening shortness of breath, cough or congestion. No fever chills. No significant abdominal discomfort. She's been up ambulating in the room. Up in the shower. He is maintaining good O2 saturations in the 90s on room air. She's been afebrile. Hemodynamically stable. Pleural fluid cultures reveal no growth to date. Fluid was exudate with a protein of 4.6. Negative for malignancy. She is continued on Lovenox for DVT prophylaxis. Objective - Vital Signs Vital signs: Vital Signs Temp 97.6 F 10/23/21 08:00 Pulse 97 10/23/21 08:00 Resp 16 10/23/21 08:00 BP 133/85 10/23/21 08:00 Pulse Ox 97 10/23/21 08:00 Intake & Output 10/22/21 10/23/21 10/23/21 18:59 06:59 18:59 Intake Total 960 270 Output Total 250 Balance 960 20 Intake: Intake, IV Titration 150 Amount Sodium Chloride 0.9% 1, 150 000 ml @ 50 mls/hr IV . Q20H [facility] Rx#:[id number] Oral 960 120 Output: Urine 250 Other: Voiding Method Toilet # Voids 2 - Exam GENERAL EXAM: Alert, very pleasant, 85-year-old female patient, on room air with a pulse ox of 97%, comfortable in no apparent distress. HEAD: Normocephalic/atraumatic. EYES: Normal reaction of pupils, equal size. Conjunctiva pink, sclera white. NOSE: Clear with pink turbinates. THROAT: No erythema or exudates. NECK: No masses, mild bilateral JVD, no thyroid enlargement, no adenopathy. CHEST: No chest wall deformity. Symmetrical expansion. LUNGS: Equal air entry with faint crackles in the posterior bases. CVS: Regular rate and rhythm, normal S1 and S2, no gallops, no murmurs, no rubs ABDOMEN: Soft, nontender. No hepatosplenomegaly, normal bowel sounds, no guarding or rigidity. EXTREMITIES: No clubbing, 1+ lower extremity no cyanosis, 2+ pulses and upper and lower extremities. MUSCULOSKELETAL: Muscle strength and tone normal. SPINE: No scoliosis or deformity SKIN: No rashes CENTRAL NERVOUS SYSTEM: No focal deficits, tone is normal in all 4 extremities. PSYCHIATRIC: Alert and oriented -3. Appropriate affect. Intact judgment and insight. - Labs CBC & Chem 7: 10/20/21 09:06 10/23/21 07:50 Labs: Abnormal Lab Results - Last 24 Hours (Table) 10/23/21 Range/Units 07:50 Sodium 134 L (137-145) mmol/L Chloride 97 L (98-107) mmol/L BUN 6 L (7-17) mg/dL Glucose 120 H (74-99) mg/dL Osmolality 275 L (280-301) mosm/kg Microbiology - Last 24 Hours (Table) 10/20/21 14:00 Anaerobic Culture - Preliminary Pleural Fluid 10/20/21 14:00 Gram Stain - Preliminary Pleural Fluid Body Fluid Culture - Preliminary Assessment and Plan Assessment: 1 Shortness of breath, multifactorial, related to a very large hiatal/diaphragmatic hernia causing significant mass effect on the heart and lungs, and bilateral pleural effusions, right greater than left, status post right-sided thoracentesis on 10/20/2021 with removal of 1.7 L of pleural fluid which was sent for analysis showing exudative fluid. Cytology negative for malignancy. Pleural fluid cultures pending 2 Large hiatal/diaphragmatic hernia, status post EGD, showing the stomach entirely in the intrathoracic position. General surgeries following, possible hernia repair on 10/25/2021 3 Recent history of TPA administration for abnormal EKG, and cardiac catheterization on 09/09/2021 that showed mild CAD 4 Moderate generalized pericardial effusion improved on echocardiogram on this admission 5 Lower extremity edema, no evidence of DVT, but lower extremity Doppler showed SVT bilaterally 6 Lifetime nonsmoker 7 Hypothyroidism 8 Hypertension 9 Urinary incontinence Plan: The patient was seen and evaluated Current stable and on room air Cytology negative on pleural fluid Cultures pending Encouraged regarding the use of the incentive spirometer Plan is for hernia repair on 10/26/2019 I have personally seen and examined the patient, performed the documentation and the assessment and plan as written. Number of minutes spent on the visit: 10.
--- NOTE | 2021-10-23 17:33 | P.PN ---
Progress Note - Text Progress Note Date: 10/23/21 Chief Complaint: Short of breath This is a very pleasant 85-year-old patient who follows with Dr. Adia Angeles. Chronic stable medical conditions include hypertension, hypothyroid, urinary incontinence and wears diapers, hard of hearing. Large hiatal hernia 10/06/2021 patient was here with some chest pressure.cardiac catheterization by Dr. CHELO Babin. No significant CAD. Patient may have had an element of pericarditis. 2-D echo showed some pericardial effusion Patient was doing well upon discharge. The last few days patient started having progressively increasing shortness of breath. No fever no chills. Increasing lower extremity edema. Not able to eat when fall. Tired rundown. Orthopnea. October 19: Sitting at the edge of the bed. Legs hanging. Helps his breathing. Pulmonary consulted. 2-D echo showed small pericardial effusion. VQ scan orde red to rule out more peripheral emboli. October 20: Sitting of the edge of the bed. is present. CT chest showed a very large diaphragmatic hernia causing a significant mass effect on the heart of the lungs. Large right pleural effusion. The hernia containing stent diastolic. Also there is large portion of the transverse colon and small bowel loops. Has incomplete collapse and loss of volume of the right lower lobe and to lesser extent left lower lobe. Did complete collapse of the middle lobe. 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 Osteopenia. October 21: About 1800 mL of bright thoracentesis was done by Dr. Hill yesterday. Breathing a bit better. This could short winded to going to the bathroom with few steps. Had EGD done today by Dr. Brush. Discussed with the patient has been at the bedside. Dr. Webb is planning for hiatal hernia surgery later. October 22: Sitting up. Breathing a bit better. Gets tired. Using incentive spirometry. Pending surgery on Monday. October 23: Breathing stable. On full liquid diet. Using incentive spirometry. Pending surgery Monday. Active Medications Acetaminophen (Acetaminophen Tab 325 Mg Tab) 650 mg PO Q6HR PRN PRN Reason: Mild Pain or Fever > 100.5 Last Admin: 10/22/21 20:18 Dose: 650 mg Documented by: Aspirin (Aspirin 81 Mg) 81 mg PO DAILY RODRIGO Last Admin: 10/23/21 09:59 Dose: 81 mg Documented by: Calcium Carbonate/Glycine (Calcium Carbonate 500 Mg Chewable) 500 mg PO DAILY [facility] Last Admin: 10/23/21 09:59 Dose: 500 mg Documented by: Calcium Carbonate/Glycine (Calcium Carbonate 500 Mg Chewable) 1,000 mg PO Q4HR PRN PRN Reason: Dyspepsia Enoxaparin Sodium (Enoxaparin 40 Mg/0.4 Ml Syringe) 40 mg SQ DAILY [facility] Last Admin: 10/23/21 09:58 Dose: 40 mg Documented by: Sodium Chloride (Saline 0.9%) 1,000 mls @ 50 mls/hr IV .Q20H [facility] Last Admin: 10/23/21 06:30 Dose: 50 mls/hr Documented by: Lactulose (Lactulose 20 Gm/30 Ml Cup) 20 gm PO DAILY PRN PRN Reason: Constipation Last Admin: 10/23/21 09:59 Dose: 20 gm Documented by: Levothyroxine Sodium (Levothyroxine 112 Mcg Tab) 112 mcg PO 0630 [facility] Last Admin: 10/23/21 06:28 Dose: 112 mcg Documented by: Lorazepam (Lorazepam 0.5 Mg Tab) 0.5 mg PO Q6HR PRN PRN Reason: Anxiety Melatonin (Melatonin 3 Mg Tablet) 3 mg PO HS PRN PRN Reason: Insomnia Metoprolol Tartrate (Metoprolol Tartrate 25 Mg Tab) 25 mg PO BID [facility] Last Admin: 10/23/21 09:59 Dose: 25 mg Documented by: Multivitamins (Multivitamins, Thera 1 Each Tab) 1 each PO DAILY [facility] Last Admin: 10/23/21 09:59 Dose: 1 each Documented by: Naloxone HCl (Naloxone 0.4 Mg/Ml 1 Ml Vial) 0.2 mg IV Q2M PRN PRN Reason: Opioid Reversal Prochlorperazine Maleate (Prochlorperazine 5 Mg Tab) 5 mg PO Q8HR PRN PRN Reason: Nausea And Vomiting Psyllium Hydrophilic Mucilloid (Psyllium Husk 100% 6 Gm Packet) 6 gm PO BID [facility] Last Admin: 10/23/21 09:59 Dose: Not Given Documented by: Past medical history to include: Hypertension, hypothyroid, urinary incontinence, hard of hearing, pericarditis, hiatal hernia Social history: No history of smoking or alcohol. Lives with her . Family history: Reviewed, noncontributory to presentation Physical examination: VITAL SIGNS: 97.5, 81, 16, 1 28 x 85, 97% room air GENERAL: Reclining in bed EYES: Pupils equal. Conjunctiva normal. HEENT: External appearance of nose and ears normal, oral cavity grossly normal. NECK: JVD or possibly; masses not palpable. HEART: First and second heart sounds are normal; edema decreased LUNGS: Respiratory rate increased, decreased breath sounds at base ABDOMEN: Soft, nontender, liver spleen not palpable, no masses palpable. PSYCH: Alert and oriented x3; mood and affect normal. MUSCULOSKELETAL:No Clubbing/cyanosis;muscles-grossly intact. Evidence of OA. INVESTIGATIONS, reviewed in the clinical context: October 23: Sodium 134 potassium 3.6 creatinine 0.62 serum osmolality 275 October 21: Sodium 129 potassium 4.[address] chest showed a very large diaphragmatic hernia causing a significant mass effect on the heart of the lungs. Large right pleural effusion. The hernia containing entire stomach. Also there is large portion of the transverse colon and small bowel loops. Has incomplete collapse and loss of volume of the right lower lobe and to lesser extent left lower lobe. Did complete collapse of the middle lobe. 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 October 20: White count 8.5 hemoglobin 12.5 platelets 656 sodium 129 potassium 4.2 creatinine 0.5 to Limited 2-D echocardiogram: Moderate concentric LVH. Moderate TR. EF 55-60%. Venous Doppler: Negative for DVT White count 9.8 hemoglobin 12.3 platelets 587 sodium 1:30 potassium 4 BUN 14 creatinine 0.51 troponin I less than 0.012 proBNP 557 albumin 3.1 EKG tracing personally reviewed by me-sinus tachycardia. Right bundle branch block pattern. Nonspecific ST/T-wave changes. Chest x-ray film personally reviewed by me-pulmonary edema. Heart hernia. Recent investigations [September 2021] Cardiac catheterization: Minimal CAD 2-D echocardiogram: EF 55-60%. Some wall motion abnormality. Moderate generalized pericardial effusion. Marleny-Huynh viral serology: Negative Assessment and plan: -Very large diaphragmatic hernia causing the entire stomach to be in the chest including bowel loops. Symptomatic.: Slow to respond Per Dr. Brush for surgery on October 25. -Multilobe atelectasis secondary to large hiatal hernia and pleural effusion.: Slow to respond Incentive spirometry -Chronic T11 vertebral body collapse Pain management -Large right pleural effusion. Right thoracentesis 1.7 L removed on October [address] Hill.-Collapse right lower lobe, right middle lobe, and left lower lobe. Follow with pulmonary. Exudative fluid. -Primary osteoarthritis multiple joints Pain medications if needed -Chronic urinary stress incontinence -Hypothyroid Synthroid 112 g a day -Essential hypertension Lopressor 25 mg twice a day -Hyponatremia: Hypoosmolar Increase Solute intake. . Continue current medication treatment plan. Discussed with patient. Pending surgery.
[2021-10-24] MEDS: SODIUM CHLORIDE 0.9% 1,000 ML IV SCH ×2 (01:50→21:13)
[2021-10-24] MEDS: LEVOTHYROXINE 112 MCG TAB PO SCH (05:34)
--- NOTE | 2021-10-24 07:34 | XR ---
EXAMINATION TYPE: XR chest 1V portable DATE OF EXAM: 10/24/2021 HISTORY: Shortness of breath. COMPARISON: 10/20/2021 TECHNIQUE: Single view of the chest is submitted. FINDINGS: Demonstrated are scattered senescent parenchymal change. Persistent basilar infiltrates and/or atelectasis with tiny effusions. The heart is stable. Hilar and mediastinal structures are within normal limits. Degenerative changes are seen of the dorsal spine. IMPRESSION: 1. Persistent basilar infiltrates and/or atelectasis with tiny effusions.
--- NOTE | 2021-10-24 08:50 | P.PN ---
Subjective Progress Note Date: 10/24/21 Principal diagnosis: Hiatal hernia Patient has no new complaints. Tolerating liquids. No abdominal pain or chest pain currently. Objective - Vital Signs Vital signs: Vital Signs Temp 98.0 F 10/24/21 04:00 Pulse 70 10/24/21 04:00 Resp 17 10/24/21 04:00 BP 151/83 10/24/21 04:00 Pulse Ox 94 L 10/24/21 04:00 Intake & Output 10/23/21 10/24/21 10/24/21 18:59 06:59 18:59 Intake Total 980 1100 Output Total 1250 Balance 980 -150 Intake: Intake, IV Titration 500 Amount Sodium Chloride 0.9% 1, 500 000 ml @ 50 mls/hr IV . Q20H [facility] Rx#:[id number] Oral 980 600 Output: Urine 1250 Other: Voiding Method Toilet # Voids 2 # Bowel Movements 1 - Exam Abdomen: Soft, nontender, nondistended - Labs CBC & Chem 7: 10/20/21 09:06 10/23/21 07:50 Labs: Microbiology - Last 24 Hours (Table) 10/20/21 14:00 Gram Stain - Preliminary Pleural Fluid Body Fluid Culture - Preliminary Assessment and Plan (1) Hiatal hernia Narrative/Plan: Patient doing well today. Continue liquids. Nothing by mouth after midnight. Patient scheduled for hiatal hernia repair tomorrow. Current Visit: Yes Status: Acute Code(s): K44.9 - DIAPHRAGMATIC HERNIA WITHOUT OBSTRUCTION OR GANGRENE SNOMED Code(s): 01303704
[2021-10-24] MEDS: METOPROLOL TARTRATE 25 MG TAB PO SCH ×2 (10:11→21:13)
[2021-10-24] MEDS: CALCIUM CARBONATE 500 MG CHEWABLE PO SCH (10:11)
[2021-10-24] MEDS: ASPIRIN 81 MG PO SCH (10:11)
[2021-10-24] MEDS: PSYLLIUM HUSK 100% 6 GM PACKET PO SCH ×2 (10:11→21:13)
[2021-10-24] MEDS: MULTIVITAMINS, THERA 1 EACH TAB PO SCH (10:11)
[2021-10-24] MEDS: ENOXAPARIN 40 MG/0.4 ML SYRINGE SQ SCH (10:11)
--- NOTE | 2021-10-24 10:57 | P.PN ---
Progress Note - Text Progress Note Date: 10/24/21 Chief Complaint: Short of breath This is a very pleasant 85-year-old patient who follows with Dr. Adia Angeles. Chronic stable medical conditions include hypertension, hypothyroid, urinary incontinence and wears diapers, hard of hearing. Large hiatal hernia 10/06/2021 patient was here with some chest pressure.cardiac catheterization by Dr. CHELO Babin. No significant CAD. Patient may have had an element of pericarditis. 2-D echo showed some pericardial effusion Patient was doing well upon discharge. The last few days patient started having progressively increasing shortness of breath. No fever no chills. Increasing lower extremity edema. Not able to eat when fall. Tired rundown. Orthopnea. October 19: Sitting at the edge of the bed. Legs hanging. Helps his breathing. Pulmonary consulted. 2-D echo showed small pericardial effusion. VQ scan orde red to rule out more peripheral emboli. October 20: Sitting of the edge of the bed. is present. CT chest showed a very large diaphragmatic hernia causing a significant mass effect on the heart of the lungs. Large right pleural effusion. The hernia containing stent diastolic. Also there is large portion of the transverse colon and small bowel loops. Has incomplete collapse and loss of volume of the right lower lobe and to lesser extent left lower lobe. Did complete collapse of the middle lobe. 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 Osteopenia. October 21: About 1800 mL of bright thoracentesis was done by Dr. Hill yesterday. Breathing a bit better. This could short winded to going to the bathroom with few steps. Had EGD done today by Dr. Brush. Discussed with the patient has been at the bedside. Dr. Webb is planning for hiatal hernia surgery later. October 22: Sitting up. Breathing a bit better. Gets tired. Using incentive spirometry. Pending surgery on Monday. October 23: Breathing stable. On full liquid diet. Using incentive spirometry. Pending surgery Monday. October 24: Intermittent short of breath. Liquid diet. Discussed about surgery Monday. Continue current treatment plan. Active Medications Acetaminophen (Acetaminophen Tab 325 Mg Tab) 650 mg PO Q6HR PRN PRN Reason: Mild Pain or Fever > 100.5 Last Admin: 10/22/21 20:18 Dose: 650 mg Documented by: Aspirin (Aspirin 81 Mg) 81 mg PO DAILY [facility] Last Admin: 10/24/21 10:11 Dose: 81 mg Documented by: Calcium Carbonate/Glycine (Calcium Carbonate 500 Mg Chewable) 500 mg PO DAILY [facility] Last Admin: 10/24/21 10:11 Dose: 500 mg Documented by: Calcium Carbonate/Glycine (Calcium Carbonate 500 Mg Chewable) 1,000 mg PO Q4HR PRN PRN Reason: Dyspepsia Enoxaparin Sodium (Enoxaparin 40 Mg/0.4 Ml Syringe) 40 mg SQ DAILY [facility] Last Admin: 10/24/21 10:11 Dose: 40 mg Documented by: Sodium Chloride (Saline 0.9%) 1,000 mls @ 50 mls/hr IV .Q20H [facility] Last Admin: 10/24/21 01:50 Dose: 50 mls/hr Documented by: Lactulose (Lactulose 20 Gm/30 Ml Cup) 20 gm PO DAILY PRN PRN Reason: Constipation Last Admin: 10/23/21 09:59 Dose: 20 gm Documented by: Levothyroxine Sodium (Levothyroxine 112 Mcg Tab) 112 mcg PO 0630 [facility] Last Admin: 10/24/21 05:34 Dose: 112 mcg Documented by: Lorazepam (Lorazepam 0.5 Mg Tab) 0.5 mg PO Q6HR PRN PRN Reason: Anxiety Melatonin (Melatonin 3 Mg Tablet) 3 mg PO HS PRN PRN Reason: Insomnia Metoprolol Tartrate (Metoprolol Tartrate 25 Mg Tab) 25 mg PO BID [facility] Last Admin: 10/24/21 10:11 Dose: 25 mg Documented by: Multivitamins (Multivitamins, Thera 1 Each Tab) 1 each PO DAILY [facility] Last Admin: 10/24/21 10:11 Dose: 1 each Documented by: Naloxone HCl (Naloxone 0.4 Mg/Ml 1 Ml Vial) 0.2 mg IV Q2M PRN PRN Reason: Opioid Reversal Prochlorperazine Maleate (Prochlorperazine 5 Mg Tab) 5 mg PO Q8HR PRN PRN Reason: Nausea And Vomiting Psyllium Hydrophilic Mucilloid (Psyllium Husk 100% 6 Gm Packet) 6 gm PO BID [facility] Last Admin: 10/24/21 10:11 Dose: 6 gm Documented by: Past medical history to include: Hypertension, hypothyroid, urinary incontinence, hard of hearing, pericarditis, hiatal hernia Social history: No history of smoking or alcohol. Lives with her . Family history: Reviewed, noncontributory to presentation Physical examination: VITAL SIGNS: 98, 70, 17, 151. This 83, 94% room air GENERAL: Reclining in bed, awake EYES: Pupils equal. Conjunctiva normal. HEENT: External appearance of nose and ears normal, oral cavity grossly normal. NECK: JVD or possibly; masses not palpable. HEART: First and second heart sounds are normal; edema decreased LUNGS: Respiratory rate increased, decreased breath sounds at base ABDOMEN: Soft, nontender, liver spleen not palpable, no masses palpable. PSYCH: Alert and oriented x3; mood and affect normal. MUSCULOSKELETAL:No Clubbing/cyanosis;muscles-grossly intact. Evidence of OA. INVESTIGATIONS, reviewed in the clinical context: October 23: Sodium 134 potassium 3.6 creatinine 0.62 serum osmolality 275 October 21: Sodium 129 potassium 4.[address] chest showed a very large diaphragmatic hernia causing a significant mass effect on the heart of the lungs. Large right pleural effusion. The hernia containing entire stomach. Also there is large portion of the transverse colon and small bowel loops. Has incomplete collapse and loss of volume of the right lower lobe and to lesser extent left lower lobe. Did complete collapse of the middle lobe. 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 October 20: White count 8.5 hemoglobin 12.5 platelets 656 sodium 129 potassium 4.2 creatinine 0.5 to Limited 2-D echocardiogram: Moderate concentric LVH. Moderate TR. EF 55-60%. Venous Doppler: Negative for DVT White count 9.8 hemoglobin 12.3 platelets 587 sodium 1:30 potassium 4 BUN 14 creatinine 0.51 troponin I less than 0.012 proBNP 557 albumin 3.1 EKG tracing personally reviewed by me-sinus tachycardia. Right bundle branch block pattern. Nonspecific ST/T-wave changes. Chest x-ray film personally reviewed by me-pulmonary edema. Heart hernia. Recent investigations [September 2021] Cardiac catheterization: Minimal CAD 2-D echocardiogram: EF 55-60%. Some wall motion abnormality. Moderate generalized pericardial effusion. Marleny-Huynh viral serology: Negative Assessment and plan: -Very large diaphragmatic hernia causing the entire stomach to be in the chest including bowel loops. Symptomatic.: Slow to respond Per Dr. Brush for surgery on October 25. -Multilobe atelectasis secondary to large hiatal hernia and pleural effusion.: Slow to respond Incentive spirometry -Chronic T11 vertebral body collapse Pain management -Large right pleural effusion. Right thoracentesis 1.7 L removed on October [address] Hill.-Collapse right lower lobe, right middle lobe, and left lower lobe. Follow with pulmonary. Exudative fluid. -Primary osteoarthritis multiple joints Pain medications if needed -Chronic urinary stress incontinence -Hypothyroid Synthroid 112 g a day -Essential hypertension Lopressor 25 mg twice a day -Hyponatremia: Hypoosmolar Increase Solute intake. . Continue current medication treatment plan. Discussed with patient. Patient reassured. Pending surgery tomorrow by Dr. Brush.
--- NOTE | 2021-10-24 12:01 | P.PN ---
Subjective Progress Note Date: 10/24/21 Principal diagnosis: Bilateral pleural effusions and large hiatal/diaphragmatic hernia 85-year-old white female patient with a recent history of hypertension, hypothyroidism, lifetime nonsmoker. Patient had a recent event for which she was hospitalized and was transferred from an outside facility. She was complaining of shortness of breath at the time, her EKG showed ST segment elevation in the precordial leads, and subsequently patient received TPA. She was transferred to this institution on 09/09/2021 and underwent cardiac catheterization that showed no significant obstructive CAD, right dominant system and normal filling pressures. She was discharged home on 09/10/2021. She lives in [place], she follows with Dr. Angeles in [facility]. She states she is normally healthy, no history of diabetes mellitus, she is a lifetime nonsmoker, no chronic lung disease. Following her hospitalization patient started developing shortness of breath. She also noticed increased swelling in bilateral lower extremities, she denied any cough, no fever or chills, no chest pain. She is complaining of significant orthopnea. She has difficulty ambulating related to shortness of breath. She came into the hospital for reevaluation on 10/18/2021. Chest x-ray on admission showed congested bilateral pulmonary vasculature with bilateral basal pulmonary atelectasis and bilateral pleural effusions obscuring the previously seen diaphragmatic hernia. Chest significant swelling in her bilateral lower extremities. She was started on diuretics by cardiology. On today's exam she states she is feeling slightly better however still short of breath and cannot lie flat and last night she was having difficult time breathing. She is on room air with pulse ox of 96%, she is afebrile, blood pressure stable. She short of breath with exertion. Echocardiogram was completed showing preserved LV function of 55-60%, and small generalized pericardial effusion. EKG showed sinus tachycardia with first-degree AV block. Lab evaluation showed normal white count of 9.8, hemoglobin of 12.3, platelet count is 587, INR of 1.0, sodium is 1:30, potassium is 4.0, chloride is 96, CO2 is 25, BUN is 14 creatinine 0.51. Troponin was less than 0.012, alkaline phosphatase was 128, AST and ALT were within normal limits, proBNP was 557. CRP is 7.2. Bilateral lower extremity Dopplers showed no evidence of DVT, however the exam was positive for superficial venous thrombosis involving the bilateral small saphenous veins. CTA chest is ordered and is pending at this time. On 10/20/2021 patient seen in follow-up on selective care unit. She states last night she again had significant dyspnea, today she is sitting up unassisted bed, leaning on the table in the tripod position. She states she feels better and breathing easier and disposition. Is on room air pulse ox is 96%, lung sounds are diminished at the bases. She's been afebrile, no cough, no cough with chest discomfort. CTA chest has been completed showing no major central pulmonary embolism and very large hiatal/diaphragmatic hernia containing the entire stomach, portion of the duodenum, large portion of the transverse colon and possibly small bowel loops in addition to peritoneal fat. It is causing sign ificant mass effect on the heart and the GC lungs, and there associated large right and moderate left pleural effusions. Ultrasound of the chest revealed right pleural effusion pocket measuring 14.3 cm, and left pleural effusion pocket of 3.7 cm. Patient remains on IV diuretics. Metoprolol balance is difficult to estimate, but her weight is down by 5 kg according to the recorded weights in the EMR, lower extremity edema still remains although improved. His labs have been reviewed by blood cell count is 8.5, hemoglobin is 12.5, serum sodium is 129, potassium is 4.2, BUN is 10 and creatinine 0.52. On 10/21/2021 patient seen in follow-up on selective care unit. She states she is breathing much easier since the right-sided thoracentesis yesterday with removal of 1.7 L of pleural fluid and pleural fluid analysis showed exudative fluid, pleural fluid cultures and cytology are pending. Patient was seen by general surgery and underwent EGD today with biopsies. The stomach appeared to be in the intrathoracic position. The plan is for possible surgery for repair of a very large hiatal and diaphragmatic hernia possibly and 10/25/2021. Patient continues on IV diuretics, lower extremity edema is improving, ultrasound the chest does not show significant fluid on the left side. On 10/22/2021 patient seen in follow-up on selective care unit. She is resting comfortably in bed, remains pulse ox is 95%, she states that time that she still has some difficulty breathing, but no acute distress and overall her breathing is improved since admission. Lower extremity edema has significantly improved. She remains on Lasix 20 mg twice daily. Pleural fluid analysis showed exudative fluid, not consistent with CHF. Overall fluid volume status has improved. She is in -580 mL negative net fluid balance over the last 24 hours. Pleural fluid cytology and cultures are pending. Vital signs have been stable. Today's labs have been reviewed, sodium is 129, potassium is 4.5, chloride is 94, BUN is 9 creatinine 0.52. Patient had EGD with biopsies yesterday. Surgical services are following, and the plan is to proceed with hernia repair on Monday The patient is seen today 10/23/2021 in follow-up on the selective care unit. She is currently sitting up in bed. Awake and alert in no acute distress. She denies any worsening shortness of breath, cough or congestion. No fever chills. No significant abdominal discomfort. She's been up ambulating in the room. Up in the shower. He is maintaining good O2 saturations in the 90s on room air. She's been afebrile. Hemodynamically stable. Pleural fluid cultures reveal no growth to date. Fluid was exudate with a protein of 4.6. Negative for malignancy. She is continued on Lovenox for DVT prophylaxis. Patient was reevaluated today on 10/24/2021, patient is on room air, O2 sats is 94%, continues to have intermittent episodes of shortness of breath. Chest x- ray continues to show bilateral pleural effusions, I'm recommending an ultrasound of the chest again, may have to consider a right-sided thoracentesis again on this patient. Patient has diminished breath sounds at the bases especially at the right base, and she may undergo surgery on her large hiatal/diaphragmatic hernia tomorrow by Dr. Brush. Electrolytes are normal renal profile is normal. Previous thoracentesis done showed evidence of exudative pleural effusion on the right side. Objective - Vital Signs Vital signs: Vital Signs Temp 98.0 F 10/24/21 04:00 Pulse 70 10/24/21 04:00 Resp 17 10/24/21 04:00 BP 151/83 10/24/21 04:00 Pulse Ox 94 L 10/24/21 04:00 Intake & Output 10/23/21 10/24/21 10/24/21 18:59 06:59 18:59 Intake Total 980 1100 240 Output Total 1250 600 Balance 980 150 -360 Intake: Intake, IV Titration 500 Amount Sodium Chloride 0.9% 1, 500 000 ml @ 50 mls/hr IV . Q20H [facility] Rx#:[id number] Oral 980 600 240 Output: Urine 1250 600 Other: Voiding Method Toilet # Voids 2 # Bowel Movements 1 - Exam Physical Exam: Revealed an 85-year-old female in no distress. On room air. Head: Atraumatic, normocephalic. HEENT:[Neck is supple.] [No neck masses.] [No thyromegaly.] [No JVD.] Chest: [Diminished breath sounds at the right base, relatively unremarkable breath sounds on the left side. Cardiac Exam: [Normal S1 and S2, no S3 gallop, no murmur.] Abdomen: [Soft, nontender, no megaly, no rebound, no guarding, normal bowel sounds.] Extremities: [No clubbing, no edema, no cyanosis.] Neurological Exam: [No focal neurologic deficit.] Psychiatric: Normal mood affect and normal mental status examination. Skin: No rashes. - Labs CBC & Chem 7: 10/20/21 09:06 10/23/21 07:50 Labs: Microbiology - Last 24 Hours (Table) 10/20/21 14:00 Gram Stain - Preliminary Pleural Fluid Body Fluid Culture - Preliminary Assessment and Plan Assessment: 1 Shortness of breath, multifactorial, related to a very large hia denton/diaphragmatic hernia causing significant mass effect on the heart and lungs, and bilateral pleural effusions, right greater than left, status post right- sided thoracentesis on 10/20/2021 with removal of 1.7 L of pleural fluid which was sent for analysis showing exudative fluid. Cytology negative for malignancy. Cultures negative. 2 Large hiatal/diaphragmatic hernia, status post EGD, showing the stomach entirely in the intrathoracic position. General surgeries following, possible hernia repair on 10/25/2021 3 Recent history of TPA administration for abnormal EKG, and cardiac catheter ization on 09/09/2021 that showed mild CAD 4 Moderate generalized pericardial effusion improved on echocardiogram on this admission 5 Lower extremity edema, no evidence of DVT, but lower extremity Doppler showed SVT bilaterally 6 Lifetime nonsmoker 7 Hypothyroidism 8 Hypertension 9 Urinary incontinence Recommendation: Continue present supportive care measures. Agree with cutting down on the Lasix and patient may benefit from more IV fluids. Will review ultrasound and consider a right-sided thoracentesis on this patient again. We'll continue to follow. Time with Patient: Less than 30
--- NOTE | 2021-10-24 12:38 | US ---
EXAMINATION TYPE: US chest DATE OF EXAM: 10/24/2021 COMPARISON: NONE CLINICAL HISTORY: shortness of breath. Pleural effusion. TECHNIQUE: Targeted ultrasound of the posterior lower bilateral hemithoraces EXAM MEASUREMENTS: Right Pleural Effusion pocket size: 5.6 cm Right skin surface to fluid distance: 1.5 cm lung tissue visualized 1.9 cm deep . Left Pleural Effusion pocket size: 6.4 cm Left skin surface to fluid distance: 1.7 cm lung tissue visualized 4.3 cm deep. Right side marked for possible thoracentesis outside the dept. Left side marked for possible thoracentesis outside the dept. Pulmonologists are able to review the images in the patient?s EMR. IMPRESSIONS: As above
--- NOTE | 2021-10-24 13:00 | XR ---
EXAMINATION TYPE: XR chest 1V portable DATE OF EXAM: 10/24/2021 HISTORY: Status post thoracentesis COMPARISON: 10/24/2021 TECHNIQUE: Single view of the chest is submitted. FINDINGS: Demonstrated are scattered senescent parenchymal change. No evidence for pneumothorax in a patient w ho is status post thoracentesis. Diminution in right-sided pleural effusion although pleural-parenchy mal density persists. The heart is stable. Hilar and mediastinal structures are within normal limits. Degenerative changes are seen of the dorsal spine. IMPRESSION: 1. No evidence for pneumothorax in a patient who is status post thoracentesis. Diminution in right-s ided pleural effusion although pleural-parenchymal density persists.
--- NOTE | 2021-10-24 16:12 | OP ---
OPERATIVE REPORT OPERATIVE REPORT: Right-sided thoracentesis. PREOPERATIVE DIAGNOSIS: Right pleural effusion. POSTOPERATIVE DIAGNOSIS: Right pleural effusion. ANESTHESIA USED: Two mL of 1% lidocaine. PROCEDURE DESCRIPTION: The patient was placed in a sitting-upright position. The area below the right scapula was prepared in a sterile fashion and drapes were applied. The area of the fluid was earlier localized by ultrasound guidance, and it correlated to be at the level of the 8th intercostal space and tip of the scapula. Then the area was locally anesthetized with lidocaine. A small tiny incision was made, and a standard thoracentesis catheter and needle were used, advanced into the pleural space. The catheter was advanced over the needle and the needle was pulled out of the pleural space. Freely flowing fluid was removed; 850 mL of alessia-colored fluid was removed from the right pleural space. No evidence of any complications. The fluid was discarded since we already had the fluid sent for diagnostic testing previously. Again, a total of 850 mL of alessia-colored fluid was removed. No evidence of complications. Chest x-ray showed no evidence of pneumothorax. MMODL / IJN: [id number] /
[2021-10-25] MEDS: LEVOTHYROXINE 112 MCG TAB PO SCH (05:43)
[2021-10-25] MEDS: ACETAMINOPHEN TAB 325 MG TAB PO PRN (05:47)
[2021-10-25 07:11] LABS: Basophils # (A) 0.1 k/uL (0-0.2); Basophils % (A) 1 %; Eosinophils # (A) 0.3 k/uL (0-0.7); Eosinophils % (A) 6 %; HCT 38.6 % (34.0-46.0); HGB 12.3 gm/dL (11.4-16.0); Hypochromasia Slight; Lymphocytes # (A) 0.9 k/uL (1.0-4.8); Lymphocytes % (A) 19 %; MCH 30.7 pg (25.0-35.0); MCHC 31.9 g/dL (31.0-37.0); MCV 96.5 fL (80.0-100.0); Monocytes # (A) 0.4 k/uL (0-1.0); Monocytes % (A) 8 %; Neutrophils # (A) 3.1 k/uL (1.3-7.7); Neutrophils % (A) 64 %; Platelet Count 523 k/uL (150-450); RDW 12.6 % (11.5-15.5); WBC 4.9 k/uL (3.8-10.6)
[2021-10-25 07:22] LABS: ANA Pattern Speckled
[2021-10-25 07:26] LABS: African American GFR (CKD) >90 (>60 ml/min/1.73 sqM); Anion Gap 5 mmol/L; Blood Urea Nitrogen 4 mg/dL (7-17); Calcium 8.3 mg/dL (8.4-10.2); Carbon Dioxide 28 mmol/L (22-30); Chloride 100 mmol/L (98-107); Glucose 84 mg/dL (74-99); Non-African American GFR(CKD) 86 (>60 ml/min/1.73 sqM); Sodium 133 mmol/L (137-145)
[2021-10-25] MEDS: ASPIRIN 81 MG PO SCH (08:58)
[2021-10-25] MEDS: METOPROLOL TARTRATE 25 MG TAB PO SCH ×2 (08:58→20:13)
[2021-10-25] MEDS ORDERED: IV FLUID CONTINUATION 1,000 ML IV ONE (12:09)
[2021-10-25] MEDS ORDERED: HEPARIN SODIUM,PORCINE/PF 5,000 UNIT/0.5 ML SYRINGE SQ ONE (12:47)
[2021-10-25] MEDS: CALCIUM CARBONATE 500 MG CHEWABLE PO SCH (12:49)
[2021-10-25] MEDS ORDERED: HEPARIN SODIUM,PORCINE 5,000 UNIT/ML 1 ML VIAL SQ ONE (12:49)
[2021-10-25] MEDS: ENOXAPARIN 40 MG/0.4 ML SYRINGE SQ SCH (12:49)
[2021-10-25] MEDS: MULTIVITAMINS, THERA 1 EACH TAB PO SCH (12:50)
[2021-10-25] MEDS: PSYLLIUM HUSK 100% 6 GM PACKET PO SCH ×2 (12:50→20:13)
[2021-10-25] MEDS ORDERED: ONDANSETRON 4 MG/2 ML VIAL ONE (12:51)
[2021-10-25] MEDS ORDERED: ONDANSETRON 4 MG/2 ML VIAL IVP ONE (12:54)
[2021-10-25] MEDS ORDERED: DEXAMETHASONE SOD PHOSPHATE 4 MG/ML 1 ML VIAL IVP ONE (12:55)
[2021-10-25] MEDS ORDERED: LIDOCAINE 2% INJ 20 MG/ML (2 ML VIAL) ONE (12:58)
[2021-10-25] MEDS ORDERED: GLYCOPYRROLATE 0.2 MG/ML 2 ML VIAL ONE (12:58)
[2021-10-25] MEDS ORDERED: fentaNYL (PF) 50 MCG/ML 2 ML AMP ONE (12:58)
[2021-10-25] MEDS ORDERED: ROCURONIUM 10 MG/ML (5 ML VIAL) IV ONE (12:58)
[2021-10-25] MEDS ORDERED: NEOSTIGMINE 1 MG/ML 10 ML VIAL ONE (12:58)
[2021-10-25] MEDS ORDERED: SUCCINYLCHOLINE CHLORIDE 100 MG/5 ML SYR IV ONE (12:58)
[2021-10-25] MEDS ORDERED: PROPOFOL 10 MG/ML 20 ML VIAL IV ONE (12:58)
[2021-10-25] MEDS ORDERED: ePHEDrine 50 MG/ML 1 ML VIAL ONE (12:58)
[2021-10-25] MEDS ORDERED: SODIUM CHLORIDE 0.9% 50 ML with ceFAZolin 2,000 MG IV ONE ×4 (13:03)
[2021-10-25] MEDS ORDERED: LACTATED RINGERS 1,000 ML IV ONE (13:15)
[2021-10-25] MEDS ORDERED: BUPIVACAINE (PF) 0.25% 30 ML VIAL SQ ONE ×2 (13:21→13:33)
[2021-10-25] MEDS ORDERED: HYDROmorphone 1 MG/ML 1 ML SYRINGE IVP PRN (15:17)
--- NOTE | 2021-10-25 15:31 | P.OP ---
Date of Procedure: 10/25/21 Preoperative Diagnosis: large paraesophageal hernia Postoperative Diagnosis: large paraesophageal hernia with intrathoracic stomach, approximately one half of small bowel,transverse colon Procedure(s) Performed: laparoscopic repair of paraesophageal hernia with absorbable mesh,(gore bio A) Anesthesia: ASHLEY Surgeon: Dorian Brush Estimated Blood Loss (ml): 25 Pathology: none sent Condition: stable Disposition: PACU Operative Findings: large hiatal hernia with intrathoracic stomach, one half of small bowel, transverse colon Description of Procedure: the patient's placed on the operating table in the supine position. She received general endotracheal tube anesthesia. Her abdomen was prepped and draped usual fashion. The skin incision sites were anesthetized 1% local Xylocaine. Using 11 blade the skin was incised in the left periumbilical area. Then using a optical trocar under direct visualization a 5 mm trochars placed into the perineal cavity. And was insufflated. Next a 5 mm trocar was placed in the right epigastric, right lateral, left lateral and in the left epigastric position. The left lateral lobe liver was retracted. The patient had a large paraesophageal hernia. The small bowel contents were reduced. Approximate one half of the small bowel was located in the hiatal hernia. The transverse colon was reduced. And finally stomach was reduced. The hernia sac was then dissected off of the edge of the ivon. The stomach was mobilized and brought down into the abdominal cavity. During mobilization stomach there was a small laceration of the stomach just below the esophagus. This was repaired in 2 layers using the sew right device and 2-0 James fix suture. The stomach was insufflated with methylene blue via nnasogastric tube. There was no evidence of extravasation of methylene blue saline. At this point the ivon was closed. There was a suitable length of intra-abdominal esophagus. The ivon was closed with 2-0 Ethibond suture. After the ivon was repaired. A piece of Hoffman bio a absorbable mesh was placed over top the repair and secured with 2-0 Ethibond suture.la 52-[place] bougie dilator had been placed into the esophagus and stomach during crural repair. The abdomen was irrigated. The bougie dilator was withdrawn. The skin incision sites were closed with 3-0 Monocryl suture. Dermabond dressing was applied. Patient top she will well and was sent to recovery room in stable condition. The patient was sent intubated to recovery room due to her subcutaneous emphysema. This was due to insufflation and during the hiatal hernia dissection.
--- NOTE | 2021-10-25 16:34 | XR ---
EXAMINATION TYPE: XR chest 1V portable DATE OF EXAM: 10/25/2021 COMPARISON: X-ray dated 10/24/2021 HISTORY: ET tube/pneumo TECHNIQUE: Single frontal view of the chest is obtained. FINDINGS: The endotracheal tube is seen with the tip is about 2.7 cm proximal to the manda. Newly seen extensi ve chest wall soft tissue emphysema, seen bilaterally. This may obscure small pneumothorax or pneumom ediastinum. Persistent large hiatal/diaphragmatic hernia. Small pleural effusions more on the right side. Persist ent opacity in the right lung base, more prominent compared to the previous. Cardiac size cannot be p roperly assessed. IMPRESSION: Interval development of extensive chest wall soft tissue emphysema which may obscure small pneumothor ax or pneumomediastinum. Interval insertion of an endotracheal tube as described above.
[2021-10-25] MEDS: D5-0.45% NACL WITH KCL 20MEQ/L 1,000 ML IV SCH (18:07)
[2021-10-25 19:00] LABS: Basophils % (A) 0 %; Eosinophils % (A) 0 %; HCT 38.4 % (34.0-46.0); HGB 12.2 gm/dL (11.4-16.0); Hypochromasia Moderate; Lymphocytes # (A) 0.3 k/uL (1.0-4.8); Lymphocytes % (A) 2 %; MCHC 31.7 g/dL (31.0-37.0); MCV 97.7 fL (80.0-100.0); Mean Platelet Volume 6.6; Monocytes # (A) 0.3 k/uL (0-1.0); Monocytes % (A) 2 %; Neutrophils # (A) 13.3 k/uL (1.3-7.7); Neutrophils % (A) 95 %; Platelet Count 529 k/uL (150-450); RBC 3.94 m/uL (3.80-5.40); RDW 13.2 % (11.5-15.5)
[2021-10-25 19:08] LABS: African American GFR (CKD) >90 (>60 ml/min/1.73 sqM); Anion Gap 5 mmol/L; Blood Urea Nitrogen 8 mg/dL (7-17); Calcium 7.9 mg/dL (8.4-10.2); Carbon Dioxide 28 mmol/L (22-30); Chloride 99 mmol/L (98-107); Glucose 205 mg/dL (74-99); Non-African American GFR(CKD) 87 (>60 ml/min/1.73 sqM); Sodium 132 mmol/L (137-145)
[2021-10-25] MEDS: SODIUM CHLORIDE 0.9% 1,000 ML IV SCH (20:08)
--- NOTE | 2021-10-25 20:18 | P.PN ---
Progress Note - Text Progress Note Date: 10/25/21 Chief Complaint: Short of breath This is a very pleasant 85-year-old patient who follows with Dr. Adia Angeles. Chronic stable medical conditions include hypertension, hypothyroid, urinary incontinence and wears diapers, hard of hearing. Large hiatal hernia 10/06/2021 patient was here with some chest pressure.cardiac catheterization by Dr. CHELO Babin. No significant CAD. Patient may have had an element of pericarditis. 2-D echo showed some pericardial effusion Patient was doing well upon discharge. The last few days patient started having progressively increasing shortness of breath. No fever no chills. Increasing lower extremity edema. Not able to eat when fall. Tired rundown. Orthopnea. October 19: Sitting at the edge of the bed. Legs hanging. Helps his breathing. Pulmonary consulted. 2-D echo showed small pericardial effusion. VQ scan orde red to rule out more peripheral emboli. October 20: Sitting of the edge of the bed. is present. CT chest showed a very large diaphragmatic hernia causing a significant mass effect on the heart of the lungs. Large right pleural effusion. The hernia containing stent diastolic. Also there is large portion of the transverse colon and small bowel loops. Has incomplete collapse and loss of volume of the right lower lobe and to lesser extent left lower lobe. Did complete collapse of the middle lobe. 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 Osteopenia. October 21: About 1800 mL of bright thoracentesis was done by Dr. Hill yesterday. Breathing a bit better. This could short winded to going to the bathroom with few steps. Had EGD done today by Dr. Brush. Discussed with the patient has been at the bedside. Dr. Webb is planning for hiatal hernia surgery later. October 22: Sitting up. Breathing a bit better. Gets tired. Using incentive spirometry. Pending surgery on Monday. October 23: Breathing stable. On full liquid diet. Using incentive spirometry. Pending surgery Monday. October 24: Intermittent short of breath. Liquid diet. Discussed about surgery Monday. Continue current treatment plan. October 25: saw the patient this morning before surgery. Down for surgery this afternoon. Nothing by mouth. No new issues. Surgery: Large paraesophageal hernia with intrathoracic stomach approximately half a small bowel and transverse colon. Past medical history to include: Hypertension, hypothyroid, urinary incontinence, hard of hearing, pericarditis, hiatal hernia Social history: No history of smoking or alcohol. Lives with her . Family history: Reviewed, noncontributory to presentation Physical examination: VITAL SIGNS: 98, 70, 17, 151. This 83, 94% room air GENERAL: Reclining in bed, awake EYES: Pupils equal. Conjunctiva normal. HEENT: External appearance of nose and ears normal, oral cavity grossly normal. NECK: JVD or possibly; masses not palpable. HEART: First and second heart sounds are normal; edema decreased LUNGS: Respiratory rate increased, decreased breath sounds at base ABDOMEN: Soft, nontender, liver spleen not palpable, no masses palpable. PSYCH: Alert and oriented x3; mood and affect normal. MUSCULOSKELETAL:No Clubbing/cyanosis;muscles-grossly intact. Evidence of OA. INVESTIGATIONS, reviewed in the clinical context: October 23: Sodium 134 potassium 3.6 creatinine 0.62 serum osmolality 275 October 21: Sodium 129 potassium 4.[address] chest showed a very large diaphragmatic hernia causing a significant mass effect on the heart of the lungs. Large right pleural effusion. The hernia containing entire stomach. Also there is large portion of the transverse colon and small bowel loops. Has incomplete collapse and loss of volume of the right lower lobe and to lesser extent left lower lobe. Did complete collapse of the middle lobe. 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 October 20: White count 8.5 hemoglobin 12.5 platelets 656 sodium 129 potassium 4.2 creatinine 0.5 to Limited 2-D echocardiogram: Moderate concentric LVH. Moderate TR. EF 55-60%. Venous Doppler: Negative for DVT White count 9.8 hemoglobin 12.3 platelets 587 sodium 1:30 potassium 4 BUN 14 creatinine 0.51 troponin I less than 0.012 proBNP 557 albumin 3.1 EKG tracing personally reviewed by me-sinus tachycardia. Right bundle branch block pattern. Nonspecific ST/T-wave changes. Chest x-ray film personally reviewed by me-pulmonary edema. Heart hernia. Recent investigations [September 2021] Cardiac catheterization: Minimal CAD 2-D echocardiogram: EF 55-60%. Some wall motion abnormality. Moderate generalized pericardial effusion. Marleny-Huynh viral serology: Negative Assessment and plan: -Very large diaphragmatic hernia causing the entire stomach to be in the chest including bowel loops. Symptomatic.: Surgery: Large paraesophageal hernia with intrathoracic stomach approximately half a small bowel and transverse colon. By Dr. Brush on October 25 -Multilobe atelectasis secondary to large hiatal hernia and pleural effusion.: Slow to respond Incentive spirometry -Chronic T11 vertebral body collapse Pain management -Large right pleural effusion. Right thoracentesis 1.7 L removed on October [address] Hill.-Collapse right lower lobe, right middle lobe, and left lower lobe. Follow with pulmonary. Exudative fluid. -Primary osteoarthritis multiple joints Pain medications if needed -Chronic urinary stress incontinence -Hypothyroid Synthroid 112 g a day -Essential hypertension Lopressor 25 mg twice a day -Hyponatremia: Hypoosmolar Increase Solute intake. . Continue current medication treatment plan. Patient this afternoon by surgery. Postop orders per Dr. Brush. Follow
[2021-10-26] MEDS: D5-0.45% NACL WITH KCL 20MEQ/L 1,000 ML IV SCH ×3 (03:46→17:53)
[2021-10-26] MEDS: LEVOTHYROXINE 112 MCG TAB PO SCH (05:19)
[2021-10-26 09:02] LABS: Basophils % (A) 0 %; Eosinophils % (A) 0 %; HCT 37.8 % (34.0-46.0); HGB 11.8 gm/dL (11.4-16.0); Hypochromasia Slight; Lymphocytes # (A) 0.7 k/uL (1.0-4.8); Lymphocytes % (A) 7 %; MCH 29.9 pg (25.0-35.0); MCHC 31.1 g/dL (31.0-37.0); MCV 96.3 fL (80.0-100.0); Mean Platelet Volume 7.1; Monocytes # (A) 0.7 k/uL (0-1.0); Monocytes % (A) 7 %; Neutrophils # (A) 8.4 k/uL (1.3-7.7); Neutrophils % (A) 85 %; Platelet Count 529 k/uL (150-450); RBC 3.92 m/uL (3.80-5.40); RDW 12.5 % (11.5-15.5)
[2021-10-26 09:09] LABS: African American GFR (CKD) >90 (>60 ml/min/1.73 sqM); Anion Gap 6 mmol/L; Blood Urea Nitrogen 12 mg/dL (7-17); Calcium 8.1 mg/dL (8.4-10.2); Carbon Dioxide 28 mmol/L (22-30); Chloride 99 mmol/L (98-107); Glucose 126 mg/dL (74-99); Non-African American GFR(CKD) 83 (>60 ml/min/1.73 sqM); Potassium 4.6 mmol/L (3.5-5.1); Sodium 133 mmol/L (137-145)
--- NOTE | 2021-10-26 10:30 | XR ---
EXAMINATION TYPE: XR chest 1V portable DATE OF EXAM: 10/26/2021 COMPARISON: X-ray dated 10/25/2021 HISTORY: Follow-up hernia repair TECHNIQUE: Single frontal view of the chest is obtained. FINDINGS: Interval removal of the endotracheal tube. Significant interval improvement of the previously seen ex tensive bilateral chest wall soft tissue emphysema with residual mild soft tissue emphysema still naomi reciated. Repair of the previously seen large hiatal/diaphragmatic hernia with inferior mediastinal and bilater al basal pulmonary densities, possibly representing postoperative changes/atelectasis. Small bilatera l pleural effusions. No definite pneumothorax. Cardiac size cannot be properly assessed. IMPRESSION: Postoperative and interval changes as detailed above.
--- NOTE | 2021-10-26 12:01 | P.PN ---
Subjective Progress Note Date: 10/26/21 Principal diagnosis: Shortness of breath/pleural effusion. On 10/21/2021 patient seen in follow-up on selective care unit. She states she is breathing much easier since the right-sided thoracentesis yesterday with removal of 1.7 L of pleural fluid and pleural fluid analysis showed exudative fluid, pleural fluid cultures and cytology are pending. Patient was seen by general surgery and underwent EGD today with biopsies. The stomach appeared to be in the intrathoracic position. The plan is for possible surgery for repair of a very large hiatal and diaphragmatic hernia possibly and 10/25/2021. Patient continues on IV diuretics, lower extremity edema is improving, ultra sound the chest does not show significant fluid on the left side. On 10/22/2021 patient seen in follow-up on selective care unit. She is resting comfortably in bed, remains pulse ox is 95%, she states that time that she still has some difficulty breathing, but no acute distress and overall her breathing is improved since admission. Lower extremity edema has significantly improved. She remains on Lasix 20 mg twice daily. Pleural fluid analysis showed exudative fluid, not consistent with CHF. Overall fluid volume status has improved. She is in -580 mL negative net fluid balance over the last 24 hours. Pleural fluid cytology and cultures are pending. Vital signs have been stable. Today's labs have been reviewed, sodium is 129, potassium is 4.5, chloride is 94, BUN is 9 creatinine 0.52. Patient had EGD with biopsies yesterday. Surgical services are following, and the plan is to proceed with hernia repair on Monday The patient is seen today 10/23/2021 in follow-up on the selective care unit. She is currently sitting up in bed. Awake and alert in no acute distress. She denies any worsening shortness of breath, cough or congestion. No fever chills. No significant abdominal discomfort. She's been up ambulating in the room. Up in the shower. He is maintaining good O2 saturations in the 90s on room air. She's been afebrile. Hemodynamically stable. Pleural fluid cultures reveal no growth to date. Fluid was exudate with a protein of 4.6. Negative for malignancy. She is continued on Lovenox for DVT prophylaxis. Patient was reevaluated today on 10/24/2021, patient is on room air, O2 sats is 94%, continues to have intermittent episodes of shortness of breath. Chest x- ray continues to show bilateral pleural effusions, I'm recommending an ultrasound of the chest again, may have to consider a right-sided thoracentesis again on this patient. Patient has diminished breath sounds at the bases especially at the right base, and she may undergo surgery on her large hiatal/diaphragmatic hernia tomorrow by Dr. Brush. Electrolytes are normal renal profile is normal. Previous thoracentesis done showed evidence of exudative pleural effusion on the right side. Progress note dated 10/26/2021. The patient was not seen yesterday, as the patient was in the operating room, having her procedure performed. The patient had a large paraesophageal hernia, and she had a laparoscopic repair of paraesophageal hernia, with absorbable mesh. Currently, the patient's resting comfortably in the room. She tells us today she is going to have a EGD. She's currently on room air. Labs today include a white count of 10, hemoglobin 11.8, hematocrit 37.8 and a platelet count of 529,000. Sodium 133, potassium 4.6, chlorides 99, CO2 28, anion gap 6, BUN 12, creatinine 0.63. Chest x-ray shows postoperative changes, with significant interval improvement of the previously seen extensive bilateral chest wall and soft tissue emphysematous changes. Objective - Vital Signs Vital signs: Vital Signs Temp 98.0 F 10/26/21 08:00 Pulse 90 10/26/21 08:00 Resp 18 10/26/21 08:00 BP 90/59 10/26/21 08:00 Pulse Ox 95 10/26/21 08:00 Intake & Output 10/25/21 10/26/21 10/26/21 18:59 06:59 18:59 Intake Total 1200 Output Total 10 660 Balance 1190 -660 Weight 69.5 kg Intake: IV 1200 Oral 0 Output: Urine 600 Straight 600 Post Void Residual 60 Estimated Blood Loss 10 Other: Voiding Method Toilet Toilet Toilet - Exam No acute distress, oriented 3. No respiratory distress. Currently on room air. HEENT examination is grossly unremarkable. Neck supple. Full range of motion. No adenopathy thyromegaly or neck vein distention. Cardiovascular examination reveals regular rhythm rate. S1-S2 normal. No S3 or S4. No discernible murmur noted. Heart rate 86 bpm. Lungs reveal mostly clear breath sounds. Minimal scattered rhonchi. No wheezes or crackles. I could not palpate any subcutaneous emphysema. Breath sounds are equal bilaterally. Room air saturations 98%. Abdomen soft bowel sounds are heard. No masses or tenderness. Extremities are intact. No cyanosis clubbing or edema. Skin is without rash or lesion. Neurologic examination is brief but nonfocal. - Labs CBC & Chem 7: 10/26/21 08:20 10/26/21 08:20 Labs: Abnormal Lab Results - Last 24 Hours (Table) 10/25/21 10/25/21 10/26/21 Range/Units 18:41 18:41 08:20 WBC 14.0 H (3.8-10.6) k/uL Plt Count 529 H 529 H (150-450) k/uL Neutrophils # 13.3 H 8.4 H (1.3-7.7) k/uL Lymphocytes # 0.3 L 0.7 L (1.0-4.8) k/uL Sodium 132 L (137-145) mmol/L Glucose 205 H (74-99) mg/dL Calcium 7.9 L (8.4-10.2) mg/dL 10/26/21 Range/Units 08:20 WBC (3.8-10.6) k/uL Plt Count (150-450) k/uL Neutrophils # (1.3-7.7) k/uL Lymphocytes # (1.0-4.8) k/uL Sodium 133 L (137-145) mmol/L Glucose 126 H (74-99) mg/dL Calcium 8.1 L (8.4-10.2) mg/dL Assessment and Plan Assessment: Postop day #1, status post surgical repair of a large paraesophageal hernia. Shortness of breath, multifactorial, in part related to large paraesophageal hernia, as well as bilateral pleural effusions. Right sided thoracentesis 2. Recent history of TPA administration for abnormal EKG, and cardiac catheterization on September 09 which showed mild CAD. Moderate generalized pericardial effusion. Lower extremity edema. Lifetime nonsmoker. Hypothyroidism. Hypertension. Urinary incontinence. Plan: Plan dated 10/26/2021. The patient appears to be doing relatively well. She's on room air. Saturations are 98%. The patient states that she is going to have an EGD today. He will follow make recommendations were appropriate. Labs, x-rays, and medications are reviewed. Prognosis remains guarded. Time with Patient: Less than 30
--- NOTE | 2021-10-26 13:22 | P.PN ---
Progress Note - Text Progress Note Date: 10/26/21 Chief Complaint: Short of breath This is a very pleasant 85-year-old patient who follows with Dr. Adia Angeles. Chronic stable medical conditions include hypertension, hypothyroid, urinary incontinence and wears diapers, hard of hearing. Large hiatal hernia 10/06/2021 patient was here with some chest pressure.cardiac catheterization by Dr. CHELO Babin. No significant CAD. Patient may have had an element of pericarditis. 2-D echo showed some pericardial effusion Patient was doing well upon discharge. The last few days patient started having progressively increasing shortness of breath. No fever no chills. Increasing lower extremity edema. Not able to eat when fall. Tired rundown. Orthopnea. October 19: Sitting at the edge of the bed. Legs hanging. Helps his breathing. Pulmonary consulted. 2-D echo showed small pericardial effusion. VQ scan orde red to rule out more peripheral emboli. October 20: Sitting of the edge of the bed. is present. CT chest showed a very large diaphragmatic hernia causing a significant mass effect on the heart of the lungs. Large right pleural effusion. The hernia containing stent diastolic. Also there is large portion of the transverse colon and small bowel loops. Has incomplete collapse and loss of volume of the right lower lobe and to lesser extent left lower lobe. Did complete collapse of the middle lobe. 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 Osteopenia. October 21: About 1800 mL of bright thoracentesis was done by Dr. Hill yesterday. Breathing a bit better. This could short winded to going to the bathroom with few steps. Had EGD done today by Dr. Brush. Discussed with the patient has been at the bedside. Dr. Webb is planning for hiatal hernia surgery later. October 22: Sitting up. Breathing a bit better. Gets tired. Using incentive spirometry. Pending surgery on Monday. October 23: Breathing stable. On full liquid diet. Using incentive spirometry. Pending surgery Monday. October 24: Intermittent short of breath. Liquid diet. Discussed about surgery Monday. Continue current treatment plan. October 25: saw the patient this morning before surgery. Down for surgery this afternoon. Nothing by mouth. No new issues. Surgery: Large paraesophageal hernia with intrathoracic stomach approximately half a small bowel and transverse colon. October 26: Sitting up in a chair. No abdominal pain. No nausea vomiting. Nothing by mouth. No flatus. Active Medications Acetaminophen (Acetaminophen Tab 325 Mg Tab) 650 mg PO Q6HR PRN PRN Reason: Mild Pain or Fever > 100.5 Last Admin: 10/25/21 05:47 Dose: 650 mg Documented by: Aspirin (Aspirin 81 Mg) 81 mg PO DAILY [facility] Last Admin: 10/25/21 08:58 Dose: 81 mg Documented by: Calcium Carbonate/Glycine (Calcium Carbonate 500 Mg Chewable) 500 mg PO DAILY [facility] Last Admin: 10/25/21 12:49 Dose: Not Given Documented by: Calcium Carbonate/Glycine (Calcium Carbonate 500 Mg Chewable) 1,000 mg PO Q4HR PRN PRN Reason: Dyspepsia Dexamethasone Sodium Phosphate (Dexamethasone Sod Phosphate 4 Mg/Ml 1 Ml Vial) 4 mg IVP Q6HR [facility] Enoxaparin Sodium (Enoxaparin 40 Mg/0.4 Ml Syringe) 40 mg SQ DAILY [facility] Hydromorphone HCl (Hydromorphone 1 Mg/Ml 1 Ml Syringe) 1 mg IVP Q4HR PRN PRN Reason: Severe Pain Sodium Chloride (Saline 0.9%) 1,000 mls @ 50 mls/hr IV .Q20H [facility] Last Admin: 10/25/21 20:08 Dose: Not Given Documented by: Potassium Chloride/Dextrose/Sod Cl (D5%-1/2ns-Kcl 20 Meq/L Iv Solution) 1,000 mls @ 125 mls/hr IV .Q8H [facility] Last Admin: 10/26/21 03:46 Dose: 125 mls/hr Documented by: Lactulose (Lactulose 20 Gm/30 Ml Cup) 20 gm PO DAILY PRN PRN Reason: Constipation Last Admin: 10/23/21 09:59 Dose: 20 gm Documented by: Levothyroxine Sodium (Levothyroxine 112 Mcg Tab) 112 mcg PO 0630 [facility] Last Admin: 10/26/21 05:19 Dose: Not Given Documented by: Lorazepam (Lorazepam 0.5 Mg Tab) 0.5 mg PO Q6HR PRN PRN Reason: Anxiety Melatonin (Melatonin 3 Mg Tablet) 3 mg PO HS PRN PRN Reason: Insomnia Metoprolol Tartrate (Metoprolol Tartrate 25 Mg Tab) 25 mg PO BID [facility] Last Admin: 10/25/21 20:13 Dose: Not Given Documented by: Multivitamins (Multivitamins, Thera 1 Each Tab) 1 each PO DAILY [facility] Last Admin: 10/25/21 12:50 Dose: Not Given Documented by: Naloxone HCl (Naloxone 0.4 Mg/Ml 1 Ml Vial) 0.2 mg IV Q2M PRN PRN Reason: Opioid Reversal Prochlorperazine Maleate (Prochlorperazine 5 Mg Tab) 5 mg PO Q8HR PRN PRN Reason: Nausea And Vomiting Psyllium Hydrophilic Mucilloid (Psyllium Husk 100% 6 Gm Packet) 6 gm PO BID [facility] Last Admin: 10/25/21 20:13 Dose: Not Given Documented by: Past medical history to include: Hypertension, hypothyroid, urinary incontinence, hard of hearing, pericarditis, hiatal hernia Social history: No history of smoking or alcohol. Lives with her . Family history: Reviewed, noncontributory to presentation Physical examination: VITAL SIGNS:97.6, 96, 16, 97/64, 98% room air GENERAL: Reclining in chair, awake EYES: Pupils equal. Conjunctiva normal. HEENT: External appearance of nose and ears normal, oral cavity grossly normal. NECK: JVD or possibly; masses not palpable. HEART: First and second heart sounds are normal; edema decreased LUNGS: Respiratory rate increased, decreased breath sounds at base ABDOMEN: Soft, mild tenderness, liver spleen not palpable, no masses palpable. PSYCH: Alert and oriented x3; mood and affect normal. MUSCULOSKELETAL:No Clubbing/cyanosis;muscles-grossly intact. Evidence of OA. INVESTIGATIONS, reviewed in the clinical context: October 26: White count and hemoglobin 11.8 platelets 529 sodium 133 potassium 4.6 creatinine 0.63 October 23: Sodium 134 potassium 3.6 creatinine 0.62 serum osmolality 275 October 21: Sodium 129 potassium 4.[address] chest showed a very large diaphragmatic hernia causing a significant mass effect on the heart of the lungs. Large right pleural effusion. The hernia containing entire stomach. Also there is large portion of the transverse colon and small bowel loops. Has incomplete collapse and loss of volume of the right lower lobe and to lesser extent left lower lobe. Did complete collapse of the middle lobe. 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 October 20: White count 8.5 hemoglobin 12.5 platelets 656 sodium 129 potassium 4.2 creatinine 0.5 to Limited 2-D echocardiogram: Moderate concentric LVH. Moderate TR. EF 55-60%. Venous Doppler: Negative for DVT White count 9.8 hemoglobin 12.3 platelets 587 sodium 1:30 potassium 4 BUN 14 creatinine 0.51 troponin I less than 0.012 proBNP 557 albumin 3.1 EKG tracing personally reviewed by me-sinus tachycardia. Right bundle branch block pattern. Nonspecific ST/T-wave changes. Chest x-ray film personally reviewed by me-pulmonary edema. Heart hernia. Recent investigations [September 2021] Cardiac catheterization: Minimal CAD 2-D echocardiogram: EF 55-60%. Some wall motion abnormality. Moderate generalized pericardial effusion. Marleny-Huynh viral serology: Negative Assessment and plan: -Very large diaphragmatic hernia causing the entire stomach to be in the chest including bowel loops. Surgery: Large paraesophageal hernia with intrathoracic stomach approximately half a small bowel and transverse colon. By Dr. Brush on October 25. Currently nothing by mouth -Multilobe atelectasis secondary to large hiatal hernia and pleural effusion.: Incentive spirometry -Chronic T11 vertebral body collapse Pain management -Large right pleural effusion. Right thoracentesis 1.7 L removed on October [address] Hill.-Collapse right lower lobe, right middle lobe, and left lower lobe. Follow with pulmonary. Exudative fluid. -Primary osteoarthritis multiple joints Pain medications if needed -Chronic urinary stress incontinence -Hypothyroid Synthroid 112 g a day -Essential hypertension Lopressor 25 mg twice a day -Hyponatremia: Hypoosmolar Increase Solute intake. . Patient is nothing by mouth. Change Synthroid to IV every 48 hours. IV fluids. Incentive spirometry. Discussed with patient.
--- NOTE | 2021-10-26 13:26 | FL ---
EXAMINATION TYPE: FL esophagus cervic/pharynx DATE OF EXAM: 10/26/2021 COMPARISON: None HISTORY: Post Xavi fundoplication TECHNIQUE: A single contrast UGI study is performed. FINDINGS: Contrast passes with marked hesitancy through the gastroesophageal junction. Contrast does extend int o the stomach. The stomach is distended with air. Contrast is seen exiting into the duodenum. No extravasation is identified. No free air is noted during this examination. Note is made of bilateral pleural effusions. Overhead radiographs were obtained which are unremarkable. Fluoroscopy time: 1 minute 14 seconds Images: 42 IMPRESSIONS: 1. Severe hesitancy passing through the gastroesophageal junction Xavi fundoplication. 2. No extravasation identified.
[2021-10-26] MEDS ORDERED: LEVOTHYROXINE IVP 100 MCG/5 ML VIAL IV SCH (13:30)
--- NOTE | 2021-10-26 14:25 | P.PN ---
Subjective Progress Note Date: 10/26/21 CHIEF COMPLAINT: Large paraesophageal hernia HISTORY OF PRESENT ILLNESS: Patient is status post laparoscopic repair of paraesophageal hernia with absorbable mesh for a large paraesophageal hernia with intrathoracic stomach, approximately one half small bowel and transverse colon. Patient reports that her pain is controlled. She denies any nausea or vomiting. She is having flatus. They did have to straight cath patient this morning. Patient's chest x-ray had shown some chest wall soft tissue emphysema with residual mild soft tissue emphysema still appreciated. Upper GI shows severe hesitancy passing through the gastroesophageal junction Dane fundoplication. No extravasation. Afebrile. WBC is 10 hemoglobin 11.8 platelets 529 Patient seen and examined with Dr. maldonado PHYSICAL EXAM: VITAL SIGNS: Reviewed. GENERAL: Well-developed in no acute distress. HEENT: No sclera icterus. Extraocular movements grossly intact. Moist buccal mucosa. Head is atraumatic, normocephalic. ABDOMEN: Soft. Nondistended. Incision site is clean dry and intact NEUROLOGIC: Alert and oriented. Cranial nerves II through XII grossly intact. Chest: Emphysematous crepitus on left-sided chest wall ASSESSMENT: 1. Status post laparoscopic repair of paraesophageal hernia with absorbable mesh for a large paraesophageal hernia with intrathoracic stomach, approximately one half small bowel and transverse colon PLAN: -IV Decadron scheduled added for severe hesitancy noted on upper GI -Keep patient strict nothing by mouth -Continue IV fluids -Continue pain medication as needed -Continue supportive care Physician Digital Librarian note has been reviewed by physician. Signing provider agrees with the documented findings, assessment, and plan of care. Objective - Vital Signs Vital signs: Vital Signs Temp 97.6 F 10/26/21 11:51 Pulse 86 10/26/21 13:15 Resp 16 10/26/21 13:15 BP 97/64 10/26/21 11:51 Pulse Ox 98 10/26/21 11:51 Intake & Output 10/25/21 10/26/21 10/26/21 18:59 06:59 18:59 Intake Total 1200 Output Total 10 660 Balance 1190 -660 Weight 69.5 kg 69.5 kg Intake: IV 1200 Oral 0 Output: Urine 600 Straight 600 Post Void Residual 60 Estimated Blood Loss 10 Other: Voiding Method Toilet Toilet Toilet - Labs CBC & Chem 7: 10/26/21 08:20 10/26/21 08:20 Labs: Abnormal Lab Results - Last 24 Hours (Table) 10/25/21 10/25/21 10/26/21 Range/Units 18:41 18:41 08:20 WBC 14.0 H (3.8-10.6) k/uL Plt Count 529 H 529 H (150-450) k/uL Neutrophils # 13.3 H 8.4 H (1.3-7.7) k/uL Lymphocytes # 0.3 L 0.7 L (1.0-4.8) k/uL Sodium 132 L (137-145) mmol/L Glucose 205 H (74-99) mg/dL Calcium 7.9 L (8.4-10.2) mg/dL 10/26/21 Range/Units 08:20 WBC (3.8-10.6) k/uL Plt Count (150-450) k/uL Neutrophils # (1.3-7.7) k/uL Lymphocytes # (1.0-4.8) k/uL Sodium 133 L (137-145) mmol/L Glucose 126 H (74-99) mg/dL Calcium 8.1 L (8.4-10.2) mg/dL
[2021-10-26] MEDS: DEXAMETHASONE SOD PHOSPHATE 4 MG/ML 1 ML VIAL IVP SCH ×2 (15:15→17:48)
[2021-10-26] MEDS: LEVOTHYROXINE IVP 100 MCG/5 ML VIAL IV SCH (15:15)
[2021-10-26] MEDS: CALCIUM CARBONATE 500 MG CHEWABLE PO SCH (15:43)
[2021-10-26] MEDS: ENOXAPARIN 40 MG/0.4 ML SYRINGE SQ SCH (15:43)
[2021-10-26] MEDS: ASPIRIN 81 MG PO SCH (15:43)
[2021-10-26] MEDS: MULTIVITAMINS, THERA 1 EACH TAB PO SCH (15:44)
[2021-10-26] MEDS: METOPROLOL TARTRATE 25 MG TAB PO SCH ×2 (15:44→20:26)
[2021-10-26] MEDS: PSYLLIUM HUSK 100% 6 GM PACKET PO SCH ×2 (15:44→20:26)
[2021-10-26 16:22] LABS: Glucose,Whole Blood 116 mg/dL (75-99)
[2021-10-26] MEDS: SODIUM CHLORIDE 0.9% 1,000 ML IV SCH (17:54)
[2021-10-26 19:56] LABS: Glucose,Whole Blood 151 mg/dL (75-99)
[2021-10-27] MEDS: DEXAMETHASONE SOD PHOSPHATE 4 MG/ML 1 ML VIAL IVP SCH ×5 (00:08→23:06)
[2021-10-27] MEDS: D5-0.45% NACL WITH KCL 20MEQ/L 1,000 ML IV SCH ×4 (02:46→21:01)
[2021-10-27 05:43] LABS: Glucose,Whole Blood 137 mg/dL (75-99)
[2021-10-27] MEDS: METOPROLOL TARTRATE 25 MG TAB PO SCH ×2 (07:53→20:32)
[2021-10-27] MEDS: ASPIRIN 81 MG PO SCH (07:53)
[2021-10-27] MEDS: CALCIUM CARBONATE 500 MG CHEWABLE PO SCH (07:53)
[2021-10-27] MEDS: MULTIVITAMINS, THERA 1 EACH TAB PO SCH (07:54)
[2021-10-27] MEDS: PSYLLIUM HUSK 100% 6 GM PACKET PO SCH ×2 (07:54→20:33)
[2021-10-27 08:50] LABS: African American GFR (CKD) >90 (>60 ml/min/1.73 sqM); Anion Gap 7 mmol/L; Blood Urea Nitrogen 14 mg/dL (7-17); Calcium 8.4 mg/dL (8.4-10.2); Carbon Dioxide 23 mmol/L (22-30); Chloride 102 mmol/L (98-107); Glucose 142 mg/dL (74-99); Non-African American GFR(CKD) 88 (>60 ml/min/1.73 sqM); Potassium 4.6 mmol/L (3.5-5.1); Sodium 132 mmol/L (137-145)
[2021-10-27] MEDS: ENOXAPARIN 40 MG/0.4 ML SYRINGE SQ SCH (08:59)
--- NOTE | 2021-10-27 09:05 | P.PN ---
Subjective This is a very pleasant 85-year-old patient who follows with Dr. Adia Angeles. Chronic stable medical conditions include hypertension, hypothyroid, urinary incontinence and wears diapers, hard of hearing. Large hiatal hernia 10/06/2021 patient was here with some chest pressure.cardiac catheterization by Dr. CHELO Babin. No significant CAD. Patient may have had an element of pericarditis. 2-D echo showed some pericardial effusion Patient was doing well upon discharge. The last few days patient started having progressively increasing shortness of breath. No fever no chills. Increasing lower extremity edema. Not able to eat when fall. Tired rundown. Orthopnea. October 19: Sitting at the edge of the bed. Legs hanging. Helps his breathing. Pulmonary consulted. 2-D echo showed small pericardial effusion. VQ scan ordered to rule out more peripheral emboli. October 20: Sitting of the edge of the bed. is present. CT chest showed a very large diaphragmatic hernia causing a significant mass effect on the heart of the lungs. Large right pleural effusion. The hernia containing stent diastolic. Also there is large portion of the transverse colon and small bowel loops. Has incomplete collapse and loss of volume of the right lower lobe and to lesser extent left lower lobe. Did complete collapse of the middle lobe. 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 Osteopenia. October 21: About 1800 mL of bright thoracentesis was done by Dr. Hill yesterday. Breathing a bit better. This could short winded to going to the bathroom with few steps. Had EGD done today by Dr. Brush. Discussed with the patient has been at the bedside. Dr. Webb is planning for hiatal hernia surgery later. October 22: Sitting up. Breathing a bit better. Gets tired. Using incentive spirometry. Pending surgery on Monday. October 16: Breathing stable. On full liquid diet. Using incentive spirometry. Pending surgery Monday. October 24: Intermittent short of breath. Liquid diet. Discussed about surgery Monday. Continue current treatment plan. October 25: saw the patient this morning before surgery. Down for surgery this a fternoon. Nothing by mouth. No new issues. Surgery: Large paraesophageal hernia with intrathoracic stomach approximately half a small bowel and transverse colon. October 26: Sitting up in a chair. No abdominal pain. No nausea vomiting. Nothing by mouth. No flatus. Subjective: Resuming the care of The patient on 10/27/2021 This is a pleasant 85 years old female who presents with laparoscopic repair of his paraesophageal hernia. She still have hesitancy on upper GI test and she kept nothing by mouth and on IV fluids per surgery team who are following her closely. This morning patient is sitting in chair, fully awake and pleasant, her only complaint is spitting mucus which is improving. As chest pain or dyspnea. No abdominal pain or nausea or vomiting. No bowel movement since Monday. She still on Hinton catheter which was placed last night. She still on IV fluids Objective - Vital Signs Vital signs: Vital Signs Temp 98.0 F 10/27/21 03:39 Pulse 90 10/27/21 03:39 Resp 14 10/27/21 03:39 BP 133/76 10/27/21 03:39 Pulse Ox 97 10/27/21 03:39 Intake & Output 10/26/21 10/27/21 10/27/21 18:59 06:59 18:59 Intake Total 350 Balance 350 Weight 69.5 kg 70.6 kg Intake: Intake, IV Titration 350 Amount D5-0.45% NaCl with KCl 350 20Meq/l 1,000 ml @ 125 mls/hr IV .Q8H [facility] Rx#: [id number] Oral 0 Other: Voiding Method Toilet Toilet # Voids 0 - Exam GENERAL: The patient is alert and oriented x3, not in any acute distress. Well developed, well nourished. HEENT: Pupils are round and equally reacting to light. EOMI. No scleral icterus. No conjunctival pallor. Normocephalic, atraumatic. No pharyngeal erythema. No thyromegaly. CARDIOVASCULAR: S1 and S2 present. No murmurs, rubs, or gallops. PULMONARY: Chest is clear to auscultation, no wheezing or crackles. -ABDOMEN: Soft, nontender, nondistended, normoactive bowel sounds. No palpable organomegaly. Hinton catheter in a Place MUSCULOSKELETAL: No joint swelling or deformity. EXTREMITIES: No cyanosis, clubbing, or pedal edema. NEUROLOGICAL: Gross neurological examination did not reveal any focal deficits. SKIN: No rashes. no petechiae. - Labs CBC & Chem 7: 10/26/21 08:20 04/20/22 07:28 Labs: Abnormal Lab Results - Last 24 Hours (Table) 10/26/21 10/26/21 10/26/21 Range/Units 08:20 08:20 16:20 Plt Count 529 H (150-450) k/uL Neutrophils # 8.4 H (1.3-7.7) k/uL Lymphocytes # 0.7 L (1.0-4.8) k/uL Sodium 133 L (137-145) mmol/L Glucose 126 H (74-99) mg/dL POC Glucose (mg/dL) 116 H (75-99) mg/dL Calcium 8.1 L (8.4-10.2) mg/dL 10/26/21 10/27/21 10/27/21 Range/Units 19:55 05:41 07:28 Plt Count (150-450) k/uL Neutrophils # (1.3-7.7) k/uL Lymphocytes # (1.0-4.8) k/uL Sodium 132 L (137-145) mmol/L Glucose 142 H (74-99) mg/dL POC Glucose (mg/dL) 151 H 137 H (75-99) mg/dL Calcium (8.4-10.2) mg/dL Assessment and Plan Assessment: -Very large diaphragmatic hernia, status post laparoscopic paraesophageal hernia repair by Dr. Brush on October 25. Currently nothing by mouth Continue with D5 half-normal saline -Hesitancy of food passage through upper GI test, test done postoperatively Keep the patient nothing by mouth and IV fluids, with surgery team following closely. Continue with steroids, currently on dexamethasone -Chronic T11 vertebral body collapse Pain management -Large right pleural effusion. Right thoracentesis 1.7 L removed on October [address] Hill.-Collapse right lower lobe, right middle lobe, and left lower lobe. Follow with pulmonary. Exudative fluid. -Primary osteoarthritis multiple joints Pain medications if needed -Chronic urinary stress incontinence -Hypothyroid Synthroid 112 g a day -Essential hypertension Lopressor 25 mg twice a day -Hyponatremia: Hypoosmolar Increase Solute intake. .
--- NOTE | 2021-10-27 11:21 | P.PN ---
Subjective Progress Note Date: 10/27/21 Principal diagnosis: Shortness of breath/pleural effusion. On 10/21/2021 patient seen in follow-up on selective care unit. She states she is breathing much easier since the right-sided thoracentesis yesterday with removal of 1.7 L of pleural fluid and pleural fluid analysis showed exudative fluid, pleural fluid cultures and cytology are pending. Patient was seen by general surgery and underwent EGD today with biopsies. The stomach appeared to be in the intrathoracic position. The plan is for possible surgery for repair of a very large hiatal and diaphragmatic hernia possibly and 10/25/2021. Patient continues on IV diuretics, lower extremity edema is improving, ultra sound the chest does not show significant fluid on the left side. On 10/22/2021 patient seen in follow-up on selective care unit. She is resting comfortably in bed, remains pulse ox is 95%, she states that time that she still has some difficulty breathing, but no acute distress and overall her breathing is improved since admission. Lower extremity edema has significantly improved. She remains on Lasix 20 mg twice daily. Pleural fluid analysis showed exudative fluid, not consistent with CHF. Overall fluid volume status has improved. She is in -580 mL negative net fluid balance over the last 24 hours. Pleural fluid cytology and cultures are pending. Vital signs have been stable. Today's labs have been reviewed, sodium is 129, potassium is 4.5, chloride is 94, BUN is 9 creatinine 0.52. Patient had EGD with biopsies yesterday. Surgical services are following, and the plan is to proceed with hernia repair on Monday The patient is seen today 10/23/2021 in follow-up on the selective care unit. She is currently sitting up in bed. Awake and alert in no acute distress. She denies any worsening shortness of breath, cough or congestion. No fever chills. No significant abdominal discomfort. She's been up ambulating in the room. Up in the shower. He is maintaining good O2 saturations in the 90s on room air. She's been afebrile. Hemodynamically stable. Pleural fluid cultures reveal no growth to date. Fluid was exudate with a protein of 4.6. Negative for malignancy. She is continued on Lovenox for DVT prophylaxis. Patient was reevaluated today on 10/24/2021, patient is on room air, O2 sats is 94%, continues to have intermittent episodes of shortness of breath. Chest x- ray continues to show bilateral pleural effusions, I'm recommending an ultrasound of the chest again, may have to consider a right-sided thoracentesis again on this patient. Patient has diminished breath sounds at the bases especially at the right base, and she may undergo surgery on her large hiatal/diaphragmatic hernia tomorrow by Dr. Brush. Electrolytes are normal renal profile is normal. Previous thoracentesis done showed evidence of exudative pleural effusion on the right side. Progress note dated 10/26/2021. The patient was not seen yesterday, as the patient was in the operating room, having her procedure performed. The patient had a large paraesophageal hernia, and she had a laparoscopic repair of paraesophageal hernia, with absorbable mesh. Currently, the patient's resting comfortably in the room. She tells us today she is going to have a EGD. She's currently on room air. Labs today include a white count of 10, hemoglobin 11.8, hematocrit 37.8 and a platelet count of 529,000. Sodium 133, potassium 4.6, chlorides 99, CO2 28, anion gap 6, BUN 12, creatinine 0.63. Chest x-ray shows postoperative changes, with significant interval improvement of the previously seen extensive bilateral chest wall and soft tissue emphysematous changes. Progress note dated 10/27/2021. The patient is again seen today in room 376. She doing relatively well. The patient is currently on room air. She is getting IV fluids in the form of half- normal saline, with 20 mEq of potassium, at 125 mL an hour. She denies any respiratory issues, and she also denies any abdominal discomfort. Today's labs include a sodium 142, potassium 4.6, chlorides 102, CO2 23, anion gap 7, BUN 14, and creatinine 0.53. Microbiologic studies are negative. Chest x-ray from October 26 does show bilateral effusions. Objective - Vital Signs Vital signs: Vital Signs Temp 98.3 F 10/27/21 08:00 Pulse 96 10/27/21 08:00 Resp 16 10/27/21 08:00 BP 146/83 10/27/21 08:00 Pulse Ox 96 10/27/21 08:00 Intake & Output 10/26/21 10/27/21 10/27/21 18:59 06:59 18:59 Intake Total 350 Balance 350 Weight 69.5 kg 70.6 kg Intake: Intake, IV Titration 350 Amount D5-0.45% NaCl with KCl 350 20Meq/l 1,000 ml @ 125 mls/hr IV .Q8H [facility] Rx#: [id number] Oral 0 Other: Voiding Method Toilet Toilet # Voids 0 - Exam No acute distress, oriented 3. No respiratory distress. Currently on room air. HEENT examination is grossly unremarkable. Neck supple. Full range of motion. No adenopathy thyromegaly or neck vein distention. Cardiovascular examination reveals regular rhythm rate. S1-S2 normal. No S3 or S4. No discernible murmur noted. Heart rate 96 bpm. Lungs reveal mostly clear breath sounds. Minimal scattered rhonchi. No wheezes or crackles. I could not palpate any subcutaneous emphysema. Breath sounds are equal bilaterally. Room air saturations 98%. Abdomen soft bowel sounds are heard. No masses or tenderness. Extremities are intact. No cyanosis clubbing or edema. Skin is without rash or lesion. Neurologic examination is brief but nonfocal. - Labs CBC & Chem 7: 10/26/21 08:20 10/27/21 07:28 Labs: Abnormal Lab Results - Last 24 Hours (Table) 10/26/21 10/26/21 10/27/21 Range/Units 16:20 19:55 05:41 Sodium (137-145) mmol/L Glucose (74-99) mg/dL POC Glucose (mg/dL) 116 H 151 H 137 H (75-99) mg/dL 10/27/21 Range/Units 07:28 Sodium 132 L (137-145) mmol/L Glucose 142 H (74-99) mg/dL POC Glucose (mg/dL) (75-99) mg/dL Assessment and Plan Assessment: Postop day #2, status post surgical repair of a large paraesophageal hernia. Shortness of breath, multifactorial, in part related to large paraesophageal hernia, as well as bilateral pleural effusions. Right sided thoracentesis 2. Recent history of TPA administration for abnormal EKG, and cardiac catheterization on September 09 which showed mild CAD. Moderate generalized pericardial effusion. Lower extremity edema. Lifetime nonsmoker. Hypothyroidism. Hypertension. Urinary incontinence. Plan: Plan dated 10/26/2021. The patient appears to be doing relatively well. She's on room air. Saturations are 98%. The patient states that she is going to have an EGD today. He will follow make recommendations were appropriate. Labs, x-rays, and medications are reviewed. Prognosis remains guarded. Plan dated 10/27/2021. Currently, the patient seems be doing relatively well. Room air. She's not having any respiratory difficulty or distress. She is receiving IV fluids and form of half-normal saline, with 20 mEq of potassium, at 125 mL an hour. Labs, x-rays, and medications are all reviewed. The fluoroscopic examination performed yesterday, did not reveal any extravasation of dye. We will continue to follow make recommendations where appropriate. Prognosis remains guarded. Time with Patient: Less than 30
[2021-10-27 11:22] LABS: Glucose,Whole Blood 145 mg/dL (75-99)
[2021-10-27] MEDS: ACETAMINOPHEN TAB 325 MG TAB PO PRN (11:55)
[2021-10-27] MEDS: BENZOCAINE/MENTHOL LOZENG 1 EACH LOZENGE MUCOUS MEM PRN ×3 (11:56→23:20)
--- NOTE | 2021-10-27 14:45 | P.PN ---
Subjective Progress Note Date: 10/27/21 CHIEF COMPLAINT: Large paraesophageal hernia HISTORY OF PRESENT ILLNESS: Patient is status post laparoscopic repair of paraesophageal hernia with absorbable mesh for a large paraesophageal hernia with intrathoracic stomach, approximately one half small bowel and transverse colon, POD#2. Patient denies any abdominal pain. Denies any nausea or vomiting. Denies any flatus. She is complaining of a sore throat. She is currently on IV Decadron due to the hesitancy through the GE junction noted on upper GI. She is currently nothing by mouth. Her chest wall soft tissue emphysema is improving. Afebrile. Sodium 132 potassium 4.6 creatinine 0.53 Patient seen and examined with Dr. maldonado PHYSICAL EXAM: VITAL SIGNS: Reviewed. GENERAL: Well-developed in no acute distress. HEENT: No sclera icterus. Extraocular movements grossly intact. Moist buccal mucosa. Head is atraumatic, normocephalic. ABDOMEN: Soft. Nondistended. Incision site is clean dry and intact NEUROLOGIC: Alert and oriented. Cranial nerves II through XII grossly intact. ASSESSMENT: 1. Status post laparoscopic repair of paraesophageal hernia with absorbable mesh for a large paraesophageal hernia with intrathoracic stomach, approximately one half small bowel and transverse colon PLAN: -Continue IV Decadron scheduled for severe hesitancy noted on upper GI -Keep patient strict nothing by mouth -Continue IV fluids -Continue pain medication as needed -Continue supportive care Physician It Programmer note has been reviewed by physician. Signing provider agrees with the documented findings, assessment, and plan of care. Objective - Vital Signs Vital signs: Vital Signs Temp 98.3 F 10/27/21 08:00 Pulse 96 10/27/21 08:00 Resp 16 10/27/21 08:00 BP 146/83 10/27/21 08:00 Pulse Ox 96 10/27/21 08:00 Intake & Output 10/26/21 10/27/21 10/27/21 18:59 06:59 18:59 Intake Total 350 Balance 350 Weight 69.5 kg 70.6 kg Intake: Intake, IV Titration 350 Amount D5-0.45% NaCl with KCl 350 20Meq/l 1,000 ml @ 125 mls/hr IV .Q8H [facility] Rx#: [id number] Oral 0 Other: Voiding Method Toilet Toilet # Voids 0 - Labs CBC & Chem 7: 10/26/21 08:20 10/27/21 07:28 Labs: Abnormal Lab Results - Last 24 Hours (Table) 10/26/21 10/26/21 10/27/21 Range/Units 16:20 19:55 05:41 Sodium (137-145) mmol/L Glucose (74-99) mg/dL POC Glucose (mg/dL) 116 H 151 H 137 H (75-99) mg/dL 10/27/21 10/27/21 Range/Units 07:28 11:21 Sodium 132 L (137-145) mmol/L Glucose 142 H (74-99) mg/dL POC Glucose (mg/dL) 145 H (75-99) mg/dL
[2021-10-27 16:23] LABS: Glucose,Whole Blood 159 mg/dL (75-99)
[2021-10-27 20:02] LABS: Glucose,Whole Blood 133 mg/dL (75-99)
[2021-10-27] MEDS: SODIUM CHLORIDE 0.9% 1,000 ML IV SCH (20:33)
[2021-10-28] MEDS: D5-0.45% NACL WITH KCL 20MEQ/L 1,000 ML IV SCH ×4 (01:38→20:32)
[2021-10-28] MEDS: BENZOCAINE/MENTHOL LOZENG 1 EACH LOZENGE MUCOUS MEM PRN ×5 (04:03→21:44)
[2021-10-28 05:55] LABS: Glucose,Whole Blood 130 mg/dL (75-99)
[2021-10-28] MEDS: DEXAMETHASONE SOD PHOSPHATE 4 MG/ML 1 ML VIAL IVP SCH ×4 (06:28→23:30)
[2021-10-28] MEDS: ENOXAPARIN 40 MG/0.4 ML SYRINGE SQ SCH (08:37)
--- NOTE | 2021-10-28 09:34 | XR ---
EXAMINATION TYPE: XR chest 1V portable DATE OF EXAM: 10/28/2021 COMPARISON: X-ray dated 10/26/2021 HISTORY: Shortness of breath TECHNIQUE: Single frontal view of the chest is obtained. FINDINGS: Significant interval improvement of the previously seen bilateral chest wall soft tissue emphysema wi th residual soft tissue emphysema appreciated today. Postoperative changes for repair of a large hiatal/diaphragmatic hernia with persistent heterogeneous opacity at the inferior aspect of the mediastinum and the lung bases, possibly due to atelectasis ho wever residual hernia cannot be excluded. Persistent bilateral pleural effusions, improved compared to the previous x-ray. Cardiac size cannot be properly assessed. No definite pneumothorax. Unchanged bony thoracic cage. IMPRESSION: Interval changes as described above.
--- NOTE | 2021-10-28 10:44 | P.PN ---
Subjective This is a very pleasant 85-year-old patient who follows with Dr. Adia Angeles. Chronic stable medical conditions include hypertension, hypothyroid, urinary incontinence and wears diapers, hard of hearing. Large hiatal hernia 10/06/2021 patient was here with some chest pressure.cardiac catheterization by Dr. CHELO Babin. No significant CAD. Patient may have had an element of pericarditis. 2-D echo showed some pericardial effusion Patient was doing well upon discharge. The last few days patient started having progressively increasing shortness of breath. No fever no chills. Increasing lower extremity edema. Not able to eat when fall. Tired rundown. Orthopnea. October 19: Sitting at the edge of the bed. Legs hanging. Helps his breathing. Pulmonary consulted. 2-D echo showed small pericardial effusion. VQ scan ordered to rule out more peripheral emboli. October 20: Sitting of the edge of the bed. is present. CT chest showed a very large diaphragmatic hernia causing a significant mass effect on the heart of the lungs. Large right pleural effusion. The hernia containing stent diastolic. Also there is large portion of the transverse colon and small bowel loops. Has incomplete collapse and loss of volume of the right lower lobe and to lesser extent left lower lobe. Did complete collapse of the middle lobe. 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 Osteopenia. October 21: About 1800 mL of bright thoracentesis was done by Dr. Hill yesterday. Breathing a bit better. This could short winded to going to the bathroom with few steps. Had EGD done today by Dr. Brush. Discussed with the patient has been at the bedside. Dr. Webb is planning for hiatal hernia surgery later. October 22: Sitting up. Breathing a bit better. Gets tired. Using incentive spirometry. Pending surgery on Monday. October 16: Breathing stable. On full liquid diet. Using incentive spirometry. Pending surgery Monday. October 24: Intermittent short of breath. Liquid diet. Discussed about surgery Monday. Continue current treatment plan. October 25: saw the patient this morning before surgery. Down for surgery this a fternoon. Nothing by mouth. No new issues. Surgery: Large paraesophageal hernia with intrathoracic stomach approximately half a small bowel and transverse colon. October 26: Sitting up in a chair. No abdominal pain. No nausea vomiting. Nothing by mouth. No flatus. Subjective: Resuming the care of The patient on 10/27/2021 This is a pleasant 85 years old female who presents with laparoscopic repair of his paraesophageal hernia. She still have hesitancy on upper GI test and she kept nothing by mouth and on IV fluids per surgery team who are following her closely. This morning patient is sitting in chair, fully awake and pleasant, her only complaint is spitting mucus which is improving. As chest pain or dyspnea. No abdominal pain or nausea or vomiting. No bowel movement since Monday. She still on Hinton catheter which was placed last night. She still on IV fluids 10/29/2011 Patient clinically looks similar to yesterday, fully awake and oriented, patient also was reoriented about her illness and she verbalized understanding. She still strict nothing by mouth because she failed swallow evaluation. She is status post large hiatal hernia repair. Chest x-ray showing improvement emphysema, improved bilateral pleural effusion and postoperative changes of her hiatal/diaphragmatic hernia. She remains on Decadron, D5 half-normal saline at 1 25 mL/h. She still has a Hinton catheter. We'll add Flomax Objective - Vital Signs Vital signs: Vital Signs Temp 97.0 F L 10/28/21 04:00 Pulse 83 10/28/21 04:00 Resp 18 10/28/21 04:00 BP 155/75 10/28/21 04:00 Pulse Ox 94 L 10/28/21 04:00 Intake & Output 10/27/21 10/28/21 10/28/21 18:59 06:59 18:59 Intake Total 1000 Output Total 300 175 Balance -300 825 Weight 72.6 kg Intake: Intake, IV Titration 1000 Amount D5-0.45% NaCl with KCl 1000 20Meq/l 1,000 ml @ 125 mls/hr IV .Q8H [facility] Rx#: [id number] Output: Urine 300 175 Other: Voiding Method Toilet Indwelling Catheter - Exam GENERAL: The patient is alert and oriented x3, not in any acute distress. Well developed, well nourished. HEENT: Pupils are round and equally reacting to light. EOMI. No scleral icterus. No conjunctival pallor. Normocephalic, atraumatic. No pharyngeal erythema. No thyromegaly. CARDIOVASCULAR: S1 and S2 present. No murmurs, rubs, or gallops. PULMONARY: Chest is clear to auscultation, no wheezing or crackles. -ABDOMEN: Soft, nontender, nondistended, normoactive bowel sounds. No palpable organomegaly. Hinton catheter in a Place MUSCULOSKELETAL: No joint swelling or deformity. EXTREMITIES: No cyanosis, clubbing, or pedal edema. NEUROLOGICAL: Gross neurological examination did not reveal any focal deficits. SKIN: No rashes. no petechiae. - Labs CBC & Chem 7: 10/26/21 08:20 10/27/21 07:28 Labs: Abnormal Lab Results - Last 24 Hours (Table) 10/27/21 10/27/21 10/27/21 Range/Units 11:21 16:21 20:01 POC Glucose (mg/dL) 145 H 159 H 133 H (75-99) mg/dL 10/28/21 Range/Units 05:53 POC Glucose (mg/dL) 130 H (75-99) mg/dL Assessment and Plan Assessment: -Very large diaphragmatic hernia, status post laparoscopic paraesophageal hernia repair by Dr. Brush on October 25. Currently nothing by mouth Continue with D5 half-normal saline -Hesitancy of food passage through upper GI test, test done postoperatively Keep the patient nothing by mouth and IV fluids, with surgery team following closely. Advance diet when ready for surgery team Continue with steroids, currently on dexamethasone -Chronic T11 vertebral body collapse Pain management -Large right pleural effusion. Right thoracentesis 1.7 L removed on October [address] Hill.-Collapse right lower lobe, right middle lobe, and left lower lobe. Follow with pulmonary. Exudative fluid. -Primary osteoarthritis multiple joints Pain medications if needed -Chronic urinary stress incontinence -Hypothyroid Synthroid 112 g a day -Essential hypertension Lopressor 25 mg twice a day -Hyponatremia: Hypoosmolar Increase Solute intake. .
[2021-10-28 11:54] LABS: Glucose,Whole Blood 128 mg/dL (75-99)
--- NOTE | 2021-10-28 12:33 | P.PN ---
Subjective Progress Note Date: 10/28/21 85-year-old white female patient with a recent history of hypertension, hypothyroidism, lifetime nonsmoker. Patient had a recent event for which she was hospitalized and was transferred from an outside facility. She was complaining of shortness of breath at the time, her EKG showed ST segment elevation in the precordial leads, and subsequently patient received TPA. She was transferred to this institution on 09/09/2021 and underwent cardiac catheterization that showed no significant obstructive CAD, right dominant system and normal filling pressures. She was discharged home on 09/10/2021. She lives in [place], she follows with Dr. Angeles in [facility]. She states she is normally healthy, no history of diabetes mellitus, she is a lifetime nonsmoker, no chronic lung disease. Following her hospitalization patient started developing shortness of breath. She also noticed increased swelling in bilateral lower extremities, she denied any cough, no fever or chills, no chest pain. She is complaining of significant orthopnea. She has difficulty ambulating related to shortness of breath. She came into the hospital for reevaluation on 10/18/2021. Chest x-ray on admission showed congested bilateral pulmonary vasculature with bilateral basal pulmonary atelectasis and bilateral pleural effusions obscuring the previously seen diaphragmatic hernia. Chest significant swelling in her bilateral lower extremities. She was started on diuretics by cardiology. On today's exam she s tates she is feeling slightly better however still short of breath and cannot lie flat and last night she was having difficult time breathing. She is on room air with pulse ox of 96%, she is afebrile, blood pressure stable. She short of breath with exertion. Echocardiogram was completed showing preserved LV function of 55-60%, and small generalized pericardial effusion. EKG showed sinus tachycardia with first-degree AV block. Lab evaluation showed normal white count of 9.8, hemoglobin of 12.3, platelet count is 587, INR of 1.0, sodium is 1:30, potassium is 4.0, chloride is 96, CO2 is 25, BUN is 14 creatinine 0.51. Troponin was less than 0.012, alkaline phosphatase was 128, AST and ALT were within normal limits, proBNP was 557. CRP is 7.2. Bilateral lower extremity Dopplers showed no evidence of DVT, however the exam was positive for superficial venous thrombosis involving the bilateral small saphenous veins. CTA chest is ordered and is pending at this time. On 10/20/2021 patient seen in follow-up on selective care unit. She states last night she again had significant dyspnea, today she is sitting up unassisted bed, leaning on the table in the tripod position. She states she feels better and breathing easier and disposition. Is on room air pulse ox is 96%, lung sounds are diminished at the bases. She's been afebrile, no cough, no cough with chest discomfort. CTA chest has been completed showing no major central pulmonary embolism and very large hiatal/diaphragmatic hernia containing the entire stomach, portion of the duodenum, large portion of the transverse colon and possibly small bowel loops in addition to peritoneal fat. It is causing significant mass effect on the heart and the GC lungs, and there associated large right and moderate left pleural effusions. Ultrasound of the chest revealed right pleural effusion pocket measuring 14.3 cm, and left pleural effusion pocket of 3.7 cm. Patient remains on IV diuretics. Metoprolol balance is difficult to estimate, but her weight is down by 5 kg according to the recorded weights in the EMR, lower extremity edema still remains although improved. His labs have been reviewed by blood cell count is 8.5, hemoglobin is 12.5, serum sodium is 129, potassium is 4.2, BUN is 10 and creatinine 0.52. On 10/21/2021 patient seen in follow-up on selective care unit. She states she is breathing much easier since the right-sided thoracentesis yesterday with removal of 1.7 L of pleural fluid and pleural fluid analysis showed exudative fluid, pleural fluid cultures and cytology are pending. Patient was seen by general surgery and underwent EGD today with biopsies. The stomach appeared to be in the intrathoracic position. The plan is for possible surgery for repair of a very large hiatal and diaphragmatic hernia possibly and 10/25/2021. Patient continues on IV diuretics, lower extremity edema is improving, ultrasound the chest does not show significant fluid on the left side. On 10/22/2021 patient seen in follow-up on selective care unit. She is resting comfortably in bed, remains pulse ox is 95%, she states that time that she still has some difficulty breathing, but no acute distress and overall her breathing is improved since admission. Lower extremity edema has significantly improved. She remains on Lasix 20 mg twice daily. Pleural fluid analysis showed exudative fluid, not consistent with CHF. Overall fluid volume status has improved. She is in -580 mL negative net fluid balance over the last 24 hours. Pleural fluid cytology and cultures are pending. Vital signs have been stable. Today's labs have been reviewed, sodium is 129, potassium is 4.5, chloride is 94, BUN is 9 creatinine 0.52. Patient had EGD with biopsies yesterday. Surgical services are following, and the plan is to proceed with hernia repair on Monday The patient is seen today 10/23/2021 in follow-up on the selective care unit. She is currently sitting up in bed. Awake and alert in no acute distress. She denies any worsening shortness of breath, cough or congestion. No fever chills. No significant abdominal discomfort. She's been up ambulating in the room. Up in the shower. He is maintaining good O2 saturations in the 90s on room air. She's been afebrile. Hemodynamically stable. Pleural fluid cultures reveal no growth to date. Fluid was exudate with a protein of 4.6. Negative for malignancy. She is continued on Lovenox for DVT prophylaxis. The patient is seen today 10/28/2021 in follow-up on the selective care unit. She is currently sitting up in a chair at the bedside. Awake and alert in no acute distress. She is maintaining good O2 saturations in the 90s on room air. She has D5.45 normal saline at with 20 of KCl at 125 ML's per hour. Chest x-ray reveals bilateral chest wall soft tissue emphysema with residual soft tissue emphysema appreciated today. Postop changes for repair of a large hiatal/diaphragmatic hernia with persistent heterogenous opacity at the inferior aspect of the mediastinum and lung bases. Possibly due to atelectasis. Persistent bilateral pleural effusions. Improved compared to previous. No definite pneumothorax. Blood glucose 128. Objective - Vital Signs Vital signs: Vital Signs Temp 98.1 F 10/28/21 08:00 Pulse 92 10/28/21 08:00 Resp 18 10/28/21 08:00 BP 149/89 10/28/21 08:00 Pulse Ox 92 L 10/28/21 08:00 Intake & Output 10/27/21 10/28/21 10/28/21 18:59 06:59 18:59 Intake Total 1000 Output Total 300 175 Balance -300 825 Weight 72.6 kg Intake: Intake, IV Titration 1000 Amount D5-0.45% NaCl with KCl 1000 20Meq/l 1,000 ml @ 125 mls/hr IV .Q8H [facility] Rx#: [id number] Output: Urine 300 175 Other: Voiding Method Toilet Indwelling Catheter Indwelling Catheter - Exam GENERAL EXAM: Alert, very pleasant, 85-year-old female patient, on room air with a pulse ox of 92%, comfortable in no apparent distress. HEAD: Normocephalic/atraumatic. EYES: Normal reaction of pupils, equal size. Conjunctiva pink, sclera white. NOSE: Clear with pink turbinates. THROAT: No erythema or exudates. NECK: No masses, mild bilateral JVD, no thyroid enlargement, no adenopathy. CHEST: No chest wall deformity. Symmetrical expansion. LUNGS: Equal air entry with faint crackles in the posterior bases. CVS: Regular rate and rhythm, normal S1 and S2, no gallops, no murmurs, no rubs ABDOMEN: Surgical incision clean dry well approximated. Soft, nontender. No hepatosplenomegaly, normal bowel sounds, no guarding or rigidity. EXTREMITIES: No clubbing, 1+ lower extremity no cyanosis, 2+ pulses and upper and lower extremities. MUSCULOSKELETAL: Muscle strength and tone normal. SPINE: No scoliosis or deformity SKIN: No rashes CENTRAL NERVOUS SYSTEM: No focal deficits, tone is normal in all 4 extremities. PSYCHIATRIC: Alert and oriented -3. Appropriate affect. Intact judgment and insight. - Labs CBC & Chem 7: 10/26/21 08:20 10/27/21 07:28 Labs: Abnormal Lab Results - Last 24 Hours (Table) 10/27/21 10/27/21 10/28/21 Range/Units 16:21 20:01 05:53 POC Glucose (mg/dL) 159 H 133 H 130 H (75-99) mg/dL 10/28/21 Range/Units 11:52 POC Glucose (mg/dL) 128 H (75-99) mg/dL Assessment and Plan Assessment: 1 Shortness of breath, multifactorial, related to a very large hiatal/diaphragmatic hernia causing significant mass effect on the heart and lungs, and bilateral pleural effusions, right greater than left, status post right-sided thoracentesis on 10/20/2021 with removal of 1.7 L of pleural fluid which was sent for analysis showing exudative fluid. Cytology negative for malignancy. Pleural fluid cultures pending 2 Large hiatal/diaphragmatic hernia, status post EGD, showing the stomach entirely in the intrathoracic position. Status post laparoscopic repair of the esophageal hernia with mesh 10/25/2021 3 Recent history of TPA administration for abnormal EKG, and cardiac cath eterization on 09/09/2021 that showed mild CAD 4 Moderate generalized pericardial effusion improved on echocardiogram on this admission 5 Lower extremity edema, no evidence of DVT, but lower extremity Doppler showed SVT bilaterally 6 Lifetime nonsmoker 7 Hypothyroidism 8 Hypertension 9 Urinary incontinence Plan: The patient was seen and evaluated Current stable and on room air Encouraged regarding the use of the incentive spirometer Increase her activity as tolerated We'll continue to follow I have personally seen and examined the patient, performed the documentation and the assessment and plan as written. Number of minutes spent on the visit: 10.
--- NOTE | 2021-10-28 14:08 | P.PN ---
Subjective Progress Note Date: 10/28/21 CHIEF COMPLAINT: Large paraesophageal hernia HISTORY OF PRESENT ILLNESS: Patient is status post laparoscopic repair of paraesophageal hernia with absorbable mesh for a large paraesophageal hernia with intrathoracic stomach, approximately one half small bowel and transverse colon, POD#3. Patient reports her pain is controlled. Denies any nausea or vomiting. Denies any flatus. Her sore throat feels better. Overall she feels better today. Afebrile. no new labs Patient seen and examined with Dr. maldonado PHYSICAL EXAM: VITAL SIGNS: Reviewed. GENERAL: Well-developed in no acute distress. HEENT: No sclera icterus. Extraocular movements grossly intact. Moist buccal mucosa. Head is atraumatic, normocephalic. ABDOMEN: Soft. Nondistended. Incision site is clean dry and intact NEUROLOGIC: Alert and oriented. Cranial nerves II through XII grossly intact. ASSESSMENT: 1. Status post laparoscopic repair of paraesophageal hernia with absorbable mesh for a large paraesophageal hernia with intrathoracic stomach, approximately one half small bowel and transverse colon PLAN: -Advance diet to Dane clears -Continue IV Decadron scheduled for severe hesitancy noted on upper GI -Keep patient strict nothing by mouth -Continue IV fluids -Continue pain medication as needed -Continue supportive care -Encouraged patient to increase activity level Physician Business And Financial Counsel note has been reviewed by physician. Signing provider agrees with the documented findings, assessment, and plan of care. Objective - Vital Signs Vital signs: Vital Signs Temp 98.1 F 10/28/21 08:00 Pulse 92 10/28/21 08:00 Resp 18 10/28/21 08:00 BP 149/89 10/28/21 08:00 Pulse Ox 92 L 10/28/21 08:00 Intake & Output 10/27/21 10/28/21 10/28/21 18:59 06:59 18:59 Intake Total 1000 Output Total 300 175 Balance -300 825 Weight 72.6 kg Intake: Intake, IV Titration 1000 Amount D5-0.45% NaCl with KCl 1000 20Meq/l 1,000 ml @ 125 mls/hr IV .Q8H [facility] Rx#: [id number] Output: Urine 300 175 Other: Voiding Method Toilet Indwelling Catheter Indwelling Catheter - Labs CBC & Chem 7: 10/26/21 08:20 04/20/22 07:28 Labs: Abnormal Lab Results - Last 24 Hours (Table) 10/27/21 10/27/21 10/28/21 Range/Units 16:21 20:01 05:53 POC Glucose (mg/dL) 159 H 133 H 130 H (75-99) mg/dL 10/28/21 Range/Units 11:52 POC Glucose (mg/dL) 128 H (75-99) mg/dL
[2021-10-28 16:16] LABS: Glucose,Whole Blood 126 mg/dL (75-99)
[2021-10-28] MEDS: LEVOTHYROXINE IVP 100 MCG/5 ML VIAL IV SCH (17:02)
[2021-10-28] MEDS: ASPIRIN 81 MG PO SCH (18:17)
[2021-10-28] MEDS: PSYLLIUM HUSK 100% 6 GM PACKET PO SCH ×2 (18:18→20:10)
[2021-10-28] MEDS: MULTIVITAMINS, THERA 1 EACH TAB PO SCH (18:18)
[2021-10-28] MEDS: CALCIUM CARBONATE 500 MG CHEWABLE PO SCH (18:18)
[2021-10-28] MEDS: METOPROLOL TARTRATE 25 MG TAB PO SCH ×2 (18:18→20:31)
[2021-10-28] MEDS: TAMSULOSIN 0.4 MG CAP.ER.24H PO SCH (18:19)
[2021-10-28 20:12] LABS: Glucose,Whole Blood 193 mg/dL (75-99)
[2021-10-29 05:58] LABS: Glucose,Whole Blood 144 mg/dL (75-99)
[2021-10-29] MEDS: DEXAMETHASONE SOD PHOSPHATE 4 MG/ML 1 ML VIAL IVP SCH ×4 (06:05→23:53)
[2021-10-29] MEDS: D5-0.45% NACL WITH KCL 20MEQ/L 1,000 ML IV SCH ×3 (06:06→23:52)
[2021-10-29] MEDS: METOPROLOL TARTRATE 25 MG TAB PO SCH ×2 (10:18→20:38)
[2021-10-29] MEDS: MULTIVITAMINS, THERA 1 EACH TAB PO SCH (10:18)
[2021-10-29] MEDS: ENOXAPARIN 40 MG/0.4 ML SYRINGE SQ SCH (10:18)
[2021-10-29] MEDS: TAMSULOSIN 0.4 MG CAP.ER.24H PO SCH (10:18)
[2021-10-29] MEDS: ASPIRIN 81 MG PO SCH (10:18)
[2021-10-29 11:52] LABS: Glucose,Whole Blood 102 mg/dL (75-99)
--- NOTE | 2021-10-29 13:53 | P.PN ---
Subjective Progress Note Date: 10/29/21 Principal diagnosis: Shortness of breath/pleural effusion. On 10/21/2021 patient seen in follow-up on selective care unit. She states she is breathing much easier since the right-sided thoracentesis yesterday with removal of 1.7 L of pleural fluid and pleural fluid analysis showed exudative fluid, pleural fluid cultures and cytology are pending. Patient was seen by general surgery and underwent EGD today with biopsies. The stomach appeared to be in the intrathoracic position. The plan is for possible surgery for repair of a very large hiatal and diaphragmatic hernia possibly and 10/25/2021. Patient continues on IV diuretics, lower extremity edema is improving, ultra sound the chest does not show significant fluid on the left side. On 10/22/2021 patient seen in follow-up on selective care unit. She is resting comfortably in bed, remains pulse ox is 95%, she states that time that she still has some difficulty breathing, but no acute distress and overall her breathing is improved since admission. Lower extremity edema has significantly improved. She remains on Lasix 20 mg twice daily. Pleural fluid analysis showed exudative fluid, not consistent with CHF. Overall fluid volume status has improved. She is in -580 mL negative net fluid balance over the last 24 hours. Pleural fluid cytology and cultures are pending. Vital signs have been stable. Today's labs have been reviewed, sodium is 129, potassium is 4.5, chloride is 94, BUN is 9 creatinine 0.52. Patient had EGD with biopsies yesterday. Surgical services are following, and the plan is to proceed with hernia repair on Monday The patient is seen today 10/23/2021 in follow-up on the selective care unit. She is currently sitting up in bed. Awake and alert in no acute distress. She denies any worsening shortness of breath, cough or congestion. No fever chills. No significant abdominal discomfort. She's been up ambulating in the room. Up in the shower. He is maintaining good O2 saturations in the 90s on room air. She's been afebrile. Hemodynamically stable. Pleural fluid cultures reveal no growth to date. Fluid was exudate with a protein of 4.6. Negative for malignancy. She is continued on Lovenox for DVT prophylaxis. Patient was reevaluated today on 10/24/2021, patient is on room air, O2 sats is 94%, continues to have intermittent episodes of shortness of breath. Chest x- ray continues to show bilateral pleural effusions, I'm recommending an ultrasound of the chest again, may have to consider a right-sided thoracentesis again on this patient. Patient has diminished breath sounds at the bases especially at the right base, and she may undergo surgery on her large hiatal/diaphragmatic hernia tomorrow by Dr. Brush. Electrolytes are normal renal profile is normal. Previous thoracentesis done showed evidence of exudative pleural effusion on the right side. Progress note dated 10/26/2021. The patient was not seen yesterday, as the patient was in the operating room, having her procedure performed. The patient had a large paraesophageal hernia, and she had a laparoscopic repair of paraesophageal hernia, with absorbable mesh. Currently, the patient's resting comfortably in the room. She tells us today she is going to have a EGD. She's currently on room air. Labs today include a white count of 10, hemoglobin 11.8, hematocrit 37.8 and a platelet count of 529,000. Sodium 133, potassium 4.6, chlorides 99, CO2 28, anion gap 6, BUN 12, creatinine 0.63. Chest x-ray shows postoperative changes, with significant interval improvement of the previously seen extensive bilateral chest wall and soft tissue emphysematous changes. Progress note dated 10/27/2021. The patient is again seen today in room 376. She doing relatively well. The patient is currently on room air. She is getting IV fluids in the form of half- normal saline, with 20 mEq of potassium, at 125 mL an hour. She denies any respiratory issues, and she also denies any abdominal discomfort. Today's labs include a sodium 142, potassium 4.6, chlorides 102, CO2 23, anion gap 7, BUN 14, and creatinine 0.53. Microbiologic studies are negative. Chest x-ray from October 26 does show bilateral effusions. Progress note dated 10/29/2021. The patient is again seen today in room 376. She's currently on room air. She's not receiving any IV fluids. She is very stable. She has no respiratory complaints. No new laboratory data today other than a blood sugar of 102. Yesterday's chest x-ray was reviewed. Objective - Vital Signs Vital signs: Vital Signs Temp 97.6 F 10/29/21 08:00 Pulse 84 10/29/21 08:00 Resp 18 10/29/21 08:00 BP 123/67 10/29/21 08:00 Pulse Ox 97 10/29/21 08:00 Intake & Output 10/28/21 10/29/21 10/29/21 18:59 06:59 18:59 Intake Total 120 1000 Output Total 600 1925 Balance -480 -925 Weight 72.4 kg 72.4 kg Intake: Intake, IV Titration 1000 Amount D5-0.45% NaCl with KCl 1000 20Meq/l 1,000 ml @ 125 mls/hr IV .Q8H [facility] Rx#: [id number] Oral 120 Output: Urine 600 1925 Other: Voiding Method Indwelling Catheter Indwelling Catheter Indwelling Catheter # Bowel Movements 1 - Exam No acute distress, oriented 3. No respiratory distress. Currently on room air. HEENT examination is grossly unremarkable. Neck supple. Full range of motion. No adenopathy thyromegaly or neck vein distention. Cardiovascular examination reveals regular rhythm rate. S1-S2 normal. No S3 or S4. No discernible murmur noted. Heart rate 84 bpm. Lungs reveal mostly clear breath sounds. Minimal scattered rhonchi. No wheezes or crackles. I could not palpate any subcutaneous emphysema. Breath sounds are equal bilaterally. Room air saturations 97 %. Abdomen soft bowel sounds are heard. No masses or tenderness. Extremities are intact. No cyanosis clubbing or edema. Skin is without rash or lesion. Neurologic examination is brief but nonfocal. - Labs CBC & Chem 7: 10/26/21 08:20 10/27/21 07:28 Labs: Abnormal Lab Results - Last 24 Hours (Table) 10/28/21 10/28/21 10/29/21 Range/Units 16:14 20:10 05:57 POC Glucose (mg/dL) 126 H 193 H 144 H (75-99) mg/dL 10/29/21 Range/Units 11:50 POC Glucose (mg/dL) 102 H (75-99) mg/dL Assessment and Plan Assessment: Postop day #3, status post surgical repair of a large paraesophageal hernia. Shortness of breath, multifactorial, in part related to large paraesophageal hernia, as well as bilateral pleural effusions. Right sided thoracentesis 2. Recent history of TPA administration for abnormal EKG, and cardiac catheterization on September 09 which showed mild CAD. Moderate generalized pericardial effusion. Lower extremity edema. Lifetime nonsmoker. Hypothyroidism. Hypertension. Urinary incontinence. Plan: Plan dated 10/26/2021. The patient appears to be doing relatively well. She's on room air. Saturations are 98%. The patient states that she is going to have an EGD today. He will follow make recommendations were appropriate. Labs, x-rays, and medications are reviewed. Prognosis remains guarded. Plan dated 10/27/2021. Currently, the patient seems be doing relatively well. Room air. She's not having any respiratory difficulty or distress. She is receiving IV fluids and form of half-normal saline, with 20 mEq of potassium, at 125 mL an hour. Labs, x-rays, and medications are all reviewed. The fluoroscopic examination performed yesterday, did not reveal any extravasation of dye. We will continue to follow make recommendations where appropriate. Prognosis remains guarded. Plan dated October 29, 2021. Currently, the patient's doing well. The patient is not receiving any supplemental oxygen, and her IV fluids have been discontinued. Labs, x-rays, and medications are all reviewed. Patient continues to use the incentive spirometer. Her respiratory status and hemodynamics status are very stable. No additional recommendations are made at this time. We'll follow as needed. Time with Patient: Less than 30
--- NOTE | 2021-10-29 14:17 | P.PN ---
Subjective Progress Note Date: 10/29/21 CHIEF COMPLAINT: Large paraesophageal hernia HISTORY OF PRESENT ILLNESS: Patient is status post laparoscopic repair of paraesophageal hernia with absorbable mesh for a large paraesophageal hernia with intrathoracic stomach, approximately one half small bowel and transverse colon, POD#4. Patient is sitting in bedside chair. Patient reports her pain is controlled. Denies any nausea or vomiting. She does complain of a sore throat. She did have some difficulty with swallowing the liquids yesterday but she has noted improvement today. Afebrile. Patient seen and examined with Dr. maldonado PHYSICAL EXAM: VITAL SIGNS: Reviewed. GENERAL: Well-developed in no acute distress. HEENT: No sclera icterus. Extraocular movements grossly intact. Moist buccal mucosa. Head is atraumatic, normocephalic. ABDOMEN: Soft. Nondistended. Incision site is clean dry and intact NEUROLOGIC: Alert and oriented. Cranial nerves II through XII grossly intact. ASSESSMENT: 1. Status post laparoscopic repair of paraesophageal hernia with absorbable mesh for a large paraesophageal hernia with intrathoracic stomach, approximately one half small bowel and transverse colon PLAN: -Continue Dane clears -Continue IV Decadron scheduled for severe hesitancy noted on upper GI -Continue IV fluids -Continue pain medication as needed -Continue supportive care -Encouraged patient to increase activity level Physician [employer]orer [facility] note has been reviewed by physician. Signing provider agrees with the documented findings, assessment, and plan of care. Objective - Vital Signs Vital signs: Vital Signs Temp 97.6 F 10/29/21 08:00 Pulse 84 10/29/21 08:00 Resp 18 10/29/21 08:00 BP 123/67 10/29/21 08:00 Pulse Ox 97 10/29/21 08:00 Intake & Output 10/28/21 10/29/21 10/29/21 18:59 06:59 18:59 Intake Total 120 1000 Output Total 600 1925 Balance -480 -925 Weight 72.4 kg 72.4 kg Intake: Intake, IV Titration 1000 Amount D5-0.45% NaCl with KCl 1000 20Meq/l 1,000 ml @ 125 mls/hr IV .Q8H [facility] Rx#: [id number] Oral 120 Output: Urine 600 1925 Other: Voiding Method Indwelling Catheter Indwelling Catheter Indwelling Catheter # Bowel Movements 1 - Labs CBC & Chem 7: 10/26/21 08:20 10/27/21 07:28 Labs: Abnormal Lab Results - Last 24 Hours (Table) 10/28/21 10/28/21 10/29/21 Range/Units 16:14 20:10 05:57 POC Glucose (mg/dL) 126 H 193 H 144 H (75-99) mg/dL 10/29/21 Range/Units 11:50 POC Glucose (mg/dL) 102 H (75-99) mg/dL
--- NOTE | 2021-10-29 16:34 | P.PN ---
Subjective This is a very pleasant 85-year-old patient who follows with Dr. Adia Angeles. Chronic stable medical conditions include hypertension, hypothyroid, urinary incontinence and wears diapers, hard of hearing. Large hiatal hernia 10/06/2021 patient was here with some chest pressure.cardiac catheterization by Dr. CHELO Babin. No significant CAD. Patient may have had an element of pericarditis. 2-D echo showed some pericardial effusion Patient was doing well upon discharge. The last few days patient started having progressively increasing shortness of breath. No fever no chills. Increasing lower extremity edema. Not able to eat when fall. Tired rundown. Orthopnea. October 19: Sitting at the edge of the bed. Legs hanging. Helps his breathing. Pulmonary consulted. 2-D echo showed small pericardial effusion. VQ scan ordered to rule out more peripheral emboli. October 20: Sitting of the edge of the bed. is present. CT chest showed a very large diaphragmatic hernia causing a significant mass effect on the heart of the lungs. Large right pleural effusion. The hernia containing stent diastolic. Also there is large portion of the transverse colon and small bowel loops. Has incomplete collapse and loss of volume of the right lower lobe and to lesser extent left lower lobe. Did complete collapse of the middle lobe. 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 Osteopenia. October 21: About 1800 mL of bright thoracentesis was done by Dr. Hill yesterday. Breathing a bit better. This could short winded to going to the bathroom with few steps. Had EGD done today by Dr. Brush. Discussed with the patient has been at the bedside. Dr. Webb is planning for hiatal hernia surgery later. October 22: Sitting up. Breathing a bit better. Gets tired. Using incentive spirometry. Pending surgery on Monday. October 16: Breathing stable. On full liquid diet. Using incentive spirometry. Pending surgery Monday. October 24: Intermittent short of breath. Liquid diet. Discussed about surgery Monday. Continue current treatment plan. October 25: saw the patient this morning before surgery. Down for surgery this a fternoon. Nothing by mouth. No new issues. Surgery: Large paraesophageal hernia with intrathoracic stomach approximately half a small bowel and transverse colon. October 26: Sitting up in a chair. No abdominal pain. No nausea vomiting. Nothing by mouth. No flatus. Subjective: Resuming the care of The patient on 10/27/2021 This is a pleasant 85 years old female who presents with laparoscopic repair of his paraesophageal hernia. She still have hesitancy on upper GI test and she kept nothing by mouth and on IV fluids per surgery team who are following her closely. This morning patient is sitting in chair, fully awake and pleasant, her only complaint is spitting mucus which is improving. As chest pain or dyspnea. No abdominal pain or nausea or vomiting. No bowel movement since Monday. She still on Hinton catheter which was placed last night. She still on IV fluids 10/28/2021 Patient clinically looks similar to yesterday, fully awake and oriented, patient also was reoriented about her illness and she verbalized understanding. She still strict nothing by mouth because she failed swallow evaluation. She is status post large hiatal hernia repair. Chest x-ray showing improvement emphysema, improved bilateral pleural effusion and postoperative changes of her hiatal/diaphragmatic hernia. She remains on Decadron, D5 half-normal saline at 1 25 mL/h. She still has a Hinton catheter. We'll add Flomax 10/29/2021 Patient clinically doing well, she sitting in chair, fully awake and oriented and comfortable. He wants hemodynamically she is a stable Today was started on a clear liquid diet which is tigist sign diet by surgery team Also patient had 1 large bowel movement yesterday and she felt comfortable about that. No abdominal pain today. 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 Also we will try to discontinue the Hinton catheter, discussed with bed side nurse to check for PVR Objective - Vital Signs Vital signs: Vital Signs Temp 97.6 F 10/29/21 08:00 Pulse 70 10/29/21 14:00 Resp 18 10/29/21 14:00 BP 147/86 10/29/21 12:00 Pulse Ox 98 10/29/21 12:00 Intake & Output 10/28/21 10/29/21 10/29/21 18:59 06:59 18:59 Intake Total 120 1000 Output Total 600 1925 Balance -480 -665 Weight 72.4 kg 72.4 kg Intake: Intake, IV Titration 1000 Amount D5-0.45% NaCl with KCl 1000 20Meq/l 1,000 ml @ 125 mls/hr IV .Q8H [facility] Rx#: [id number] Oral 120 Output: Urine 600 1925 Other: Voiding Method Indwelling Catheter Indwelling Catheter Indwelling Catheter # Bowel Movements 1 - Exam GENERAL: The patient is alert and oriented x3, not in any acute distress. Well developed, well nourished. HEENT: Pupils are round and equally reacting to light. EOMI. No scleral icterus. No conjunctival pallor. Normocephalic, atraumatic. No pharyngeal erythema. No thyromegaly. CARDIOVASCULAR: S1 and S2 present. No murmurs, rubs, or gallops. PULMONARY: Chest is clear to auscultation, no wheezing or crackles. -ABDOMEN: Soft, nontender, nondistended, normoactive bowel sounds. No palpable organomegaly. Hinton catheter in a Place MUSCULOSKELETAL: No joint swelling or deformity. EXTREMITIES: No cyanosis, clubbing, or pedal edema. NEUROLOGICAL: Gross neurological examination did not reveal any focal deficits. SKIN: No rashes. no petechiae. - Labs CBC & Chem 7: 10/26/21 08:20 10/27/21 07:28 Labs: Abnormal Lab Results - Last 24 Hours (Table) 10/28/21 10/28/21 10/29/21 Range/Units 16:14 20:10 05:57 POC Glucose (mg/dL) 126 H 193 H 144 H (75-99) mg/dL 10/29/21 Range/Units 11:50 POC Glucose (mg/dL) 102 H (75-99) mg/dL Microbiology - Last 24 Hours (Table) 10/20/21 14:00 Fungal Culture - Preliminary Pleural Fluid Assessment and Plan Assessment: -Very large diaphragmatic hernia, status post laparoscopic paraesophageal hernia repair by Dr. Brush on October 25. Currently nothing by mouth Continue with D5 half-normal saline Started on liquid diet -Hesitancy of food passage through upper GI test, test done postoperatively Keep the patient nothing by mouth and IV fluids, with surgery team following closely. Advance diet when ready for surgery team Continue with steroids, currently on dexamethasone Patient reports improvement in her swallowing ability -Chronic T11 vertebral body collapse Pain management -Large right pleural effusion. Right thoracentesis 1.7 L removed on October [address] Hill.-Collapse right lower lobe, right middle lobe, and left lower lobe. Follow with pulmonary. Exudative fluid. -Primary osteoarthritis multiple joints Pain medications if needed -Chronic urinary stress incontinence Discussed with bed side nurse to discontinue Hinton catheter today and check for bladder scan and PVR -Hypothyroid Synthroid 112 g a day -Essential hypertension Lopressor 25 mg twice a day -Hyponatremia: Hypoosmolar Increase Solute intake. .
[2021-10-29 16:41] LABS: Glucose,Whole Blood 155 mg/dL (75-99)
[2021-10-29] MEDS: CALCIUM CARBONATE 500 MG CHEWABLE PO SCH (17:12)
[2021-10-29] MEDS: PSYLLIUM HUSK 100% 6 GM PACKET PO SCH ×2 (17:12→20:34)
[2021-10-29 19:46] LABS: Glucose,Whole Blood 118 mg/dL (75-99)
[2021-10-29] MEDS: ACETAMINOPHEN TAB 325 MG TAB PO PRN (20:38)
[2021-10-30 06:14] LABS: Glucose,Whole Blood 134 mg/dL (75-99)
[2021-10-30] MEDS: DEXAMETHASONE SOD PHOSPHATE 4 MG/ML 1 ML VIAL IVP SCH ×4 (06:36→23:31)
[2021-10-30] MEDS: ENOXAPARIN 40 MG/0.4 ML SYRINGE SQ SCH (09:34)
[2021-10-30] MEDS: ASPIRIN 81 MG PO SCH (09:34)
[2021-10-30] MEDS: PSYLLIUM HUSK 100% 6 GM PACKET PO SCH ×2 (09:35→20:41)
[2021-10-30] MEDS: METOPROLOL TARTRATE 25 MG TAB PO SCH ×2 (09:35→20:41)
[2021-10-30] MEDS: TAMSULOSIN 0.4 MG CAP.ER.24H PO SCH (09:35)
[2021-10-30] MEDS: MULTIVITAMINS, THERA 1 EACH TAB PO SCH (09:35)
[2021-10-30] MEDS: CALCIUM CARBONATE 500 MG CHEWABLE PO SCH (09:35)
--- NOTE | 2021-10-30 10:14 | P.PN ---
Progress Note - Text Progress Note Date: 10/30/21 Patient is tolerating her clear liquids. She states that she is tired of the clear liquid tray and is requesting more to eat Parafon exam vital signs are stable. Abdomen soft. Incision sites are clean dry tach. Status post repair of large paraesophageal hernia. Patient will start full liquid diet.
[2021-10-30 11:07] LABS: Basophils % (A) 0 %; Eosinophils % (A) 0 %; HCT 39.6 % (34.0-46.0); HGB 12.5 gm/dL (11.4-16.0); Hypochromasia Slight; Lymphocytes # (A) 0.4 k/uL (1.0-4.8); Lymphocytes % (A) 3 %; MCH 30.3 pg (25.0-35.0); MCHC 31.5 g/dL (31.0-37.0); MCV 96.1 fL (80.0-100.0); Monocytes # (A) 0.4 k/uL (0-1.0); Monocytes % (A) 3 %; Neutrophils # (A) 11.6 k/uL (1.3-7.7); Neutrophils % (A) 93 %; Platelet Count 629 k/uL (150-450); RBC 4.12 m/uL (3.80-5.40); RDW 13.1 % (11.5-15.5); WBC 12.5 k/uL (3.8-10.6)
[2021-10-30 11:08] LABS: African American GFR (CKD) >90 (>60 ml/min/1.73 sqM); Anion Gap 6 mmol/L; Blood Urea Nitrogen 17 mg/dL (7-17); Calcium 8.8 mg/dL (8.4-10.2); Carbon Dioxide 23 mmol/L (22-30); Chloride 100 mmol/L (98-107); Glucose 145 mg/dL (74-99); Non-African American GFR(CKD) 87 (>60 ml/min/1.73 sqM); Potassium 4.5 mmol/L (3.5-5.1); Sodium 129 mmol/L (137-145)
[2021-10-30 11:26] LABS: Glucose,Whole Blood 161 mg/dL (75-99)
[2021-10-30] MEDS: LEVOTHYROXINE IVP 100 MCG/5 ML VIAL IV SCH (12:48)
--- NOTE | 2021-10-30 15:48 | P.PN ---
Subjective Progress Note Date: 10/30/21 Principal diagnosis: Shortness of breath/pleural effusion. On 10/21/2021 patient seen in follow-up on selective care unit. She states she is breathing much easier since the right-sided thoracentesis yesterday with removal of 1.7 L of pleural fluid and pleural fluid analysis showed exudative fluid, pleural fluid cultures and cytology are pending. Patient was seen by general surgery and underwent EGD today with biopsies. The stomach appeared to be in the intrathoracic position. The plan is for possible surgery for repair of a very large hiatal and diaphragmatic hernia possibly and 10/25/2021. Patient continues on IV diuretics, lower extremity edema is improving, ultra sound the chest does not show significant fluid on the left side. On 10/22/2021 patient seen in follow-up on selective care unit. She is resting comfortably in bed, remains pulse ox is 95%, she states that time that she still has some difficulty breathing, but no acute distress and overall her breathing is improved since admission. Lower extremity edema has significantly improved. She remains on Lasix 20 mg twice daily. Pleural fluid analysis showed exudative fluid, not consistent with CHF. Overall fluid volume status has improved. She is in -580 mL negative net fluid balance over the last 24 hours. Pleural fluid cytology and cultures are pending. Vital signs have been stable. Today's labs have been reviewed, sodium is 129, potassium is 4.5, chloride is 94, BUN is 9 creatinine 0.52. Patient had EGD with biopsies yesterday. Surgical services are following, and the plan is to proceed with hernia repair on Monday The patient is seen today 10/23/2021 in follow-up on the selective care unit. She is currently sitting up in bed. Awake and alert in no acute distress. She denies any worsening shortness of breath, cough or congestion. No fever chills. No significant abdominal discomfort. She's been up ambulating in the room. Up in the shower. He is maintaining good O2 saturations in the 90s on room air. She's been afebrile. Hemodynamically stable. Pleural fluid cultures reveal no growth to date. Fluid was exudate with a protein of 4.6. Negative for malignancy. She is continued on Lovenox for DVT prophylaxis. Patient was reevaluated today on 10/24/2021, patient is on room air, O2 sats is 94%, continues to have intermittent episodes of shortness of breath. Chest x- ray continues to show bilateral pleural effusions, I'm recommending an ultrasound of the chest again, may have to consider a right-sided thoracentesis again on this patient. Patient has diminished breath sounds at the bases especially at the right base, and she may undergo surgery on her large hiatal/diaphragmatic hernia tomorrow by Dr. Brush. Electrolytes are normal renal profile is normal. Previous thoracentesis done showed evidence of exudative pleural effusion on the right side. Progress note dated 10/26/2021. The patient was not seen yesterday, as the patient was in the operating room, having her procedure performed. The patient had a large paraesophageal hernia, and she had a laparoscopic repair of paraesophageal hernia, with absorbable mesh. Currently, the patient's resting comfortably in the room. She tells us today she is going to have a EGD. She's currently on room air. Labs today include a white count of 10, hemoglobin 11.8, hematocrit 37.8 and a platelet count of 529,000. Sodium 133, potassium 4.6, chlorides 99, CO2 28, anion gap 6, BUN 12, creatinine 0.63. Chest x-ray shows postoperative changes, with significant interval improvement of the previously seen extensive bilateral chest wall and soft tissue emphysematous changes. Progress note dated 10/27/2021. The patient is again seen today in room 376. She doing relatively well. The patient is currently on room air. She is getting IV fluids in the form of half- normal saline, with 20 mEq of potassium, at 125 mL an hour. She denies any respiratory issues, and she also denies any abdominal discomfort. Today's labs include a sodium 142, potassium 4.6, chlorides 102, CO2 23, anion gap 7, BUN 14, and creatinine 0.53. Microbiologic studies are negative. Chest x-ray from October 26 does show bilateral effusions. Progress note dated 10/29/2021. The patient is again seen today in room 376. She's currently on room air. She's not receiving any IV fluids. She is very stable. She has no respiratory complaints. No new laboratory data today other than a blood sugar of 102. Yesterday's chest x-ray was reviewed. Progress note dated 10/30/2021. The patient appears to be doing relatively well. She is again seen in room 376. Currently, she is on room air, and not receiving any IV fluids. She has no complaints today other than some mild extremity edema. Labs today include a white count of 12.5, hemoglobin 12.5, hematocrit 39.6, and platelet count 629,000. Sodium 129, potassium 4.5, chlorides 100, CO2 23, anion gap 6, BUN 17, and creatinine 0.55. No chest x-ray today to report. Objective - Vital Signs Vital signs: Vital Signs Temp 97 F L 10/30/21 08:00 Pulse 80 10/30/21 08:00 Resp 18 10/30/21 08:00 BP 128/80 10/30/21 08:00 Pulse Ox 95 10/30/21 08:00 Intake & Output 10/29/21 10/30/21 10/30/21 18:59 06:59 18:59 Intake Total 118 Output Total 250 300 Balance -250 -300 118 Weight 72.4 kg 73.6 kg Intake: Oral 118 Output: Urine 250 300 Other: Voiding Method Indwelling Catheter - Exam No acute distress, oriented 3. No respiratory distress. Currently on room air. HEENT examination is grossly unremarkable. Neck supple. Full range of motion. No adenopathy thyromegaly or neck vein distention. Cardiovascular examination reveals regular rhythm rate. S1-S2 normal. No S3 or S4. No discernible murmur noted. Heart rate 80 bpm. Lungs reveal mostly clear breath sounds. Minimal scattered rhonchi. No wheezes or crackles. I could not palpate any subcutaneous emphysema. Breath sounds are equal bilaterally. Room air saturations 95 %. Abdomen soft bowel sounds are heard. No masses or tenderness. Extremities are intact. No cyanosis or clubbing. Mild edema of the lower legs ankles and feet. Skin is without rash or lesion. Neurologic examination is brief but nonfocal. - Labs CBC & Chem 7: 10/30/21 10:40 10/30/21 10:40 Labs: Abnormal Lab Results - Last 24 Hours (Table) 10/29/21 10/29/21 10/30/21 Range/Units 16:40 19:45 06:11 WBC (3.8-10.6) k/uL Plt Count (150-450) k/uL Neutrophils # (1.3-7.7) k/uL Lymphocytes # (1.0-4.8) k/uL Sodium (137-145) mmol/L Glucose (74-99) mg/dL POC Glucose (mg/dL) 155 H 118 H 134 H (75-99) mg/dL 10/30/21 10/30/21 10/30/21 Range/Units 10:40 10:40 11:25 WBC 12.5 H (3.8-10.6) k/uL Plt Count 629 H (150-450) k/uL Neutrophils # 11.6 H (1.3-7.7) k/uL Lymphocytes # 0.4 L (1.0-4.8) k/uL Sodium 129 L (137-145) mmol/L Glucose 145 H (74-99) mg/dL POC Glucose (mg/dL) 161 H (75-99) mg/dL Microbiology - Last 24 Hours (Table) 10/20/21 14:00 Fungal Culture - Preliminary Pleural Fluid Assessment and Plan Assessment: Postop day #4, status post surgical repair of a large paraesophageal hernia. Shortness of breath, multifactorial, in part related to large paraesophageal hernia, as well as bilateral pleural effusions. Right sided thoracentesis 2. Recent history of TPA administration for abnormal EKG, and cardiac catheterization on September 09 which showed mild CAD. Moderate generalized pericardial effusion. Lower extremity edema. Lifetime nonsmoker. Hypothyroidism. Hypertension. Urinary incontinence. Plan: Plan dated 10/26/2021. The patient appears to be doing relatively well. She's on room air. Saturations are 98%. The patient states that she is going to have an EGD today. He will follow make recommendations were appropriate. Labs, x-rays, and medications are reviewed. Prognosis remains guarded. Plan dated 10/27/2021. Currently, the patient seems be doing relatively well. Room air. She's not h aving any respiratory difficulty or distress. She is receiving IV fluids and form of half-normal saline, with 20 mEq of potassium, at 125 mL an hour. Labs, x-rays, and medications are all reviewed. The fluoroscopic examination performed yesterday, did not reveal any extravasation of dye. We will continue to follow make recommendations where appropriate. Prognosis remains guarded. Plan dated October 29, 2021. Currently, the patient's doing well. The patient is not receiving any supplemental oxygen, and her IV fluids have been discontinued. Labs, x-rays, and medications are all reviewed. Patient continues to use the incentive spirometer. Her respiratory status and hemodynamics status are very stable. No additional recommendations are made at this time. We'll follow as needed. Plan dated 10/30/2021. The patient's doing well. She's on room air. She's not receiving any IV fluid s. Her breathing is stable. We encourage her to continue to use the incentive spirometer. The patient's labs, x-rays, and medications are reviewed. We will continue to follow the patient and make recommendations were appropriate. Prognosis is guarded. Currently, the patient's very stable. Time with Patient: Less than 30
[2021-10-30 16:36] LABS: Glucose,Whole Blood 119 mg/dL (75-99)
[2021-10-30] MEDS: D5-0.45% NACL WITH KCL 20MEQ/L 1,000 ML IV SCH ×2 (18:01→20:41)
[2021-10-30 19:46] LABS: Glucose,Whole Blood 158 mg/dL (75-99)
[2021-10-31] MEDS: D5-0.45% NACL WITH KCL 20MEQ/L 1,000 ML IV SCH ×3 (01:47→11:09)
[2021-10-31 06:10] LABS: Glucose,Whole Blood 108 mg/dL (75-99)
[2021-10-31] MEDS: DEXAMETHASONE SOD PHOSPHATE 4 MG/ML 1 ML VIAL IVP SCH ×4 (06:16→23:34)
[2021-10-31 08:02] LABS: Basophils % (A) 0 %; Eosinophils # (A) 0.1 k/uL (0-0.7); Eosinophils % (A) 1 %; HCT 39.4 % (34.0-46.0); HGB 12.6 gm/dL (11.4-16.0); Lymphocytes # (A) 0.6 k/uL (1.0-4.8); Lymphocytes % (A) 4 %; MCH 30.6 pg (25.0-35.0); MCHC 32.1 g/dL (31.0-37.0); MCV 95.3 fL (80.0-100.0); Mean Platelet Volume 6.9; Monocytes # (A) 0.5 k/uL (0-1.0); Monocytes % (A) 4 %; Neutrophils # (A) 12.5 k/uL (1.3-7.7); Neutrophils % (A) 91 %; Platelet Count 651 k/uL (150-450); RBC 4.13 m/uL (3.80-5.40); RDW 13.3 % (11.5-15.5); WBC 13.8 k/uL (3.8-10.6)
[2021-10-31 08:15] LABS: African American GFR (CKD) >90 (>60 ml/min/1.73 sqM); Anion Gap 6 mmol/L; Blood Urea Nitrogen 25 mg/dL (7-17); Calcium 8.7 mg/dL (8.4-10.2); Carbon Dioxide 23 mmol/L (22-30); Chloride 100 mmol/L (98-107); Glucose 129 mg/dL (74-99); Non-African American GFR(CKD) 86 (>60 ml/min/1.73 sqM); Potassium 4.3 mmol/L (3.5-5.1); Sodium 129 mmol/L (137-145)
[2021-10-31] MEDS: ASPIRIN 81 MG PO SCH (08:45)
[2021-10-31] MEDS: METOPROLOL TARTRATE 25 MG TAB PO SCH ×2 (08:45→20:31)
[2021-10-31] MEDS: MULTIVITAMINS, THERA 1 EACH TAB PO SCH (08:45)
[2021-10-31] MEDS: PSYLLIUM HUSK 100% 6 GM PACKET PO SCH ×2 (08:46→20:30)
[2021-10-31] MEDS: CALCIUM CARBONATE 500 MG CHEWABLE PO SCH (08:46)
[2021-10-31] MEDS: TAMSULOSIN 0.4 MG CAP.ER.24H PO SCH (08:46)
[2021-10-31] MEDS: ENOXAPARIN 40 MG/0.4 ML SYRINGE SQ SCH (08:46)
--- NOTE | 2021-10-31 11:39 | P.PN ---
Progress Note - Text Progress Note Date: 10/31/21 Patient has minimal complaints of abdominal pain. She is requesting 48. On exam vital signs are stable. Abdomen soft. Status post repair of large paraesophageal hernia. Patient will have her diet advanced to full liquids.
[2021-10-31 12:10] LABS: Glucose,Whole Blood 106 mg/dL (75-99)
--- NOTE | 2021-10-31 15:39 | P.PN ---
Subjective Progress Note Date: 10/31/21 Principal diagnosis: Shortness of breath/pleural effusion. On 10/21/2021 patient seen in follow-up on selective care unit. She states she is breathing much easier since the right-sided thoracentesis yesterday with removal of 1.7 L of pleural fluid and pleural fluid analysis showed exudative fluid, pleural fluid cultures and cytology are pending. Patient was seen by general surgery and underwent EGD today with biopsies. The stomach appeared to be in the intrathoracic position. The plan is for possible surgery for repair of a very large hiatal and diaphragmatic hernia possibly and 10/25/2021. Patient continues on IV diuretics, lower extremity edema is improving, ultra sound the chest does not show significant fluid on the left side. On 10/22/2021 patient seen in follow-up on selective care unit. She is resting comfortably in bed, remains pulse ox is 95%, she states that time that she still has some difficulty breathing, but no acute distress and overall her breathing is improved since admission. Lower extremity edema has significantly improved. She remains on Lasix 20 mg twice daily. Pleural fluid analysis showed exudative fluid, not consistent with CHF. Overall fluid volume status has improved. She is in -580 mL negative net fluid balance over the last 24 hours. Pleural fluid cytology and cultures are pending. Vital signs have been stable. Today's labs have been reviewed, sodium is 129, potassium is 4.5, chloride is 94, BUN is 9 creatinine 0.52. Patient had EGD with biopsies yesterday. Surgical services are following, and the plan is to proceed with hernia repair on Monday The patient is seen today 10/23/2021 in follow-up on the selective care unit. She is currently sitting up in bed. Awake and alert in no acute distress. She denies any worsening shortness of breath, cough or congestion. No fever chills. No significant abdominal discomfort. She's been up ambulating in the room. Up in the shower. He is maintaining good O2 saturations in the 90s on room air. She's been afebrile. Hemodynamically stable. Pleural fluid cultures reveal no growth to date. Fluid was exudate with a protein of 4.6. Negative for malignancy. She is continued on Lovenox for DVT prophylaxis. Patient was reevaluated today on 10/24/2021, patient is on room air, O2 sats is 94%, continues to have intermittent episodes of shortness of breath. Chest x- ray continues to show bilateral pleural effusions, I'm recommending an ultrasound of the chest again, may have to consider a right-sided thoracentesis again on this patient. Patient has diminished breath sounds at the bases especially at the right base, and she may undergo surgery on her large hiatal/diaphragmatic hernia tomorrow by Dr. Brush. Electrolytes are normal renal profile is normal. Previous thoracentesis done showed evidence of exudative pleural effusion on the right side. Progress note dated 10/26/2021. The patient was not seen yesterday, as the patient was in the operating room, having her procedure performed. The patient had a large paraesophageal hernia, and she had a laparoscopic repair of paraesophageal hernia, with absorbable mesh. Currently, the patient's resting comfortably in the room. She tells us today she is going to have a EGD. She's currently on room air. Labs today include a white count of 10, hemoglobin 11.8, hematocrit 37.8 and a platelet count of 529,000. Sodium 133, potassium 4.6, chlorides 99, CO2 28, anion gap 6, BUN 12, creatinine 0.63. Chest x-ray shows postoperative changes, with significant interval improvement of the previously seen extensive bilateral chest wall and soft tissue emphysematous changes. Progress note dated 10/27/2021. The patient is again seen today in room 376. She doing relatively well. The patient is currently on room air. She is getting IV fluids in the form of half- normal saline, with 20 mEq of potassium, at 125 mL an hour. She denies any respiratory issues, and she also denies any abdominal discomfort. Today's labs include a sodium 142, potassium 4.6, chlorides 102, CO2 23, anion gap 7, BUN 14, and creatinine 0.53. Microbiologic studies are negative. Chest x-ray from October 26 does show bilateral effusions. Progress note dated 10/29/2021. The patient is again seen today in room 376. She's currently on room air. She's not receiving any IV fluids. She is very stable. She has no respiratory complaints. No new laboratory data today other than a blood sugar of 102. Yesterday's chest x-ray was reviewed. Progress note dated 10/30/2021. The patient appears to be doing relatively well. She is again seen in room 376. Currently, she is on room air, and not receiving any IV fluids. She has no complaints today other than some mild extremity edema. Labs today include a white count of 12.5, hemoglobin 12.5, hematocrit 39.6, and platelet count 629,000. Sodium 129, potassium 4.5, chlorides 100, CO2 23, anion gap 6, BUN 17, and creatinine 0.55. No chest x-ray today to report. Progress note dated 10/31/2021. The patient appears to be doing well today. It's. She is hoping to be discharged soon. She is seen today in room 376. Labs today include a white count of 13.8, hemoglobin 12.6, hematocrit 39.4, and a platelet count of 651,000. Sodium 129, potassium 4.3, chlorides 100, CO2 23, BUN 25, and creatinine 0.56. Microbiologic studies are thus far negative. Chest x-ray from October 28 has been reviewed. Objective - Vital Signs Vital signs: Vital Signs Temp 97.9 F 10/31/21 12:00 Pulse 68 10/31/21 12:00 Resp 18 10/31/21 12:00 BP 134/80 10/31/21 12:00 Pulse Ox 96 10/31/21 12:00 Intake & Output 10/30/21 10/31/21 10/31/21 18:59 06:59 18:59 Intake Total 118 483 Output Total 1000 Balance 118 -1000 483 Intake: Oral 118 483 Output: Urine 1000 - Exam No acute distress, oriented 3. No respiratory distress. Currently on room air. Saturations are 96%. HEENT examination is grossly unremarkable. Neck supple. Full range of motion. No adenopathy thyromegaly or neck vein di stention. Cardiovascular examination reveals regular rhythm rate. S1-S2 normal. No S3 or S4. No discernible murmur noted. Heart rate 68 bpm. Lungs reveal mostly clear breath sounds. Minimal scattered rhonchi. No wheezes or crackles. I could not palpate any subcutaneous emphysema. Breath sounds are equal bilaterally. Room air saturations 96 %. Abdomen soft bowel sounds are heard. No masses or tenderness. Extremities are intact. No cyanosis or clubbing. Mild edema of the lower legs ankles and feet. Skin is without rash or lesion. Neurologic examination is brief but nonfocal. - Labs CBC & Chem 7: 10/31/21 07:51 10/31/21 07:51 Labs: Abnormal Lab Results - Last 24 Hours (Table) 10/30/21 10/30/21 10/31/21 Range/Units 16:35 19:45 06:09 WBC (3.8-10.6) k/uL Plt Count (150-450) k/uL Neutrophils # (1.3-7.7) k/uL Lymphocytes # (1.0-4.8) k/uL Sodium (137-145) mmol/L BUN (7-17) mg/dL Glucose (74-99) mg/dL POC Glucose (mg/dL) 119 H 158 H 108 H (75-99) mg/dL 10/31/21 10/31/21 10/31/21 Range/Units 07:51 07:51 12:07 WBC 13.8 H (3.8-10.6) k/uL Plt Count 651 H (150-450) k/uL Neutrophils # 12.5 H (1.3-7.7) k/uL Lymphocytes # 0.6 L (1.0-4.8) k/uL Sodium 129 L (137-145) mmol/L BUN 25 H (7-17) mg/dL Glucose 129 H (74-99) mg/dL POC Glucose (mg/dL) 106 H (75-99) mg/dL Assessment and Plan Assessment: Postop day #5, status post surgical repair of a large paraesophageal hernia. Shortness of breath, multifactorial, in part related to large paraesophageal hernia, as well as bilateral pleural effusions. Right sided thoracentesis 2. Recent history of TPA administration for abnormal EKG, and cardiac catheterization on September 09 which showed mild CAD. Moderate generalized pericardial effusion. Lower extremity edema. Lifetime nonsmoker. Hypothyroidism. Hypertension. Urinary incontinence. Plan: Plan dated 10/26/2021. The patient appears to be doing relatively well. She's on room air. Satura tions are 98%. The patient states that she is going to have an EGD today. He will follow make recommendations were appropriate. Labs, x-rays, and medications are reviewed. Prognosis remains guarded. Plan dated 10/27/2021. Currently, the patient seems be doing relatively well. Room air. She's not having any respiratory difficulty or distress. She is receiving IV fluids and form of half-normal saline, with 20 mEq of potassium, at 125 mL an hour. Labs, x-rays, and medications are all reviewed. The fluoroscopic examination performed yesterday, did not reveal any extravasation of dye. We will continue to follow make recommendations where appropriate. Prognosis remains guarded. Plan dated October 29, 2021. Currently, the patient's doing well. The patient is not receiving any supple mental oxygen, and her IV fluids have been discontinued. Labs, x-rays, and medications are all reviewed. Patient continues to use the incentive spirometer. Her respiratory status and hemodynamics status are very stable. No additional recommendations are made at this time. We'll follow as needed. Plan dated 10/30/2021. The patient's doing well. She's on room air. She's not receiving any IV fluids. Her breathing is stable. We encourage her to continue to use the incentive spirometer. The patient's labs, x-rays, and medications are reviewed. We will continue to follow the patient and make recommendations were appropriate. Prognosis is guarded. Currently, the patient's very stable. Plan dated 10/31/2021. Currently, the patient is on room air. She is not receiving any IV fluids. Room air saturation is 96%. The patient is complaining about a sore in her mouth. I told him to take it up with her hospital doctor. The patient's labs, x-rays, and medications are reviewed. In addition, the patient is encouraged to take deep breaths, cough, and clear secretions, as well as continue using the incentive spirometer, every hour while awake. We'll continue to follow the patient and make recommendations where appropriate. Prognosis is guarded. Time with Patient: Less than 30
[2021-10-31 16:59] LABS: Glucose,Whole Blood 104 mg/dL (75-99)
[2021-10-31 20:30] LABS: Glucose,Whole Blood 139 mg/dL (75-99)
[2021-10-31] MEDS: BENZOCAINE/MENTHOL LOZENG 1 EACH LOZENGE MUCOUS MEM PRN (20:34)
--- NOTE | 2021-10-31 23:34 | P.PN ---
Subjective Progress Note Date: 10/30/21 This is a very pleasant 85-year-old patient who follows with Dr. Adia Angeles. Chronic stable medical conditions include hypertension, hypothyroid, urinary incontinence and wears diapers, hard of hearing. Large hiatal hernia 10/06/2021 patient was here with some chest pressure.cardiac catheterization by Dr. CHELO Babin. No significant CAD. Patient may have had an element of pericarditis. 2-D echo showed some pericardial effusion Patient was doing well upon discharge. The last few days patient started having progressively increasing shortness of breath. No fever no chills. Increasing lower extremity edema. Not able to eat when fall. Tired rundown. Orthopnea. October 19: Sitting at the edge of the bed. Legs hanging. Helps his breathing. Pulmonary consulted. 2-D echo showed small pericardial effusion. VQ scan ordered to rule out more peripheral emboli. October 20: Sitting of the edge of the bed. is present. CT chest showed a very large diaphragmatic hernia causing a significant mass effect on the heart of the lungs. Large right pleural effusion. The hernia containing stent diastolic. Also there is large portion of the transverse colon and small bowel loops. Has incomplete collapse and loss of volume of the right lower lobe and to lesser extent left lower lobe. Did complete collapse of the middle lobe. 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 Osteopenia. October 21: About 1800 mL of bright thoracentesis was done by Dr. Hill yesterday. Breathing a bit better. This could short winded to going to the bathroom with few steps. Had EGD done today by Dr. Brush. Discussed with the patient has been at the bedside. Dr. Webb is planning for hiatal hernia surgery later. October 22: Sitting up. Breathing a bit better. Gets tired. Using incentive sp irometry. Pending surgery on Monday. October 23: Breathing stable. On full liquid diet. Using incentive spirometry. Pending surgery Monday. October 24: Intermittent short of breath. Liquid diet. Discussed about surgery Monday. Continue current treatment plan. October 25: saw the patient this morning before surgery. Down for surgery this afternoon. Nothing by mouth. No new issues. Surgery: Large paraesophageal hernia with intrathoracic stomach approximately half a small bowel and transverse colon. October 26: Sitting up in a chair. No abdominal pain. No nausea vomiting. Nothing by mouth. No flatus. Subjective: Resuming the care of The patient on 10/27/2021 This is a pleasant 85 years old female who presents with laparoscopic repair of his paraesophageal hernia. She still have hesitancy on upper GI test and she kept nothing by mouth and on IV fluids per surgery team who are following her closely. This morning patient is sitting in chair, fully awake and pleasant, her only complaint is spitting mucus which is improving. As chest pain or dyspnea. No abdominal pain or nausea or vomiting. No bowel movement since Monday. She still on Hinton catheter which was placed last night. She still on IV fluids 10/28/2021 Patient clinically looks similar to yesterday, fully awake and oriented, patient also was reoriented about her illness and she verbalized understanding. She still strict nothing by mouth because she failed swallow evaluation. She is status post large hiatal hernia repair. Chest x-ray showing improvement emphysema, improved bilateral pleural effusion and postoperative changes of her hiatal/diaphragmatic hernia. She remains on Decadron, D5 half-normal saline at 1 25 mL/h. She still has a Hinton catheter. We'll add Flomax 10/29/2021 Patient clinically doing well, she sitting in chair, fully awake and oriented and comfortable. He wants hemodynamically she is a stable Today was started on a clear liquid diet which is tigist sign diet by surgery team Also patient had 1 large bowel movement yesterday and she felt comfortable about that. No abdominal pain today. She has poor appetite and trying to cone picker, patient was encouraged to eat more. Also we will try to discontinue the Hinton catheter, discussed with bed side nurse to check for PVR 10 30 2021 Patient is status post repair of large paraesophageal hernia. Patient was started on full liquid diet. Currently on room air. No fever no chills. No nausea vomiting or diarrhea. Denies any abdominal pain. Patient is being continued on D5 half-normal saline. Also on Decadron 40 mg IV push every 6 hourly. Laboratory data showed WBC 12.4 hemoglobin 12.5 and platelets 626 Sodium 129 potassium 4.5 chloride 100 bicarb is 23 BUN 17 and creatinine 0.55 Current medications reviewed. Objective - Vital Signs Vital signs: Vital Signs Temp 97 F L 10/30/21 08:00 Pulse 80 10/30/21 08:00 Resp 18 10/30/21 08:00 BP 128/80 10/30/21 08:00 Pulse Ox 95 10/30/21 08:00 Intake & Output 10/29/21 10/30/21 10/30/21 18:59 06:59 18:59 Output Total 250 300 Balance -250 -300 Weight 72.4 kg 73.6 kg Output: Urine 250 300 Other: Voiding Method Indwelling Catheter - Exam - Exam GENERAL: The patient is alert and oriented x3, not in any acute distress. Well developed, well nourished. HEENT: Pupils are round and equally reacting to light. EOMI. No scleral icterus. No conjunctival pallor. Normocephalic, atraumatic. No pharyngeal erythema. No thyromegaly. CARDIOVASCULAR: S1 and S2 present. No murmurs, rubs, or gallops. PULMONARY: Chest is clear to auscultation, no wheezing or crackles. -ABDOMEN: Soft, nontender, nondistended, normoactive bowel sounds. No palpable organomegaly. Hinton catheter in a Place MUSCULOSKELETAL: No joint swelling or deformity. EXTREMITIES: No cyanosis, clubbing, or pedal edema. NEUROLOGICAL: Gross neurological examination did not reveal any focal deficits. SKIN: No rashes. no petechiae. - Labs CBC & Chem 7: 10/31/21 07:51 10/31/21 07:51 Labs: Abnormal Lab Results - Last 24 Hours (Table) 10/29/21 10/29/21 10/29/21 Range/Units 11:50 16:40 19:45 POC Glucose (mg/dL) 102 H 155 H 118 H (75-99) mg/dL 10/30/21 Range/Units 06:11 POC Glucose (mg/dL) 134 H (75-99) mg/dL Microbiology - Last 24 Hours (Table) 10/20/21 14:00 Fungal Culture - Preliminary Pleural Fluid Assessment and Plan Assessment: -Very large diaphragmatic hernia, status post laparoscopic paraesophageal hernia repair by Dr. Brush on October 25. Continue with D5 half-normal saline Started on liquid diet -Hesitancy of food passage through upper GI test, test done postoperatively Keep the patient nothing by mouth and IV fluids, with surgery team following closely. Advance diet when ready for surgery team Continue with steroids, currently on dexamethasone Patient reports improvement in her swallowing ability -Chronic T11 vertebral body collapse Pain management -Large right pleural effusion. Right thoracentesis 1.7 L removed on October [address] Hill.-Collapse right lower lobe, right middle lobe, and left lower lobe. Follow with pulmonary. Exudative fluid. -Primary osteoarthritis multiple joints Pain medications if needed -Chronic urinary stress incontinence Discussed with bed side nurse to discontinue Hinton catheter today and check for bladder scan and PVR -Hypothyroid Synthroid 112 g a day -Essential hypertension Lopressor 25 mg twice a day -Hyponatremia: Hypoosmolar Increase Solute intake. . Time with Patient: Greater than 30
--- NOTE | 2021-10-31 23:36 | P.PN ---
Subjective Progress Note Date: 10/31/21 This is a very pleasant 85-year-old patient who follows with Dr. Adia Angeles. Chronic stable medical conditions include hypertension, hypothyroid, urinary incontinence and wears diapers, hard of hearing. Large hiatal hernia 10/06/2021 patient was here with some chest pressure.cardiac catheterization by Dr. CHELO Babin. No significant CAD. Patient may have had an element of pericarditis. 2-D echo showed some pericardial effusion Patient was doing well upon discharge. The last few days patient started having progressively increasing shortness of breath. No fever no chills. Increasing lower extremity edema. Not able to eat when fall. Tired rundown. Orthopnea. October 19: Sitting at the edge of the bed. Legs hanging. Helps his breathing. Pulmonary consulted. 2-D echo showed small pericardial effusion. VQ scan ordered to rule out more peripheral emboli. October 20: Sitting of the edge of the bed. is present. CT chest showed a very large diaphragmatic hernia causing a significant mass effect on the heart of the lungs. Large right pleural effusion. The hernia containing stent diastolic. Also there is large portion of the transverse colon and small bowel loops. Has incomplete collapse and loss of volume of the right lower lobe and to lesser extent left lower lobe. Did complete collapse of the middle lobe. 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 Osteopenia. October 21: About 1800 mL of bright thoracentesis was done by Dr. Hill yesterday. Breathing a bit better. This could short winded to going to the bathroom with few steps. Had EGD done today by Dr. Brush. Discussed with the patient has been at the bedside. Dr. Webb is planning for hiatal hernia surgery later. October 22: Sitting up. Breathing a bit better. Gets tired. Using incentive sp irometry. Pending surgery on Monday. October 23: Breathing stable. On full liquid diet. Using incentive spirometry. Pending surgery Monday. October 24: Intermittent short of breath. Liquid diet. Discussed about surgery Monday. Continue current treatment plan. October 25: saw the patient this morning before surgery. Down for surgery this afternoon. Nothing by mouth. No new issues. Surgery: Large paraesophageal hernia with intrathoracic stomach approximately half a small bowel and transverse colon. October 26: Sitting up in a chair. No abdominal pain. No nausea vomiting. Nothing by mouth. No flatus. Subjective: Resuming the care of The patient on 10/27/2021 This is a pleasant 85 years old female who presents with laparoscopic repair of his paraesophageal hernia. She still have hesitancy on upper GI test and she kept nothing by mouth and on IV fluids per surgery team who are following her closely. This morning patient is sitting in chair, fully awake and pleasant, her only complaint is spitting mucus which is improving. As chest pain or dyspnea. No abdominal pain or nausea or vomiting. No bowel movement since Monday. She still on Hinton catheter which was placed last night. She still on IV fluids 10/28/2021 Patient clinically looks similar to yesterday, fully awake and oriented, patient also was reoriented about her illness and she verbalized understanding. She still strict nothing by mouth because she failed swallow evaluation. She is status post large hiatal hernia repair. Chest x-ray showing improvement emphysema, improved bilateral pleural effusion and postoperative changes of her hiatal/diaphragmatic hernia. She remains on Decadron, D5 half-normal saline at 1 25 mL/h. She still has a Hinton catheter. We'll add Flomax 10/29/2021 Patient clinically doing well, she sitting in chair, fully awake and oriented and comfortable. He wants hemodynamically she is a stable Today was started on a clear liquid diet which is tigist sign diet by surgery team Also patient had 1 large bowel movement yesterday and she felt comfortable about that. No abdominal pain today. She has poor appetite and trying to flower buncher or picker, patient was encouraged to eat more. Also we will try to discontinue the Hinton catheter, discussed with bed side nurse to check for PVR 10 30 2021 Patient is status post repair of large paraesophageal hernia. Patient was started on full liquid diet. Currently on room air. No fever no chills. No nausea vomiting or diarrhea. Denies any abdominal pain. Patient is being continued on D5 half-normal saline. Also on Decadron 40 mg IV push every 6 hourly. Laboratory data showed WBC 12.4 hemoglobin 12.5 and platelets 626 Sodium 129 potassium 4.5 chloride 100 bicarb is 23 BUN 17 and creatinine 0.55 10/31/2021 Patient is currently in the bed. Awake alert and oriented. No complaints of chest pain. No shortness of breath. Patient has been afebrile. No nausea or vomiting or diarrhea. Laboratory data showed WBC 13.8 hemoglobin 12.6 and platelets 651 sodium 129 potassium 4.3 and chloride 100 BUN 25 and creatinine 0.56. IV fluids changed to normal saline. Blood pressure is controlled. Currently on room air.. Current medications reviewed. Objective - Vital Signs Vital signs: Vital Signs Temp 97.9 F 10/31/21 12:00 Pulse 68 10/31/21 12:00 Resp 18 10/31/21 12:00 BP 134/80 10/31/21 12:00 Pulse Ox 96 10/31/21 12:00 Intake & Output 10/30/21 10/31/21 10/31/21 18:59 06:59 18:59 Intake Total 118 483 Output Total 1000 Balance 118 -1000 483 Intake: Oral 118 483 Output: Urine 1000 - Exam - Exam GENERAL: The patient is alert and oriented x3, not in any acute distress. Well developed, well nourished. HEENT: Pupils are round and equally reacting to light. EOMI. No scleral icterus. No conjunctival pallor. Normocephalic, atraumatic. No pharyngeal erythema. No thyromegaly. CARDIOVASCULAR: S1 and S2 present. No murmurs, rubs, or gallops. PULMONARY: Chest is clear to auscultation, no wheezing or crackles. -ABDOMEN: Soft, nontender, nondistended, normoactive bowel sounds. No palpable organomegaly. Hinton catheter in a Place MUSCULOSKELETAL: No joint swelling or deformity. EXTREMITIES: No cyanosis, clubbing, or pedal edema. NEUROLOGICAL: Gross neurological examination did not reveal any focal deficits. SKIN: No rashes. no petechiae. - Labs CBC & Chem 7: 10/31/21 07:51 10/31/21 07:51 Labs: Abnormal Lab Results - Last 24 Hours (Table) 10/30/21 10/30/21 10/31/21 Range/Units 16:35 19:45 06:09 WBC (3.8-10.6) k/uL Plt Count (150-450) k/uL Neutrophils # (1.3-7.7) k/uL Lymphocytes # (1.0-4.8) k/uL Sodium (137-145) mmol/L BUN (7-17) mg/dL Glucose (74-99) mg/dL POC Glucose (mg/dL) 119 H 158 H 108 H (75-99) mg/dL 10/31/21 10/31/21 10/31/21 Range/Units 07:51 07:51 12:07 WBC 13.8 H (3.8-10.6) k/uL Plt Count 651 H (150-450) k/uL Neutrophils # 12.5 H (1.3-7.7) k/uL Lymphocytes # 0.6 L (1.0-4.8) k/uL Sodium 129 L (137-145) mmol/L BUN 25 H (7-17) mg/dL Glucose 129 H (74-99) mg/dL POC Glucose (mg/dL) 106 H (75-99) mg/dL Assessment and Plan Assessment: -Very large diaphragmatic hernia, status post laparoscopic paraesophageal hernia repair by Dr. Brush on October 25. Continue with D5 half-normal saline--changed 0.9% Started on liquid diet -Hesitancy of food passage through upper GI test, test done postoperatively Keep the patient nothing by mouth and IV fluids, with surgery team following closely. Advance diet when ready for surgery team Continue with steroids, currently on dexamethasone Patient reports improvement in her swallowing ability -Chronic T11 vertebral body collapse Pain management -Large right pleural effusion. Right thoracentesis 1.7 L removed on October [address] Hill.-Collapse right lower lobe, right middle lobe, and left lower lobe. Follow with pulmonary. Exudative fluid. -Primary osteoarthritis multiple joints Pain medications if needed -Chronic urinary stress incontinence Discussed with bed side nurse to discontinue Hinton catheter today and check for bladder scan and PVR -Hypothyroid Synthroid 112 g a day -Essential hypertension Lopressor 25 mg twice a day -Hyponatremia: Hypoosmolar Increase Solute intake. . Time with Patient: Greater than 30
[2021-11-01 04:10] VITALS: RESP 18
[2021-11-01] MEDS: SODIUM CHLORIDE 0.9% 1,000 ML IV SCH ×2 (04:51→13:26)
[2021-11-01] MEDS ORDERED: ENOXAPARIN 40 MG/0.4 ML SYRINGE SQ ONE (06:00)
[2021-11-01] MEDS ORDERED: PSYLLIUM HUSK 100% 6 GM PACKET PO ONE (06:00)
[2021-11-01] MEDS ORDERED: DEXAMETHASONE SOD PHOSPHATE 4 MG/ML 1 ML VIAL ONE (06:00)
[2021-11-01] MEDS ORDERED: METOPROLOL TARTRATE 25 MG TAB ONE (06:00)
[2021-11-01] MEDS ORDERED: MULTIVITAMINS, THERA 1 EACH TAB ONE (06:00)
[2021-11-01] MEDS ORDERED: TAMSULOSIN 0.4 MG CAP.ER.24H PO ONE (06:00)
[2021-11-01] MEDS ORDERED: ASPIRIN 81 MG ONE (06:00)
[2021-11-01] MEDS ORDERED: CALCIUM CARBONATE 500 MG CHEWABLE PO ONE (06:00)
[2021-11-01 10:25] LABS: Basophils % (A) 0 %; Eosinophils % (A) 0 %; HCT 40.1 % (34.0-46.0); HGB 12.7 gm/dL (11.4-16.0); Hypochromasia Slight; Lymphocytes # (A) 0.4 k/uL (1.0-4.8); Lymphocytes % (A) 3 %; MCH 30.5 pg (25.0-35.0); MCHC 31.8 g/dL (31.0-37.0); MCV 96.1 fL (80.0-100.0); Mean Platelet Volume 7.3; Monocytes # (A) 0.5 k/uL (0-1.0); Monocytes % (A) 4 %; Neutrophils % (A) 92 %; Platelet Count 728 k/uL (150-450); RBC 4.17 m/uL (3.80-5.40); RDW 13.9 % (11.5-15.5)
[2021-11-01 10:39] LABS: African American GFR (CKD) >90 (>60 ml/min/1.73 sqM); Anion Gap 5 mmol/L; Blood Urea Nitrogen 27 mg/dL (7-17); Calcium 8.8 mg/dL (8.4-10.2); Carbon Dioxide 27 mmol/L (22-30); Chloride 96 mmol/L (98-107); Glucose 108 mg/dL (74-99); Non-African American GFR(CKD) 82 (>60 ml/min/1.73 sqM); Potassium 4.9 mmol/L (3.5-5.1); Sodium 128 mmol/L (137-145)
[2021-11-01 10:47] LABS: Glucose,Whole Blood 115 mg/dL (75-99)
[2021-11-01] MEDS: METOPROLOL TARTRATE 25 MG TAB PO SCH ×2 (11:45→20:13)
[2021-11-01] MEDS: MULTIVITAMINS, THERA 1 EACH TAB PO SCH (11:45)
[2021-11-01] MEDS: ENOXAPARIN 40 MG/0.4 ML SYRINGE SQ SCH (11:45)
[2021-11-01] MEDS: DEXAMETHASONE SOD PHOSPHATE 4 MG/ML 1 ML VIAL IVP SCH ×4 (11:45→23:24)
[2021-11-01] MEDS: TAMSULOSIN 0.4 MG CAP.ER.24H PO SCH (11:45)
[2021-11-01] MEDS: CALCIUM CARBONATE 500 MG CHEWABLE PO SCH (11:45)
[2021-11-01] MEDS: ASPIRIN 81 MG PO SCH (11:45)
[2021-11-01 11:46] LABS: Glucose,Whole Blood 97 mg/dL (75-99)
[2021-11-01] MEDS: PSYLLIUM HUSK 100% 6 GM PACKET PO SCH ×2 (11:46→20:12)
--- NOTE | 2021-11-01 12:25 | P.PN ---
Subjective Progress Note Date: 11/01/21 CHIEF COMPLAINT: Large paraesophageal hernia HISTORY OF PRESENT ILLNESS: Patient is status post laparoscopic repair of paraesophageal hernia with absorbable mesh for a large paraesophageal hernia with intrathoracic stomach, approximately one half small bowel and transverse colon, POD#6. Patient is sitting in bedside chair. She is tolerating a full liquid diet. Denies any nausea vomiting. Denies difficulty swallowing. She reports having flatus and bowel movement. Afebrile WBC 12 HGB12.7 Na 128 Patient seen and examined with Dr. maldonado PHYSICAL EXAM: VITAL SIGNS: Reviewed. GENERAL: Well-developed in no acute distress. HEENT: No sclera icterus. Extraocular movements grossly intact. Moist buccal mucosa. Head is atraumatic, normocephalic. ABDOMEN: Soft. Nondistended. Incision site is clean dry and intact NEUROLOGIC: Alert and oriented. Cranial nerves II through XII grossly intact. ASSESSMENT: 1. Status post laparoscopic repair of paraesophageal hernia with absorbable mesh for a large paraesophageal hernia with intrathoracic stomach, approximately one half small bowel and transverse colon PLAN: -Continue Full liquids -Continue IV Decadron scheduled for severe hesitancy noted on upper GI -Continue pain medication as needed -Continue supportive care -Encouraged patient to increase activity level -Hyponatremia management per medicine service Physician Motor And Generator Brush Cutter note has been reviewed by physician. Signing provider agrees with the documented findings, assessment, and plan of care. Objective - Vital Signs Vital signs: Vital Signs Temp 98 F 11/01/21 08:00 Pulse 70 11/01/21 08:00 Resp 18 11/01/21 08:00 BP 159/77 11/01/21 08:00 Pulse Ox 96 11/01/21 08:00 Intake & Output 10/31/21 11/01/21 11/01/21 18:59 06:59 18:59 Intake Total 603 Output Total 1100 Balance 603 -1100 Weight 72.7 kg Intake: Oral 603 Output: Urine 1100 - Labs CBC & Chem 7: 11/01/21 08:33 11/01/21 08:33 Labs: Abnormal Lab Results - Last 24 Hours (Table) 10/31/21 10/31/21 11/01/21 Range/Units 16:55 20:25 06:04 WBC (3.8-10.6) k/uL Plt Count (150-450) k/uL Neutrophils # (1.3-7.7) k/uL Lymphocytes # (1.0-4.8) k/uL Sodium (137-145) mmol/L Chloride (98-107) mmol/L BUN (7-17) mg/dL Glucose (74-99) mg/dL POC Glucose (mg/dL) 104 H 139 H 115 H (75-99) mg/dL 11/01/21 11/01/21 Range/Units 08:33 08:33 WBC 12.0 H (3.8-10.6) k/uL Plt Count 728 H (150-450) k/uL Neutrophils # 11.0 H (1.3-7.7) k/uL Lymphocytes # 0.4 L (1.0-4.8) k/uL Sodium 128 L (137-145) mmol/L Chloride 96 L (98-107) mmol/L BUN 27 H (7-17) mg/dL Glucose 108 H (74-99) mg/dL POC Glucose (mg/dL) (75-99) mg/dL Microbiology - Last 24 Hours (Table) 10/20/21 14:00 Acid Fast Bacilli Smear - Final Pleural Fluid Acid Fast Bacilli Culture - Preliminary
[2021-11-01 13:17] VITALS: BMI 26.6
[2021-11-01] MEDS: LEVOTHYROXINE IVP 100 MCG/5 ML VIAL IV SCH (13:27)
--- NOTE | 2021-11-01 14:40 | P.PN ---
Subjective Progress Note Date: 11/01/21 Principal diagnosis: Shortness of breath 85-year-old white female patient with a recent history of hypertension, hypothyroidism, lifetime nonsmoker. Patient had a recent event for which she was hospitalized and was transferred from an outside facility. She was complaining of shortness of breath at the time, her EKG showed ST segment elevation in the precordial leads, and subsequently patient received TPA. She was transferred to this institution on 09/09/2021 and underwent cardiac catheterization that showed no significant obstructive CAD, right dominant system and normal filling pressures. She was discharged home on 09/10/2021. She lives in [place], she follows with Dr. Angeles in [facility]. She states she is normally healthy, no history of diabetes mellitus, she is a lifetime nonsmoker, no chronic lung disease. Following her hospitalization patient started developing shortness of breath. She also noticed increased swelling in bilateral lower extremities, she denied any cough, no fever or chills, no chest pain. She is complaining of significant orthopnea. She has difficulty ambulating related to shortness of breath. She came into the hospit al for reevaluation on 10/18/2021. Chest x-ray on admission showed congested bilateral pulmonary vasculature with bilateral basal pulmonary atelectasis and bilateral pleural effusions obscuring the previously seen diaphragmatic hernia. Chest significant swelling in her bilateral lower extremities. She was started on diuretics by cardiology. On today's exam she states she is feeling slightly better however still short of breath and cannot lie flat and last night she was having difficult time breathing. She is on room air with pulse ox of 96%, she is afebrile, blood pressure stable. She short of breath with exertion. Echocardiogram was completed showing preserved LV function of 55-60%, and small generalized pericardial effusion. EKG showed sinus tachycardia with first- degree AV block. Lab evaluation showed normal white count of 9.8, hemoglobin of 12.3, platelet count is 587, INR of 1.0, sodium is 1:30, potassium is 4.0, chloride is 96, CO2 is 25, BUN is 14 creatinine 0.51. Troponin was less than 0.012, alkaline phosphatase was 128, AST and ALT were within normal limits, proBNP was 557. CRP is 7.2. Bilateral lower extremity Dopplers showed no evidence of DVT, however the exam was positive for superficial venous thrombosis involving the bilateral small saphenous veins. CTA chest is ordered and is pending at this time. On 10/20/2021 patient seen in follow-up on selective care unit. She states last night she again had significant dyspnea, today she is sitting up unassisted bed, leaning on the table in the tripod position. She states she feels better and breathing easier and disposition. Is on room air pulse ox is 96%, lung sounds are diminished at the bases. She's been afebrile, no cough, no cough with chest discomfort. CTA chest has been completed showing no major central pulmonary embolism and very large hiatal/diaphragmatic hernia containing the entire stomach, portion of the duodenum, large portion of the transverse colon and possibly small bowel loops in addition to peritoneal fat. It is causing significant mass effect on the heart and the GC lungs, and there associated large right and moderate left pleural effusions. Ultrasound of the chest revealed right pleural effusion pocket measuring 14.3 cm, and left pleural effusion pocket of 3.7 cm. Patient remains on IV diuretics. Metoprolol balance is difficult to estimate, but her weight is down by 5 kg according to the recorded weights in the EMR, lower extremity edema still remains although improved. His labs have been reviewed by blood cell count is 8.5, hemoglobin is 12.5, serum sodium is 129, potassium is 4.2, BUN is 10 and creatinine 0.52. On 10/21/2021 patient seen in follow-up on selective care unit. She states she is breathing much easier since the right-sided thoracentesis yesterday with removal of 1.7 L of pleural fluid and pleural fluid analysis showed exudative fluid, pleural fluid cultures and cytology are pending. Patient was seen by general surgery and underwent EGD today with biopsies. The stomach appeared to be in the intrathoracic position. The plan is for possible surgery for repair of a very large hiatal and diaphragmatic hernia possibly and 10/25/2021. Patient continues on IV diuretics, lower extremity edema is improving, ultrasound the chest does not show significant fluid on the left side. On 10/22/2021 patient seen in follow-up on selective care unit. She is resting comfortably in bed, remains pulse ox is 95%, she states that time that she still has some difficulty breathing, but no acute distress and overall her breathing is improved since admission. Lower extremity edema has significantly improved. She remains on Lasix 20 mg twice daily. Pleural fluid analysis showed exudative fluid, not consistent with CHF. Overall fluid volume status has improved. She is in -580 mL negative net fluid balance over the last 24 hours. Pleural fluid cytology and cultures are pending. Vital signs have been stable. Today's labs have been reviewed, sodium is 129, potassium is 4.5, chloride is 94, BUN is 9 creatinine 0.52. Patient had EGD with biopsies yesterday. Surgical services are following, and the plan is to proceed with hernia repair on Monday On 11/01/2021 patient seen in follow-up on selective care unit. She is awake and alert, in no acute distress, she is status post large paraesophageal hernia repair, postoperative day #6. Patient had bilateral pleural effusions, right greater than left, status post right-sided thoracentesis 2, and pleural fluid was exudative in nature, negative cultures and cytology. On today's exam she is breathing comfortably, her last chest x-ray from 10/28/2021 showed persistent bilateral pleural effusions, which were improved compared the previous x-ray, no evidence of pneumothorax. Patient is on room air, pulse ox is 97%. Her diuretics have been discontinued, she currently remains on Decadron for severe hesitancy noted on the upper GI. She remains on pain medications as needed, patient denies any nausea or vomiting, no difficulty swallowing, she is tolerating full liquid diet. She is passing gas, and she she had a bowel movement. Objective - Vital Signs Vital signs: Vital Signs Temp 97.7 F 11/01/21 12:00 Pulse 74 11/01/21 13:50 Resp 18 11/01/21 12:00 BP 133/70 11/01/21 12:00 Pulse Ox 97 11/01/21 12:00 Intake & Output 10/31/21 11/01/21 11/01/21 18:59 06:59 18:59 Intake Total 603 Output Total 1100 Balance 603 -1100 Weight 72.7 kg 72.7 kg Intake: Oral 603 Output: Urine 1100 - Exam GENERAL EXAM: Alert, very pleasant, 85-year-old white female on room air with a pulse ox of 96%, comfortable in no apparent distress. HEAD: Normocephalic/atraumatic. EYES: Normal reaction of pupils, equal size. Conjunctiva pink, sclera white. NOSE: Clear with pink turbinates. THROAT: No erythema or exudates. NECK: No masses, mild bilateral JVD, no thyroid enlargement, no adenopathy. CHEST: No chest wall deformity. Symmetrical expansion. LUNGS: Equal air entry with no crackles, wheeze, rhonchi or dullness. CVS: Regular rate and rhythm, normal S1 and S2, no gallops, no murmurs, no rubs ABDOMEN: Soft, nontender. No hepatosplenomegaly, normal bowel sounds, no guarding or rigidity. EXTREMITIES: No clubbing, 1+ lower extremity no cyanosis, 2+ pulses and upper and lower extremities. MUSCULOSKELETAL: Muscle strength and tone normal. SPINE: No scoliosis or deformity SKIN: No rashes CENTRAL NERVOUS SYSTEM: Alert and oriented -3. No focal deficits, tone is normal in all 4 extremities. PSYCHIATRIC: Alert and oriented -3. Appropriate affect. Intact judgment and insight. - Labs CBC & Chem 7: 11/01/21 08:33 11/01/21 08:33 Labs: Abnormal Lab Results - Last 24 Hours (Table) 10/31/21 10/31/21 11/01/21 Range/Units 16:55 20:25 06:04 WBC (3.8-10.6) k/uL Plt Count (150-450) k/uL Neutrophils # (1.3-7.7) k/uL Lymphocytes # (1.0-4.8) k/uL Sodium (137-145) mmol/L Chloride (98-107) mmol/L BUN (7-17) mg/dL Glucose (74-99) mg/dL POC Glucose (mg/dL) 104 H 139 H 115 H (75-99) mg/dL 11/01/21 11/01/21 Range/Units 08:33 08:33 WBC 12.0 H (3.8-10.6) k/uL Plt Count 728 H (150-450) k/uL Neutrophils # 11.0 H (1.3-7.7) k/uL Lymphocytes # 0.4 L (1.0-4.8) k/uL Sodium 128 L (137-145) mmol/L Chloride 96 L (98-107) mmol/L BUN 27 H (7-17) mg/dL Glucose 108 H (74-99) mg/dL POC Glucose (mg/dL) (75-99) mg/dL Microbiology - Last 24 Hours (Table) 10/20/21 14:00 Acid Fast Bacilli Smear - Final Pleural Fluid Acid Fast Bacilli Culture - Preliminary Assessment and Plan Plan: Assessment: #1. Shortness of breath, multifactorial, related to a very large hiatal/diaphragmatic hernia causing significant mass effect on the heart and lungs, and bilateral pleural effusions, right greater than left, status post right-sided thoracentesis on 10/20/2021 would removal of 1.7 L of pleural fluid which was sent for analysis showing exudative fluid. Pleural fluid cultures and cytology are negative #2. Large hiatal/diaphragmatic hernia, status post EGD, showing the stomach entirely in the intrathoracic position. General surgery following, possible hernia repair on 10/25/2021 #3. Recent history of TPA administration for abnormal EKG, and cardiac catheterization on 09/09/2021 that showed mild CAD #4. Moderate generalized pericardial effusion improved on echocardiogram on this admission #5. Lower extremity edema, no evidence of DVT, but lower extremity Doppler showed SVT bilaterally #6. Lifetime nonsmoker #7. Hypothyroidism #8. Hypertension #9. Urinary incontinence Plan: Follow-up chest x-ray in the morning Encourage deep breathing and coughing Vital signs are stable No worsening dyspnea Patient continues on Decadron per surgical services Continue GI and DVT prophylaxis We'll continue to follow I have personally seen and examined the patient, performed the documentation and the assessment and plan as written. Number of minutes spent on the visit: [10] I have personally seen and examined the patient and reviewed the documentation. I performed a joint evaluation with the nurse practitioner in this evaluation was done more than 20 minutes. I fully agree with the documentation above and the plan of care. The patient is doing well for now. The patient is postthoracentesis with removal of around 1.7 L of fluid which was an exudate. Awaiting the pleural fluid cytology. Meanwhile, the patient is still on oxygen at 4 L and the patient's pulse ox around 99-100%. The patient is afebrile and hemodynamically stable. FiO2 will be gradually weaned off to maintain 90%. Surgical wound site over the abdomen is dry clean and intact. The patient isother specific complaints. Antibiotic ventilation as well as human the patient's INR is at 3.3. Time with Patient: Less than 30
[2021-11-01 16:44] LABS: Glucose,Whole Blood 118 mg/dL (75-99)
--- NOTE | 2021-11-01 17:30 | P.PN ---
Progress Note - Text Progress Note Date: 11/01/21 Chief Complaint: Short of breath This is a very pleasant 85-year-old patient who follows with Dr. Adia Angeles. Chronic stable medical conditions include hypertension, hypothyroid, urinary incontinence and wears diapers, hard of hearing. Large hiatal hernia 10/06/2021 patient was here with some chest pressure.cardiac catheterization by Dr. CHELO Babin. No significant CAD. Patient may have had an element of pericarditis. 2-D echo showed some pericardial effusion Patient was doing well upon discharge. The last few days patient started having progressively increasing shortness of breath. No fever no chills. Increasing lower extremity edema. Not able to eat when fall. Tired rundown. Orthopnea. October 19: Sitting at the edge of the bed. Legs hanging. Helps his breathing. Pulmonary consulted. 2-D echo showed small pericardial effusion. VQ scan orde red to rule out more peripheral emboli. October 20: Sitting of the edge of the bed. is present. CT chest showed a very large diaphragmatic hernia causing a significant mass effect on the heart of the lungs. Large right pleural effusion. The hernia containing stent diastolic. Also there is large portion of the transverse colon and small bowel loops. Has incomplete collapse and loss of volume of the right lower lobe and to lesser extent left lower lobe. Did complete collapse of the middle lobe. 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 Osteopenia. October 21: About 1800 mL of bright thoracentesis was done by Dr. Hill yesterday. Breathing a bit better. This could short winded to going to the bathroom with few steps. Had EGD done today by Dr. Brush. Discussed with the patient has been at the bedside. Dr. Webb is planning for hiatal hernia surgery later. October 22: Sitting up. Breathing a bit better. Gets tired. Using incentive spirometry. Pending surgery on Monday. October 23: Breathing stable. On full liquid diet. Using incentive spirometry. Pending surgery Monday. October 24: Intermittent short of breath. Liquid diet. Discussed about surgery Monday. Continue current treatment plan. October 25: saw the patient this morning before surgery. Down for surgery this afternoon. Nothing by mouth. No new issues. Surgery: Large paraesophageal hernia with intrathoracic stomach approximately half a small bowel and transverse colon. October 26: Sitting up in a chair. No abdominal pain. No nausea vomiting. Nothing by mouth. No flatus. October 27 through October 31 followed by a [facility] hospitalist. November 01: Patient has been tolerating a full liquid diet. No nausea vomiting. Up to the bathroom. at the bedside. Has been drinking a lot of water. Sodium 128. Counseled about fluid restriction. Increasing oral intake. We'll stop saline drip later today. Active Medications Acetaminophen (Acetaminophen Tab 325 Mg Tab) 650 mg PO Q6HR PRN PRN Reason: Mild Pain or Fever > 100.5 Last Admin: 10/29/21 20:38 Dose: 650 mg Documented by: Aspirin (Aspirin 81 Mg) 81 mg PO DAILY [facility] Last Admin: 11/01/21 11:45 Dose: Not Given Documented by: Benzocaine/Menthol (Benzocaine/Menthol Lozeng 1 Each Lozenge) 1 each MUCOUS MEM Q4HR PRN PRN Reason: Cough Last Admin: 10/31/21 20:34 Dose: 1 each Documented by: Calcium Carbonate/Glycine (Calcium Carbonate 500 Mg Chewable) 500 mg PO DAILY [facility] Last Admin: 11/01/21 11:45 Dose: Not Given Documented by: Calcium Carbonate/Glycine (Calcium Carbonate 500 Mg Chewable) 1,000 mg PO Q4HR PRN PRN Reason: Dyspepsia Dexamethasone Sodium Phosphate (Dexamethasone Sod Phosphate 4 Mg/Ml 1 Ml Vial) 4 mg IVP Q6HR [facility] Last Admin: 11/01/21 17:10 Dose: 4 mg Documented by: Enoxaparin Sodium (Enoxaparin 40 Mg/0.4 Ml Syringe) 40 mg SQ DAILY [facility] Last Admin: 11/01/21 11:45 Dose: Not Given Documented by: Sodium Chloride (Saline 0.9%) 1,000 mls @ 75 mls/hr IV .[id number] [facility] Last Admin: 11/01/21 13:26 Dose: Not Given Documented by: Lactulose (Lactulose 20 Gm/30 Ml Cup) 20 gm PO DAILY PRN PRN Reason: Constipation Last Admin: 10/23/21 09:59 Dose: 20 gm Documented by: Levothyroxine Sodium (Levothyroxine Ivp 100 Mcg/5 Ml Vial) 112 mcg IV Q48H [facility] Last Admin: 11/01/21 13:27 Dose: 112 mcg Documented by: Lorazepam (Lorazepam 0.5 Mg Tab) 0.5 mg PO Q6HR PRN PRN Reason: Anxiety Melatonin (Melatonin 3 Mg Tablet) 3 mg PO HS PRN PRN Reason: Insomnia Metoprolol Tartrate (Metoprolol Tartrate 25 Mg Tab) 25 mg PO BID [facility] Last Admin: 11/01/21 11:45 Dose: Not Given Documented by: Multivitamins (Multivitamins, Thera 1 Each Tab) 1 each PO DAILY [facility] Last Admin: 11/01/21 11:45 Dose: Not Given Documented by: Naloxone HCl (Naloxone 0.4 Mg/Ml 1 Ml Vial) 0.2 mg IV Q2M PRN PRN Reason: Opioid Reversal Prochlorperazine Maleate (Prochlorperazine 5 Mg Tab) 5 mg PO Q8HR PRN PRN Reason: Nausea And Vomiting Psyllium Hydrophilic Mucilloid (Psyllium Husk 100% 6 Gm Packet) 6 gm PO BID [facility] Last Admin: 11/01/21 11:46 Dose: Not Given Documented by: Tamsulosin HCl (Tamsulosin 0.4 Mg Cap.Er.24h) 0.4 mg PO [id number] [facility] Last Admin: 11/01/21 11:45 Dose: Not Given Documented by: Past medical history to include: Hypertension, hypothyroid, urinary incontinence, hard of hearing, pericarditis, hiatal hernia Social history: No history of smoking or alcohol. Lives with her . Family history: Reviewed, noncontributory to presentation Physical examination: VITAL SIGNS: 97.8, 70, 18, 126/55, 98% room air GENERAL: Reclining in chair, comfortable EYES: Pupils equal. Conjunctiva normal. HEENT: External appearance of nose and ears normal, oral cavity grossly normal. NECK: JVD or possibly; masses not palpable. HEART: First and second heart sounds are normal; edema decreased LUNGS: Respiratory rate increased, decreased breath sounds at base ABDOMEN: Soft, mild tenderness, liver spleen not palpable, no masses palpable. PSYCH: Alert and oriented x3; mood and affect normal. MUSCULOSKELETAL:No Clubbing/cyanosis;muscles-grossly intact. Evidence of OA. INVESTIGATIONS, reviewed in the clinical context: November 01: White count 12 hemoglobin 12.7 platelets 728 sodium 128 potassium 4.9 creatinine 0.65 October 26: White count and hemoglobin 11.8 platelets 529 sodium 133 potassium 4.6 creatinine 0.63 October 23: Sodium 134 potassium 3.6 creatinine 0.62 serum osmolality 275 October 21: Sodium 129 potassium 4.[address] chest showed a very large diaphragmatic hernia causing a significant mass effect on the heart of the lungs. Large right pleural effusion. The hernia containing entire stomach. Also there is large portion of the transverse colon and small bowel loops. Has incomplete collapse and loss of volume of the right lower lobe and to lesser extent left lower lobe. Did complete collapse of the middle lobe. 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 October 20: White count 8.5 hemoglobin 12.5 platelets 656 sodium 129 potassium 4.2 creatinine 0.5 to Limited 2-D echocardiogram: Moderate concentric LVH. Moderate TR. EF 55-60%. Venous Doppler: Negative for DVT White count 9.8 hemoglobin 12.3 platelets 587 sodium 1:30 potassium 4 BUN 14 creatinine 0.51 troponin I less than 0.012 proBNP 557 albumin 3.1 EKG tracing personally reviewed by me-sinus tachycardia. Right bundle branch block pattern. Nonspecific ST/T-wave changes. Chest x-ray film personally reviewed by me-pulmonary edema. Heart hernia. Recent investigations [September 2021] Cardiac catheterization: Minimal CAD 2-D echocardiogram: EF 55-60%. Some wall motion abnormality. Moderate generalized pericardial effusion. Marleny-Huynh viral serology: Negative Assessment and plan: -Very large diaphragmatic hernia causing the entire stomach to be in the chest including bowel loops. Surgery: Large paraesophageal hernia with intrathoracic stomach approximately half a small bowel and transverse colon. By Dr. Brush on October 25. Tolerating full liquids -Multilobe atelectasis secondary to large hiatal hernia and pleural effusion.: Incentive spirometry -Chronic T11 vertebral body collapse Pain management -Large right pleural effusion. Right thoracentesis 1.7 L removed on October [address] Hill. Culture negative .-Collapse right lower lobe, right middle lobe, and left lower lobe.: Improved Follow with pulmonary. -Primary osteoarthritis multiple joints Pain medications if needed -Chronic urinary stress incontinence -Hypothyroid Synthroid 112 g a day -Essential hypertension Lopressor 25 mg twice a day -Hyponatremia: Hypoosmolar Increase Solute intake. Fluid restriction.. Fluid restriction. Increase salt intake. Increase activity. Hopefully home tomorrow. Care was discussed at length with the patient and . Fluid restriction discussed. Total time spent today about 40 minutes with over 25 minutes of discussion
[2021-11-01 20:25] LABS: Glucose,Whole Blood 172 mg/dL (75-99)
[2021-11-02 05:05] VITALS: TEMP 98.1
[2021-11-02] MEDS: SODIUM CHLORIDE 0.9% 1,000 ML IV SCH (05:10)
[2021-11-02 06:21] LABS: Glucose,Whole Blood 126 mg/dL (75-99)
[2021-11-02] MEDS: DEXAMETHASONE SOD PHOSPHATE 4 MG/ML 1 ML VIAL IVP SCH (06:30)
--- NOTE | 2021-11-02 06:48 | XR ---
EXAMINATION TYPE: XR chest 1V portable DATE OF EXAM: 11/02/2021 CLINICAL HISTORY: Difficulty breathing and pleural effusions progress study. TECHNIQUE: Single AP portable upright view of the chest is obtained. COMPARISON: Chest x-ray from 5 days earlier and older studies. CT chest 2 weeks ago. FINDINGS: Persistent low lung volumes suspected due to large diaphragmatic hernia. Persistent bibasi lar opacities and mild cardiomegaly. Upper lungs remain clear. Contrast from barium swallow study one week earlier noted in the left-sided colonic loops. IMPRESSION: Persistent mild cardiomegaly with small bilateral pleural effusions and associated bibasi lar compressive atelectasis. No significant change from most recent x-ray.
[2021-11-02 08:57] LABS: Basophils % (A) 0 %; Eosinophils % (A) 0 %; HCT 40.5 % (34.0-46.0); Lymphocytes # (A) 0.3 k/uL (1.0-4.8); Lymphocytes % (A) 2 %; MCHC 32.1 g/dL (31.0-37.0); MCV 96.6 fL (80.0-100.0); Mean Platelet Volume 6.9; Monocytes # (A) 0.6 k/uL (0-1.0); Monocytes % (A) 4 %; Neutrophils # (A) 12.6 k/uL (1.3-7.7); Neutrophils % (A) 93 %; Platelet Count 632 k/uL (150-450); RBC 4.19 m/uL (3.80-5.40); RDW 13.6 % (11.5-15.5); WBC 13.5 k/uL (3.8-10.6)
[2021-11-02 09:17] LABS: Calcium 8.9 mg/dL (8.4-10.2); Potassium 4.7 mmol/L (3.5-5.1)
[2021-11-02] MEDS: CALCIUM CARBONATE 500 MG CHEWABLE PO SCH (09:33)
[2021-11-02] MEDS: ASPIRIN 81 MG PO SCH (09:33)
[2021-11-02] MEDS: MULTIVITAMINS, THERA 1 EACH TAB PO SCH (09:33)
[2021-11-02] MEDS: METOPROLOL TARTRATE 25 MG TAB PO SCH (09:33)
[2021-11-02] MEDS: TAMSULOSIN 0.4 MG CAP.ER.24H PO SCH (09:33)
[2021-11-02] MEDS: PSYLLIUM HUSK 100% 6 GM PACKET PO SCH (09:33)
[2021-11-02] MEDS: ENOXAPARIN 40 MG/0.4 ML SYRINGE SQ SCH (09:33)
[2021-11-02] MEDS ORDERED: predniSONE 20 MG TAB PO STA (10:52)
[2021-11-02 11:45] LABS: Glucose,Whole Blood 144 mg/dL (75-99)
[2021-11-02] MEDS ORDERED: LEVOFLOXACIN 500 MG TAB PO SCH (13:15)
--- NOTE | 2021-11-02 13:15 | P.PN ---
Subjective Progress Note Date: 11/02/21 CHIEF COMPLAINT: Large paraesophageal hernia HISTORY OF PRESENT ILLNESS: Patient is status post laparoscopic repair of paraesophageal hernia with absorbable mesh for a large paraesophageal hernia with intrathoracic stomach, approximately one half small bowel and transverse colon, POD#7. Patient is sitting in bedside chair. She is tolerating a full liquid diet. Denies any nausea vomiting. Denies difficulty swallowing. She reports having flatus and bowel movement. Afebrile WBC 12 up to 13.5 HGB 13 Na 130 Patient seen and examined with Dr. maldonado PHYSICAL EXAM: VITAL SIGNS: Reviewed. GENERAL: Well-developed in no acute distress. HEENT: No sclera icterus. Extraocular movements grossly intact. Moist buccal mucosa. Head is atraumatic, normocephalic. ABDOMEN: Soft. Nondistended. Incision site is clean dry and intact NEUROLOGIC: Alert and oriented. Cranial nerves II through XII grossly intact. ASSESSMENT: 1. Status post laparoscopic repair of paraesophageal hernia with absorbable mesh for a large paraesophageal hernia with intrathoracic stomach, approximately one half small bowel and transverse colon PLAN: -Patient can be discharged from surgical standpoint when cleared medically -Continue Full liquids after discharge until seen by surgeon -Ordered Levaquin due to elevated white count -Continue tylenol as needed for pain -Continue supportive care -Encouraged patient to increase activity level -Hyponatremia management per medicine service Physician Hunter Guide note has been reviewed by physician. Signing provider agrees with the documented findings, assessment, and plan of care. Objective - Vital Signs Vital signs: Vital Signs Temp 98.1 F 11/02/21 08:00 Pulse 75 11/02/21 08:00 Resp 18 11/02/21 08:00 BP 130/78 11/02/21 08:00 Pulse Ox 96 11/02/21 08:00 Intake & Output 11/01/21 11/02/21 11/02/21 18:59 06:59 18:59 Intake Total 240 600 Balance 240 600 Weight 72.7 kg Intake: Oral 240 600 Other: # Voids 1 - Labs CBC & Chem 7: 11/02/21 08:19 11/02/21 08:19 Labs: Abnormal Lab Results - Last 24 Hours (Table) 11/01/21 11/01/21 11/02/21 Range/Units 16:33 20:23 06:20 WBC (3.8-10.6) k/uL Plt Count (150-450) k/uL Neutrophils # (1.3-7.7) k/uL Lymphocytes # (1.0-4.8) k/uL Sodium (137-145) mmol/L Chloride (98-107) mmol/L BUN (7-17) mg/dL Glucose (74-99) mg/dL POC Glucose (mg/dL) 118 H 172 H 126 H (75-99) mg/dL 11/02/21 11/02/21 11/02/21 Range/Units 08:19 08:19 11:43 WBC 13.5 H (3.8-10.6) k/uL Plt Count 632 H (150-450) k/uL Neutrophils # 12.6 H (1.3-7.7) k/uL Lymphocytes # 0.3 L (1.0-4.8) k/uL Sodium 130 L (137-145) mmol/L Chloride 97 L (98-107) mmol/L BUN 29 H (7-17) mg/dL Glucose 164 H (74-99) mg/dL POC Glucose (mg/dL) 144 H (75-99) mg/dL Microbiology - Last 24 Hours (Table) 10/20/21 14:00 Acid Fast Bacilli Smear - Final Pleural Fluid Acid Fast Bacilli Culture - Preliminary
[2021-11-02 15:03] VITALS: BP 122/75; PULSE 71
--- NOTE | 2021-11-02 15:45 | P.PN ---
Subjective Progress Note Date: 11/02/21 85-year-old white female patient with a recent history of hypertension, hypothyroidism, lifetime nonsmoker. Patient had a recent event for which she was hospitalized and was transferred from an outside facility. She was complaining of shortness of breath at the time, her EKG showed ST segment elevation in the precordial leads, and subsequently patient received TPA. She was transferred to this institution on 09/09/2021 and underwent cardiac catheterization that showed no significant obstructive CAD, right dominant system and normal filling pressures. She was discharged home on 09/10/2021. She lives in [place], she follows with Dr. Angeles in [facility]. She states she is normally healthy, no history of diabetes mellitus, she is a lifetime nonsmoker, no chronic lung disease. Following her hospitalization patient started developing shortness of breath. She also noticed increased s welling in bilateral lower extremities, she denied any cough, no fever or chills, no chest pain. She is complaining of significant orthopnea. She has difficulty ambulating related to shortness of breath. She came into the hospital for reevaluation on 10/18/2021. Chest x-ray on admission showed c ongested bilateral pulmonary vasculature with bilateral basal pulmonary atelectasis and bilateral pleural effusions obscuring the previously seen diaphragmatic hernia. Chest significant swelling in her bilateral lower extremities. She was started on diuretics by cardiology. On today's exam she states she is feeling slightly better however still short of breath and cannot lie flat and last night she was having difficult time breathing. She is on room air with pulse ox of 96%, she is afebrile, blood pressure stable. She short of breath with exertion. Echocardiogram was completed showing preserved LV function of 55-60%, and small generalized pericardial effusion. EKG showed sinus tachycardia with first-degree AV block. Lab evaluation showed normal white count of 9.8, hemoglobin of 12.3, platelet count is 587, INR of 1.0, sodium is 1:30, potassium is 4.0, chloride is 96, CO2 is 25, BUN is 14 creatinine 0.51. Troponin was less than 0.012, alkaline phosphatase was 128, AST and ALT were within normal limits, proBNP was 557. CRP is 7.2. Bilateral lower extremity Dopplers showed no evidence of DVT, however the exam was positive for superficial venous thrombosis involving the bilateral small saphenous veins. CTA chest is ordered and is pending at this time. On 10/20/2021 patient seen in follow-up on selective care unit. She states last night she again had significant dyspnea, today she is sitting up unassisted bed, leaning on the table in the tripod position. She states she feels better and breathing easier and disposition. Is on room air pulse ox is 96%, lung sounds are diminished at the bases. She's been afebrile, no cough, no cough with chest discomfort. CTA chest has been completed showing no major central pulmonary embolism and very large hiatal/diaphragmatic hernia containing the entire stomach, portion of the duodenum, large portion of the transverse colon and possibly small bowel loops in addition to peritoneal fat. It is causing significant mass effect on the heart and the GC lungs, and there associated large right and moderate left pleural effusions. Ultrasound of the chest revealed right pleural effusion pocket measuring 14.3 cm, and left pleural effusion pocket of 3.7 cm. Patient remains on IV diuretics. Metoprolol balance is difficult to estimate, but her weight is down by 5 kg according to the recorded weights in the EMR, lower extremity edema still remains although improved. His labs have been reviewed by blood cell count is 8.5, hemoglobin is 12.5, serum sodium is 129, potassium is 4.2, BUN is 10 and creatinine 0.52. On 10/21/2021 patient seen in follow-up on selective care unit. She states she is breathing much easier since the right-sided thoracentesis yesterday with removal of 1.7 L of pleural fluid and pleural fluid analysis showed exudative fluid, pleural fluid cultures and cytology are pending. Patient was seen by general surgery and underwent EGD today with biopsies. The stomach appeared to be in the intrathoracic position. The plan is for possible surgery for repair of a very large hiatal and diaphragmatic hernia possibly and 10/25/2021. Patient continues on IV diuretics, lower extremity edema is improving, ultrasound the chest does not show significant fluid on the left side. On 10/22/2021 patient seen in follow-up on selective care unit. She is resting comfortably in bed, remains pulse ox is 95%, she states that time that she still has some difficulty breathing, but no acute distress and overall her breathing is improved since admission. Lower extremity edema has significantly improved. She remains on Lasix 20 mg twice daily. Pleural fluid analysis showed exudative fluid, not consistent with CHF. Overall fluid volume status has improved. She is in -580 mL negative net fluid balance over the last 24 hours. Pleural fluid cytology and cultures are pending. Vital signs have been stable. Today's labs have been reviewed, sodium is 129, potassium is 4.5, chloride is 94, BUN is 9 creatinine 0.52. Patient had EGD with biopsies yesterday. Surgical services are following, and the plan is to proceed with hernia repair on Monday On 11/01/2021 patient seen in follow-up on selective care unit. She is awake and alert, in no acute distress, she is status post large paraesophageal hernia repair, postoperative day #6. Patient had bilateral pleural effusions, right greater than left, status post right-sided thoracentesis 2, and pleural fluid was exudative in nature, negative cultures and cytology. On today's exam she is breathing comfortably, her last chest x-ray from 10/28/2021 showed persistent bilateral pleural effusions, which were improved compared the previous x-ray, no evidence of pneumothorax. Patient is on room air, pulse ox is 97%. Her diuretics have been discontinued, she currently remains on Decadron for severe hesitancy noted on the upper GI. She remains on pain medications as needed, patient denies any nausea or vomiting, no difficulty swallowing, she is tolerating full liquid diet. She is passing gas, and she she had a bowel movement. 11/02/2021, the patient is doing well. The patient is stable. No specific complaints. The patient is on room air oxygen. A repeat chest x-ray was done and showed a persistent small to moderate-sized right-sided pleural effusion. Noted the patient has over the undergone thoracentesis of the right lung and the pleural fluid cytology was negative for malignancy. Otherwise, the patient is doing well on room air oxygen. BUN is at 27 with a creatinine of 0.7. The white cell count is at 13.4 with a hemoglobin of 13. She is tolerating the diet. No nausea. No vomiting. No emesis. Surgical sites of dry clean and intact. No other significant events over the past 24 hours and the patient's condition stable for now. Objective - Vital Signs Vital signs: Vital Signs Temp 98.1 F 11/02/21 08:00 Pulse 71 11/02/21 14:00 Resp 18 11/02/21 12:00 BP 122/75 11/02/21 12:00 Pulse Ox 97 11/02/21 12:00 Intake & Output 11/01/21 11/02/21 11/02/21 18:59 06:59 18:59 Intake Total 240 600 Balance 240 600 Weight 72.7 kg Intake: Oral 240 600 Other: # Voids 1 - Exam GENERAL EXAM: Alert, very pleasant, 85-year-old white female on room air with a pulse ox of 96%, comfortable in no apparent distress. HEAD: Normocephalic/atraumatic. EYES: Normal reaction of pupils, equal size. Conjunctiva pink, sclera white. NOSE: Clear with pink turbinates. THROAT: No erythema or exudates. NECK: No masses, mild bilateral JVD, no thyroid enlargement, no adenopathy. CHEST: No chest wall deformity. Symmetrical expansion. LUNGS: Equal air entry with no crackles, wheeze, rhonchi or dullness. CVS: Regular rate and rhythm, normal S1 and S2, no gallops, no murmurs, no rubs ABDOMEN: Soft, nontender. No hepatosplenomegaly, normal bowel sounds, no guarding or rigidity. EXTREMITIES: No clubbing, 1+ lower extremity no cyanosis, 2+ pulses and upper and lower extremities. MUSCULOSKELETAL: Muscle strength and tone normal. SPINE: No scoliosis or deformity SKIN: No rashes CENTRAL NERVOUS SYSTEM: Alert and oriented -3. No focal deficits, tone is normal in all 4 extremities. PSYCHIATRIC: Alert and oriented -3. Appropriate affect. Intact judgment and insight. - Labs CBC & Chem 7: 11/02/21 08:19 11/02/21 08:19 Labs: Abnormal Lab Results - Last 24 Hours (Table) 11/01/21 11/01/21 11/02/21 Range/Units 16:33 20:23 06:20 WBC (3.8-10.6) k/uL Plt Count (150-450) k/uL Neutrophils # (1.3-7.7) k/uL Lymphocytes # (1.0-4.8) k/uL Sodium (137-145) mmol/L Chloride (98-107) mmol/L BUN (7-17) mg/dL Glucose (74-99) mg/dL POC Glucose (mg/dL) 118 H 172 H 126 H (75-99) mg/dL 11/02/21 11/02/21 11/02/21 Range/Units 08:19 08:19 11:43 WBC 13.5 H (3.8-10.6) k/uL Plt Count 632 H (150-450) k/uL Neutrophils # 12.6 H (1.3-7.7) k/uL Lymphocytes # 0.3 L (1.0-4.8) k/uL Sodium 130 L (137-145) mmol/L Chloride 97 L (98-107) mmol/L BUN 29 H (7-17) mg/dL Glucose 164 H (74-99) mg/dL POC Glucose (mg/dL) 144 H (75-99) mg/dL Microbiology - Last 24 Hours (Table) 10/20/21 14:00 Acid Fast Bacilli Smear - Final Pleural Fluid Acid Fast Bacilli Culture - Preliminary Assessment and Plan Plan: Assessment: #1. Shortness of breath, multifactorial, related to a very large hiatal/diaphragmatic hernia causing significant mass effect on the heart and lungs, and bilateral pleural effusions, right greater than left, status post right-sided thoracentesis on 10/20/2021 would removal of 1.7 L of pleural fluid which was sent for analysis showing exudative fluid. Pleural fluid cultures and cytology are negative. Repeat chest x-ray shows a small to moderate-sized stable right-sided pleural effusion, unchanged and the findings are remaining stable for now. Pleural fluid cytology is been negative. #2. Large hiatal/diaphragmatic hernia, status post EGD, showing the stomach entirely in the intrathoracic position. General surgery following, possible hernia repair on 10/25/2021 #3. Recent history of TPA administration for abnormal EKG, and cardiac catheterization on 09/09/2021 that showed mild CAD #4. Moderate generalized pericardial effusion improved on echocardiogram on this admission #5. Lower extremity edema, no evidence of DVT, but lower extremity Doppler showed SVT bilaterally #6. Lifetime nonsmoker #7. Hypothyroidism #8. Hypertension #9. Urinary incontinence Plan: Follow-up chest x-ray in the morning was done and this was noted Encourage deep breathing and coughing The patient will be discharged home today and the patient will be asked to continue using incentive spirometer Outpatient follow-up chest x-ray will be done in few weeks time to monitor on the right-sided pleural effusion Surgical wound site is dry clean and intact The patient is doing well. The patient is stable. No need for outpatient diuretics.
--- NOTE | 2021-11-02 19:43 | P.DS ---
Providers Date of admission: 10/18/21 15:50 Expected date of discharge: 11/02/21 Attending physician: Clifton Abdul Consults: 10/18/21 15:51 Consult Physician Routine Consulting Provider: Jorge L Tilley Consult Reason/Comments: New onset HF Do you want consulting provider notified?: Yes 10/19/21 09:26 Consult Physician Routine Consulting Provider: Mike Hill Consult Reason/Comments: Shortness of breath, normal LV function, No CAD Do you want consulting provider notified?: Yes 10/20/21 08:52 Consult Physician Routine Consulting Provider: Dorian Brush Consult Reason/Comments: lg diaphragmatic hernia Do you want consulting provider notified?: Yes Primary care physician: Adia Angeles [facility] Course: Chief Complaint: Short of breath This is a very pleasant 85-year-old patient who follows with Dr. Adia Angeles. Chronic stable medical conditions include hypertension, hypothyroid, urinary incontinence and wears diapers, hard of hearing. Large hiatal hernia 10/06/2021 patient was here with some chest pressure.cardiac catheterization by Dr. CHELO Babin. No significant CAD. Patient may have had an element of pericarditis. 2-D echo showed some pericardial effusion Patient was doing well upon discharge. The last few days patient started having progressively increasing shortness of breath. No fever no chills. Increasing lower extremity edema. Not able to eat when fall. Tired rundown. Orthopnea. October 19: Sitting at the edge of the bed. Legs hanging. Helps his breathing. Pulmonary consulted. 2-D echo showed small pericardial effusion. VQ scan ordered to rule out more peripheral emboli. October 20: Sitting of the edge of the bed. is present. CT chest showed a very large diaphragmatic hernia causing a significant mass effect on the heart of the lungs. Large right pleural effusion. The hernia containing stent diastolic. Also there is large portion of the transverse colon and small bowel loops. Has incomplete collapse and loss of volume of the right lower lobe and to lesser extent left lower lobe. Did complete collapse of the middle lobe. 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 Osteopenia.1800 mL of right thoracentesis was done by Dr. Hill. EGD done by Dr. Brush. October 25: Surgery: Large paraesophageal hernia with intrathoracic stomach approximately half a small bowel and transverse colon. Post surgery patient gradually improved. Increasing activity. Diet was discussed. Repeat chest x-rays showed improved atelectasis. November 02: Patient feeling well. Sodium better. Up to the bathroom. Questions answered. No nausea vomiting. Will follow with surgery upon discharge Discussion and discharge planning more than 35 minutes Past medical history to include: Hypertension, hypothyroid, urinary incontinence, hard of hearing, pericarditis, hiatal hernia Social history: No history of smoking or alcohol. Lives with her . Family history: Reviewed, noncontributory to presentation Physical examination: VITAL SIGNS: 88.1, 71, 18, 122/75, 97% room air GENERAL: Reclining in chair, comfortable EYES: Pupils equal. Conjunctiva normal. HEENT: External appearance of nose and ears normal, oral cavity grossly normal. NECK: JVD or possibly; masses not palpable. HEART: First and second heart sounds are normal; edema decreased LUNGS: Respiratory rate normal, decreased breath sounds at base ABDOMEN: Soft, mild tenderness, liver spleen not palpable, no masses palpable. PSYCH: Alert and oriented x3; mood and affect normal. MUSCULOSKELETAL:No Clubbing/cyanosis;muscles-grossly intact. Evidence of OA. INVESTIGATIONS, reviewed in the clinical context: November 02: 113.5 hemoglobin 13 632 sodium 1:30 potassium 4.7 creatinine 0.[address] chest showed a very large diaphragmatic hernia causing a significant mass effect on the heart of the lungs. Large right pleural effusion. The hernia containing entire stomach. Also there is large portion of the transverse colon and small bowel loops. Has incomplete collapse and loss of volume of the right lower lobe and to lesser extent left lower lobe. Did complete collapse of the middle lobe. 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 October 20: White count 8.5 hemoglobin 12.5 platelets 656 sodium 129 potassium 4.2 creatinine 0.5 to Limited 2-D echocardiogram: Moderate concentric LVH. Moderate TR. EF 55-60%. Venous Doppler: Negative for DVT White count 9.8 hemoglobin 12.3 platelets 587 sodium 1:30 potassium 4 BUN 14 creatinine 0.51 troponin I less than 0.012 proBNP 557 albumin 3.1 EKG tracing personally reviewed by me-sinus tachycardia. Right bundle branch block pattern. Nonspecific ST/T-wave changes. Chest x-ray film personally reviewed by me-pulmonary edema. Heart hernia. Recent investigations [September 2021] Cardiac catheterization: Minimal CAD 2-D echocardiogram: EF 55-60%. Some wall motion abnormality. Moderate generalized pericardial effusion. Marleny-Huynh viral serology: Negative Assessment and plan: -Very large diaphragmatic hernia causing the entire stomach to be in the chest including bowel loops. Surgery: Large paraesophageal hernia with intrathoracic stomach approximately half a small bowel and transverse colon. By Dr. Brush on October 25. Tolerating full liquids -Multilobe atelectasis secondary to large hiatal hernia and pleural effusion.: Improved Incentive spirometry -Chronic T11 vertebral body collapse Pain management -Large right pleural effusion. Right thoracentesis 1.7 L removed on October [address] Hill. Culture negative. Exudate .-Collapse right lower lobe, right middle lobe, and left lower lobe.: Improved following surgery Follow with pulmonary. -Primary osteoarthritis multiple joints Pain medications if needed -Chronic urinary stress incontinence -Hypothyroid Synthroid 112 g a day -Essential hypertension Lopressor 25 mg twice a day -Hyponatremia: Hypoosmolar: Better Increase Solute intake. Fluid restriction.. Disposition: Home Plan - Discharge Summary Discharge Rx Participant: Yes New Discharge Prescriptions: New predniSONE 10 mg PO DAILY #30 tab Tamsulosin [Flomax] 0.4 mg PO DAILY #30 cap Levofloxacin [Levaquin] 500 mg PO DAILY 7 Days #7 tab Continue Levothyroxine Sodium [Synthroid] 112 mcg PO DAILY Aspirin 81 mg PO DAILY Metoprolol Tartrate [Lopressor] 25 mg PO BID #60 tab Glucosamine HCl/Chondroitin Joseph [Glucosamine-Chondroitin Cap] 1 cap PO BID Cholecalciferol [Vitamin D3 (25 Mcg = 1000 Iu)] 25 mcg PO DAILY Multivit-Min/FA/Lycopen/Lutein [Centrum Silver Tablet] 1 tab PO DAILY Ibandronate Sodium [Boniva] 150 mg PO Q30D Calcium Carbonate [Calcium] 600 mg PO DAILY Nitroglycerin Sl Tabs [Nitrostat] 0.4 mg SL Q5M PRN PRN Reason: Chest Pain Discharge Medication List Ibandronate Sodium [Boniva] 150 mg PO Q30D 09/09/21 [History] Levothyroxine Sodium [Synthroid] 112 mcg PO DAILY 09/09/21 [History] Aspirin 81 mg PO DAILY 09/10/21 [Rx] Metoprolol Tartrate [Lopressor] 25 mg PO BID #60 tab 09/10/21 [Rx] Calcium Carbonate [Calcium] 600 mg PO DAILY 10/18/21 [History] Cholecalciferol [Vitamin D3 (25 Mcg = 1000 Iu)] 25 mcg PO DAILY 10/18/21 [History] Glucosamine HCl/Chondroitin Joseph [Glucosamine-Chondroitin Cap] 1 cap PO BID 10/18/21 [History] Multivit-Min/FA/Lycopen/Lutein [Centrum Silver Tablet] 1 tab PO DAILY 10/18/21 [History] Nitroglycerin Sl Tabs [Nitrostat] 0.4 mg SL Q5M PRN 10/18/21 [History] Levofloxacin [Levaquin] 500 mg PO DAILY 7 Days #7 tab 11/02/21 [Rx] Tamsulosin [Flomax] 0.4 mg PO DAILY #30 cap 11/02/21 [Rx] predniSONE 10 mg PO DAILY #30 tab 11/02/21 [Rx] Follow up Appointment(s)/Referral(s): [facility] [NON-STAFF] - Mike Hill MD [STAFF PHYSICIAN] - 11/25/21 3:30 pm (Your pulmonary follow-up appointment is with nurse practitioner Terri Mosquera. ) Reed Watson MD [STAFF PHYSICIAN] - 1 Week (Office will call you to set up a cardiology follow-up appointment with Dr. Watson.) Adia Angeles MD [Primary Care Provider] - 11/08/21 10:45 am (Your follow-up appointment is with Dr. Angeles.) Dorian Brush MD [STAFF PHYSICIAN] - 11/09/21 3:30 pm (Your surgical follow-up appointment is with Dr. Brush.) Patient Instructions/Handouts: Hiatal Hernia (DC), Full Liquid Diet (DC) Activity/Diet/Wound Care/Special Instructions: No lifting over 10 pounds Shower daily. No soaking or tub baths for 2 weeks Very light activity until you are reevaluated at your follow up appointment with your surgeon Continue full liquid diet until seen by surgeon Discharge Disposition: HOME SELF-CARE
== END 2021-11-02 18:20 | disposition home health service (06) | DRG 327 ==
LOC: EC 13:22 → 3SCARD 15:50
PROVIDERS: ADMIT Hospitalist; ATTEND Hospitalist
PROC: 0W993ZX Drainage of Right Pleural Cavity, Percutaneous Approach, Diagnostic (ICD-10-PCS; 2021-10-20)
PROC: 0DB48ZX Excision of Esophagogastric Junction, Via Natural or Artificial Opening Endoscopic, Diagnostic (ICD-10-PCS; 2021-10-21)
PROC: 0DB78ZX Excision of Stomach, Pylorus, Via Natural or Artificial Opening Endoscopic, Diagnostic (ICD-10-PCS; 2021-10-21)
PROC: 0W993ZZ Drainage of Right Pleural Cavity, Percutaneous Approach (ICD-10-PCS; 2021-10-24)
PROC: 0BUT4JZ Supplement Diaphragm with Synthetic Substitute, Percutaneous Endoscopic Approach (ICD-10-PCS; principal; 2021-10-25 13:45)
DX: K44.9 Diaphragmatic hernia without obstruction or gangrene (principal); J90 Pleural effusion, not elsewhere classified; I31.3 Pericardial effusion (noninflammatory); E87.1 Hypo-osmolality and hyponatremia; I82.813 Embolism and thrombosis of superficial veins of lower extremities, bilateral; J98.11 Atelectasis; K91.71 Accidental puncture and laceration of a digestive system organ or structure during a digestive system procedure; D75.839 Thrombocytosis, unspecified; M48.54XS Collapsed vertebra, not elsewhere classified, thoracic region, sequela of fracture; T81.82XA Emphysema (subcutaneous) resulting from a procedure, initial encounter; I44.0 Atrioventricular block, first degree; I45.10 Unspecified right bundle-branch block; E03.9 Hypothyroidism, unspecified; I10 Essential (primary) hypertension; I25.10 Atherosclerotic heart disease of native coronary artery without angina pectoris; M15.9 Polyosteoarthritis, unspecified; N39.3 Stress incontinence (female) (male); H91.90 Unspecified hearing loss, unspecified ear; F41.9 Anxiety disorder, unspecified; G47.00 Insomnia, unspecified; K21.9 Gastro-esophageal reflux disease without esophagitis; K59.00 Constipation, unspecified; M85.80 Other specified disorders of bone density and structure, unspecified site; R13.10 Dysphagia, unspecified; R26.2 Difficulty in walking, not elsewhere classified; I83.90 Asymptomatic varicose veins of unspecified lower extremity; Z79.82 Long term (current) use of aspirin; Z79.83 Long term (current) use of bisphosphonates; Z79.890 Hormone replacement therapy; Z79.899 Other long term (current) drug therapy; Z90.89 Acquired absence of other organs; Z96.1 Presence of intraocular lens; Z98.42 Cataract extraction status, left eye; Z98.41 Cataract extraction status, right eye; Z98.890 Other specified postprocedural states; Z71.3 Dietary counseling and surveillance; Y83.4 Other reconstructive surgery as the cause of abnormal reaction of the patient, or of later complication, without mention of misadventure at the time of the procedure; Y92.234 Operating room of hospital as the place of occurrence of the external cause
CPT/HCPCS: 36415; 43239; 71045; 71046; 71275; 74210; 76604; 80048; 80053; 82945; 83605; 83615; 83735; 83880; 83930; 84155; 84157; 84484; 85025; 85610; 85652; 85730; 86038; 86039; 86140; 87070; 87075; 87102; 87116; 87205; 87206; 87252; 87496; 87498; 87502; 87529; 87634; 87798; 88108; 88305; 89050; 93005; 93308; 93970; 94002; 94760; 96372; 96374; 99285

== ENCOUNTER 2021-11-29 17:03 | Observation (INO) | payer MEDICARE ==
[2021-11-29] MEDS ORDERED: FUROSEMIDE 10 MG/ML 4 ML VIAL IV STA (19:27)
--- NOTE | 2021-11-29 19:30 | ED ---
SOB HPI - General Chief Complaint: Shortness of Breath Stated Complaint: SOB Time Seen by Provider: 11/29/21 17:12 Source: patient, EMS Mode of arrival: EMS Limitations: no limitations - History of Present Illness Initial Comments: 86-year-old female with past medical history of hypertension, thyroid disorder presents to the emergency room with shortness of breath. Patient was recently hospitalized in September for possible new onset heart failure. She had a echo and heart catheterization. Patient had no coronary disease. Echo was relatively preserved. She was discharged home and returned in October. She had repair of her hiatal hernia as there was some consideration that her shortness of breath might be due to the hiatal hernia. She additionally had thoracentesis 2 for pleural effusions. She was discharged home in spironolactone. Has been taking her medications as directed and began having shortness of breath starting this past weekend. [facility] Patient was found to have a sodium of 125. They did perform CT of the chest abdomen and pelvis which demonstrated moderate bilateral pleural effusions. Patient requested transfer back to our facility for pulmonology care. - Related Data Home Medications Medication Instructions Recorded Confirmed Ibandronate Sodium [Boniva] 150 mg PO Q30D 09/09/21 12/03/21 Cholecalciferol [Vitamin D3 (25 25 mcg PO DAILY 10/18/21 12/03/21 Mcg = 1000 Iu)] Multivit-Min/FA/Lycopen/Lutein 1 tab PO DAILY 10/18/21 12/03/21 [Centrum Silver Tablet] Nitroglycerin Sl Tabs [Nitrostat] 0.4 mg SL Q5M PRN 10/18/21 12/03/21 Previous Rx's Medication Instructions Recorded Aspirin 81 mg PO DAILY 09/10/21 Metoprolol Tartrate [Lopressor] 25 mg PO BID #60 tab 09/10/21 Acetaminophen Tab [Tylenol] 650 mg PO Q6HR PRN tab 12/02/21 Levothyroxine Sodium [Synthroid] 125 mcg PO DAILY@0630 30 Days #30 12/02/21 tab Allergies Allergy/AdvReac Type Severity Reaction Status Date / Time No Known Allergies Allergy Verified 12/03/21 08:58 Review of Systems ROS Statement: Those systems with pertinent positive or pertinent negative responses have been documented in the HPI. ROS Other: All systems not noted in ROS Statement are negative. Past Medical History Past Medical History: Hypertension, Thyroid Disorder, Vascular Disorder Additional Past Medical History / Comment(s): Pt states she is on Ibandronate for prevention of osteoporosis but bone density has been normal, varicose veins/surgery. History of Any Multi-Drug Resistant Organisms: None Reported Past Surgical History: Hernia Repair, Tonsillectomy Additional Past Surgical History / Comment(s): Varicose veins 1978, colonoscopy, bilateral cataract removals/lens implants. Past Anesthesia/Blood Transfusion Reactions: No Reported Reaction Past Psychological History: No Psychological Hx Reported Smoking Status: Never smoker - Past Family History Father Family Medical History: No Reported History Additional Family Medical History / Comment(s): Pt states her father was healthy and lived into his late 80s. Mother Family Medical History: No Reported History Additional Family Medical History / Comment(s): Pt states her mother was healthy and lived into her late 80s. General Exam Limitations: no limitations General appearance: alert, in no apparent distress Head exam: Present: atraumatic, normocephalic, normal inspection Eye exam: Present: normal appearance, PERRL, EOMI. Absent: scleral icterus, conjunctival injection, periorbital swelling ENT exam: Present: normal exam, mucous membranes moist Neck exam: Present: normal inspection. Absent: tenderness, meningismus, lymphadenopathy Respiratory exam: Present: rales. Absent: respiratory distress, wheezes, rhonchi, stridor Cardiovascular Exam: Present: regular rate, normal rhythm, normal heart sounds. Absent: systolic murmur, diastolic murmur, rubs, gallop, clicks GI/Abdominal exam: Present: soft, normal bowel sounds. Absent: distended, tenderness, guarding, rebound, rigid Extremities exam: Present: normal inspection, full ROM, normal capillary refill. Absent: tenderness, pedal edema, joint swelling, calf tenderness Back exam: Present: normal inspection Neurological exam: Present: alert, oriented X3, CN II-XII intact Psychiatric exam: Present: normal affect, normal mood Skin exam: Present: warm, dry, intact, normal color. Absent: rash Course Vital Signs 11/29/21 11/29/21 11/29/21 17:06 19:35 23:35 Temperature 97.7 F Pulse Rate 94 74 96 Respiratory 18 20 18 Rate Blood Pressure 137/84 111/70 114/80 O2 Sat by Pulse 97 96 94 L Oximetry 11/30/21 11/30/21 02:46 06:24 Temperature Pulse Rate 85 71 Respiratory 16 13 Rate Blood Pressure 116/72 111/75 O2 Sat by Pulse 95 96 Oximetry Medical Decision Making - Medical Decision Making Upon arrival patient is placed into room 1. A thorough history and physical exam was performed. I reviewed the patient's packet. Repeated thyroid studies. Patient was given 40 mg of Lasix. I spoke with Chacorta from [facility] who agreed to admit the patient. I will place cardiology and pulm on consult. Patient waiting on the floor in stable condition - Lab Data Result diagrams: 11/30/21 07:28 12/02/21 06:45 Lab Results 11/29/21 11/29/21 Range/Units 17:59 18:13 NT-Pro-B Natriuret Pep 230 pg/mL TSH 6.100 H (0.465-4.680) mIU/L Free T4 1.70 (0.78-2.19) ng/dL Disposition Clinical Impression: Bilateral pleural effusion, Respiratory insufficiency, Hyponatremia Disposition: ADMITTED IP TO THIS HOSP Condition: Stable Is patient prescribed a controlled substance at d/c from ED?: No Time of Disposition: 19:30 Decision to Admit Reason: Admit from EC Decision Date: 11/29/21 Decision Time: 19:30
[2021-11-29] MEDS ORDERED: NALOXONE 0.4 MG/ML 1 ML VIAL IV PRN (19:38)
[2021-11-30] MEDS ORDERED: LEVOTHYROXINE 112 MCG TAB PO SCH (06:30)
[2021-11-30] MEDS: SPIRONOLACTONE 25 MG TAB PO SCH (08:08)
[2021-11-30] MEDS: METOPROLOL TARTRATE 25 MG TAB PO SCH ×2 (08:09→20:27)
[2021-11-30] MEDS: TAMSULOSIN 0.4 MG CAP.ER.24H PO SCH (08:09)
[2021-11-30] MEDS: ASPIRIN 81 MG PO SCH (08:09)
[2021-11-30] MEDS ORDERED: FUROSEMIDE 10 MG/ML 4 ML VIAL IV STA (08:59)
--- NOTE | 2021-11-30 10:11 | P.CRDCN ---
History of Present Illness History of present illness: HISTORY OF PRESENTING ILLNESS This is a pleasant 86-year-old female past medical history significant for hypertension, pericardial effusion, recurrent pleural effusions, hypothyroidism, large hiatal hernial s/p laparoscopic paraesophageal hernia repair on 10/25/2021 She follows in the office with Dr. Watson. We have been asked to see the patient in consultation for bilateral pleural effusions. Patient presents to [facility] as a transfer from [place]. Patient presented to [facility] with complaints of dyspnea on exertion, increased shortness of breath for the past couple days. She also endorses some generalized weakness. She denies any chest pain, palpitations, lightheadedness, dizziness, abdominal pain, nausea or vomiting. At [place] patient underwent chest x-ray which the report revealed small to moderate bilateral pleural effusions. she then underwent a CT chest/abdomen/pelvis, report revealed moderate bilateral pleural effusions, underlying mild emphysema, some mild groundglass atelectasis. Heart upper limits of normal in size without pericardial effusion. labs revealed a sodium of 125. TSH 6.15. Troponin negative. Patient was recently admitted in October 2021 with large hiatal/diaphragmatic hernia causing significant mass effect on the heart and lungs, and bilateral pleural effusions. She did undergo right sided thoracentesis on 10/18/21, with 1750mL alessia color fluid removed. Pleural fluid analysis showed exudative fluid. Pleural fluid cultures and cytology were negative for malignancy. She underwent EGD, showing the stomach entirely in the intrathoracic position. She underwent laparoscopic paraesophageal hernia repair on 10/25/2021. Patient was stabilized and discharged home DIAGNOSTICS EKG at [place] revealed sinus tachycardia, heart rate 103, right bundle-branch block, nonspecific T waveabnormality. No acute ischemia. Laboratory reviewed, repeat labs pending. Troponin negative 2, proBNP 2:30, TSH 6.1, free T4 1 0.7 Current home medications include spironolactone 25 mg daily, metoprolol titrate 25 mg twice a day, Synthroid 112 g daily, aspirin 81 mg daily Cardiac catheterization 09/2021 revealed no evidence of significant coronary artery disease 10/18/2021 Echocardiogram this admission reveals EF 5560 % small generalized pericardial effusion, moderate concentric LVH REVIEW OF SYSTEMS At the time of my exam: CONSTITUTIONAL: Denies fever or chills. CARDIOVASCULAR: Denies chest pain, shortness of breath, orthopnea, PND or palpitations. RESPIRATORY: Denies cough. GASTROINTESTINAL: Denies abdominal pain, diarrhea, constipation, nausea or vomiting. MUSCULOSKELETAL: Denies myalgias. NEUROLOGIC: Denies numbness, tingling, headacbe or weakness. ENDOCRINE: Denies fatigue, weight change, polydipsia or polyurina. GENITOURINARY: Denies burning, hematuria or urgency with micturation. HEMATOLOGIC: Denies history of anemia or bleeding. PHYSICAL EXAMINATION Blood pressure 121/77, heart rate 83, afebrile, saturation 75% on room air CONSTITUTIONAL: No apparent distress. HEENT: Head is normocephalic. Pupils are equal, round. Sclerae anicteric. Mucous membranes of the mouth are moist. No JVD. No carotid bruit. CHEST EXAMINATION: Lungs are clear to auscultation. No chest wall tenderness is noted on palpation or with deep breathing. HEART EXAMINATION: Regular rate and rhythm. S1, S2 heard. Systolic murmur at apex. No gallops or rub. ABDOMEN: Soft, nontender. Positive bowel sounds. EXTREMITIES: 2+ peripheral pulses, no lower extremity edema and no calf tenderness. NEUROLOGIC EXAMINATION: Patient is awake, alert and oriented x3. ASSESSMENT Shortness of breath Bilateral pleural effusions Hypothyroidism History of pleural effusions s/p prior thoracentesis right 10/18/2021, Pleural fluid cultures and cytology were negative for malignancy History of large hiatal hernial s/p laparoscopic paraesophageal hernia repair on 10/25/2021 History of hypertension PLAN Patient does not appear to be in acute heart failure on exam Obtain 2D echocardiogram to assess for pericardial effusion Give 1 dose IV Lasix 40mg , monitor output Repeat Labs Check free T3 Continue metoprolol tartrate, aspirin and spironolactone Pulmonary consulted, appreciate recommendations Further recommendations based on clinical course Nurse practitioner note has been reviewed by physician. Signing provider agrees with the documented findings, assessment, and plan of care. Past Medical History Past Medical History: Hypertension, Thyroid Disorder, Vascular Disorder Additional Past Medical History / Comment(s): Pt states she is on Ibandronate for prevention of osteoporosis but bone density has been normal, varicose veins/surgery. History of Any Multi-Drug Resistant Organisms: None Reported Past Surgical History: Hernia Repair, Tonsillectomy Additional Past Surgical History / Comment(s): Varicose veins 1978, colonoscopy, bilateral cataract removals/lens implants. Past Anesthesia/Blood Transfusion Reactions: No Reported Reaction Past Psychological History: No Psychological Hx Reported Smoking Status: Never smoker - Past Family History Father Family Medical History: No Reported History Additional Family Medical History / Comment(s): Pt states her father was healthy and lived into his late 80s. Mother Family Medical History: No Reported History Additional Family Medical History / Comment(s): Pt states her mother was healthy and lived into her late 80s. Medications and Allergies Home Medications Medication Instructions Recorded Confirmed Type Ibandronate Sodium [Boniva] 150 mg PO Q30D 09/09/21 11/29/21 History Levothyroxine Sodium [Synthroid] 112 mcg PO DAILY 09/09/21 11/29/21 History Aspirin 81 mg PO DAILY 09/10/21 11/29/21 Rx Metoprolol Tartrate [Lopressor] 25 mg PO BID #60 tab 09/10/21 11/29/21 Rx Cholecalciferol [Vitamin D3 (25 25 mcg PO DAILY 10/18/21 11/29/21 History Mcg = 1000 Iu)] Multivit-Min/FA/Lycopen/Lutein 1 tab PO DAILY 10/18/21 11/29/21 History [Centrum Silver Tablet] Nitroglycerin Sl Tabs [Nitrostat] 0.4 mg SL Q5M PRN 10/18/21 11/29/21 History Tamsulosin [Flomax] 0.4 mg PO DAILY #30 cap 11/02/21 11/29/21 Rx Spironolactone 25 mg PO DAILY 11/29/21 11/29/21 History Allergies Allergy/AdvReac Type Severity Reaction Status Date / Time No Known Allergies Allergy Verified 11/29/21 19:43 Physical Exam Vitals: Vital Signs Temp Pulse Pulse Resp BP BP Pulse Ox 11/30/21 08:01 97.6 F 83 16 121/77 95 11/30/21 06:24 71 13 111/75 96 11/30/21 02:46 85 16 116/72 95 11/29/21 23:35 96 18 114/80 94 L 11/29/21 19:35 74 20 111/70 96 11/29/21 17:06 97.7 F 94 18 137/84 97 Intake and Output 11/29/21 11/30/21 11/30/21 22:59 06:59 14:59 Other: Voiding Method Diaper Weight 69.853 kg 63.3 kg Results Cardiac Enzymes 11/29/21 11/30/21 Range/Units 20:56 00:12 Troponin I <0.012 <0.012 (0.000-0.034) ng/mL Current Medications Generic Name Dose Route Start Last Admin Trade Name Freq PRN Reason Stop Dose Admin Aspirin 81 mg 11/30/21 09:00 11/30/21 08:09 Aspirin 81 Mg PO 81 mg DAILY RODRIGO Administration Levothyroxine Sodium 112 mcg 11/30/21 06:30 11/30/21 06:27 Levothyroxine 112 Mcg Tab PO 112 mcg DAILY@0630 RODRIGO Administration Metoprolol Tartrate 25 mg 11/30/21 09:00 11/30/21 08:09 Metoprolol Tartrate 25 Mg Tab PO 25 mg BID RODRIGO Administration Naloxone HCl 0.2 mg 11/29/21 19:38 Naloxone 0.4 Mg/Ml 1 Ml Vial IV Q2M PRN Opioid Reversal Spironolactone 25 mg 11/30/21 09:00 11/30/21 08:08 Spironolactone 25 Mg Tab PO 25 mg DAILY RODRIGO Administration Tamsulosin HCl 0.4 mg 11/30/21 09:00 11/30/21 08:09 Tamsulosin 0.4 Mg Cap.Er.24h PO 0.4 mg DAILY RODRIGO Administration Intake and Output 11/29/21 11/30/21 11/30/21 22:59 06:59 14:59 Other: Voiding Method Diaper Weight 69.853 kg 63.3 kg Patient Weight 12/01/21 06:59 Weight 63.3 kg
[2021-11-30 10:38] LABS: Basophils # (A) 0.04 X 10*3/uL (0.00-0.10); Basophils % (A) 0.9 %; Eosinophils # (A) 0.12 X 10*3/uL (0.04-0.35); Eosinophils % (A) 2.6 %; HCT 34.6 % (37.2-46.3); HGB 11.1 g/dL (12.0-15.0); Immature Grans, Automated 1.5 %; Lymphocytes # (A) 0.43 X 10*3/uL (0.90-5.00); Lymphocytes % (A) 9.2 %; MCH 29.6 pg (27.0-32.0); MCHC 32.1 g/dL (32.0-37.0); MCV 92.3 fL (80.0-97.0); Mean Platelet Volume 9.2 fL (9.5-12.2); Monocytes # (A) 0.53 X 10*3/uL (0.20-1.00); Monocytes % (A) 11.4 %; NRBC Per 100 WBC 0 /100 WBCS (0.0-0.0); Neutrophils # (A) 3.46 X 10*3/uL (1.80-7.70); Neutrophils % (A) 74.4 %; Platelet Count 530 X 10*3/uL (140-440); RBC 3.75 X 10*6/uL (4.10-5.20); RDW 17.4 % (11.5-14.5); WBC 4.65 X 10*3/uL (4.50-10.00)
[2021-11-30 10:49] LABS: Anion Gap 10.1 mmol/L (10.00-18.00); BUN/Creat Ratio 23.2 Ratio (12.00-20.00); Blood Urea Nitrogen 11.6 mg/dL (9.0-27.0); Calcium 8.8 mg/dL (8.7-10.3); Carbon Dioxide 24.9 mmol/L (20.0-27.5); Non-African American GFR(CKD) 88.9 (60.0-200.0)
--- NOTE | 2021-11-30 12:46 | P.CNPUL ---
History of Present Illness Consult date: 11/30/21 Reason for consult: dyspnea, pleural effusion History of present illness: 86-year-old female patient who came in again for worsening shortness of breath and the patient has bilateral pleural effusion. We met this patient approximately a month ago and the patient is status post endoscopic poor esophageal hernia repair was done on 10/25/2021. Following that, the patient developed pleural effusions and the patient underwent a right-sided thor acentesis 2 with removal of fluid in the order of 1.8 L and 0.85 L. The fluid analysis on 1 occasion basket turner to be an exudate based on the protein criteria. The fluid cytology was negative and the cultures were negative. The patient was discharged home to be readmitted back to the hospital because of worsening shortness of breath and a CAT scan of the chest was done at [facility] showing bilateral pleural effusion with compressive atelectatic changes in lung bases bilaterally. ProBNP level is 230, troponin test has been negative. The patient's TSH is elevated at 6.1 and the patient is currently on Synthroid. EKG showing sinus tachycardia. There is RV be. No acute ischemic changes. Previous echocardiogram showed a small pericardial effusion, generalized with moderate concentric LVH and ejection fraction of 55-60%. Currently that she is on room air oxygen. She received Lasix. She improved. Nevertheless, she is still complaining of shortness of breath and she is interested in pursuing the procedure again. Review of Systems CONSTITUTIONAL: Denies fever or chills. CARDIOVASCULAR: Denies chest pain, shortness of breath, orthopnea, PND or palpitations. RESPIRATORY: Denies cough. GASTROINTESTINAL: Denies abdominal pain, diarrhea, constipation, nausea or vomiting. MUSCULOSKELETAL: Denies myalgias. NEUROLOGIC: Denies numbness, tingling, headacbe or weakness. ENDOCRINE: Denies fatigue, weight change, polydipsia or polyurina. GENITOURINARY: Denies burning, hematuria or urgency with micturation. HEMATOLOGIC: Denies history of anemia or bleeding. Past Medical History Past Medical History: Hypertension, Thyroid Disorder, Vascular Disorder Additional Past Medical History / Comment(s): Pt states she is on Ibandronate for prevention of osteoporosis but bone density has been normal, varicose veins/surgery. History of bilateral pleural effusion with thoracentesis on the right 2 History of Any Multi-Drug Resistant Organisms: None Reported Past Surgical History: Hernia Repair, Tonsillectomy Additional Past Surgical History / Comment(s): Varicose veins 1978, colonoscopy, bilateral cataract removals/lens implants. Past Anesthesia/Blood Transfusion Reactions: No Reported Reaction Past Psychological History: No Psychological Hx Reported Smoking Status: Never smoker - Past Family History Father Family Medical History: No Reported History Additional Family Medical History / Comment(s): Pt states her father was healthy and lived into his late 80s. Mother Family Medical History: No Reported History Additional Family Medical History / Comment(s): Pt states her mother was healthy and lived into her late 80s. Medications and Allergies Home Medications Medication Instructions Recorded Confirmed Type Ibandronate Sodium [Boniva] 150 mg PO Q30D 09/09/21 11/29/21 History Levothyroxine Sodium [Synthroid] 112 mcg PO DAILY 09/09/21 11/29/21 History Aspirin 81 mg PO DAILY 09/10/21 11/29/21 Rx Metoprolol Tartrate [Lopressor] 25 mg PO BID #60 tab 09/10/21 11/29/21 Rx Cholecalciferol [Vitamin D3 (25 25 mcg PO DAILY 10/18/21 11/29/21 History Mcg = 1000 Iu)] Multivit-Min/FA/Lycopen/Lutein 1 tab PO DAILY 10/18/21 11/29/21 History [Centrum Silver Tablet] Nitroglycerin Sl Tabs [Nitrostat] 0.4 mg SL Q5M PRN 10/18/21 11/29/21 History Tamsulosin [Flomax] 0.4 mg PO DAILY #30 cap 11/02/21 11/29/21 Rx Spironolactone 25 mg PO DAILY 11/29/21 11/29/21 History Allergies Allergy/AdvReac Type Severity Reaction Status Date / Time No Known Allergies Allergy Verified 11/29/21 19:43 Physical Exam Vitals: Vital Signs Temp Pulse Pulse Resp BP BP Pulse Ox 11/30/21 11:29 97.6 F 71 16 115/74 94 L 11/30/21 08:01 97.6 F 83 16 121/77 95 11/30/21 06:24 71 13 111/75 96 11/30/21 02:46 85 16 116/72 95 11/29/21 23:35 96 18 114/80 94 L 11/29/21 19:35 74 20 111/70 96 11/29/21 17:06 97.7 F 94 18 137/84 97 Intake and Output 11/29/21 11/30/21 11/30/21 22:59 06:59 14:59 Other: Voiding Method Diaper Weight 63.3 kg 63.3 kg GENERAL EXAM: Alert, very pleasant, 85-year-old white female on room air with a pulse ox of 96%, comfortable in no apparent distress. HEAD: Normocephalic/atraumatic. EYES: Normal reaction of pupils, equal size. Conjunctiva pink, sclera white. NOSE: Clear with pink turbinates. THROAT: No erythema or exudates. NECK: No masses, mild bilateral JVD, no thyroid enlargement, no adenopathy. CHEST: No chest wall deformity. Symmetrical expansion. LUNGS: Equal air entry with no crackles, wheeze, rhonchi or dullness, the patient has diminished breath sounds in lung bases bilaterally.. CVS: Regular rate and rhythm, normal S1 and S2, no gallops, no murmurs, no rubs ABDOMEN: Soft, nontender. No hepatosplenomegaly, normal bowel sounds, no guarding or rigidity. EXTREMITIES: No clubbing, 1+ lower extremity no cyanosis, 2+ pulses and upper and lower extremities. MUSCULOSKELETAL: Muscle strength and tone normal. SPINE: No scoliosis or deformity SKIN: No rashes CENTRAL NERVOUS SYSTEM: Alert and oriented -3. No focal deficits, tone is normal in all 4 extremities. PSYCHIATRIC: Alert and oriented -3. Appropriate affect. Intact judgment and insight. Results - Laboratory Findings CBC and BMP: 11/30/21 07:28 11/30/21 07:28 Abnormal lab findings: Abnormal Labs 11/29/21 11/30/21 11/30/21 17:59 07:28 07:28 RBC 3.75 L Hgb 11.1 L Hct 34.6 L RDW 17.4 H Plt Count 530 H MPV 9.2 L Immature Gran # 0.07 H Lymphocytes # 0.43 L Sodium 132 L Creatinine 0.5 L BUN/Creatinine Ratio 23.20 H TSH 6.100 H - Diagnostic Findings Chest x-ray: image reviewed CT scan - chest: image reviewed Assessment and Plan Plan: 1. Shortness of breath with development of moderate-sized bilateral pleural effusion. The patient undergone previous thoracentesis on 10/20/2021 with removal of 1.8 L of pleural fluid from the right and the fluid was exudate based on protein criteria. Subsequently, the patient underwent another procedure with removal of 850 mL of pleural fluid. The fluid was not sent on the second occasion. I have suspicion that the patient has a diastolic heart failure. On the mid surprise with the exudative nature of the pleural fluids. Will redo another thoracentesis and will drain the left. We'll going to analyze the fluid again. Diuretics per cardiology. Echocardiogram was repeated. We'll continue to follow. No signs of any hypothyroidism. No other clear cause for recurrent pleural effusion. Pleural fluid cytology on previous evaluation was negative. 2. Large hiatal/diaphragmatic hernia, status post EGD, showing the stomach entirely in the intrathoracic position. General surgery following, possible hernia repair on 10/25/2021 3. Recent history of TPA administration for abnormal EKG, and cardiac catheterization on 09/09/2021 that showed mild CAD 4. small generalized pericardial effusion improved on echocardiogram on this admission 5. Lower extremity edema, no evidence of DVT, but lower extremity Doppler showed SVT bilaterally, recovered and the patient does not have any significant edema at this point in time 6. Lifetime nonsmoker 7. Hypothyroidism 8. Hypertension 9. Urinary incontinence graft plan We'll do another thoracentesis on the left and the fluid will be sent again for analysis. Recommend repeating an echocardiogram. We'll continue to follow.
--- NOTE | 2021-11-30 13:28 | XR ---
EXAMINATION TYPE: XR chest 1V DATE OF EXAM: 11/30/2021 COMPARISON: Chest x-ray 11/02/2021 HISTORY: Status post thoracentesis TECHNIQUE: Single frontal view of the chest is obtained. FINDINGS: I basilar increased attenuation persists, there is blunting of the costophrenic angles. He art is largely obscured, patient is rotated. No evident pneumothorax. Aorta is dense. There are overl luis antonio leads. There is a spinal curvature. IMPRESSION: No evident complication status post thoracentesis.
--- NOTE | 2021-11-30 14:32 | P.PCN ---
Date of Procedure: 11/30/21 Operative Findings: Date of Procedure: 11/30/21 Preoperative Diagnosis: Bilateral pleural effusion Postoperative Diagnosis: Bilateral pleural effusion Procedure(s) Performed: Left-sided thoracentesis Anesthesia: local Surgeon: Jose Chapa Pathology: other Condition: Operative Findings: A time out was performed and the chest x-ray was reviewed, the appropriate side was confirmed and marked. My hands were washed immediately prior to the procedure. I wore a surgical cap, mask with protective eyewear, sterile gown and sterile gloves throughout the procedure. The patient was prepped and draped in a sterile manner using chlorhexidine scrub after the appropriate level was percussed and confirmed by ultrasound. 1% lidocaine was used to anesthesize the skin, subcutaneous tissue, superior aspect of the rib periosteum and parietal pleura. A finder needle was then introduced over the superior aspect of the rib to locate the pleural fluid; 2colored fluid was aspirated at a depth of approximately 2 cm. A 10-blade scalpel was used to tommy the skin at the insertion site. The [id number] needle was then introduced through the skin incision into the pleural space using negative aspiration pressure and the red colometric indicator to confirm appropriate positioning of the needle. The thoracentesis catheter was then threaded without difficulty. 550 ml of turbid colored fluid was removed without difficulty. The catheter was then removed. No immediate complications were noted during the procedure. A post-procedure chest x-ray is pending at the time of this note. The fluid will be sent for studies. Estimated blood loss is 0cc
--- NOTE | 2021-11-30 14:38 | P.HPIM ---
History of Present Illness H&P Date: 11/30/21 This is an 86-year-old female presents to the emergency room with complaints of shortness of breath over the last 4-5 days, worse with exertion, she also reports generalized weakness. She was transferred from [place] where she initially presented. CT Chest/abdomen/pelvis completed at outside facility showed moderate bilateral pleural effusions, underlying mild emphysema, and mild groundglass opacities. No pericardial effusion noted on CT. Covid is negative. Significant medical history includes hypertension, hypothyroidism, vascular disorder. She was recently hospitalized in September for possible new-onset heart failure, echocardiogram completed at that time showed an EF of 55-60% with moderate concentric left ventricular hypertrophy, moderate tricuspid regurg and small generalized pericardial effusion. She also underwent cardiac catheterization which showed mild disease. Patient discharged home and had another hospitalization in October for laproscopic paraesophageal hernia repair which caused a mass effect on the heart. Patient underwent thoracentesis 2 for pleural effusions prior to surgery and discharged on aldactone during that hospital stay. Pleural fluid was found to be exudative at that time. There is likely some component of diastolic heart failure. She received a dose of IV lasix in the ER. Echocardiogram completed this morning and report is pending at this time. Patient is admitted with consults placed to cardiology and pulmonary. Labs here show troponin negative 2, BNP 230, TSH 6.100, free T4 1.70, COVID is not detected. Vitals on admission include temp 97.6, heart rate 83, blood pressure 121/77, 95% room air. REVIEW OF SYSTEMS: CONSTITUTIONAL: No fever, no malaise, no fatigue. HEENT: No recent visual problems or hearing problems. Denied any sore throat. CARDIOVASCULAR: No chest pain, orthopnea, PND, no palpitations, no syncope. PULMONARY: Reports shortness of breath worse with exertion. Denies cough, denies hemoptysis GASTROINTESTINAL: No diarrhea, no nausea, no vomiting, no abdominal pain. NEUROLOGICAL: No headaches, no weakness, no numbness. HEMATOLOGICAL: Denies any bleeding or petechiae. GENITOURINARY: Denies any burning micturition, frequency, or urgency. MUSCULOSKELETAL/RHEUMATOLOGICAL: Denies any joint pain, swelling, or any muscle pain. ENDOCRINE: Denies any polyuria or polydipsia. The rest of the 14-point review of systems is negative. PHYSICAL EXAMINATION: GENERAL: The patient is alert and oriented x3, not in any acute distress. Well developed, well nourished. HEENT: Pupils are round and equally reacting to light. EOMI. No scleral icterus. No conjunctival pallor. Normocephalic, atraumatic. No pharyngeal erythema. No thyromegaly. CARDIOVASCULAR: S1 and S2 present. No murmurs, rubs, or gallops. PULMONARY: Chest is clear to auscultation, no wheezing or crackles. Diminished bases ABDOMEN: Soft, nontender, nondistended, normoactive bowel sounds. No palpable organomegaly. Laproscopic post surgical incisions clean, approximated and healing. MUSCULOSKELETAL: No joint swelling or deformity. EXTREMITIES: No cyanosis, clubbing, or pedal edema. NEUROLOGICAL: Gross neurological examination did not reveal any focal deficits. SKIN: No rashes. Excoriation and healing stage 2 on left buttock. Assessment and plan Assessment Dyspnea worse with exertion secondary to bilateral pleural effusion, recurrent. Patient is status post right thoracentesis on October 18 with 1.7 Liters off. Cytology at that time was negative for malignancy. Hyponatremia Anemia, normocytic History of pericardial effusion Status post laproscopic paraesophageal hernia repair for hiatal hernia on 10/25/2021. Hypertension, currently normotensive Hypothyroidism, TSH 6.100, synthroid will be increased to 125 mcg daily Stage 2 left sacral decub, healing with surrounding excoriation, present on admission GI Prophylaxis DVT Prophyalxis Full Code Plan Resume and continue current home medications Increase synthroid, follow up TSH in 3 months outpatient IV lasix x 1 given Limited 2D Echo completed and pending Pulmonary, cardiology consultation Optifoam to sacrum Repeat labs in AM The impression and plan of care has been dictated by Vickie Sena, Nurse Practitioner as directed. Dr. Rj MD I have performed a history and physical examination and medical decision making of this patient, discussed the same with the dictator, and agree with the dictators assessment and plan as written, documented as a scribe. Based on total visit time, I have performed more than 50% of this visit. Past Medical History Past Medical History: Hypertension, Thyroid Disorder, Vascular Disorder Additional Past Medical History / Comment(s): Pt states she is on Ibandronate for prevention of osteoporosis but bone density has been normal, varicose veins/surgery. History of Any Multi-Drug Resistant Organisms: None Reported Past Surgical History: Hernia Repair, Tonsillectomy Additional Past Surgical History / Comment(s): Varicose veins 1978, colonoscopy, bilateral cataract removals/lens implants. Past Anesthesia/Blood Transfusion Reactions: No Reported Reaction Past Psychological History: No Psychological Hx Reported Smoking Status: Never smoker - Past Family History Father Family Medical History: No Reported History Additional Family Medical History / Comment(s): Pt states her father was healthy and lived into his late 80s. Mother Family Medical History: No Reported History Additional Family Medical History / Comment(s): Pt states her mother was healthy and lived into her late 80s. Medications and Allergies Home Medications Medication Instructions Recorded Confirmed Type Ibandronate Sodium [Boniva] 150 mg PO Q30D 09/09/21 11/29/21 History Levothyroxine Sodium [Synthroid] 112 mcg PO DAILY 09/09/21 11/29/21 History Aspirin 81 mg PO DAILY 09/10/21 11/29/21 Rx Metoprolol Tartrate [Lopressor] 25 mg PO BID #60 tab 09/10/21 11/29/21 Rx Cholecalciferol [Vitamin D3 (25 25 mcg PO DAILY 10/18/21 11/29/21 History Mcg = 1000 Iu)] Multivit-Min/FA/Lycopen/Lutein 1 tab PO DAILY 10/18/21 11/29/21 History [Centrum Silver Tablet] Nitroglycerin Sl Tabs [Nitrostat] 0.4 mg SL Q5M PRN 10/18/21 11/29/21 History Tamsulosin [Flomax] 0.4 mg PO DAILY #30 cap 11/02/21 11/29/21 Rx Spironolactone 25 mg PO DAILY 11/29/21 11/29/21 History Allergies Allergy/AdvReac Type Severity Reaction Status Date / Time No Known Allergies Allergy Verified 11/29/21 19:43 Physical Exam Vitals: Vital Signs Temp Pulse Pulse Resp BP BP Pulse Ox 11/30/21 08:01 97.6 F 83 16 121/77 95 11/30/21 06:24 71 13 111/75 96 11/30/21 02:46 85 16 116/72 95 11/29/21 23:35 96 18 114/80 94 L 11/29/21 19:35 74 20 111/70 96 11/29/21 17:06 97.7 F 94 18 137/84 97 Intake and Output 11/29/21 11/30/21 11/30/21 22:59 06:59 14:59 Other: Voiding Method Diaper Weight 69.853 kg 63.3 kg Results CBC & Chem 7: 11/30/21 07:28 11/30/21 07:28 Labs: Abnormal Lab Results - Last 24 Hours (Table) 11/29/21 Range/Units 17:59 TSH 6.100 H (0.465-4.680) mIU/L Assessment and Plan Time with Patient: Less than 30
[2021-11-30] MEDS ORDERED: ACETAMINOPHEN TAB 325 MG TAB PO PRN (18:37)
--- NOTE | 2021-11-30 18:44 | CA ---
Transthoracic Echo Report Name: Karishma Escamilla Age: 86 Gender: F : 1935 Exam Date: 11/30/2021 09:37 Exam Location: [facility] Ht (in): 64 Wt (lb): 154 Ordering Physician: Padmini Vu Attending/Referring Phys: [employer] Tying Machine Knotter Amalia Castillo RDCS Procedure CPT: Indications: pericardial effusion assessment Cardiac Hx: Technical Quality: Poor Contrast 1: Total Dose (mL): Contrast 2: Total Dose (mL): MEASUREMENTS (Male / Female) Normal Values 2D ECHO LV Diastolic Diameter PLAX 3.7 cm 4.2 - 5.9 / 3.9 - 5.3 cm LV Systolic Diameter PLAX 2.8 cm IVS Diastolic Thickness 1.4 cm 0.6 - 1.0 / 0.6 - 0.9 cm LVPW Diastolic Thickness 1.2 cm 0.6 - 1.0 / 0.6 - 0.9 cm LV Relative Wall Thickness 0.7 LA Systolic Diameter LX 3.2 cm 3.0 - 4.0 / 2.7 - 3.8 cm LA Volume 27.3 cm??? 18 - 58 / 22 - 52 cm??? M-MODE Aortic Root Diameter MM 3.4 cm AV Cusp Separation MM 1.8 cm DOPPLER AV Peak Velocity 122.8 cm/s AV Peak Gradient 6.0 mmHg MV Area PHT 3.4 cm??? Mitral E Point Velocity 58.3 cm/s Mitral A Point Velocity 107.9 cm/s Mitral E to A Ratio 0.5 MV Deceleration Time 221.3 ms MV E' Velocity 4.7 cm/s Mitral E to MV E' Ratio 12.3 TR Peak Velocity 244.9 cm/s TR Peak Gradient 24.0 mmHg Right Ventricular Systolic Press 28.1 mmHg FINDINGS Left Ventricle Left ventricular ejection fraction is estimated at 60-65 %. Right Ventricle Right ventricular systolic pressure within normal limits. Right Atrium Left Atrium Mitral Valve Aortic Valve Focal thickening of the aortic valve cusps. Tricuspid Valve Pulmonic Valve Pericardium No pericardial effusion noted. Aorta CONCLUSIONS Preserved LV systolic function, greater than 60% Sigmoid septum that gives the appearance of an atypical wall motion multi- However, This is an apparent finding Mildly thickened aortic valve leaflets without any significant stenosis No pericardial effusion Previewed by: Dr. Reed Watson MD (Electronically Signed) Final Date: 30 Nov 2021 18:42
[2021-12-01 01:49] LABS: Appearance,BF Bloody
[2021-12-01 04:30] VITALS: RESP 16
[2021-12-01 05:23] LABS: Glucose, BF Source Pleural Fluid; Glucose, Body Fluid 96 mg/dL; LDH, Body Fluid Source Pleural Fluid; T. Protein, Body Fluid Source Pleural Fluid; Total Protein, Body Fluid 2920 mg/dL
[2021-12-01] MEDS: LEVOTHYROXINE 125 MCG TAB PO SCH (05:46)
[2021-12-01 07:44] LABS: African American GFR (CKD) >90 (>60 ml/min/1.73 sqM); Anion Gap 4 mmol/L; Blood Urea Nitrogen 15 mg/dL (7-17); Calcium 8.6 mg/dL (8.4-10.2); Carbon Dioxide 31 mmol/L (22-30); Chloride 94 mmol/L (98-107); Glucose 91 mg/dL (74-99); Non-African American GFR(CKD) 87 (>60 ml/min/1.73 sqM); Potassium 3.8 mmol/L (3.5-5.1); Sodium 129 mmol/L (137-145)
[2021-12-01] MEDS: FAMOTIDINE 20 MG TAB PO SCH (08:30)
[2021-12-01] MEDS: ASPIRIN 81 MG PO SCH (08:30)
[2021-12-01] MEDS: SPIRONOLACTONE 25 MG TAB PO SCH (08:31)
[2021-12-01] MEDS: METOPROLOL TARTRATE 25 MG TAB PO SCH ×2 (08:31→21:07)
[2021-12-01] MEDS: TAMSULOSIN 0.4 MG CAP.ER.24H PO SCH (08:31)
[2021-12-01] MEDS ORDERED: ENOXAPARIN 30 MG/0.3 ML SYRINGE SQ SCH (09:00)
--- NOTE | 2021-12-01 10:31 | P.PN ---
Subjective This is a pleasant 86-year-old female past medical history significant for hypertension, pericardial effusion, recurrent pleural effusions, hypothyroidism, large hiatal hernial s/p laparoscopic paraesophageal hernia repair on 10/25/2021 She follows in the office with Dr. Watson. We have been asked to see the patient in consultation for bilateral pleural effusions. Patient presents to [facility] as a transfer from [place]. Patient presented to [facility] with complaints of dyspnea on exertion, increased shortness of breath for the past couple days. At [place] patient underwent chest x-ray which the report revealed small to moderate bilateral pleural effusions. she then underwent a CT chest/abdomen/pelvis, report revealed moderate bilateral pleural effusions, underlying mild emphysema, some mild groundglass atelectasis. Heart upper limits of normal in size without pericardial effusion. labs revealed a sodium of 125. TSH 6.15. Troponin negative. Patient was recently admitted in October 2021 with large hiatal/diaphragmatic hernia causing significant mass effect on the heart and lungs, and bilateral pleural effusions. She did undergo right sided thoracentesis on 10/18/21, with 1750mL alessia color fluid removed. Pleural fluid analysis showed exudative fluid. Pleural fluid cultures and cytology were negative for malignancy. She underwent EGD, showing the stomach entirely in the intrathoracic position. She underwent laparoscopic paraesophageal hernia repair on 10/25/2021. 12/01/2021 Patient seen and examined at bedside, she states her breathing has significantly improved. She underwent left sided thoracentesis with pulmonary on 11/30 with 550 ml of turbid colored fluid removed. She was given IV Lasix 40mg, she states she has urinated frequently yesterday, patient is sometimes incontinent, not accurate output recorded Limited Echocardiogram revealed EF 60-65%, no pericardial effusion PHYSICAL EXAMINATION Blood pressure 103/65 HR 75 afebrile CONSTITUTIONAL: No apparent distress. HEENT: Neck Supple. No JVD. CHEST EXAMINATION: Lungs are clear to auscultation. No chest wall tenderness is noted on palpation or with deep breathing. HEART EXAMINATION: Regular rate and rhythm. S1, S2 heard. Systolic murmur at apex. No gallops or rub. ABDOMEN: Soft, nontender. Positive bowel sounds. EXTREMITIES: 2+ peripheral pulses, no lower extremity edema and no calf tenderness. NEUROLOGIC EXAMINATION: Patient is awake, alert and oriented x3. ASSESSMENT Shortness of breath Bilateral pleural effusions, recurrent, unclear cause for recurrent pleural effusions, possible component heart failure with preserved EF Status post left thoracentesis on 11/30/21 with 550mL Hypothyroidism History of pleural effusions s/p prior thoracentesis in 10/2021 Pleural fluid cultures and cytology were negative for malignancy History of large hiatal hernial s/p laparoscopic paraesophageal hernia repair on 10/25/2021 History of hypertension PLAN Patient does not appear to be in acute heart failure on exam. Possible thoracentesis on the right with pulmonary today vs 12/03/21. Patient's pressure is marginal, recommend holding Lasix at this time secondary to hypotension Continue metoprolol tartrate, aspirin and spironolactone From a cardiology perspective, no further changes at this time. Please reach out with any further questions or concerns. Follow up outpatient with Dr. Watson outpatient, patient has follow up appt scheduled on 12/13/21. Nurse practitioner note has been reviewed by physician. Signing provider agrees with the documented findings, assessment, and plan of care. Objective - Vital Signs Vital signs: Vital Signs Temp 97.4 F L 12/01/21 04:28 Pulse 75 12/01/21 04:28 Resp 16 12/01/21 04:28 BP 103/65 12/01/21 04:28 Pulse Ox 96 12/01/21 04:28 FiO2 Intake & Output 11/30/21 12/01/21 12/01/21 18:59 06:59 18:59 Output Total 550 Balance -550 Weight 63.3 kg 63.5 kg Output: Drainage 550 Left Chest 550 Other: Voiding Method Diaper Diaper # Voids 2 - Labs CBC & Chem 7: 11/30/21 07:28 12/02/21 06:45 Labs: Abnormal Lab Results - Last 24 Hours (Table) 11/30/21 11/30/21 11/30/21 Range/Units 07:28 07:28 07:28 RBC 3.75 L (4.10-5.20) X 10*6/uL Hgb 11.1 L (12.0-15.0) g/dL Hct 34.6 L (37.2-46.3) % RDW 17.4 H (11.5-14.5) % Plt Count 530 H (140-440) X 10*3/uL MPV 9.2 L (9.5-12.2) fL Immature Gran # 0.07 H (0.00-0.04) X 10*3/uL Lymphocytes # 0.43 L (0.90-5.00) X 10*3/uL Sodium 132 L (135-145) mmol/L Chloride (98-107) mmol/L Carbon Dioxide (22-30) mmol/L Creatinine 0.5 L (0.6-1.5) mg/dL BUN/Creatinine Ratio 23.20 H (12.00-20.00) Ratio Free T3 pg/mL 1.70 L (2.30-4.20) pg/mL 12/01/21 Range/Units 06:54 RBC (4.10-5.20) X 10*6/uL Hgb (12.0-15.0) g/dL Hct (37.2-46.3) % RDW (11.5-14.5) % Plt Count (140-440) X 10*3/uL MPV (9.5-12.2) fL Immature Gran # (0.00-0.04) X 10*3/uL Lymphocytes # (0.90-5.00) X 10*3/uL Sodium 129 L (135-145) mmol/L Chloride 94 L (98-107) mmol/L Carbon Dioxide 31 H (22-30) mmol/L Creatinine (0.6-1.5) mg/dL BUN/Creatinine Ratio (12.00-20.00) Ratio Free T3 pg/mL (2.30-4.20) pg/mL Microbiology - Last 24 Hours (Table) 11/30/21 12:45 Gram Stain - Preliminary Pleural Fluid Body Fluid Culture - Preliminary 11/30/21 12:45 Anaerobic Culture - Preliminary Pleural Fluid 11/30/21 12:45 Acid Fast Bacilli Culture - Preliminary Pleural Fluid 11/30/21 12:45 Fungal Culture - Preliminary Pleural Fluid
--- NOTE | 2021-12-01 14:46 | P.PN ---
Subjective Progress Note Date: 12/01/21 Principal diagnosis: Shortness of breath, pleural effusions 86-year-old female patient who came in again for worsening shortness of breath and the patient has bilateral pleural effusion. We met this patient approximately a month ago and the patient is status post endoscopic poor esophageal hernia repair was done on 10/25/2021. Following that, the patient developed pleural effusions and the patient underwent a right-sided thoracentesis 2 with removal of fluid in the order of 1.8 L and 0.85 L. The fluid analysis on 1 occasion sheet turner to be an exudate based on the protein criteria. The fluid cytology was negative and the cultures were negative. The patient was discharged home to be readmitted back to the hospital because of worsening shortness of breath and a CAT scan of the chest was done at [facility] showing bilateral pleural effusion with compressive atelectatic changes in lung bases bilaterally. ProBNP level is 230, troponin test has been negative. The patient's TSH is elevated at 6.1 and the patient is currently on Synthroid. EKG showing sinus tachycardia. There is RV be. No acute ischemic changes. Previous echocardiogram showed a small pericardial effusion, generalized with moderate concentric LVH and ejection fraction of 55-60%. Curr ently that she is on room air oxygen. She received Lasix. She improved. Nevertheless, she is still complaining of shortness of breath and she is interested in pursuing the procedure again. On 12/02/2019 patient seen in follow-up on medical surgical floor. He is awake and alert, oriented 3, breathing comfortably, room air pulse ox is 97%, vital signs have been stable, no fever or chills, no complaints of chest discomfort. Patient is status post right-sided thoracentesis yesterday would removal of 550 ML of blood-tinged pleural fluid which was sent for cytology, pleural fluid analysis and cultures. Pleural fluid analysis showed transudate of fluid consistent with history of CHF. ProBNP was normal at 2:30, the patient does not look fluid overloaded, no edema in the bilateral lower extremities, no JVD, no abdominal distention. Patient has been ambulating to the bathroom with a walk er, does have exertional dyspnea, but tolerated activity fairly well. Objective - Vital Signs Vital signs: Vital Signs Temp 97.8 F 12/01/21 13:00 Pulse 69 12/01/21 13:00 Resp 16 12/01/21 13:00 BP 99/65 12/01/21 13:00 Pulse Ox 97 12/01/21 13:00 FiO2 Intake & Output 11/30/21 12/01/21 12/01/21 18:59 06:59 18:59 Output Total 550 Balance -550 Weight 63.3 kg 63.5 kg Output: Drainage 550 Left Chest 550 Other: Voiding Method Diaper Diaper Diaper # Voids 2 - Exam GENERAL EXAM: Alert, awake, 86-year-old white female, resting comfortably in bed, on room air comfortable in no apparent distress. HEAD: Normocephalic/atraumatic. EYES: Normal reaction of pupils, equal size. Conjunctiva pink, sclera white. NOSE: Clear with pink turbinates. THROAT: No erythema or exudates. NECK: No masses, no JVD, no thyroid enlargement, no adenopathy. CHEST: No chest wall deformity. Symmetrical expansion. LUNGS: Equal air entry with mild bilateral crackles and diminished breath sounds at bilateral bases CVS: Regular rate and rhythm, normal S1 and S2, no gallops, no murmurs, no rubs ABDOMEN: Soft, nontender. No hepatosplenomegaly, normal bowel sounds, no guarding or rigidity. EXTREMITIES: No clubbing, no edema, no cyanosis, 2+ pulses and upper and lower extremities. MUSCULOSKELETAL: Muscle strength and tone normal. SPINE: No scoliosis or deformity SKIN: No rashes CENTRAL NERVOUS SYSTEM: Alert and oriented -3. No focal deficits, tone is normal in all 4 extremities. PSYCHIATRIC: Alert and oriented -3. Appropriate affect. Intact judgment and insight. - Labs CBC & Chem 7: 11/30/21 07:28 12/01/21 06:54 Labs: Abnormal Lab Results - Last 24 Hours (Table) 11/30/21 12/01/21 Range/Units 07:28 06:54 Sodium 129 L (137-145) mmol/L Chloride 94 L (98-107) mmol/L Carbon Dioxide 31 H (22-30) mmol/L Free T3 pg/mL 1.70 L (2.30-4.20) pg/mL Microbiology - Last 24 Hours (Table) 11/30/21 12:45 Gram Stain - Preliminary Pleural Fluid Body Fluid Culture - Preliminary 11/30/21 12:45 Anaerobic Culture - Preliminary Pleural Fluid 11/30/21 12:45 Acid Fast Bacilli Culture - Preliminary Pleural Fluid 11/30/21 12:45 Fungal Culture - Preliminary Pleural Fluid Assessment and Plan Plan: Assessment: #1. Shortness of breath, related to moderately sized bilateral pleural effusions. Patient underwent right-sided thoracentesis yesterday on 11/30/2021 with removal of 550 mL of blood-tinged pleural fluid which was consistent with transudate of fluid of chronic heart failure #2. Recent hospitalization during which patient underwent right-sided thoracentesis on 10/20/2021 with exudative fluid per protein criteria. Patient had another right-sided thoracentesis would removal of 850 mL of oral fluid which was not sent for analysis #3. Large hiatal/diaphragmatic hernia status post laparoscopic paraesophageal hernia repair with absorbable mesh on 10/25/2021 #4. Recurrent pleural effusions hypothyroidism #5. Hypothyroidism #6. Chronic CHF with preserved EF #7. Hypertension #8. Lifetime nonsmoker #9. Urinary incontinence Plan: Patient is breathing comfortably We'll hold off on doing the left-sided thoracentesis, Follow-up chest x-ray tomorrow with the plan of possible left-sided thoracentesis in the morning I have personally seen and examined the patient, performed the documentation and the assessment and plan as written. Number of minutes spent on the visit: [10] I have personally seen and examined the patient and reviewed the documentation. I performed a joint evaluation with the nurse practitioner in this evaluation was done more than 20 minutes. I fully agree with the documentation above and the plan of care.. The pleural fluid that was drained on the left may be a transudate based on the low LDH and protein criteria. A total of 550 amount of pleural fluid was aspirated from the left lung. Meanwhile, the patient has been set up for another thoracentesis on the right and this will be done tomorrow. She is already feeling better and she is comfortable. No new complaints otherwise for now. Time with Patient: Less than 30
--- NOTE | 2021-12-01 14:57 | P.PN ---
Subjective Progress Note Date: 12/01/21 This is an 86-year-old female presents to the emergency room with complaints of shortness of breath over the last 4-5 days, worse with exertion, she also reports generalized weakness. She was transferred from [place] where she initially presented. CT Chest/abdomen/pelvis completed at outside facility showed moderate bilateral pleural effusions, underlying mild emphysema, and mild groundglass opacities. No pericardial effusion noted on CT. Covid is negative. Significant medical history includes hypertension, hypothyroidism, vascular disorder. She was recently hospitalized in September for possible new-onset heart failure, echocardiogram completed at that time showed an EF of 55-60% with moderate concentric left ventricular hypertrophy, moderate tricuspid regurg and small generalized pericardial effusion. She also underwent cardiac catheterization which showed mild disease. Patient discharged home and had another hospitalization in October for laproscopic paraesophageal hernia repair which caused a mass effect on the heart. Patient underwent thoracentesis 2 for pleural effusions prior to surgery and discharged on aldactone during that hospital stay. Pleural fluid was found to be exudative at that time. There is likely some component of diastolic heart failure. She received a dose of IV lasix in the ER. Echocardiogram completed this morning and report is pending at this time. Patient is admitted with consults placed to cardiology and pulmonary. Labs here show troponin negative 2, BNP 230, TSH 6.100, free T4 1.70, COVID is not detected. Vitals on admission include temp 97.6, heart rate 83, blood pressure 121/77, 95% room air. 12/01/2021 Patient is seen in follow-up this morning with pulmonary and cardiology following. Patient is status post left side thoracentesis for bilateral pleural effusions with approximately 550 mL's of turbid colored fluid removed and sent for analysis. Chest x-ray reviewed no evident complication status post thoracentesis. Patient reports she is awaiting a possible thoracentesis on the right with pulmonary today. Patient was given a dose of IV Lasix yesterday. Patient reports her shortness of breath has improved and denies any chest pain. Patient is afebrile. Patient continues on Aldactone and will continue. Sodium had a drop at 129 and encourage the patient to use salt with meals and will repeat labs. Review of systems: Constitutional: No reports of fatigue, fever, or chills Cardiovascular: No reports of chest pain or palpitations Respiratory: No reports of worsening shortness of breath or cough GI: No reports of nausea, vomiting, or diarrhea : No reports of dysuria or retention Neurovascular: No reports of weakness or numbness All medications have been reviewed PHYSICAL EXAMINATION: GENERAL: The patient is alert and oriented x3, not in any acute distress. Well developed, well nourished. HEENT: Pupils are round and equally reacting to light. EOMI. No scleral icterus. No conjunctival pallor. Normocephalic, atraumatic. No pharyngeal erythema. No thyromegaly. CARDIOVASCULAR: S1 and S2 muffled PULMONARY: Diminished breath sounds bilaterally at the bases with some scattered rhonchi noted. Mild crackles noted on the right ABDOMEN: Soft, nontender, nondistended, normoactive bowel sounds. No palpable organomegaly. Laproscopic post surgical incisions clean, approximated and healing. MUSCULOSKELETAL: No joint swelling or deformity. EXTREMITIES: No cyanosis, clubbing, or pedal edema. NEUROLOGICAL: Gross neurological examination did not reveal any focal deficits. SKIN: No rashes. Excoriation and healing stage 2 on left buttock. Assessment: Dyspnea worse with exertion secondary to bilateral pleural effusion, recurrent. Patient is status post right thoracentesis on 11/30/2021 Hyponatremia Anemia, normocytic Chronic congestive heart failure, with preserved EF History of pericardial effusion Status post laproscopic paraesophageal hernia repair for hiatal hernia on 10/25/2021. Hypertension, currently normotensive Hypothyroidism Stage 2 left sacral decub, healing with surrounding excoriation, present on admission GI Prophylaxis DVT Prophyalxis Full Code Plan: Resume and continue current home medications Increase synthroid, follow up TSH in 3 months outpatient Patient is status post thoracentesis on the left with possible plans for thoracentesis on the right with pulmonary following, fluid analysis was sent from 11/30/2021 Limited 2D Echo completed showing an EF of 60-65% with no pericardial effusion noted Pulmonary, cardiology following Optifoam to sacrum and continue with frequent position changes and offloading to the area Repeat labs in AM Possible discharge in 24-48 hours. The impression and plan of care has been dictated by Linh Lomas, Nurse Practitioner as directed. Dr. Isael MD I have performed a history and examination and MDM of this patient, discussed the same with the dictator, and agree with the dictator's assessment and plan as written ,documented as a scribe. Based on total visit time, I have performed more than 50% of the visit. Objective - Vital Signs Vital signs: Vital Signs Temp 97.8 F 12/01/21 13:00 Pulse 69 12/01/21 13:00 Resp 16 12/01/21 13:00 BP 99/65 12/01/21 13:00 Pulse Ox 97 12/01/21 13:00 FiO2 Intake & Output 11/30/21 12/01/21 12/01/21 18:59 06:59 18:59 Output Total 550 Balance -550 Weight 63.3 kg 63.5 kg Output: Drainage 550 Left Chest 550 Other: Voiding Method Diaper Diaper Diaper # Voids 2 - Labs CBC & Chem 7: 11/30/21 07:28 12/01/21 06:54 Labs: Abnormal Lab Results - Last 24 Hours (Table) 11/30/21 12/01/21 Range/Units 07:28 06:54 Sodium 129 L (137-145) mmol/L Chloride 94 L (98-107) mmol/L Carbon Dioxide 31 H (22-30) mmol/L Free T3 pg/mL 1.70 L (2.30-4.20) pg/mL Microbiology - Last 24 Hours (Table) 11/30/21 12:45 Gram Stain - Preliminary Pleural Fluid Body Fluid Culture - Preliminary 11/30/21 12:45 Anaerobic Culture - Preliminary Pleural Fluid 11/30/21 12:45 Acid Fast Bacilli Culture - Preliminary Pleural Fluid 11/30/21 12:45 Fungal Culture - Preliminary Pleural Fluid
[2021-12-01 15:37] VITALS: BMI 24.0
[2021-12-02] MEDS: LEVOTHYROXINE 125 MCG TAB PO SCH (06:13)
[2021-12-02 07:51] LABS: African American GFR (CKD) >90 (>60 ml/min/1.73 sqM); Anion Gap 4 mmol/L; Blood Urea Nitrogen 24 mg/dL (7-17); Calcium 8.4 mg/dL (8.4-10.2); Carbon Dioxide 30 mmol/L (22-30); Chloride 94 mmol/L (98-107); Glucose 86 mg/dL (74-99); Non-African American GFR(CKD) 86 (>60 ml/min/1.73 sqM); Sodium 128 mmol/L (137-145)
[2021-12-02] MEDS: TAMSULOSIN 0.4 MG CAP.ER.24H PO SCH (07:57)
[2021-12-02] MEDS: METOPROLOL TARTRATE 25 MG TAB PO SCH (07:58)
[2021-12-02] MEDS: FAMOTIDINE 20 MG TAB PO SCH (07:58)
[2021-12-02] MEDS: SPIRONOLACTONE 25 MG TAB PO SCH (07:59)
[2021-12-02] MEDS: ASPIRIN 81 MG PO SCH (08:00)
--- NOTE | 2021-12-02 08:25 | XR ---
EXAMINATION TYPE: XR chest 1V portable DATE OF EXAM: 12/02/2021 COMPARISON: X-ray dated 11/30/2021 HISTORY: Pleural effusions TECHNIQUE: Single frontal view of the chest is obtained. FINDINGS: Persistent bilateral pleural effusions without significant interval progression. Suspected adjacent p ulmonary atelectasis. No progressive pulmonary consolidation. No definite pneumothorax. Cardiac size cannot be properly ass essed. Unchanged bony thoracic cage. IMPRESSION: Persistent pleural effusions as described above.
[2021-12-02] MEDS ORDERED: ENOXAPARIN 40 MG/0.4 ML SYRINGE SQ SCH (09:00)
--- NOTE | 2021-12-02 09:43 | P.EN ---
Patient will require a wheelchair on discharge in order to complete ADLs which is unable to be done with a cane or walker because of CHF and emphysema. Patient does have spouse that will be able to propel them.
[2021-12-02] MEDS ORDERED: LIDOCAINE 2% INJ 20 MG/ML (20 ML MDV) ONE (11:53)
--- NOTE | 2021-12-02 14:48 | P.PN ---
Subjective Progress Note Date: 12/02/21 Principal diagnosis: Shortness of breath, pleural effusions 86-year-old female patient who came in again for worsening shortness of breath and the patient has bilateral pleural effusion. We met this patient approximately a month ago and the patient is status post endoscopic poor esophageal hernia repair was done on 10/25/2021. Following that, the patient developed pleural effusions and the patient underwent a right-sided thoracentesis 2 with removal of fluid in the order of 1.8 L and 0.85 L. The fluid analysis on 1 occasion nocturnist physician to be an exudate based on the protein criteria. The fluid cytology was negative and the cultures were negative. The patient was discharged home to be readmitted back to the hospital because of worsening shortness of breath and a CAT scan of the chest was done at [facility] showing bilateral pleural effusion with compressive atelectatic changes in lung bases bilaterally. ProBNP level is 230, troponin test has been negative. The patient's TSH is elevated at 6.1 and the patient is currently on Synthroid. EKG showing sinus tachycardia. There is RV be. No acute ischemic changes. Previous echocardiogram showed a small pericardial effusion, generalized with moderate concentric LVH and ejection fraction of 55-60%. Curr ently that she is on room air oxygen. She received Lasix. She improved. Nevertheless, she is still complaining of shortness of breath and she is interested in pursuing the procedure again. On 12/01/2021 patient seen in follow-up on medical surgical floor. He is awake and alert, oriented 3, breathing comfortably, room air pulse ox is 97%, vital signs have been stable, no fever or chills, no complaints of chest discomfort. Patient is status post right-sided thoracentesis yesterday would removal of 550 ML of blood-tinged pleural fluid which was sent for cytology, pleural fluid analysis and cultures. Pleural fluid analysis showed transudate of fluid consistent with history of CHF. ProBNP was normal at 2:30, the patient does not look fluid overloaded, no edema in the bilateral lower extremities, no JVD, no abdominal distention. Patient has been ambulating to the bathroom with a walk er, does have exertional dyspnea, but tolerated activity fairly well. On 12/02/2021 patient seen in follow-up on medical surgical floor, she is resting comfortably in bed, in no acute distress, breathing comfortably, remains on room air, denies any worsening dyspnea, today's chest x-ray has been reviewed showing small bilateral pleural effusions. Patient is status post left-sided thoracentesis on 11/30/2021 would removal of 550 mL of pleural fluid which was a transudate. Patient has been stable overnight, she has had no acute events, no complaints of chest pain. She remains on Aldactone and she is in -500 mL net fluid balance. On today's exam her lung sounds reveal estimate breath sounds, with suspected decrease in the pleural fluid bilaterally. No lower extremity edema. Right-sided thoracentesis was attempted, however there was no significant pleural fluid pocket found and the procedure was stopped. Today's labs have been reviewed, sodium is 128, potassium is 4.0, chloride is 94, BUN is 24 creatinine 0.56 Objective - Vital Signs Vital signs: Vital Signs Temp 97.8 F 12/02/21 04:43 Pulse 72 12/02/21 04:43 Resp 16 12/02/21 04:43 BP 99/61 12/02/21 04:43 Pulse Ox 97 12/02/21 04:43 FiO2 Intake & Output 12/01/21 12/02/21 12/02/21 18:59 06:59 18:59 Output Total 550 Balance -550 Weight 63.5 kg 62 kg Output: Drainage 550 Left Chest 550 Other: Voiding Method Diaper Diaper # Bowel Movements 1 0 - Exam GENERAL EXAM: Alert, awake, 86-year-old white female, resting comfortably in bed, on room air comfortable in no apparent distress. HEAD: Normocephalic/atraumatic. EYES: Normal reaction of pupils, equal size. Conjunctiva pink, sclera white. NOSE: Clear with pink turbinates. THROAT: No erythema or exudates. NECK: No masses, no JVD, no thyroid enlargement, no adenopathy. CHEST: No chest wall deformity. Symmetrical expansion. LUNGS: Equal air entry with mild bilateral crackles and diminished breath sounds at bilateral bases CVS: Regular rate and rhythm, normal S1 and S2, no gallops, no murmurs, no rubs ABDOMEN: Soft, nontender. No hepatosplenomegaly, normal bowel sounds, no guarding or rigidity. EXTREMITIES: No clubbing, no edema, no cyanosis, 2+ pulses and upper and lower extremities. MUSCULOSKELETAL: Muscle strength and tone normal. SPINE: No scoliosis or deformity SKIN: No rashes CENTRAL NERVOUS SYSTEM: Alert and oriented -3. No focal deficits, tone is normal in all 4 extremities. PSYCHIATRIC: Alert and oriented -3. Appropriate affect. Intact judgment and insight. - Labs CBC & Chem 7: 11/30/21 07:28 12/02/21 06:45 Labs: Abnormal Lab Results - Last 24 Hours (Table) 12/02/21 Range/Units 06:45 Sodium 128 L (137-145) mmol/L Chloride 94 L (98-107) mmol/L BUN 24 H (7-17) mg/dL Microbiology - Last 24 Hours (Table) 11/30/21 12:45 Gram Stain - Preliminary Pleural Fluid Body Fluid Culture - Preliminary 11/30/21 12:45 Acid Fast Bacilli Smear - Final Pleural Fluid Acid Fast Bacilli Culture - Preliminary Assessment and Plan Plan: Assessment: #1. Shortness of breath, related to moderately sized bilateral pleural effusions. Patient underwent right-sided thoracentesis yesterday on 11/30/2021 with removal of 550 mL of blood-tinged pleural fluid which was consistent with transudate of fluid of chronic heart failure #2. Recent hospitalization during which patient underwent right-sided thoracentesis on 10/20/2021 with exudative fluid per protein criteria. Patient had another right-sided thoracentesis would removal of 850 mL of oral fluid which was not sent for analysis #3. Large hiatal/diaphragmatic hernia status post laparoscopic paraesophageal hernia repair with absorbable mesh on 10/25/2021 #4. Recurrent pleural effusions hypothyroidism #5. Hypothyroidism #6. Chronic CHF with preserved EF #7. Hypertension #8. Lifetime nonsmoker #9. Urinary incontinence Plan: Right-sided thoracentesis was attempted, however no significant pleural fluid pocket was found She was stopped, no pleural fluid was removed. She is breathing quite comfortably, she remains on oral diuretics in the form of Aldactone Increase activity as tolerated She could be considered for discharge home today Recommendations for diuretics upon discharge per cardiology I have personally seen and examined the patient, performed the documentation and the assessment and plan as written. Number of minutes spent on the visit: [10] I have personally seen and examined the patient and reviewed the documentation. I performed a joint evaluation with the nurse practitioner in this evaluation was done more than 20 minutes. I fully agree with the documentation above and the plan of care. Clinically the patient is doing well. No sizable pleural effusion on the right and no thoracentesis was performed. There was attempted. There was no pleural fluid identified. Procedure was aborted. Continue diuretics. Discharge planning is in progress. Time with Patient: Less than 30
[2021-12-02] MEDS ORDERED: SODIUM CHLORIDE TAB 1 GM TAB PO STA (15:10)
[2021-12-02 16:23] VITALS: BP 94/61; PULSE 70; TEMP 97.5
--- NOTE | 2021-12-03 19:44 | P.DS ---
Providers Date of admission: 11/29/21 19:38 Expected date of discharge: 12/02/21 Attending physician: Bj Kirkland Consults: 11/29/21 19:38 Consult Physician Urgent Consulting Provider: [facility] Consult Reason/Comments: reccurent b/l pleural effusions Do you want consulting provider notified?: Yes 11/29/21 19:39 Consult Physician Urgent Consulting Provider: Jose Chapa Consult Reason/Comments: reccurent b/l pleural effusions Do you want consulting provider notified?: Yes Primary care physician: Adia Angeles Hospital Course: Final diagnosis Dyspnea worse with exertion secondary to bilateral pleural effusion, recurrent. Patient is status post right thoracentesis on 11/30/2021 Hyponatremia Anemia, normocytic Chronic congestive heart failure, with preserved EF History of pericardial effusion Status post laparoscopic paraesophageal hernia repair for hiatal hernia on 10/25/2021. Hypertension, currently normotensive Hypothyroidism Stage 2 left sacral decub, healing with surrounding excoriation, present on admission GI Prophylaxis DVT Prophyalxis Full Code Discharge disposition Patient is being discharged in a stable condition with guarded prognosis to home. Patient will follow-up with Dr. Adia Angeles in the outpatient setting upon discharge. Patient is to continue follow-up with cardiology and pulmonary as scheduled. Total time taken is greater than 35 minutes. Hospital course This is an 86 year old female who was recently admitted for increasing shortness of breath and was being closely monitored. Pulmonary following and patient is status post thoracentesis of the left with approx 550cc removed and fluid sent for analysis. Patient continued with pleural effusions and possible right thoracentesis although not enough fluid to drain and pulmonary recommends close outpatient follow up. Patient also to follow up with cardiology in the outpatient setting. Patient sodium slightly low and encouraged oral intake and adding a pinch of salt to lunch and dinner for 2-3 days with repeat labs in 3 days. Patient reports to feeling much better and would like to go home. at the bedside. Currently no reports of chest pain, worsening shortness of breath, or palpitations. Patient is afebrile. No reports of nausea or vomiting and patient is tolerating diet. Patient will be discharged home today. guarded prognosis. On exam vital signs are stable. Patient is on room air. Cardio S1, S2 are muffled. Respiratory system shows diminished breath sounds at the bases with no wheezing and some rhonchi noted. Abdomen is soft and nontender. Nervous system shows diffuse weakness. Please refer to medication reconciliation sheet for a list of medications. The impression and plan of care has been dictated by Linh Lomas, Nurse Practitioner as directed. Dr. Isael MD I have performed a history and examination and MDM of this patient, discussed the same with the dictator, and agree with the dictator's assessment and plan as written ,documented as a scribe. Based on total visit time, I have performed more than 50% of the visit. Patient Condition at Discharge: Stable Plan - Discharge Summary New Discharge Prescriptions: New Levothyroxine Sodium [Synthroid] 125 mcg PO DAILY@0630 30 Days #30 tab Acetaminophen Tab [Tylenol] 650 mg PO Q6HR PRN tab PRN Reason: Fever And/ Or Pain Continue Aspirin 81 mg PO DAILY Metoprolol Tartrate [Lopressor] 25 mg PO BID #60 tab Cholecalciferol [Vitamin D3 (25 Mcg = 1000 Iu)] 25 mcg PO DAILY Multivit-Min/FA/Lycopen/Lutein [Centrum Silver Tablet] 1 tab PO DAILY Tamsulosin [Flomax] 0.4 mg PO DAILY #30 cap Spironolactone 25 mg PO DAILY Ibandronate Sodium [Boniva] 150 mg PO Q30D Nitroglycerin Sl Tabs [Nitrostat] 0.4 mg SL Q5M PRN PRN Reason: Chest Pain Discontinued Levothyroxine Sodium [Synthroid] 112 mcg PO DAILY Discharge Medication List Ibandronate Sodium [Boniva] 150 mg PO Q30D 09/09/21 [History] Aspirin 81 mg PO DAILY 09/10/21 [Rx] Metoprolol Tartrate [Lopressor] 25 mg PO BID #60 tab 09/10/21 [Rx] Cholecalciferol [Vitamin D3 (25 Mcg = 1000 Iu)] 25 mcg PO DAILY 10/18/21 [History] Multivit-Min/FA/Lycopen/Lutein [Centrum Silver Tablet] 1 tab PO DAILY 10/18/21 [History] Nitroglycerin Sl Tabs [Nitrostat] 0.4 mg SL Q5M PRN 10/18/21 [History] Tamsulosin [Flomax] 0.4 mg PO DAILY #30 cap 11/02/21 [Rx] Spironolactone 25 mg PO DAILY 11/29/21 [History] Acetaminophen Tab [Tylenol] 650 mg PO Q6HR PRN tab 12/02/21 [Rx] Levothyroxine Sodium [Synthroid] 125 mcg PO DAILY@0630 30 Days #30 tab 12/02/21 [Rx] Follow up Appointment(s)/Referral(s): Reed Watson MD [STAFF PHYSICIAN] - 12/13/21 11:15 am Adia Angeles MD [Primary Care Provider] - 1-2 days Jose Chapa MD [STAFF PHYSICIAN] - 1 Week Ambulatory/Diagnostic Orders: Basic Metabolic Panel [LAB.AMB] Time Frame: 3 Days, Location: None Selected Activity/Diet/Wound Care/Special Instructions: Activity Limited until follow-up Follow-up with primary care provider on discharge Follow-up with pulmonary outpatient in one week Continue current diet, add salt with meals and recommend repeat labs for low sodium Repeat labs in 2-3 days Continue medications as prescribed [facility] - they are planning are planning on seeing you on Monday. Discharge Disposition: HOME WITH HOME HEALTH SERVICES
== END 2021-12-02 16:25 | disposition home health service (06) ==
LOC: EC 17:03 → 4SSUR 19:38 → INTOOBSV 19:38 → 4SSUR 21:29 → 5NMEDONC 11-30 05:59 → UNDODISIN 12-02 16:25
PROVIDERS: ADMIT Hospitalist; ATTEND Hospitalist
DX: J90 Pleural effusion, not elsewhere classified (principal); I11.0 Hypertensive heart disease with heart failure; I50.33 Acute on chronic diastolic (congestive) heart failure; E87.1 Hypo-osmolality and hyponatremia; J98.11 Atelectasis; E03.9 Hypothyroidism, unspecified; D64.9 Anemia, unspecified; L89.152 Pressure ulcer of sacral region, stage 2; I95.9 Hypotension, unspecified; R32 Unspecified urinary incontinence; I45.10 Unspecified right bundle-branch block; I83.90 Asymptomatic varicose veins of unspecified lower extremity; J43.9 Emphysema, unspecified; R00.0 Tachycardia, unspecified; Z20.822 Contact with and (suspected) exposure to COVID-19; Z79.899 Other long term (current) drug therapy; Z79.82 Long term (current) use of aspirin; Z79.890 Hormone replacement therapy
CPT/HCPCS: 96376; 96372 ×2; 96374; 99285; 36415; 93308; 97116; 97530; 97162; 97535; 97166; 87798 ×3; 87496; 87498; 87529; 84439; 88108; 88305; 84481; 83880; 80048 ×3; 84443; 89050; 84484 ×2; 85025; 87252; 87502; 87634; 87070; 87205; 87075; 87116; 87102; 87206; 82945; 83615; 84157; 87635; 71045 ×2; 32554; G0378 ×5; J2001; J1940 ×2; J1650 ×2

== ENCOUNTER 2021-12-03 07:55 | Observation (INO) | payer MEDICARE ==
--- NOTE | 2021-12-03 08:07 | ED ---
General Adult HPI - General Stated complaint: Weakness/Syncope Time Seen by Provider: 12/03/21 07:57 Source: patient, EMS, RN notes reviewed, old records reviewed Mode of arrival: EMS Limitations: no limitations - History of Present Illness Initial comments: Patient is a pleasant 86-year-old female presenting to the emergency department following syncopal episode. Patient got up to use the restroom. Patient felt weak. Patient passed out. Patient denied injury. A swain unclear how long she was unresponsive for as she does not recall the episode. Patient states there was an episode of diarrhea throughout the night. Patient felt fine yesterday when she went to bed. Patient states she feels back to normal at this time. No associated chest pain or dyspnea. No headache or confusion or isolated area of weakness. No abdominal or back pain. - Related Data Home Medications Medication Instructions Recorded Confirmed Ibandronate Sodium [Boniva] 150 mg PO Q30D 09/09/21 12/03/21 Cholecalciferol [Vitamin D3 (25 25 mcg PO DAILY 10/18/21 12/03/21 Mcg = 1000 Iu)] Multivit-Min/FA/Lycopen/Lutein 1 tab PO DAILY 10/18/21 12/03/21 [Centrum Silver Tablet] Nitroglycerin Sl Tabs [Nitrostat] 0.4 mg SL Q5M PRN 10/18/21 12/03/21 Spironolactone 25 mg PO DAILY 11/29/21 12/03/21 Previous Rx's Medication Instructions Recorded Aspirin 81 mg PO DAILY 09/10/21 Metoprolol Tartrate [Lopressor] 25 mg PO BID #60 tab 09/10/21 Tamsulosin [Flomax] 0.4 mg PO DAILY #30 cap 11/02/21 Acetaminophen Tab [Tylenol] 650 mg PO Q6HR PRN tab 12/02/21 Levothyroxine Sodium [Synthroid] 125 mcg PO DAILY@0630 30 Days #30 12/02/21 tab Allergies Allergy/AdvReac Type Severity Reaction Status Date / Time No Known Allergies Allergy Verified 12/03/21 08:58 Review of Systems ROS Statement: Those systems with pertinent positive or pertinent negative responses have been documented in the HPI. ROS Other: All systems not noted in ROS Statement are negative. Constitutional: Denies: fever Eyes: Denies: eye pain ENT: Denies: ear pain Respiratory: Denies: cough Cardiovascular: Denies: chest pain Endocrine: Denies: fatigue Gastrointestinal: Reports: as per HPI. Denies: abdominal pain Genitourinary: Denies: dysuria Musculoskeletal: Denies: back pain Skin: Denies: rash Neurological: Denies: headache, weakness, confusion Past Medical History Past Medical History: Hypertension, Thyroid Disorder, Vascular Disorder Additional Past Medical History / Comment(s): Pt states she is on Ibandronate for prevention of osteoporosis but bone density has been normal, varicose veins/surgery. History of Any Multi-Drug Resistant Organisms: None Reported Past Surgical History: Hernia Repair, Tonsillectomy Additional Past Surgical History / Comment(s): Varicose veins 1978, colonoscopy, bilateral cataract removals/lens implants. Past Anesthesia/Blood Transfusion Reactions: No Reported Reaction Past Psychological History: No Psychological Hx Reported Smoking Status: Never smoker - Past Family History Father Family Medical History: No Reported History Additional Family Medical History / Comment(s): Pt states her father was healthy and lived into his late 80s. Mother Family Medical History: No Reported History Additional Family Medical History / Comment(s): Pt states her mother was healthy and lived into her late 80s. General Exam Limitations: no limitations General appearance: alert, in no apparent distress Head exam: Present: atraumatic, normocephalic Eye exam: Present: normal appearance, PERRL, EOMI ENT exam: Present: normal oropharynx Neck exam: Present: normal inspection. Absent: tenderness Respiratory exam: Present: normal lung sounds bilaterally Cardiovascular Exam: Present: regular rate, normal rhythm Expanded Peripheral pulses: 2+: Radial (R), Radial (L), Dorsalis Pedis (R), Dorsalis Pedis (L) GI/Abdominal exam: Present: soft. Absent: tenderness Extremities exam: Present: normal inspection. Absent: tenderness, pedal edema, calf tenderness Neurological exam: Present: alert, oriented X3, CN II-XII intact. Absent: motor sensory deficit Expanded Neurological exam: Present: protecting the airway Patient oriented to: Present: person, place, time Speech: Present: fluid speech Cranial nerves: EOM's Intact: Normal Motor strength exam: RUE: 5, LUE: 5, RLE: 5, LLE: 5 Eye Response: (4) open spontaneously Motor Response: (6) obeys commands Verbal Response: (5) oriented Psychiatric exam: Present: normal affect, normal mood Skin exam: Absent: normal color Course Vital Signs 12/03/21 07:59 Temperature 98.1 F Pulse Rate 83 Respiratory 20 Rate Blood Pressure 107/65 O2 Sat by Pulse 98 Oximetry EKG Findings - EKG Comments: EKG Findings:: Sinus rhythm rate 80. KS 162. QRS 140. QTc 390. QTC 426. Left axis. Right bundle branch block. No acute ST change. Medical Decision Making - Medical Decision Making Patient reevaluated and resting comfortably in bed. Patient updated on results and plan. Case discussed with Dr. Worthington, whose group recently discharged this patient and they will keep for observation. Cardiology will be placed on consult - Lab Data Result diagrams: 12/03/21 08:16 12/03/21 08:16 Lab Results 12/03/21 12/03/21 12/03/21 Range/Units 08:16 08:16 08:16 WBC 8.4 (3.8-10.6) k/uL RBC 3.44 L (3.80-5.40) m/uL Hgb 10.5 L (11.4-16.0) gm/dL Hct 32.3 L (34.0-46.0) % MCV 93.9 (80.0-100.0) fL MCH 30.4 (25.0-35.0) pg MCHC 32.4 (31.0-37.0) g/dL RDW 15.9 H (11.5-15.5) % Plt Count 285 (150-450) k/uL MPV 7.5 Neutrophils % 89 % Lymphocytes % 4 % Monocytes % 6 % Eosinophils % 1 % Basophils % 1 % Neutrophils # 7.4 (1.3-7.7) k/uL Lymphocytes # 0.3 L (1.0-4.8) k/uL Monocytes # 0.5 (0-1.0) k/uL Eosinophils # 0.1 (0-0.7) k/uL Basophils # 0.1 (0-0.2) k/uL Sodium 128 L (137-145) mmol/L Potassium 4.0 (3.5-5.1) mmol/L Chloride 95 L (98-107) mmol/L Carbon Dioxide 25 (22-30) mmol/L Anion Gap 8 mmol/L BUN 25 H (7-17) mg/dL Creatinine 0.56 (0.52-1.04) mg/dL Est GFR (CKD-EPI)AfAm >90 (>60 ml/min/1.73 sqM) Est GFR (CKD-EPI)NonAf 86 (>60 ml/min/1.73 sqM) Glucose 101 H (74-99) mg/dL Calcium 8.1 L (8.4-10.2) mg/dL Magnesium 1.8 (1.6-2.3) mg/dL Total Bilirubin 0.5 (0.2-1.3) mg/dL AST 27 (14-36) U/L ALT 18 (4-34) U/L Alkaline Phosphatase 98 (38-126) U/L Troponin I <0.012 (0.000-0.034) ng/mL Total Protein 6.2 L (6.3-8.2) g/dL Albumin 3.1 L (3.5-5.0) g/dL - Radiology Data Radiology results: report reviewed (Computed tomography scan of the brain shows no acute hemorrhage or shift. Atrophy and chronic small vessel ischemic changes.), image reviewed (Chest x-ray shows CHF, similar to previous.) Disposition Clinical Impression: Syncope Disposition: ADMITTED IP TO THIS HOSP Is patient prescribed a controlled substance at d/c from ED?: No Referrals: Adia Angeles MD [Primary Care Provider] - 1-2 days Time of Disposition: 09:53
--- NOTE | 2021-12-03 08:42 | XR ---
EXAMINATION TYPE: XR chest 2V DATE OF EXAM: 12/03/2021 COMPARISON: Chest x-ray from yesterday HISTORY: Syncope and weakness. TECHNIQUE: Frontal and lateral views of the chest are obtained. FINDINGS: There is cardiomegaly with small bilateral pleural effusions and mild central vascular con gestion redemonstrated. The osseous structures remain demineralized. IMPRESSION: CHF exacerbation is felt present as detailed above. No significant change from one day e steve. Correlate clinically.
[2021-12-03 08:45] LABS: Basophils # (A) 0.1 k/uL (0-0.2); Basophils % (A) 1 %; Eosinophils # (A) 0.1 k/uL (0-0.7); Eosinophils % (A) 1 %; HCT 32.3 % (34.0-46.0); HGB 10.5 gm/dL (11.4-16.0); Lymphocytes # (A) 0.3 k/uL (1.0-4.8); Lymphocytes % (A) 4 %; MCH 30.4 pg (25.0-35.0); MCHC 32.4 g/dL (31.0-37.0); MCV 93.9 fL (80.0-100.0); Mean Platelet Volume 7.5; Monocytes # (A) 0.5 k/uL (0-1.0); Monocytes % (A) 6 %; Neutrophils # (A) 7.4 k/uL (1.3-7.7); Neutrophils % (A) 89 %; Platelet Count 285 k/uL (150-450); RBC 3.44 m/uL (3.80-5.40); RDW 15.9 % (11.5-15.5); WBC 8.4 k/uL (3.8-10.6)
--- NOTE | 2021-12-03 08:47 | CT ---
EXAMINATION TYPE: CT brain wo con DATE OF EXAM: 12/03/2021 HISTORY: Weakness/Syncope CT DLP: 1133.4 mGycm. Automated Exposure Control for Dose Reduction was Utilized. TECHNIQUE: CT scan of the head is performed without contrast. COMPARISON: None. FINDINGS: There is no acute intracranial hemorrhage or midline shift identified. There is mild diff use ventricular and sulcal prominence consistent with diffuse age-related cerebral atrophy. There is moderate to severe low-attenuation in the periventricular white matter consistent with chronic small vessel ischemic change. The calvarium is intact. The globes are intact and the visualized sinuses ar e clear. IMPRESSION: No acute intracranial hemorrhage or midline shift. There is mild diffuse age-related ce rebral atrophy and moderate to severe chronic small vessel ischemic change noted.
[2021-12-03 08:51] LABS: ALT 18 U/L (4-34); AST 27 U/L (14-36); African American GFR (CKD) >90 (>60 ml/min/1.73 sqM); Albumin 3.1 g/dL (3.5-5.0); Alkaline Phosphatase 98 U/L (38-126); Anion Gap 8 mmol/L; Blood Urea Nitrogen 25 mg/dL (7-17); Calcium 8.1 mg/dL (8.4-10.2); Carbon Dioxide 25 mmol/L (22-30); Chloride 95 mmol/L (98-107); Glucose 101 mg/dL (74-99); Magnesium 1.8 mg/dL (1.6-2.3); Non-African American GFR(CKD) 86 (>60 ml/min/1.73 sqM); Sodium 128 mmol/L (137-145); Total Bilirubin 0.5 mg/dL (0.2-1.3); Total Protein 6.2 g/dL (6.3-8.2)
[2021-12-03] MEDS ORDERED: NALOXONE 0.4 MG/ML 1 ML VIAL IV PRN (09:53)
[2021-12-03 10:24] LABS: INR 0.9 (<1.2); Prothrombin Time 10.3 sec (9.0-12.0)
[2021-12-03] MEDS ORDERED: ACETAMINOPHEN TAB 325 MG TAB PO PRN (12:30)
[2021-12-03] MEDS: HEPARIN SODIUM,PORCINE/PF 5,000 UNIT/0.5 ML SYRINGE SQ SCH (16:14)
[2021-12-03 17:11] LABS: Appearance,Urine Clear (Clear); Bacteria,Urine Occasional /hpf; Bilirubin,Urine Negative (Negative); Blood,Urine Negative (Negative); Calcium Oxalate Crystals,Urine Rare /hpf; Color,Urine Yellow; Glucose,Urine (UA) Negative (Negative); Ketones,Urine Negative (Negative); Leukocyte Esterase,Urine Trace (Negative); Mucus,Urine Few /hpf; Nitrite,Urine Negative (Negative); Protein,Urine Negative (Negative); RBC,Urine 1 /hpf (0-5); Specific Gravity,Urine 1.012 (1.001-1.035); Squamous Epithelial Cell,Urine 1 /hpf (0-4); Urobilinogen,Urine <2.0 mg/dL (<2.0); WBC,Urine 3 /hpf (0-5)
--- NOTE | 2021-12-03 19:49 | P.CRDCN ---
History of Present Illness Consult date: 12/03/21 Chief complaint: Syncopal episode History of present illness: The patient is an 86-year-old female patient who presented to the emergency department after she had an episode of syncope at home. The patient woke up during the night to go to the bathroom when she suddenly lost her consciousness. She did not have any warning symptoms of flushed feeling in the face or any warm feeling and no nausea or vomiting and no dizziness or lightheadedness and no feeling of heart racing or fluttering. No symptoms of any chest pain or chest discomfort and never had syncope before. She was admitted for further evaluation. She underwent an EKG which revealed sinus rhythm with low voltage. She also underwent a workup including cardiac enzymes came in to be unremarkable. Her pressure has been marginal. She was receiving diuretics with Aldactone at home. The night before she was struggling with some diarrhea. No arrhythmia has been noted throughout the patient hospital stay so far. The patient was seen recently in the hospital with shortness of breath and she underwent pleurocentesis after she was found to have bilateral pleural effusion. An echocardiogram was performed during that admission and revealed normal left ventricular systolic function with no significant valvular abnormalities.Also the patient underwent a heart catheteriz ation earlier this year and that revealed normal coronaries. Past Medical History Past Medical History: Hypertension, Thyroid Disorder, Vascular Disorder Additional Past Medical History / Comment(s): Pt states she is on Ibandronate for prevention of osteoporosis but bone density has been normal, varicose veins/surgery. History of Any Multi-Drug Resistant Organisms: None Reported Past Surgical History: Hernia Repair, Tonsillectomy Additional Past Surgical History / Comment(s): Varicose veins 1978, colonoscopy, bilateral cataract removals/lens implants. Past Anesthesia/Blood Transfusion Reactions: No Reported Reaction Past Psychological History: No Psychological Hx Reported Additional Psychological History / Comment(s): Pt resides with her spouse. She is independent. Smoking Status: Never smoker Past Alcohol Use History: None Reported Past Drug Use History: None Reported - Past Family History Father Family Medical History: No Reported History Additional Family Medical History / Comment(s): Pt states her father was healthy and lived into his late 80s. Mother Family Medical History: No Reported History Additional Family Medical History / Comment(s): Pt states her mother was healthy and lived into her late 80s. Medications and Allergies Home Medications Medication Instructions Recorded Confirmed Type Ibandronate Sodium [Boniva] 150 mg PO Q30D 09/09/21 12/03/21 History Aspirin 81 mg PO DAILY 09/10/21 12/03/21 Rx Metoprolol Tartrate [Lopressor] 25 mg PO BID #60 tab 09/10/21 12/03/21 Rx Cholecalciferol [Vitamin D3 (25 25 mcg PO DAILY 10/18/21 12/03/21 History Mcg = 1000 Iu)] Multivit-Min/FA/Lycopen/Lutein 1 tab PO DAILY 10/18/21 12/03/21 History [Centrum Silver Tablet] Nitroglycerin Sl Tabs [Nitrostat] 0.4 mg SL Q5M PRN 10/18/21 12/03/21 History Tamsulosin [Flomax] 0.4 mg PO DAILY #30 cap 11/02/21 12/03/21 Rx Spironolactone 25 mg PO DAILY 11/29/21 12/03/21 History Acetaminophen Tab [Tylenol] 650 mg PO Q6HR PRN tab 12/02/21 12/03/21 Rx Levothyroxine Sodium [Synthroid] 125 mcg PO DAILY@0630 30 Days #30 12/02/21 12/03/21 Rx tab Allergies Allergy/AdvReac Type Severity Reaction Status Date / Time No Known Allergies Allergy Verified 12/03/21 08:58 Physical Exam Vitals: Vital Signs Temp Pulse Pulse Resp BP Pulse Ox 12/03/21 17:55 98.2 F 92 18 97 12/03/21 16:55 98.7 F 86 18 116/72 98 12/03/21 14:36 96 18 116/75 99 12/03/21 11:02 85 18 108/69 99 12/03/21 07:59 98.1 F 83 20 107/65 98 Intake and Output 12/03/21 12/03/21 12/03/21 06:59 14:59 22:59 Other: Weight 66.905 kg 66.905 kg - Constitutional General appearance: no acute distress - Respiratory Respiratory: bilateral: diminished - Cardiovascular Rhythm: regular Heart sounds: normal: S1, S2 Results 12/03/21 08:16 12/03/21 08:16 Cardiac Enzymes 12/03/21 12/03/21 12/03/21 Range/Units 08:16 08:16 11:48 AST 27 (14-36) U/L Troponin I <0.012 <0.012 (0.000-0.034) ng/mL 12/03/21 Range/Units 15:45 AST (14-36) U/L Troponin I <0.012 (0.000-0.034) ng/mL Coagulation 12/03/21 Range/Units 09:34 PT 10.3 (9.0-12.0) sec APTT 19.0 L (22.0-30.0) sec CBC 12/03/21 Range/Units 08:16 WBC 8.4 (3.8-10.6) k/uL RBC 3.44 L (3.80-5.40) m/uL Hgb 10.5 L (11.4-16.0) gm/dL Hct 32.3 L (34.0-46.0) % Plt Count 285 (150-450) k/uL Comprehensive Metabolic Panel 12/03/21 Range/Units 08:16 Sodium 128 L (137-145) mmol/L Potassium 4.0 (3.5-5.1) mmol/L Chloride 95 L (98-107) mmol/L Carbon Dioxide 25 (22-30) mmol/L BUN 25 H (7-17) mg/dL Creatinine 0.56 (0.52-1.04) mg/dL Glucose 101 H (74-99) mg/dL Calcium 8.1 L (8.4-10.2) mg/dL AST 27 (14-36) U/L ALT 18 (4-34) U/L Alkaline Phosphatase 98 (38-126) U/L Total Protein 6.2 L (6.3-8.2) g/dL Albumin 3.1 L (3.5-5.0) g/dL Current Medications Generic Name Dose Route Start Last Admin Trade Name Freq PRN Reason Stop Dose Admin Acetaminophen 650 mg 12/03/21 12:30 Acetaminophen Tab 325 Mg Tab PO Q6HR PRN Fever and/ or Pain Aspirin 81 mg 12/04/21 09:00 Aspirin 81 Mg PO DAILY [facility] Heparin Sodium (Porcine) 5,000 unit 12/03/21 16:00 12/03/21 16:14 Heparin Sodium,Porcine/Pf 5,000 Unit/0.5 Ml Syringe SQ 5,000 unit Q8HR [facility] Administration Levothyroxine Sodium 125 mcg 12/04/21 06:30 Levothyroxine 125 Mcg Tab PO DAILY@0630 [facility] Metoprolol Tartrate 25 mg 12/03/21 21:00 Metoprolol Tartrate 25 Mg Tab PO BID [facility] Naloxone HCl 0.2 mg 12/03/21 09:53 Naloxone 0.4 Mg/Ml 1 Ml Vial IV Q2M PRN Opioid Reversal Intake and Output 12/03/21 12/03/21 12/03/21 06:59 14:59 22:59 Other: Weight 66.905 kg 66.905 kg Patient Weight 12/04/21 06:59 Weight 66.905 kg 12/03/21 08:16 12/03/21 08:16 Assessment and Plan Assessment: Assessment Syncope, with a differential diagnosis of orthostatic hypotension versus vasovagal. Plan Perform an orthostatic blood pressure Agree about holding the Aldactone Rule out cardiac arrhythmia Follow-up with the patient
[2021-12-03] MEDS: METOPROLOL TARTRATE 25 MG TAB PO SCH (21:10)
--- NOTE | 2021-12-03 22:20 | P.HPIM ---
History of Present Illness H&P Date: 12/03/21 Chief Complaint: Syncope Patient is a 86-year-old female with a known history of hypertension, hypothyroidism and was discharged from the hospital on 12/02/2021 was brought to ER by EMS due to syncopal episode at home. Patient is status post right thoracentesis on 11/30/2021. Patient does have a history of chronic CHF with preserved ejection fraction. Also has history of laparoscopic paraesophageal hernia repair on 10/25/2021. Patient states that she got up to use the restroom and felt very weak and passed out. Denies any falling or hitting her head. Patient states that she had diarrhea throughout the night. EMS was called by her and was told that her blood pressure was low. Otherwise patient denied any complaints of chest pain or shortness of breath. L eg swelling is getting better. Patient is on Flomax and Aldactone at home. Denied any fever or chills. No cough or sputum production. Chest x-ray showed CHF exacerbation is felt present as with central vascular congestion and small bilateral pleural effusions. CT head showed no acute intracranial hemorrhage or midline shift. There is mild diffuse age-related cerebral atrophy and moderate to severe chronic small vessel ischemic changes noted. EKG showed sinus rhythm On admission blood pressure was 107/65, pulse 83 respiration 20 and pulse ox 98% on 2 L oxygen via nasal cannula. Laboratory data showed WBC 8.4 hemoglobin 10.5 and platelets 285 and lymphocyte 0.3 Sodium 128 potassium 4.0 chloride 95 bicarb is 25 BUN 25 creatinine 0.56 and calcium 8.1 albumin 3.1 and troponin x3 negative. Urinalysis showed trace leukocyte esterase and RBCs 1 and WBC is 3. Past Medical History Past Medical History: Hypertension, Thyroid Disorder, Vascular Disorder Additional Past Medical History / Comment(s): Pt states she is on Ibandronate for prevention of osteoporosis but bone density has been normal, varicose veins/surgery. History of Any Multi-Drug Resistant Organisms: None Reported Past Surgical History: Hernia Repair, Tonsillectomy Additional Past Surgical History / Comment(s): Varicose veins 1978, colonoscopy, bilateral cataract removals/lens implants. Past Anesthesia/Blood Transfusion Reactions: No Reported Reaction Past Psychological History: No Psychological Hx Reported Smoking Status: Never smoker - Past Family History Father Family Medical History: No Reported History Additional Family Medical History / Comment(s): Pt states her father was healthy and lived into his late 80s. Mother Family Medical History: No Reported History Additional Family Medical History / Comment(s): Pt states her mother was healthy and lived into her late 80s. Medications and Allergies Home Medications Medication Instructions Recorded Confirmed Type Ibandronate Sodium [Boniva] 150 mg PO Q30D 09/09/21 12/03/21 History Aspirin 81 mg PO DAILY 09/10/21 12/03/21 Rx Metoprolol Tartrate [Lopressor] 25 mg PO BID #60 tab 09/10/21 12/03/21 Rx Cholecalciferol [Vitamin D3 (25 25 mcg PO DAILY 10/18/21 12/03/21 History Mcg = 1000 Iu)] Multivit-Min/FA/Lycopen/Lutein 1 tab PO DAILY 10/18/21 12/03/21 History [Centrum Silver Tablet] Nitroglycerin Sl Tabs [Nitrostat] 0.4 mg SL Q5M PRN 10/18/21 12/03/21 History Tamsulosin [Flomax] 0.4 mg PO DAILY #30 cap 11/02/21 12/03/21 Rx Spironolactone 25 mg PO DAILY 11/29/21 12/03/21 History Acetaminophen Tab [Tylenol] 650 mg PO Q6HR PRN tab 12/02/21 12/03/21 Rx Levothyroxine Sodium [Synthroid] 125 mcg PO DAILY@0630 30 Days #30 12/02/21 12/03/21 Rx tab Allergies Allergy/AdvReac Type Severity Reaction Status Date / Time No Known Allergies Allergy Verified 12/03/21 08:58 Physical Exam Vitals: Vital Signs Temp Pulse Resp BP Pulse Ox 12/03/21 11:02 85 18 108/69 99 12/03/21 07:59 98.1 F 83 20 107/65 98 Intake and Output 12/02/21 12/03/21 12/03/21 22:59 06:59 14:59 Other: Weight 66.905 kg Results CBC & Chem 7: 12/03/21 08:16 12/03/21 08:16 Labs: Abnormal Lab Results - Last 24 Hours (Table) 12/03/21 12/03/21 12/03/21 Range/Units 08:16 08:16 09:34 RBC 3.44 L (3.80-5.40) m/uL Hgb 10.5 L (11.4-16.0) gm/dL Hct 32.3 L (34.0-46.0) % RDW 15.9 H (11.5-15.5) % Lymphocytes # 0.3 L (1.0-4.8) k/uL APTT 19.0 L (22.0-30.0) sec Sodium 128 L (137-145) mmol/L Chloride 95 L (98-107) mmol/L BUN 25 H (7-17) mg/dL Glucose 101 H (74-99) mg/dL Calcium 8.1 L (8.4-10.2) mg/dL Total Protein 6.2 L (6.3-8.2) g/dL Albumin 3.1 L (3.5-5.0) g/dL Thrombosis Risk Factor Assmnt - DVT/VTE Prophylaxis DVT/VTE Prophylaxis: Pharmacologic Prophylaxis ordered Assessment and Plan Assessment: Acute syncopal episode likely due to hypotension Hypovolemic hyponatremia Recent admission with pleural effusion status post right thoracentesis on 11/30/2021 Status post laparoscopic paraesophageal hernia repair for hiatal hernia on 10/25/2021. Hypothyroidism Stage II left sacral decub ulcer POA Normocytic anemia hemoglobin 10.5 GI and DVT prophylaxis. Plan: Patient will be continued on telemetry monitoring. Aldactone and Flomax is on hold. Orthostatic vitals were ordered. Continue with metoprolol and home medications. Monitor CBC and BMP. Cardiology was consulted. Continue to follow closely. Time with Patient: Greater than 30
[2021-12-04] MEDS: HEPARIN SODIUM,PORCINE/PF 5,000 UNIT/0.5 ML SYRINGE SQ SCH ×2 (01:02→08:16)
[2021-12-04] MEDS ORDERED: LEVOTHYROXINE 125 MCG TAB PO SCH (06:30)
[2021-12-04] MEDS: METOPROLOL TARTRATE 25 MG TAB PO SCH (08:17)
[2021-12-04 08:57] VITALS: RESP 18
[2021-12-04] MEDS ORDERED: ASPIRIN 81 MG PO SCH (09:00)
[2021-12-04 11:54] LABS: Basophils # (A) 0.04 X 10*3/uL (0.00-0.10); Basophils % (A) 0.7 %; Eosinophils # (A) 0.13 X 10*3/uL (0.04-0.35); Eosinophils % (A) 2.3 %; HCT 30.5 % (37.2-46.3); HGB 9.6 g/dL (12.0-15.0); Immature Grans, Automated 1.6 %; Lymphocytes # (A) 0.46 X 10*3/uL (0.90-5.00); Lymphocytes % (A) 8.3 %; MCH 29.7 pg (27.0-32.0); MCHC 31.5 g/dL (32.0-37.0); MCV 94.4 fL (80.0-97.0); Mean Platelet Volume 9.6 fL (9.5-12.2); Monocytes # (A) 0.65 X 10*3/uL (0.20-1.00); Monocytes % (A) 11.7 %; NRBC Per 100 WBC 0 /100 WBCS (0.0-0.0); Neutrophils # (A) 4.19 X 10*3/uL (1.80-7.70); Neutrophils % (A) 75.4 %; Platelet Count 499 X 10*3/uL (140-440); RBC 3.23 X 10*6/uL (4.10-5.20); RDW 17.2 % (11.5-14.5); WBC 5.56 X 10*3/uL (4.50-10.00)
[2021-12-04 12:02] LABS: African American GFR (CKD) 100.3 (60.0-200.0); Anion Gap 7.8 mmol/L (10.00-18.00); BUN/Creat Ratio 23.25 Ratio (12.00-20.00); Blood Urea Nitrogen 12.6 mg/dL (9.0-27.0); Calcium 8.4 mg/dL (8.7-10.3); Carbon Dioxide 25.1 mmol/L (20.0-27.5); Non-African American GFR(CKD) 86.6 (60.0-200.0); Potassium 3.8 mmol/L (3.5-5.5)
--- NOTE | 2021-12-04 12:15 | P.PN ---
Subjective Progress Note Date: 12/04/21 Patient is seen today sitting on the side of the bed enjoying her breakfast. She denies chest pain, shortness of breath, dizziness, or syncope. Patient states she is feeling back to her self and has not had any episode of near syncope or syncope. She remains sinus rhythm on the monitor. Aldactone remains discontinued. Blood pressure is well-controlled. Patient may be discharged from cardiac standpoint Objective - Vital Signs Vital signs: Vital Signs Temp 98.1 F 12/04/21 07:35 Pulse 62 12/04/21 07:35 Resp 18 12/04/21 07:35 BP 106/66 12/04/21 07:35 Pulse Ox 95 12/04/21 07:35 FiO2 Intake & Output 12/03/21 12/04/21 12/04/21 18:59 06:59 18:59 Weight 66.905 kg 66.905 kg Other: # Voids 1 - Exam PHYSICAL EXAM: VITAL SIGNS: Reviewed. GENERAL: Well-developed in no acute distress. HEENT: Head is normocephalic. Pupils are equal, round. Sclerae anicteric. Mucous membranes of the mouth are moist. NECK: Supple. No JVD or thyromegaly RESPIRATORY: Respirations even and unlabored. Lungs diminished to auscultation bilaterally. CARDIO: Regular rate and rhythm. S1 and S2 heard. No murmur or gallops. EXTREMITIES: Normal range of motion. No clubbing or cyanosis. Peripheral pulses intact. Negative for bilateral lower extremity edema NEURO: Orientated to person, time, mood is appropriate - Labs CBC & Chem 7: 12/04/21 07:07 12/04/21 07:07 Labs: Abnormal Lab Results - Last 24 Hours (Table) 12/03/21 12/04/21 12/04/21 Range/Units 16:52 07:07 07:07 RBC 3.23 L (4.10-5.20) X 10*6/uL Hgb 9.6 L (12.0-15.0) g/dL Hct 30.5 L (37.2-46.3) % MCHC 31.5 L (32.0-37.0) g/dL RDW 17.2 H (11.5-14.5) % Plt Count 499 H (140-440) X 10*3/uL Immature Gran # 0.09 H (0.00-0.04) X 10*3/uL Lymphocytes # 0.46 L (0.90-5.00) X 10*3/uL Sodium 130 L (135-145) mmol/L Anion Gap 7.80 L (10.00-18.00) mmol/L Creatinine 0.5 L (0.6-1.5) mg/dL BUN/Creatinine Ratio 23.25 H (12.00-20.00) Ratio Calcium 8.4 L (8.7-10.3) mg/dL Ur Leukocyte Esterase Trace H (Negative) Calcium Oxalate Crystal Rare H (None) /hpf Urine Bacteria Occasional H (None) /hpf Urine Mucus Few H (None) /hpf Assessment and Plan Assessment: Syncope, with a differential diagnosis of orthostatic hypotension versus vasovagal. Plan: Continue with current cardiac medications Patient may be discharged from cardiac standpoint
[2021-12-04 15:02] VITALS: BP 100/63; PULSE 80; TEMP 98.4
== END 2021-12-04 15:19 | disposition home or self-care (01) ==
LOC: EC 07:55 → 6NMEDSUR 09:53
PROVIDERS: ADMIT Internal Medicine; ATTEND Internal Medicine
DX: R55 Syncope and collapse (principal); I95.9 Hypotension, unspecified; I11.0 Hypertensive heart disease with heart failure; I50.32 Chronic diastolic (congestive) heart failure; L89.159 Pressure ulcer of sacral region, unspecified stage; E03.9 Hypothyroidism, unspecified; E86.1 Hypovolemia; E87.1 Hypo-osmolality and hyponatremia; I45.10 Unspecified right bundle-branch block; R19.7 Diarrhea, unspecified; L89.152 Pressure ulcer of sacral region, stage 2; D64.9 Anemia, unspecified; K44.9 Diaphragmatic hernia without obstruction or gangrene; I83.90 Asymptomatic varicose veins of unspecified lower extremity; Z79.890 Hormone replacement therapy; Z79.899 Other long term (current) drug therapy; Z79.82 Long term (current) use of aspirin; Z96.1 Presence of intraocular lens; Z98.41 Cataract extraction status, right eye; Z98.42 Cataract extraction status, left eye
CPT/HCPCS: 96372 ×2; 99285; 36415; 93005; 80053; 80048; 83735; 84484; 85025 ×2; 85610; 85730; 81001; 71046; 70450; G0378 ×2; J1644 ×2